=== PATIENT | female | born 2000 | race Caucasian/White ===

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

== ENCOUNTER 2022-01-12 16:19 | Emergency (ER) | payer MEDICAID, SELFPAY ==
[2022-01-12 16:29] VITALS: BP 128/84; PULSE 121; RESP 15; TEMP 37; O2SAT 100
--- NOTE | 2022-01-12 16:35 | XRR_ITS ---
PROCEDURE INFORMATION: Exam: XR Chest Exam date and time: 01/12/2022 4:58 PM Age: 21 years old Clinical indication: Pain; Chest pressure; Additional info: Palpitations TECHNIQUE: Imaging protocol: Radiologic exam of the chest. Views: 1 view. COMPARISON: CR (CHEST, ) 11/28/2021 9:50 PM FINDINGS: Lungs: Unremarkable. No consolidation. Pleural spaces: Unremarkable. No pleural effusion. No pneumothorax. Heart/Mediastinum: Right ventricular peritoneal shunt seen extending over the thorax. Bones/joints: Unremarkable. XR/XR chest 1V portable [id number] IMPRESSION: Lungs are clear.
--- NOTE | 2022-01-12 16:37 | W.ED.ARRPALP ---
HPI - Arrhythmia/Palpitations General: Chief Complaint: Arrhythmia/Palpitations Stated Complaint: PALPITATIONS Time Seen by Provider: 01/12/22 16:27 History of Present Illness: Patient is a 21-year-old female comes to the ED with palpitations. Past medical history of spina bifida and seizures. Patient says she was sitting around in the office and started feeling like her heart was racing. She endorses having some shortness of breath with symptoms as well. She has never had palpitations like this before. She does have a history of anxiety but says this does not feel like any of her past anxiety episodes. Denies any chest pain. Associated symptoms: Deny nausea or vomiting Review of Systems Const: Denies: fever(s), chills or fatigue Eyes: Denies: change in vision or eye discomfort ENMT: Denies: throat pain, odynophagia, nasal discharge or nasal congestion Card: Reports: palpitations; Denies: chest pain, edema, swelling of feet/ankles, dyspnea on exertion or orthopnea Resp: Reports: dyspnea; Denies: productive cough or non-productive cough GI: Denies: abdominal pain, nausea, vomiting, diarrhea, constipation or hematochezia : Denies: flank pain, dysuria or hematuria Musc: Denies: neck pain, back pain or extremity swelling Skin/Breast: Denies: rash or new lesions Neuro: Denies: headache(s), numbness in extremities or weakness in extremities PFS ED PFSH: Medical History Common migraine with intractable migraine Intellectual disability Psychiatric care 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 Social History Smoking and tobacco status: current every day smoker Quit status (tobacco): has quit using tobacco Year quit tobacco: 2020 Second hand smoke exposure: Yes Alcohol intake: never Female Reproductive History: Date of last menstrual period: 10/29/21 Physical Exam Const: COMMON NORMALS: no acute distress, patient oriented x3, healthy appearing and alert GENERAL APPEARANCE: cooperative and comfortable HENMT: COMMON NORMALS: normocephalic HEAD & SCALP: normocephalic MOUTH: Normal oral and palatal mucosa present THROAT: posterior oropharynx normal and uvula midline Neck/C-Spine: COMMON NORMALS: supple GENERAL: Yes normal visual inspection Resp: COMMON NORMALS: normal respiratory effort, No retractions, No use of accessory muscles and clear to auscultation bilaterally AUSCULTATION: clear to auscultation bilaterally Cardio: COMMON NORMALS: regular rhythm, S1 normal heart sound present, S2 normal heart sound present, No gallops present (Cardio), No clicks present (Cardio), No murmurs present (Cardio) and Peripheral pulses 2+ throughout RATE: tachycardic RHYTHM: regular rhythm HEART SOUNDS: S1 normal heart sound present and S2 normal heart sound present PERIPHERAL PULSES: Peripheral pulses 2+ throughout OTHER: Patient is tachycardic with a rate of around 125bpm GI: COMMON NORMALS: Normal to inspection, nondistended, normoactive bowel sounds present, Soft to palpation, non-tender and no masses PALPATION: Yes Soft to palpation : COMMON NORMALS: Yes no CVA tenderness BLADDER/KIDNEY EXAM: Yes no CVA tenderness Back/Pelvis: COMMON NORMALS: no CVA tenderness Extremity: COMMON NORMALS: no pedal edema Neuro: COMMON NORMALS: patient oriented x3 SENSORIUM/ORIENTATION: Yes alert GAIT: Yes Normal gait present Skin: GENERAL SKIN EXAM: dry skin Course ED course: Her symptoms improved after getting some IV fluids and Ativan. Vital Signs: Vital signs: Vital Signs Temperature 98.6 F 01/12/22 16:29 Pulse Rate 109 H 01/12/22 17:46 Respiratory Rate 27 H 01/12/22 17:46 Blood Pressure 128/84 01/12/22 16:29 Pulse Oximetry 100 01/12/22 17:46 Oxygen Delivery Me thod 01/12/22 17:46 MDM - Arrhythmia/Palpitations Medical Decision Making Patient is a 21-year-old female comes to the ED with palpitations. Past medical history of spina bifida and seizures. Patient says she was sitting around in the office and started feeling like her heart was racing. Denies any chest pain. Patient's pulse is around 115-120. Rest of her vitals are stable. Upon exam patient does have a tachycardic heart rate but rest of exam is benign. CBC and CMP were unremarkable. Troponin negative barium EKG showed sinus tachycardia with no ST segment elevation depression seen. Chest x-ray showed no acute findings. Patient was given dose of Ativan and half a liter of IV fluids and her heart rate went down to 100 bpm. She stated that she was feeling better as well. She needed a refill on her Topamax prescription, so I discharged her home with a refill prescription. I also placed an order with case management for patient to be set up with an appointment with Dr. Sánchez because she has been trying to call and set up an appointment has not been able to get through. Return ED precautions given. Patient understood and agreed with plan Lab Data I reviewed the patient's lab results. : 01/12/22 16:54 01/12/22 16:54 Radiology Impressions Chest X-Ray 01/12/22 16:35 IMPRESSION: Lungs are clear. Laboratory Results WBC 6.4 10^3/uL (4.5-13.0) 01/12/22 16:54 RBC 4.46 10^6/uL (4.1-5.3) 01/12/22 16:54 Hgb 12.9 g/dL (11.5-15.3) 01/12/22 16:54 Hct 39.1 % (37.0-47.0) 01/12/22 16:54 MCV 87.7 fl (81-99) 01/12/22 16:54 MCH 28.9 pg (28.0-34.0) 01/12/22 16:54 MCHC 33.0 g/dL (30.0-36.0) 01/12/22 16:54 RDW 11.9 % (12.1-15.1) L 01/12/22 16:54 Plt Count 213 10^3/cmm (130-400) 01/12/22 16:54 MPV 11.4 fL (7.4-10.4) H 01/12/22 16:54 Neut % (Auto) 61.7 % 01/12/22 16:54 Lymph % (Auto) 32.5 % 01/12/22 16:54 Nicholas % (Auto) 4.2 % 01/12/22 16:54 Eos % (Auto) 0.8 % 01/12/22 16:54 Baso % (Auto) 0.5 % 01/12/22 16:54 Neut # (Auto) 3.97 10^3/uL (1.8-8.0) 01/12/22 16:54 Lymph # (Auto) 2.1 10^3/uL (1.5-6.5) 01/12/22 16:54 Nicholas # (Auto) 0.3 10^3/uL (0.2-0.9) 01/12/22 16:54 Eos # (Auto) 0.1 10^3/uL (0.0-0.8) 01/12/22 16:54 Baso # (Auto) 0.0 10^3/uL (0.0-0.1) 01/12/22 16:54 Nucleated RBC % (auto) 0 % 01/12/22 16:54 Nucleated RBCs # 0.0 /100WBC 01/12/22 16:54 Sodium 139 mmol/L (136-145) 01/12/22 16:54 Potassium 4.0 mmol/L (3.5-5.1) 01/12/22 16:54 Chloride 107 mmol/L (98-107) 01/12/22 16:54 Carbon Dioxide 15 mmol/L (22-29) L 01/12/22 16:54 Anion Gap 21.0 (5-19) H 01/12/22 16:54 BUN 10 mg/dL (6-20) 01/12/22 16:54 Creatinine 0.9 mg/dL (0.5-0.9) 01/12/22 16:54 GFR Calculation 80.7 mL/min (90-130) L 01/12/22 16:54 Glucose 111 mg/dL (65-115) 01/12/22 16:54 Calculated Osmolality 288 mOsm/kg (285-295) 01/12/22 16:54 Calcium 9.1 mg/dL (8.5-10.5) 01/12/22 16:54 Total Bilirubin 0.3 mg/dL (0.15-1.2) 01/12/22 16:54 AST 16 U/L (0-32) 01/12/22 16:54 ALT 15 U/L (0-33) 01/12/22 16:54 Alkaline Phosphatase 78 U/L (35-105) 01/12/22 16:54 Troponin T Baseline 8 ng/L (0-10) 01/12/22 16:54 Total Protein 6.8 g/dL (6.6-8.7) 01/12/22 16:54 Albumin 4.3 g/dL (3.5-5.2) 01/12/22 16:54 Globulin 2.5 g/dL (1.3-4.6) 01/12/22 16:54 EKG Data EKG 1: EKG interpretation date: 01/12/22 Interpretation: Sinus tachycardia, 102 bpm, no ST segment elevation or depression seen. Other EKG comments: Chest X-Ray 01/12/22 16:35 IMPRESSION: Lungs are clear. Discharge Plan Discharge Patient Disposition: Home Clinical Impression: Palpitations Condition: Stable Prescriptions: New Topamax 50 mg tablet 50 mg PO BID Qty: 60 0RF No Action medroxyprogesterone 150 mg/mL suspension 150 mg IM .Q 3 Months naproxen 500 mg tablet 500 mg PO BID PRN (Reason: pain) zonisamide 100 mg capsule See Rx Instructions .ROUTE .COMPLEX Qty: 120 0RF Dose Instruction: TAKE FOUR CAPSULES BY MOUTH EVERY DAY; take with LUNCH Rx Instructions: TAKE FOUR CAPSULES BY MOUTH EVERY DAY; take with LUNCH trazodone 100 mg tablet 100 mg PO BEDTIME Qty: 30 2RF duloxetine 60 mg capsule,delayed release(DR/EC) 120 mg PO DAILY Qty: 60 2RF topiramate [Topamax] 50 mg tablet 50 mg PO BID 90 Days Qty: 180 0RF cetirizine 10 mg tablet 10 mg PO DAILY@2100 diphenhydramine HCl [Benadryl Allergy] 25 mg tablet 25 mg PO Q8H PRN (Reason: headache) Qty: 10 0RF Rx Instructions: taken with reglan metoclopramide HCl [Reglan] 10 mg tablet 10 mg PO Q8H PRN (Reason: migraine headache) Qty: 10 0RF Rx Instructions: taken with benadryl meclizine 25 mg tablet 25 mg PO TID PRN (Reason: dizziness) Qty: 20 0RF hydroxyzine HCl 10 mg Tablet 10 mg PO QPM PRN (Reason: Itching) celecoxib 200 mg Capsule 200 mg PO BID PRN (Reason: Pain) sumatriptan succinate 100 mg Tablet See Rx Instructions .ROUTE .COMPLEX Rx Instructions: 100 mg orally ;take 1 tab at onset of headache; if no relief, may repeat 1 tab after at least 2 hrs; max = 2 tabs/24 hrs acetaminophen 500 mg Tablet 1,000 mg PO Q6H PRN (Reason: Pain) Banophen 25 mg Tablet 25 mg PO Q8H PRN (Reason: Headache) ibuprofen 600 mg Tablet 600 mg PO Q6H PRN (Reason: Pain) ondansetron 4 mg Tablet,Disintegrating 4 mg PO Q6H PRN (Reason: Nausea) cyclobenzaprine 5 mg Tablet See Rx Instructions .ROUTE .COMPLEX PRN (Reason: Muscle Spasm) Rx Instructions: 1 and a 1/2 tabs po bid prn Multivitamin Gummies 200 mcg Tablet,Chewable 1 tab PO DAILY Myrbetriq 50 mg Tablet Extended Release 24 Hr 50 mg PO DAILY Artificial Tears (cmc) 1 % Drops 1 drp OPHTHALMIC (EYE) BID Miralax 17 gram powder in packet 17 g PO BID Qty: 30 0RF Discharge Orders: Discharge ED (Routine); Ordered 01/12/22 Ordered By: Harpal Aden Referrals: Fransisca Flores FNP [Primary Care Provider] - Discharge Diet: Regular Discharge Activity: Increase activity as tolerated Patient Instructions: Heart Palpitations (ED) Activity Restrictions/Additional Instructions: Follow-up with medical provider as directed in the next 5 to 7 days for reevaluation. Take medications as prescribed. Return to the ER or your medical provider if condition worsens. Please read and understand discharge instructions. Thank you for choosing [facility] for your healthcare needs today. Please realize this is an emergency room and that we are providing you with a medical screening exam and this may not be complete and all inclusive of all the testing and or work up that you may need to determine your ailment or severity of your illness. It is very important that you follow up as instructed or that you return to the Emergency Department should you have concerns or if your condition changes or worsens in any way. Coding Level of Care Code ED Pulp Mill Supervisor for Jordana Chiu Exam Comprehensive
[2022-01-12] MEDS: LORazepam 0.5 mg Tablet PO (16:53)
[2022-01-12] MEDS: sodium chloride 0.9% 500 ML 999 ML IV (16:54)
[2022-01-12 17:04] LABS: Basophils % 0.5 %; Eosinophils # 0.1 10^3/uL (0.0-0.8); Eosinophils % 0.8 %; Hematocrit 39.1 % (37.0-47.0); Hemoglobin 12.9 g/dL (11.5-15.3); Lymphocytes # 2.1 10^3/uL (1.5-6.5); Lymphocytes % 32.5 %; Mean Corpuscular Hemoglobin 28.9 pg (28.0-34.0); Mean Corpuscular Volume 87.7 fl (81-99); Mean Platelet Volume 11.4 fL (7.4-10.4); Monocytes # 0.3 10^3/uL (0.2-0.9); Monocytes % 4.2 %; Neutrophils # 3.97 10^3/uL (1.8-8.0); Neutrophils % 61.7 %; Nucleated Red Blood Cells % 0 %; Platelet Count 213 10^3/cmm (130-400); Red Blood Count 4.46 10^6/uL (4.1-5.3); Red Cell Distribution Width 11.9 % (12.1-15.1); White Blood Count 6.4 10^3/uL (4.5-13.0)
--- NOTE | 2022-01-12 17:27 | ECG_ITS ---
[facility] Test Date: 2022-01-12 Pat Name: Nithya Vigil Department: Room: Gender: Female Fight Manager: : 2000 Requested By: Harpal Aden Order Number: [id number] Ca MD: Feliciano Pop M.D. Measurements Intervals [place] Rate: 102 P: 119 IA: 145 QRS: -18 QRSD: 102 T: 19 QT: 323 QTc: 422 Interpretive Statements SINUS TACHYCARDIA Right ventricular conduction delay ABNORMAL RHYTHM ECG Compared to ECG 11/29/2021 00:18:13 Sinus rhythm no longer present Myocardial infarct finding no longer present Electronically Signed On 01-13-2022 10:15:14 CDT by Feliciano Pop M.D. [id number]
[2022-01-12 17:32] LABS: Alanine Aminotransferase 15 U/L (0-33); Albumin Level 4.3 g/dL (3.5-5.2); Alkaline Phosphatase 78 U/L (35-105); Blood Urea Nitrogen 10 mg/dL (6-20); Calcium 9.1 mg/dL (8.5-10.5); Carbon Dioxide 15 mmol/L (22-29); Chloride 107 mmol/L (98-107); Globulin 2.5 g/dL (1.3-4.6); Glomerular Filtration Rate 80.7 mL/min (90-130); Glucose 111 mg/dL (65-115); Osmolality Calculated 288 mOsm/kg (285-295); Sodium 139 mmol/L (136-145); Total Bilirubin 0.3 mg/dL (0.15-1.2); Total Protein 6.8 g/dL (6.6-8.7)
[2022-01-12 17:33] LABS: Troponin(5th) Baseline 8 ng/L (0-10)
[2022-01-12 17:35] LABS: Aspartate Amino Transferase 16 U/L (0-32)
[2022-01-12 17:44] VITALS: PULSE 1
[2022-01-12 17:46] VITALS: PULSE 109; RESP 27; O2SAT 100
--- NOTE | 2022-01-15 14:34 | DCPLANNER ---
Addendum entered by Maliha Vargas 03/06/22 11:40: Patient had a follow up appointment scheduled with neurology - patient did attend appointment Addendum entered by Maliha Vargas 01/24/22 14:26: Patient has a follow up appointment scheduled for Friday, January 30, 2022 at 9:[address] Sánchez at neurology. Clinic will call patient with appointment information. Original Note: assistant general manager had message to schedule a follow up appointment for patient with neurology. assistant general manager sent patients information to the front office staff at neurology. Patients information will be printed and reviewed. Clinic will call patient with appointment information.
== END 2022-01-12 18:45 | disposition home or self-care (01) ==
PROVIDERS: Emergency Provider Physician Assistant; PCP Nurse Practitioner Family
DX: R00.2 Palpitations (principal); F17.210 Nicotine dependence, cigarettes, uncomplicated
CPT/HCPCS: 71045; 80053; 84484; 85025; 93005; 96360; 99285; J7040

== ENCOUNTER 2022-01-18 21:37 | Emergency (ER) | payer MEDICAID, SELFPAY ==
[2022-01-18 21:45] VITALS: BP 130/77; PULSE 101; RESP 18; TEMP 37.1; O2SAT 97; BMI 28.5
--- NOTE | 2022-01-18 22:33 | ED_ITS ---
HPI - Seizure General: Chief Complaint: Seizure Stated Complaint: WEAKNESS Time Seen by Provider: 01/18/22 22:30 History of Present Illness: HPI Narrative: 21-year-old female comes in today for complaints of not being able to get refills on her medication for seizures due to insurance noncoverage. Patient reports being without medication for 2 to 3 days. Patient is alert and oriented. Patient reports that she feels tired after her seizures. Patient den ies any fever or nausea or vomiting. Patient appears nontoxic. Patient appears in no pain. No witnesses to the seizure activity was reported by EMS. Patient just complaints of feeling tired which is usual for her after seizure. 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 Social History Smoking and tobacco status: current every day smoker Quit status (tobacco): has quit using tobacco Year quit tobacco: 2020 Second hand smoke exposure: Yes Alcohol intake: never Female Reproductive History: Date of last menstrual period: 10/29/21 Physical Exam Const: COMMON NORMALS: alert HENMT: COMMON NORMALS: atraumatic HEAD & SCALP: atraumatic MOUTH: Normal oral and palatal mucosa present and tongue normal Neck/C-Spine: COMMON NORMALS: full ROM Resp: COMMON NORMALS: normal respiratory effort Cardio: COMMON NORMALS: regular rate and regular rhythm RATE: regular rate RHYTHM: regular rhythm Back/Pelvis: COMMON NORMALS: thoracic and lumbar spine normal to inspection Extremity: COMMON NORMALS: normal to inspection Neuro: SENSORIUM/ORIENTATION: Yes alert Skin: COMMON NORMALS: turgor normal GENERAL SKIN EXAM: turgor normal Course Vital Signs: Vital signs: Vital Signs Temperature 98.7 F 01/18/22 21:45 Pulse Rate 110 H 01/18/22 23:07 Respiratory Rate 18 01/18/22 23:07 Blood Pressure 134/94 01/18/22 23:07 Pulse Oximetry 99 01/18/22 23:07 Oxygen Delivery Me thod 01/18/22 21:45 MDM - Seizure MDM Narrative Medical decision making narrative: Patient was brought in by EMS for concerns of fatigue. Patient believes that she has had 2 seizures which is caused her fatigue. Patient denies any nausea vomiting or fever. Patient has a history of seizures but is unable to get her medications due to noncoverage by insurance. On exam abdomen soft nontender. Skin is warm and dry. No signs of injury is noted. No abrasions or injuries are noted to the tongue or buccal area. Patient does have a history of spina bifida and limited mobility. Differential diagnosis includes but not limited to seizures, malingering, anxiety, out of medication. CBC was unremarkable. Urinalysis did have nitrates and a large amount of white blood cells. Patient be treated off her last culture done at 15 December which had bacteria that was susceptible to sulfa trimethoprim. Reviewed exam with patient with recommendations for follow-up with primary care regarding her inability to fill medications for her seizures. Recommend return to the ER as needed. Patient reported understanding. Lab Data Result diagrams: 01/18/22 23:00 01/18/22 23:00 Labs: Laboratory Results WBC 8.4 10^3/uL (4.5-13.0) 01/18/22 23:00 RBC 4.74 10^6/uL (4.1-5.3) 01/18/22 23:00 Hgb 13.5 g/dL (11.5-15.3) 01/18/22 23:00 Hct 41.9 % (37.0-47.0) 01/18/22 23:00 MCV 88.4 fl (81-99) 01/18/22 23:00 MCH 28.5 pg (28.0-34.0) 01/18/22 23:00 MCHC 32.2 g/dL (30.0-36.0) 01/18/22 23:00 RDW 12.1 % (12.1-15.1) 01/18/22 23:00 Plt Count 296 10^3/cmm (130-400) 01/18/22 23:00 MPV 9.9 fL (7.4-10.4) 01/18/22 23:00 Neut % (Auto) 58.5 % 01/18/22 23:00 Lymph % (Auto) 30.5 % 01/18/22 23:00 [place] % (Auto) 8.8 % 01/18/22 23:00 Eos % (Auto) 1.4 % 01/18/22 23:00 Baso % (Auto) 0.4 % 01/18/22 23:00 Neut # (Auto) 4.95 10^3/uL (1.8-8.0) 01/18/22 23:00 Lymph # (Auto) 2.6 10^3/uL (1.5-6.5) 01/18/22 23:00 [place] # (Auto) 0.7 10^3/uL (0.2-0.9) 01/18/22 23:00 Eos # (Auto) 0.1 10^3/uL (0.0-0.8) 01/18/22 23:00 Baso # (Auto) 0.0 10^3/uL (0.0-0.1) 01/18/22 23:00 Nucleated RBC % (auto) 0 % 01/18/22 23:00 Nucleated RBCs # 0.0 /100WBC 01/18/22 23:00 Urine Color Yellow (Yellow) 01/18/22 23:00 Urine Appearance Cloudy (CLEAR) A 01/18/22 23:00 Urine pH 8 (5-7) H 01/18/22 23:00 Ur Specific [place] 1.010 (1.005-1.030) 01/18/22 23:00 Urine Protein 1+ (Negative) H 01/18/22 23:00 Urine Glucose (UA) Norm (Normal) 01/18/22 23:00 Urine Ketones Negative (Negative) 01/18/22 23:00 Urine Blood 2+ (Negative) H 01/18/22 23:00 Urine Nitrate Positive (Negative) H 01/18/22 23:00 Urine Bilirubin Neg (Negative) 01/18/22 23:00 Prot Sulfosalicylic Acd Positive (Negative) 01/18/22 23:00 Urine Urobilinogen Norm mg/dL (Negative) 01/18/22 23:00 Ur Leukocyte Esterase 2+ (Negative) H 01/18/22 23:00 Urine RBC 10-15 /hpf (0-2) H 01/18/22 23:00 Urine WBC 80-100 /hpf (0-5) H 01/18/22 23:00 Ur Squamous Epith Cells 0-4 /hpf (0-5) H 01/18/22 23:00 Triple Phos Crystals 0-4 /hpf H 01/18/22 23:00 Amorphous Sediment Not Reportable 01/18/22 23:00 Urine Bacteria 3+ /hpf (NONE) H 01/18/22 23:00 Discharge Plan Discharge Patient Disposition: Home Clinical Impression: UTI (urinary tract infection) Qualifiers: Urinary tract infection type: site unspecified Hematuria presence: without hematuria Qualified Code(s): N39.0 - Urinary tract infection, site not specified Condition: Stable Prescriptions: New sulfamethoxazole-trimethoprim 800-160 mg tablet 1 tab PO DAILY 5 Days Qty: 10 0RF No Action medroxyprogesterone 150 mg/mL suspension 150 mg IM .Q 3 Months naproxen 500 mg tablet 500 mg PO BID PRN (Reason: pain) trazodone 100 mg tablet 100 mg PO BEDTIME Qty: 30 2RF duloxetine 60 mg capsule,delayed release(DR/EC) 120 mg PO DAILY Qty: 60 2RF zonisamide 100 mg capsule See Rx Instructions .ROUTE .COMPLEX Qty: 120 0RF Dose Instruction: TAKE FOUR CAPSULES BY MOUTH EVERY DAY; take with LUNCH Rx Instructions: TAKE FOUR CAPSULES BY MOUTH EVERY DAY; take with LUNCH topiramate [Topamax] 50 mg tablet 50 mg PO BID 90 Days Qty: 180 0RF cetirizine 10 mg tablet 10 mg PO DAILY@2100 diphenhydramine HCl [Benadryl Allergy] 25 mg tablet 25 mg PO Q8H PRN (Reason: headache) Qty: 10 0RF Rx Instructions: taken with reglan metoclopramide HCl [Reglan] 10 mg tablet 10 mg PO Q8H PRN (Reason: migraine headache) Qty: 10 0RF Rx Instructions: taken with benadryl meclizine 25 mg tablet 25 mg PO TID PRN (Reason: dizziness) Qty: 20 0RF hydroxyzine HCl 10 mg Tablet 10 mg PO QPM PRN (Reason: Itching) celecoxib 200 mg Capsule 200 mg PO BID PRN (Reason: Pain) sumatriptan succinate 100 mg Tablet See Rx Instructions .ROUTE .COMPLEX Rx Instructions: 100 mg orally ;take 1 tab at onset of headache; if no relief, may repeat 1 tab after at least 2 hrs; max = 2 tabs/24 hrs acetaminophen 500 mg Tablet 1,000 mg PO Q6H PRN (Reason: Pain) Banophen 25 mg Tablet 25 mg PO Q8H PRN (Reason: Headache) ibuprofen 600 mg Tablet 600 mg PO Q6H PRN (Reason: Pain) ondansetron 4 mg Tablet,Disintegrating 4 mg PO Q6H PRN (Reason: Nausea) cyclobenzaprine 5 mg Tablet See Rx Instructions .ROUTE .COMPLEX PRN (Reason: Muscle Spasm) Rx Instructions: 1 and a 1/2 tabs po bid prn Multivitamin Gummies 200 mcg Tablet,Chewable 1 tab PO DAILY Myrbetriq 50 mg Tablet Extended Release 24 Hr 50 mg PO DAILY Artificial Tears (cmc) 1 % Drops 1 drp OPHTHALMIC (EYE) BID Miralax 17 gram powder in packet 17 g PO BID Qty: 30 0RF Topamax 50 mg tablet 50 mg PO BID Qty: 60 0RF Discharge Orders: Discharge ED (Routine); Ordered 01/18/22 Ordered By: James Calix Referrals: Fransisca Flores FNP [Primary Care Provider] - Discharge Diet: Usual diet Discharge Activity: Increase activity as tolerated Patient Instructions: Urinary Tract Infection in Women (ED) Activity Restrictions/Additional Instructions: Follow-up with primary care office on Friday morning. Discussed with primary care provider medications and other options available that insurance will cover. Take antibiotic as directed for urinary tract infection. Return to ER for new concerns. Coding Level of Care Code ED Painting Machine Operator for Jordana Fwana paula Exam Comprehensive
[2022-01-18 23:07] VITALS: BP 134/94; PULSE 110; RESP 18; O2SAT 99
[2022-01-18 23:15] LABS: Basophils % 0.4 %; Eosinophils # 0.1 10^3/uL (0.0-0.8); Eosinophils % 1.4 %; Hematocrit 41.9 % (37.0-47.0); Hemoglobin 13.5 g/dL (11.5-15.3); Lymphocytes # 2.6 10^3/uL (1.5-6.5); Lymphocytes % 30.5 %; Mean Corpuscular HGB Conc 32.2 g/dL (30.0-36.0); Mean Corpuscular Hemoglobin 28.5 pg (28.0-34.0); Mean Corpuscular Volume 88.4 fl (81-99); Mean Platelet Volume 9.9 fL (7.4-10.4); Monocytes # 0.7 10^3/uL (0.2-0.9); Monocytes % 8.8 %; Neutrophils # 4.95 10^3/uL (1.8-8.0); Neutrophils % 58.5 %; Nucleated Red Blood Cells % 0 %; Platelet Count 296 10^3/cmm (130-400); Red Blood Count 4.74 10^6/uL (4.1-5.3); Red Cell Distribution Width 12.1 % (12.1-15.1); White Blood Count 8.4 10^3/uL (4.5-13.0)
[2022-01-18] MEDS: levETIRAcetam 500 mg Tablet PO (23:18)
[2022-01-18] MEDS: LORazepam 0.5 mg Tablet PO (23:18)
[2022-01-18 23:22] LABS: Leukocyte Esterase Urine 2+ (Negative); Nitrate Urine Positive (Negative); Urine Appearance Cloudy (CLEAR); Urine Color Yellow (Yellow); pH Urine 8 (5-7)
[2022-01-18 23:23] LABS: Add Urine Microscopic? YES; Bilirubin Urine Neg (Negative); Blood Urine 2+ (Negative); Glucose Urine UA Norm (Normal); Ketones Urine Negative (Negative); Protein Urine 1+ (Negative); Sulfosalicylic Acid Urine Positive (Negative); Urobilinogen Urine Norm (Negative)
[2022-01-18 23:25] LABS: Add Urine Culture? Yes; Bacteria Urine 3+ /hpf; Squamous Epithelial Cell Urine 0-4 /hpf (0-5); Triple Phosphate Crystal Urine 0-4 /hpf; WBC Urine 80-100 /hpf (0-5)
[2022-01-18 23:35] LABS: HCG, Serum Qual Negative (Negative)
[2022-01-18] MEDS: sulfamethoxazole-trimeth DS 160-800 mg Tablet 1 TAB PO (23:45)
[2022-01-18 23:54] VITALS: BP 120/95; PULSE 108; RESP 16; O2SAT 95
[2022-01-18 23:54] LABS: Procalcitonin 0.02 ng/mL (0-0.5)
[2022-01-19 00:05] LABS: Alanine Aminotransferase 13 U/L (0-33); Albumin Level 4.4 g/dL (3.5-5.2); Alkaline Phosphatase 82 U/L (35-105); Anion Gap 17.8 (5-19); Aspartate Amino Transferase 12 U/L (0-32); Blood Urea Nitrogen 15 mg/dL (6-20); Calcium 9.4 mg/dL (8.5-10.5); Carbon Dioxide 21 mmol/L (22-29); Chloride 106 mmol/L (98-107); Globulin 3.3 g/dL (1.3-4.6); Glomerular Filtration Rate 80.7 mL/min (90-130); Glucose 84 mg/dL (65-115); Osmolality Calculated 292 mOsm/kg (285-295); Potassium 3.8 mmol/L (3.5-5.1); Sodium 141 mmol/L (136-145); Total Bilirubin 0.5 mg/dL (0.15-1.2); Total Protein 7.7 g/dL (6.6-8.7)
== END 2022-01-18 23:50 | disposition home or self-care (01) ==
PROVIDERS: Emergency Provider Nurse Practitioner Family; PCP Nurse Practitioner Family
DX: N39.0 Urinary tract infection, site not specified (principal); F17.210 Nicotine dependence, cigarettes, uncomplicated
CPT/HCPCS: 80053; 81001; 84145; 84703; 85025; 87086; 99283

== ENCOUNTER 2022-01-20 13:15 | Emergency (ER) | payer MEDICAID, SELFPAY ==
[2022-01-20 13:16] VITALS: BP 145/86; PULSE 94; RESP 20; O2SAT 95
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
[2022-01-20 14:02] LABS: Basophils % 0.5 %; Eosinophils % 0.6 %; Hematocrit 40.1 % (37.0-47.0); Hemoglobin 13.2 g/dL (11.5-15.3); Lymphocytes # 1.8 10^3/uL (1.5-6.5); Lymphocytes % 28.3 %; Mean Corpuscular HGB Conc 32.9 g/dL (30.0-36.0); Mean Corpuscular Volume 88.1 fl (81-99); Mean Platelet Volume 9.6 fL (7.4-10.4); Monocytes # 0.5 10^3/uL (0.2-0.9); Monocytes % 7.1 %; Neutrophils # 4.08 10^3/uL (1.8-8.0); Neutrophils % 63.2 %; Nucleated Red Blood Cells % 0 %; Platelet Count 308 10^3/cmm (130-400); Red Blood Count 4.55 10^6/uL (4.1-5.3); Red Cell Distribution Width 12.2 % (12.1-15.1); White Blood Count 6.5 10^3/uL (4.5-13.0)
[2022-01-20 14:09] VITALS: BP 145/86; PULSE 94; RESP 20; O2SAT 95
[2022-01-20 14:17] LABS: HCG Qualitative Urine. Negative (Negative)
[2022-01-20 14:27] LABS: Urine Appearance Hazy (CLEAR); Urine Color Yellow (Yellow)
[2022-01-20 14:28] LABS: Add Urine Microscopic? YES; Bilirubin Urine Neg (Negative); Blood Urine Neg (Negative); Glucose Urine UA Norm (Normal); Ketones Urine Negative (Negative); Leukocyte Esterase Urine 1+ (Negative); Nitrate Urine Positive (Negative); Protein Urine Neg (Negative); Urobilinogen Urine Norm (Negative); pH Urine 7 (5-7)
[2022-01-20 14:29] LABS: Bacteria Urine 1+ /hpf; Squamous Epithelial Cell Urine 0-4 /hpf (0-5); WBC Urine 15-25 /hpf (0-5)
[2022-01-20 14:30] LABS: Add Urine Culture? Yes; Mucus Urine TRACE /hpf
[2022-01-20 14:36] LABS: Alanine Aminotransferase 13 U/L (0-33); Albumin Level 4.3 g/dL (3.5-5.2); Alkaline Phosphatase 82 U/L (35-105); Amphetamines Screen Urine Negative (Negative); Aspartate Amino Transferase 11 U/L (0-32); Barbiturates Screen Urine Negative (Negative); Benzodiazepines Screen Urine Positive (Negative); Blood Urea Nitrogen 11 mg/dL (6-20); Calcium 9.6 mg/dL (8.5-10.5); Carbon Dioxide 19 mmol/L (22-29); Chloride 107 mmol/L (98-107); Cocaine Screen Urine Negative (Negative); Globulin 3.1 g/dL (1.3-4.6); Glomerular Filtration Rate 80.7 mL/min (90-130); Glucose 88 mg/dL (65-115); Opiate Screen Urine Negative (Negative); Osmolality Calculated 287 mOsm/kg (285-295); PCP Screen Urine Negative (Negative); Sodium 139 mmol/L (136-145); THC Screen Urine Negative (Negative); Total Bilirubin 0.4 mg/dL (0.15-1.2); Total Protein 7.4 g/dL (6.6-8.7)
[2022-01-20 14:39] LABS: Acetaminophen < 5.0 ug/mL (10-30); Salicylate < 0.3 mg/dL (3-10)
[2022-01-20 16:28] VITALS: BP 145/86; PULSE 94; RESP 20; O2SAT 95
[2022-01-20] MEDS: acetaminophen 325 mg Tablet 650 MG PO (17:17)
[2022-01-20 18:02] VITALS: BP 145/86; PULSE 94; RESP 20; O2SAT 95
--- NOTE | 2022-01-20 18:04 | PC.NURSE ---
Pt told this RN that her mother was going to coming to get her. Patient was discharged by Vilma Sanchez RN and was taken to waiting room to wait for ride. Pt states she has been her own guardian and lives with her brother, and no longer lives in a prison. This RN called patient's mother to make sure she was on her way and her mother, Cathy, stated that pt did not ask her to come get her. The last she had heard from pt was pt calling her to tell her she was getting admitted. Reviewed discharge instructions with mother and she stated to this RN that she is on her way now to get patient.
== END 2022-01-20 18:04 | disposition home or self-care (01) ==
PROVIDERS: Emergency Provider Student in an Organized Health Care Education/Training Program; PCP Nurse Practitioner Family
DX: F43.23 Adjustment disorder with mixed anxiety and depressed mood (principal); F79 Unspecified intellectual disabilities; F17.200 Nicotine dependence, unspecified, uncomplicated
CPT/HCPCS: 80053; 80306; 80307; 81001; 81025; 85025; 87077; 87086; 87186; 99283

== ENCOUNTER 2022-02-02 17:58 | Emergency (ER) | payer MEDICAID, SELFPAY ==
[2022-02-02 18:47] VITALS: BP 120/82; PULSE 115; RESP 14; TEMP 36.9; O2SAT 98; BMI 38.0
--- NOTE | 2022-02-02 19:42 | XRR_ITS ---
PROCEDURE INFORMATION: Exam: XR Abdomen Exam date and time: 02/02/2022 9:26 PM Age: 21 years old Clinical indication: Constipation TECHNIQUE: Imaging protocol: Radiologic exam of the abdomen. Views: Frontal supine view of the abdomen. 1 View. COMPARISON: CR XR KUB [id number] 12/31/2021 2:50 PM FINDINGS: Tubes, catheters and devices: Stable right-sided percutaneous drainage catheter over the region of the right colon. Stable right-sided 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 shunt catheter. Gastrointestinal tract: Continued mild retained feces when compared with KUB dated 12/31/[address] abdomen pelvis dated 07/18/2021. Bones/joints: Dextroscoliosis. XR/XR KUB portable [id number] IMPRESSION: 1. Stable right-sided percutaneous drainage catheter over the region of the right colon. 2. Stable right-sided 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 shunt catheter. 3. Continued mild retained feces when compared with KUB dated 12/31/[address] abdomen pelvis dated 07/18/2021.
[2022-02-02 21:33] LABS: Rapid Strep A Test Negative (Negative)
--- NOTE | 2022-02-03 15:49 | ED_ITS ---
HPI - Nausea/Vomiting/Diarrhea General: Chief complaint: Nausea/Vomiting/Diarrhea Stated complaint: NAUSEA Time Seen by Provider: 02/02/22 19:30 Source: patient History of Present Illness: 21yo female with multiple medical problems. she has been nauseated and vomited a couple of times today at home. synptoms are resolved. she is concerned that one of her medications is making her this way. she also ednorses a sore throat. no fever. no abdominal pain. she also endorses constipation in that she had trouble trying to go number 2 . no other symptoms. MD elicited complaint: nausea and vomiting Pertinent past history: other Onset (ago): hour(s) Description of vomiting: food contents and watery Associated nausea: Yes Associated abdominal pain: No Relieving factors: vomiting Context: other Associated symtoms: Reports nausea; Denies altered mental status, chest pain, cough, decreased urine output, dysuria, fevers/chills, palpitations, short of breath or weakness Review of Systems Const: Denies: fever(s) ENMT: Reports: throat pain and odynophagia; Denies: uvular edema Card: Denies: chest pain or palpitations Resp: Denies: dyspnea, productive cough or non-productive cough GI: Reports: nausea and vomiting; Denies: abdominal pain : Denies: dysuria PFSH ED PFSH: Medical History Common migraine with intractable migraine Intellectual disability Psychiatric care Surgical History CLAIMS ASSOCIATE (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) shunt status Social History Smoking and tobacco status: current every day smoker Quit status (tobacco): has quit using tobacco Year quit tobacco: 2020 Second hand smoke exposure: Yes Alcohol intake: never Female Reproductive History: Date of last menstrual period: 10/29/21 Physical Exam Const: COMMON NORMALS: no acute distress EXAM LIMITATIONS: no altered mental status GENERAL APPEARANCE: cooperative; not ill appearing and not frail appearing HENMT: COMMON NORMALS: normocephalic, atraumatic and Normal external nose present HEAD & SCALP: normocephalic and atraumatic FACE & SINUS: normal facial exam and face symmetric NOSE: Normal external nose present THROAT: no uvular edema Eye: COMMON NORMALS: Equal, round and reactive pupils present and EOMs intact bilaterally PUPIL: Yes Equal, round and reactive pupils present Neck/C-Spine: GENERAL: Yes trachea midline Chest: CHEST: Yes Symmetrical chest wall rise Resp: COMMON NORMALS: normal respiratory effort, No retractions, No use of accessory muscles and clear to auscultation bilaterally AUSCULTATION: clear to auscultation bilaterally Cardio: COMMON NORMALS: regular rate and regular rhythm RATE: regular rate RHYTHM: regular rhythm GI: COMMON NORMALS: Normal to inspection, nondistended, normoactive bowel sounds present Extremity: COMMON NORMALS: no pedal edema Neuro: BEN COMA SCALE: document GCS findings Ben coma scale eye opening: Spontaneous Ben coma scale verbal response: Orientated Acworth coma scale motor response: Obey commands Acworth coma scale total score: 15 SENSORY EXAM: Yes extremities (intact) Psych: COMMON NORMALS: speech normal SPEECH: Yes normal speech Skin: COMMON NORMALS: no rashes or lesions noted GENERAL SKIN EXAM: no rashes or lesions noted Course Vital Signs: Vital signs: Vital Signs Temperature 98.4 F 02/02/22 18:47 Pulse Rate 115 H 02/02/22 18:47 Respiratory Rate 14 02/02/22 18:47 Blood Pressure 120/82 02/02/22 18:47 Pulse Oximetry 98 02/02/22 18:47 Oxygen Delivery Me thod 02/02/22 18:47 MDM - Nausea/Vomiting/Diarrhea Medical Decision Making KUB is not really remarkable. rapid strep is negative. she is encouraged to take her topiramate at a different time than her other medications if she believes that this is the culprit. to return for any new symptoms such as fever, abd pain, blood in stool, etc. Lab Data Radiology Impressions KUB X-Ray 02/02/22 19:42 IMPRESSION: 1. Stable right-sided percutaneous drainage catheter over the region of the right colon. 2. Stable right-sided 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 shunt catheter. 3. Continued mild retained feces when compared with KUB dated 12/31/[address] abdomen pelvis dated 07/18/2021. Laboratory Results Group A Strep Rapid Negative (Negative) 02/02/22 21:10 Discharge Plan Discharge Patient Disposition: Home Clinical Impression: Vomiting Condition: Stable Prescriptions: Continued ondansetron 4 mg Tablet,Disintegrating 4 mg PO Q6H PRN (Reason: Nausea) Qty: 10 0RF No Action medroxyprogesterone 150 mg/mL suspension 150 mg IM .Q 3 Months naproxen 500 mg tablet 500 mg PO BID PRN (Reason: pain) trazodone 100 mg tablet 100 mg PO BEDTIME Qty: 30 2RF duloxetine 60 mg capsule,delayed release(DR/EC) 120 mg PO DAILY Qty: 60 2RF zonisamide 100 mg capsule See Rx Instructions .ROUTE .COMPLEX Qty: 120 0RF Dose Instruction: TAKE FOUR CAPSULES BY MOUTH EVERY DAY; take with LUNCH Rx Instructions: TAKE FOUR CAPSULES BY MOUTH EVERY DAY; take with LUNCH topiramate [Topamax] 50 mg tablet 50 mg PO BID 90 Days Qty: 180 0RF cetirizine 10 mg tablet 10 mg PO DAILY@2100 diphenhydramine HCl [Benadryl Allergy] 25 mg tablet 25 mg PO Q8H PRN (Reason: headache) Qty: 10 0RF Rx Instructions: taken with reglan metoclopramide HCl [Reglan] 10 mg tablet 10 mg PO Q8H PRN (Reason: migraine headache) Qty: 10 0RF Rx Instructions: taken with benadryl meclizine 25 mg tablet 25 mg PO TID PRN (Reason: dizziness) Qty: 20 0RF hydroxyzine HCl 10 mg Tablet 10 mg PO QPM PRN (Reason: Itching) celecoxib 200 mg Capsule 200 mg PO BID PRN (Reason: Pain) sumatriptan succinate 100 mg Tablet See Rx Instructions .ROUTE .COMPLEX Rx Instructions: 100 mg orally ;take 1 tab at onset of headache; if no relief, may repeat 1 tab after at least 2 hrs; max = 2 tabs/24 hrs acetaminophen 500 mg Tablet 1,000 mg PO Q6H PRN (Reason: Pain) ibuprofen 600 mg Tablet 600 mg PO Q6H PRN (Reason: Pain) cyclobenzaprine 5 mg Tablet See Rx Instructions .ROUTE .COMPLEX PRN (Reason: Muscle Spasm) Rx Instructions: 1 and a 1/2 tabs po bid prn Multivitamin Gummies 200 mcg Tablet,Chewable 1 tab PO DAILY Myrbetriq 50 mg Tablet Extended Release 24 Hr 50 mg PO DAILY Artificial Tears (cmc) 1 % Drops 1 drp OPHTHALMIC (EYE) BID polyethylene glycol 3350 [Miralax] 17 gram powder in packet 17 g PO BID Qty: 30 0RF diclofenac sodium 1 % gel 2 g TOPICAL . DIRECTED PRN (Reason: Pain) Discharge Orders: Discharge ED (Routine); Ordered 02/02/22 Ordered By: Marciano Ramirez Referrals: Fransisca Flores, DEBONE SUPERVISOR [Primary Care Provider] - Patient Instructions: Vomiting - Adult Activity Restrictions/Additional Instructions: Take nausea medication scheduled for the next 24 hours every 6 hours while awake. Follow a liquid diet for 12 hours, then increase the diet as tolerated. You can try taking your topiramate an hour before or after your other medications, if you believe this medication is making you nauseated. Return for any problems. Coding Level of Care Code ED Header Setup Operator for Jordana Chiu
== END 2022-02-02 21:58 | disposition home or self-care (01) ==
PROVIDERS: Emergency Provider Emergency Medicine; PCP Nurse Practitioner Family
DX: R11.11 Vomiting without nausea (principal); F17.210 Nicotine dependence, cigarettes, uncomplicated
CPT/HCPCS: 74018; 87081; 87880; 99284

== ENCOUNTER → 2022-02-05 09:58 | Outpatient (BNVA) | payer MEDICAID, SELFPAY | PROVIDERS: PCP Nurse Practitioner Family; Referring Provider Emergency Medicine; Visit Provider Specialist | DX: F44.5 Conversion disorder with seizures or convulsions (principal); Z98.2 Presence of cerebrospinal fluid drainage device; F79 Unspecified intellectual disabilities; G43.711 Chronic migraine without aura, intractable, with status migrainosus; Z79.1 Long term (current) use of non-steroidal anti-inflammatories (NSAID) | CPT/HCPCS: 99215 ==

== ENCOUNTER 2022-02-12 06:45 | Outpatient (CLI) | payer MEDICAID, SELFPAY ==
--- NOTE | 2022-02-12 06:58 | US_ITS ---
WS: [id number] ULTRASOUND RENAL TECHNIQUE: Ultrasound examination of both kidneys. CLINICAL INFORMATION: RECURENT UTI COMPARISON: Ultrasound renal July 12, 2021 FINDINGS: RIGHT: Right kidney is normal in size and appearance. Echogenicity: Normal. Cortical thickness: 1.2 cm; Normal. Hydronephrosis: None. Perinephric fluid: None. Right kidney measures: 9.4 cm x 4.4 cm x 3.9 cm. LEFT: Left kidney is normal in size and appearance. Echogenicity: Normal. Cortical thickness: 1.3 cm; Normal. Hydronephrosis: None. Perinephric fluid: None. Left kidney measures: 10.1 cm x 4.6 cm x 5.1 cm. Normal visualized aorta. Bladder decompressed. Mild diffuse bladder wall thickening. US/US renal BI* [id number] IMPRESSION: 1. No hydronephrosis in either kidney. 2. Mild diffuse bladder wall thickening. Bladder is decompressed. 3. No other remarkable findings.
== END 2022-02-12 06:46 | disposition home or self-care (01) ==
LOC: RAD 06:45
PROVIDERS: PCP Nurse Practitioner Family; Visit Provider Urology
DX: N39.0 Urinary tract infection, site not specified (principal)
CPT/HCPCS: 76770

== ENCOUNTER 2022-02-27 16:38 | Emergency (ER) | payer MEDICARE, MEDICAID, SELFPAY ==
[2022-02-27 16:39] VITALS: BP 124/84; PULSE 112; RESP 18; TEMP 36.8; O2SAT 97; BMI 24.0
--- NOTE | 2022-02-27 17:10 | ED_ITS ---
HPI - Headache General: Chief Complaint: Headache Stated Complaint: HEADACHE Time Seen by Provider: 02/27/22 16:45 Source: patient Mode of arrival: EMS History of Present Illness: 22-year-old female with a history of a IMPORTER OR EXPORTER shunt that was placed when she was a child. She has a spina bifida comes in today complaining of a headache she had taken some Tylenol with no relief. Patient is generally well by her wheelchair-bound because of her spina bifida. She has frequent headaches. She is concerned her's shunt is not working. MD elicited complaint: headache Onset (ago): hour(s) Onset description: suddenly Location: right and frontal Quality & Timing: throbbing Exacerbating factors: none Relieving factors: nothing Associated symptoms: Deny chest pain, confusion, cough, diaphoresis, eye pain, eye redness, fever(s), lightheadedness, loss of vision, malaise, nausea, neck stiffness, numbness, paresthesias, photophobia, pre-syncope, rash, seizures, short of breath, sound sensitivity, syncope, vomiting or weakness Treatments prior to arrival: none Review of Systems Const: Denies: fever(s), chills, fatigue, malaise or diaphoresis ENMT: Denies: throat pain, ear or mastoid pain, nasal discharge or nasal congestion Card: Denies: chest pain, palpitations, irregular heart rhythm, edema, lightheadedness, syncope or pre-syncope Resp: Denies: dyspnea, productive cough or non-productive cough GI: Denies: nausea or vomiting : Denies: flank pain, difficulty voiding, dysuria, urinary frequency or urinary urgency Skin/Breast: Denies: rash Neuro: Reports: headache(s); Denies: confusion PFSH ED PFSH: Medical History Common migraine with intractable migraine Intellectual disability Psychiatric care Surgical History IMPORTER OR EXPORTER (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) shunt status Social History Smoking and tobacco status: current every day smoker Quit status (tobacco): has quit using tobacco Year quit tobacco: 2020 Second hand smoke exposure: Yes Alcohol intake: never Female Reproductive History: Date of last menstrual period: 10/29/21 Physical Exam Const: GENERAL APPEARANCE: cooperative and comfortable ORIENTATION/CONSCIOUSNESS: Yes awake, Yes oriented to person, Yes oriented to place and Yes oriented to time HENMT: COMMON NORMALS: normocephalic, atraumatic, hearing grossly normal bilaterally, external ears normal, EAC's normal, TM's normal bilaterally, Normal nasal mucous membranes and turbinates present, moist oral mucous membranes and oropharynx normal HEAD & SCALP: normocephalic and atraumatic NOSE: Normal nasal mucous membranes and turbinates present EXTERNAL EAR: Yes external ears normal EXTERNAL AUDITORY CANAL: EAC's normal TYMPANIC MEMBRANE: TM's normal bilaterally Eye: COMMON NORMALS: Equal, round and reactive pupils present, EOMs intact bilaterally, conjunctivae normal and no scleral icterus CONJUNCTIVA: Yes conjunctivae normal PUPIL: Yes Equal, round and reactive pupils present DIRECT OPHTHALMOSCOPY: No photophobia Resp: COMMON NORMALS: normal respiratory effort, No retractions, No use of accessory muscles and clear to auscultation bilaterally AUSCULTATION: clear to auscultation bilaterally Cardio: COMMON NORMALS: regular rate, regular rhythm and No murmurs present (Cardio) RATE: regular rate RHYTHM: regular rhythm GI: COMMON NORMALS: Soft to palpation and No hepatosplenomegaly present AUSCULTATION: Yes normoactive bowel sounds PALPATION: Yes Soft to palpation, No Tenderness to palpation present (GI), No Guarding due to palpation present (GI) and Yes No hepatosplenomegaly present Extremity: COMMON NORMALS: normal to inspection, capillary refill normal, no clubbing, cyanosis or edema, no calf tenderness and no pedal edema Neuro: SENSORIUM/ORIENTATION: Yes oriented to person, Yes oriented to place and Yes oriented to time Skin: COMMON NORMALS: no rashes or lesions noted GENERAL SKIN EXAM: no rashes or lesions noted Course Vital Signs: Vital signs: Vital Signs Temperature 98.3 F 02/27/22 16:39 Pulse Rate 112 H 02/27/22 16:39 Respiratory Rate 18 02/27/22 16:39 Blood Pressure 124/84 02/27/22 16:39 Pulse Oximetry 97 02/27/22 16:39 Oxygen Delivery Me thod 02/27/22 16:39 MDM - Headache Medical Decision Making Shunt series normal. Phenergan and ketorolac for headache. Discharge patient home follow-up with primary care. Medical Records I reviewed the patient's medical records. Lab Data I reviewed the patient's lab results. Radiology Impressions Imaging Shunt Series 02/27/22 17:10 IMPRESSION: IMPORTER OR EXPORTER shunt catheter as described. No acute findings otherwise. Discharge Plan Discharge Patient Disposition: Home Clinical Impression: Headache, IMPORTER OR EXPORTER (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) shunt status, Spina bifida Condition: Stable Prescriptions: No Action medroxyprogesterone 150 mg/mL suspension 150 mg IM .Q 3 Months sumatriptan succinate 100 mg tablet 100 mg PO ONCE Qty: 10 3RF trazodone 100 mg tablet 100 mg PO BEDTIME Qty: 30 2RF duloxetine 60 mg capsule,delayed release(DR/EC) 120 mg PO DAILY Qty: 60 2RF cetirizine 10 mg tablet 10 mg PO DAILY@2100 diphenhydramine HCl [Benadryl Allergy] 25 mg tablet 25 mg PO Q8H PRN (Reason: headache) Qty: 10 0RF Rx Instructions: taken with reglan metoclopramide HCl [Reglan] 10 mg tablet 10 mg PO Q8H PRN (Reason: migraine headache) Qty: 10 0RF Rx Instructions: taken with benadryl ondansetron 4 mg Tablet,Disintegrating 4 mg PO Q6H PRN (Reason: Nausea) Qty: 10 0RF acetaminophen 500 mg Tablet 1,000 mg PO Q6H PRN (Reason: Pain) Multivitamin Gummies 200 mcg Tablet,Chewable 1 tab PO DAILY Myrbetriq 50 mg Tablet Extended Release 24 Hr 50 mg PO DAILY polyethylene glycol 3350 [Miralax] 17 gram powder in packet 17 g PO BID Qty: 30 0RF Discharge Orders: Discharge ED (Routine); Ordered 02/27/22 Ordered By: Antelmo Meredith Referrals: Fransisca Flores, RESEARCH HOME ECONOMIST [Primary Care Provider] - Discharge Diet: Usual diet Discharge Activity: Resume usual activity Patient Instructions: Opioid Safety, Pain Management Activity Restrictions/Additional Instructions: You were seen for headache in the emergency room. Your shunt series was normal. Follow-up with your primary care doctor or your neurologist as needed continue take previously prescribed medications for your headaches. Coding Level of Care Code ED Paratransit Driver for Jordana Fwd Exam Comprehensive
--- NOTE | 2022-02-27 17:10 | XRR_ITS ---
PROCEDURE INFORMATION: Exam: XR Shunt Series With 4 XR Procedures Exam date and time: 02/27/2022 5:22 PM Age: 22 years old Clinical indication: Device placement; Non-vascular device; Cerebral fluid drainiage device or shunt; Prior surgery; Surgery date: 6+ months; Surgery type: Headaches check shunt placement; Additional info: Headache TECHNIQUE: Imaging protocol: XR Shunt Series was performed with skull less than 4 views, neck 1 view, chest 1 view, and abdomen 1 view. COMPARISON: CR (PELVIS, ) 08/20/2021 11:04 PM FINDINGS: Tubes, catheters and devices: Five views submitted. There is a right-sided CONSTRUCTION MANAGER shunt catheter. No obvious kinking or tube disruption along the radiopaque portion. The distal tip projects in the left upper quadrant region. It was seen in the right mid abdomen on the prior exam. Partially visualized lateral percutaneous drainage catheter is also noted in the right mid abdomen. Sinuses: Visualized paranasal sinuses are well aerated. Airway: Upper airway and trachea are unremarkable in the neck and chest. Lungs: No obvious lung consolidation. However lung bases are suboptimally assessed. Gastrointestinal tract: Low-moderate stool burden with no obvious bowel obstruction. Bones/joints: Rotatory rightward thoracolumbar spine scoliosis is noted. Soft tissues: Unremarkable. XR/XR shunt series IMPRESSION: CONSTRUCTION MANAGER shunt catheter as described. No acute findings otherwise.
[2022-02-27] MEDS: promethazine 25 mg/mL SDV 1 mL IM (18:03)
[2022-02-27] MEDS: ketorolac 30 mg/mL INJ IVP (18:03)
== END 2022-02-27 19:17 | disposition home or self-care (01) ==
PROVIDERS: Emergency Provider Family Medicine; PCP Nurse Practitioner Family
DX: R51.9 Headache, unspecified (principal); Z98.2 Presence of cerebrospinal fluid drainage device; Q05.9 Spina bifida, unspecified; F17.210 Nicotine dependence, cigarettes, uncomplicated
CPT/HCPCS: 70250; 71046; 72040; 74019; 96372; 96374; 99284; J1885; J2550

== ENCOUNTER 2022-03-14 10:20 | Emergency (ER) | payer MEDICARE, MEDICAID, SELFPAY ==
[2022-03-14 10:23] VITALS: BP 155/104; PULSE 129; RESP 20; TEMP 36.9; O2SAT 96
--- NOTE | 2022-03-14 10:37 | XR_ITS ---
WS: [id number] Shunt series, 03/14/2022 Clinical Data: headache, vomiting, and high blood pressure Comparison: Shunt series, 02/27/2022 Findings: The shunt tube is properly placed through a yani hole into the skull and appears to be in t he region of the ventricles. The tube then descends through the right side of the neck, right side of the chest and into the peritoneum. There is no change compared to the prior shunt series at 02/28/20 22 XR/XR shunt series Impression: Satisfactory placement of 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 shunt tube.
--- NOTE | 2022-03-14 10:47 | W.ED.GENADLT ---
Documented by User: [email or web address] Olivera 03/14/22 15:52 HPI - General Adult General: Chief complaint: General Medical Stated complaint: n/v/ high BP Time Seen by Provider: 03/14/22 10:38 History of Present Illness: Patient is in by EMS for complaints of vomiting, headache, constipation. She reports that starting last night she developed vomiting and headache. She reports that she has been struggling with constipation has not had a bowel movement in over a month. She does offer that she has a PERSONAL PROTECTION SPECIALIST shunt and she has concerns about that with her vomiting and headache. She denies any fever, chills. She reports that she vomited 4 times last night and twice this morning on the way to the ER Associated symptoms: Reports headache(s), nausea and vomiting; Deny chest pain, dyspnea or palpitations Review of Systems Const: Denies: fever(s), chills or body aches ENMT: Reports: throat pain Card: Denies: chest pain, palpitations or irregular heart rhythm Resp: Denies: dyspnea, productive cough or non-productive cough GI: Reports: nausea, vomiting and constipation : Denies: flank pain, difficulty voiding, dysuria, urinary frequency or urinary urgency Neuro: Reports: headache(s); Denies: numbness in extremities or sensory changes PFSH ED PFSH: Medical History Common migraine with intractable migraine Intellectual disability Psychiatric care Surgical History 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 Initially she is complaining of headache, vomiting, high blood pressure and concern for her shunt. As I start doing the work-up to evaluate her shunt the patient starts telling me that she has not had a bowel movement in over a month. Initially she told me that was normal for her but then later she told me she has bowel movements every day if she flushes her tube. She states she has been flushing her tube she has been taking laxative she is still not having a bowel movement. I went in to obtain a urine sample from the patient and she advised that she caths through her bellybutton with a nonlatex cath. Patient does have yellow, foul-smelling liquid pooling in her bellybutton Const: COMMON NORMALS: no acute distress, patient oriented x3, alert and well nourished HENMT: COMMON NORMALS: EAC's normal, TM's normal bilaterally, Normal nasal mucous membranes and turbinates present, moist oral mucous membranes and oropharynx normal NOSE: Normal nasal mucous membranes and turbinates present EXTERNAL AUDITORY CANAL: EAC's normal TYMPANIC MEMBRANE: TM's normal bilaterally THROAT: posterior oropharynx normal and uvula midline Neck/C-Spine: COMMON NORMALS: no JVD Resp: COMMON NORMALS: normal respiratory effort, No use of accessory muscles and clear to auscultation bilaterally AUSCULTATION: clear to auscultation bilaterally Cardio: COMMON NORMALS: no JVD, regular rate, regular rhythm, S1 normal heart sound present and S2 normal heart sound present RATE: regular rate RHYTHM: regular rhythm HEART SOUNDS: S1 normal heart sound present and S2 normal heart sound present GI: COMMON NORMALS: Soft to palpation AUSCULTATION: Yes Hypoactive bowel sounds present PALPATION: Yes Soft to palpation OTHER: There is a right-sided percutaneous drainage catheter noted which patient states she uses to flush her colon daily. Neuro: COMMON NORMALS: patient oriented x3 SENSORIUM/ORIENTATION: Yes alert Course Vital Signs: Vital signs: Vital Signs Temperature 98.5 F 03/14/22 16:18 Pulse Rate 98 03/14/22 16:18 Respiratory Rate 20 H 03/14/22 16:18 Blood Pressure 140/83 03/14/22 16:18 Pulse Oximetry 96 03/14/22 16:18 [facility] - General Adult Medical Decision Making Consider complication AV shunt, bowel obstruction, UTI, viral illness, influenza Work-up for AV shunt is negative Work-up abdomen?physical exam findings do not indicate an acute abdomen. Abdomen is soft. There is mild tenderness to palpation left lower quadrant abdomen. White blood cell count is elevated to 13.6. CT abdomen and pelvis-rectosigmoid constipation no other acute findings. UA dip shows nitrites and leukoesterase. We will treat patient to cover urinary tract infection complicated. Patient has responded well to Bactrim in the past however her last culture grew out Proteus I suspect that that is a colonized bacteria. Given that she responded to Bactrim at the beginning of January I will go ahead and treat again with Bactrim at this time until results of culture are obtained. Advised her to follow-up with her primary care provider at the beginning of next week. Return to the ER as needed for new or worsening symptoms including, but not limited to inability to keep oral fluids or medications down, worsening pain, fever, chills, vomiting. Lab Data 03/14/22 11:00 03/14/22 11:00 Radiology Impressions Imaging Shunt Series 03/14/22 10:37 Impression: Satisfactory placement of 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 shunt tube. Head CT 03/14/22 12:05 IMPRESSION: 1. No evidence of intracranial hemorrhage or mass effect. 2. RIGHT frontal shunt catheter with tip near the foramen of Horn unchanged. No hydrocephalus. Ventricular system is decompressed. 3. 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 Chiari malformation with crowding at foramen magnum unchanged. 5. No other interval changes. 6. No acute intracranial findings. Abdomen/Pelvis CT 03/14/22 13:15 IMPRESSION: 1. Stable percutaneous drainage catheter within the cecum. This is unchanged in appearance since prior examination. 2. PERSONAL PROTECTION SPECIALIST shunt catheter with tip in the midabdomen. No evidence of fluid collection or obstructing cyst at the catheter tip. 3. Diffuse fatty infiltration liver. 4. Diffuse bladder wall thickening compatible with chronic cystitis unchanged. 5. Rectosigmoid constipation. 6. No other acute findings. Laboratory Results WBC 13.6 10^3/uL (4.5-13.0) H 03/14/22 11:00 RBC 5.06 10^6/uL (4.1-5.3) 03/14/22 11:00 Hgb 14.5 g/dL (11.5-15.3) 03/14/22 11:00 Hct 44.8 % (37.0-47.0) 03/14/22 11:00 MCV 88.5 fl (81-99) 03/14/22 11:00 MCH 28.7 pg (28.0-34.0) 03/14/22 11:00 MCHC 32.4 g/dL (30.0-36.0) 03/14/22 11:00 RDW 11.9 % (12.1-15.1) L 03/14/22 11:00 Plt Count 306 10^3/cmm (130-400) 03/14/22 11:00 MPV 9.7 fL (7.4-10.4) 03/14/22 11:00 Neut % (Auto) 87.0 % 03/14/22 11:00 Lymph % (Auto) 7.1 % 03/14/22 11:00 Josephine % (Auto) 5.3 % 03/14/22 11:00 Eos % (Auto) 0.0 % 03/14/22 11:00 Baso % (Auto) 0.2 % 03/14/22 11:00 Neut # (Auto) 11.84 10^3/uL (1.8-8.0) H 03/14/22 11:00 Lymph # (Auto) 1.0 10^3/uL (1.5-6.5) L 03/14/22 11:00 Josephine # (Auto) 0.7 10^3/uL (0.2-0.9) 03/14/22 11:00 Eos # (Auto) 0.0 10^3/uL (0.0-0.8) 03/14/22 11:00 Baso # (Auto) 0.0 10^3/uL (0.0-0.1) 03/14/22 11:00 Nucleated RBC % (auto) 0 % 03/14/22 11:00 Nucleated RBCs # 0.0 /100WBC 03/14/22 11:00 Sodium 142 mmol/L (136-145) 03/14/22 11:00 Potassium 3.8 mmol/L (3.5-5.1) 03/14/22 11:00 Chloride 105 mmol/L (98-107) 03/14/22 11:00 Carbon Dioxide 24 mmol/L (22-29) 03/14/22 11:00 Anion Gap 16.8 (5-19) 03/14/22 11:00 BUN 19 mg/dL (6-20) 03/14/22 11:00 Creatinine 0.8 mg/dL (0.5-0.9) 03/14/22 11:00 GFR Calculation 91.4 mL/min (90-130) 03/14/22 11:00 Glucose 129 mg/dL (65-115) H 03/14/22 11:00 Calculated Osmolality 298 mOsm/kg (285-295) H 03/14/22 11:00 Lactate 1.5 mmol/L (0.5-2.2) 03/14/22 14:48 Calcium 9.7 mg/dL (8.5-10.5) 03/14/22 11:00 Total Bilirubin 0.5 mg/dL (0.15-1.2) 03/14/22 11:00 AST 18 U/L (0-32) 03/14/22 11:00 ALT 25 U/L (0-33) 03/14/22 11:00 Alkaline Phosphatase 77 U/L (35-105) 03/14/22 11:00 Total Protein 7.7 g/dL (6.6-8.7) 03/14/22 11:00 Albumin 4.7 g/dL (3.5-5.2) 03/14/22 11:00 Globulin 3.0 g/dL (1.3-4.6) 03/14/22 11:00 Urine Color Yellow (Yellow) 03/14/22 14:20 Urine Appearance Hazy (CLEAR) A 03/14/22 14:20 Urine pH 8 (5-7) H 03/14/22 14:20 Ur Specific [place] 1.015 (1.005-1.030) 03/14/22 14:20 Urine Protein 1+ (Negative) H 03/14/22 14:20 Urine Glucose (UA) Norm (Normal) 03/14/22 14:20 Urine Ketones Negative (Negative) 03/14/22 14:20 Urine Blood Neg (Negative) 03/14/22 14:20 Urine Nitrate Positive (Negative) H 03/14/22 14:20 Urine Bilirubin Neg (Negative) 03/14/22 14:20 Urine Urobilinogen Neg mg/dL (Negative) 03/14/22 14:20 Ur Leukocyte Esterase 1+ (Negative) H 03/14/22 14:20 Urine RBC 0-4 /hpf (0-2) H 03/14/22 14:20 Urine WBC 10-15 /hpf (0-5) H 03/14/22 14:20 Ur Squamous Epith Cells 0-4 /hpf (0-5) H 03/14/22 14:20 Triple Phos Crystals 15-25 /hpf H 03/14/22 14:20 Amorphous Sediment 1+ /hpf 03/14/22 14:20 Urine Bacteria 1+ /hpf (NONE) H 03/14/22 14:20 Influenza Type A Ag negative (Negative) 03/14/22 12:10 Influenza Type B Ag negative (Negative) 03/14/22 12:10 SARS-CoV-2 Ag (Rapid) negative (Negative) 03/14/22 15:30 Discharge Plan Discharge Patient Disposition: Home Clinical Impression: Urinary tract infection Condition: Stable Prescriptions: New Bactrim DS 800-160 mg tablet 1 tab PO BID 7 Days Qty: 14 0RF No Action medroxyprogesterone 150 mg/mL suspension 150 mg IM .Q 3 Months duloxetine 60 mg capsule,delayed release(DR/EC) 120 mg PO DAILY Qty: 60 0RF trazodone 100 mg tablet 100 mg PO BEDTIME Qty: 30 0RF diphenhydramine HCl [Benadryl Allergy] 25 mg tablet 25 mg PO Q8H PRN (Reason: headache) Qty: 10 0RF Rx Instructions: taken with reglan metoclopramide HCl [Reglan] 10 mg tablet 10 mg PO Q8H PRN (Reason: migraine headache) Qty: 10 0RF Rx Instructions: taken with benadryl ondansetron 4 mg Tablet,Disintegrating 4 mg PO Q6H PRN (Reason: Nausea) Qty: 10 0RF oxybutynin chloride 5 mg tablet 5 mg PO TID hydroxyzine HCl 10 mg tablet 5 mg PO BEDTIME topiramate 50 mg tablet 50 mg PO BID nitrofurantoin monohyd/m-cryst 100 mg capsule 1 cap PO BEDTIME chlorhexidine gluconate 0.12 % mouthwash See Rx Instructions .ROUTE .COMPLEX Rx Instructions: DIRECTED FOR 14 DAYS sumatriptan succinate 100 mg tablet 100 mg PO DAILY acetaminophen 500 mg Tablet 1,000 mg PO Q6H PRN (Reason: Pain) Multivitamin Gummies 200 mcg Tablet,Chewable 1 tab PO DAILY polyethylene glycol 3350 [Miralax] 17 gram powder in packet 17 g PO BID Qty: 30 0RF Discharge Orders: Discharge ED (Routine); Ordered 03/14/22 Ordered By: Kalie Lovell Referrals: Fransisca Flores FNP [Primary Care Provider] - Discharge Diet: Usual diet Discharge Activity: Resume usual activity Patient Instructions: Urinary Tract Infection - Women Activity Restrictions/Additional Instructions: Take antibiotics as directed. Follow-up with primary care provider the beginning of next week for reevaluation and further determination of plan of care. Return to the ER as needed for new or worsening symptoms including, but not limited to, worsening abdominal pain, fever, chills, inability to keep your oral liquids or medications down. 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 PROTECTION SPECIALIST (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) shunt status Social History Smoking and tobacco status: current every day smoker Quit status (tobacco): has quit using tobacco Year quit tobacco: 2020 Second hand smoke exposure: Yes Alcohol intake: never Course Vital Signs: Vital signs: Vital Signs Temperature 98.5 F 03/14/22 16:18 Pulse Rate 98 03/14/22 16:18 Respiratory Rate 20 H 03/14/22 16:18 Blood Pressure 140/83 03/14/22 16:18 Pulse Oximetry 96 03/14/22 16:18 MDM - General Adult Medical Decision Making Consider complication AV shunt, bowel obstruction, UTI, viral illness, influenza Work-up for AV shunt is negative Work-up abdomen?physical exam findings do not indicate an acute abdomen. Abdomen is soft. There is mild tenderness to palpation left lower quadrant abdomen. White blood cell count is elevated to 13.6. CT abdomen and pelvis-rectosigmoid constipation no other acute findings. UA dip shows nitrites and leukoesterase. We will treat patient to cover urinary tract infection complicated. Patient has responded well to Bactrim in the past however her last culture grew out Proteus I suspect that that is a colonized bacteria. Given that she responded to Bactrim at the beginning of January I will go ahead and treat again with Bactrim at this time until results of culture are obtained. Advised her to follow-up with her primary care provider at the beginning of next week. Return to the ER as needed for new or worsening symptoms including, but not limited to inability to keep oral fluids or medications down, worsening pain, fever, chills, vomiting. Chart reviewed and patient discussed with midlevel. Agree with assessment and plan. Lab Data 03/14/22 11:00 03/14/22 11:00 Radiology Impressions Imaging Shunt Series 03/14/22 10:37 Impression: Satisfactory placement of 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 shunt tube. Head CT 03/14/22 12:05 IMPRESSION: 1. No evidence of intracranial hemorrhage or mass effect. 2. RIGHT frontal shunt catheter with tip near the foramen of Horn unchanged. No hydrocephalus. Ventricular system is decompressed. 3. 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 Chiari malformation with crowding at foramen magnum unchanged. 5. No other interval changes. 6. No acute intracranial findings. Abdomen/Pelvis CT 03/14/22 13:15 IMPRESSION: 1. Stable percutaneous drainage catheter within the cecum. This is unchanged in appearance since prior examination. 2. PERSONAL PROTECTION SPECIALIST shunt catheter with tip in the midabdomen. No evidence of fluid collection or obstructing cyst at the catheter tip. 3. Diffuse fatty infiltration liver. 4. Diffuse bladder wall thickening compatible with chronic cystitis unchanged. 5. Rectosigmoid constipation. 6. No other acute findings. Laboratory Results WBC 13.6 10^3/uL (4.5-13.0) H 03/14/22 11:00 RBC 5.06 10^6/uL (4.1-5.3) 03/14/22 11:00 Hgb 14.5 g/dL (11.5-15.3) 03/14/22 11:00 Hct 44.8 % (37.0-47.0) 03/14/22 11:00 MCV 88.5 fl (81-99) 03/14/22 11:00 MCH 28.7 pg (28.0-34.0) 03/14/22 11:00 MCHC 32.4 g/dL (30.0-36.0) 03/14/22 11:00 RDW 11.9 % (12.1-15.1) L 03/14/22 11:00 Plt Count 306 10^3/cmm (130-400) 03/14/22 11:00 MPV 9.7 fL (7.4-10.4) 03/14/22 11:00 Neut % (Auto) 87.0 % 03/14/22 11:00 Lymph % (Auto) 7.1 % 03/14/22 11:00 Josephine % (Auto) 5.3 % 03/14/22 11:00 Eos % (Auto) 0.0 % 03/14/22 11:00 Baso % (Auto) 0.2 % 03/14/22 11:00 Neut # (Auto) 11.84 10^3/uL (1.8-8.0) H 03/14/22 11:00 Lymph # (Auto) 1.0 10^3/uL (1.5-6.5) L 03/14/22 11:00 Josephine # (Auto) 0.7 10^3/uL (0.2-0.9) 03/14/22 11:00 Eos # (Auto) 0.0 10^3/uL (0.0-0.8) 03/14/22 11:00 Baso # (Auto) 0.0 10^3/uL (0.0-0.1) 03/14/22 11:00 Nucleated RBC % (auto) 0 % 03/14/22 11:00 Nucleated RBCs # 0.0 /100WBC 03/14/22 11:00 Sodium 142 mmol/L (136-145) 03/14/22 11:00 Potassium 3.8 mmol/L (3.5-5.1) 03/14/22 11:00 Chloride 105 mmol/L (98-107) 03/14/22 11:00 Carbon Dioxide 24 mmol/L (22-29) 03/14/22 11:00 Anion Gap 16.8 (5-19) 03/14/22 11:00 BUN 19 mg/dL (6-20) 03/14/22 11:00 Creatinine 0.8 mg/dL (0.5-0.9) 03/14/22 11:00 GFR Calculation 91.4 mL/min (90-130) 03/14/22 11:00 Glucose 129 mg/dL (65-115) H 03/14/22 11:00 Calculated Osmolality 298 mOsm/kg (285-295) H 03/14/22 11:00 Lactate 1.5 mmol/L (0.5-2.2) 03/14/22 14:48 Calcium 9.7 mg/dL (8.5-10.5) 03/14/22 11:00 Total Bilirubin 0.5 mg/dL (0.15-1.2) 03/14/22 11:00 AST 18 U/L (0-32) 03/14/22 11:00 ALT 25 U/L (0-33) 03/14/22 11:00 Alkaline Phosphatase 77 U/L (35-105) 03/14/22 11:00 Total Protein 7.7 g/dL (6.6-8.7) 03/14/22 11:00 Albumin 4.7 g/dL (3.5-5.2) 03/14/22 11:00 Globulin 3.0 g/dL (1.3-4.6) 03/14/22 11:00 Urine Color Yellow (Yellow) 03/14/22 14:20 Urine Appearance Hazy (CLEAR) A 03/14/22 14:20 Urine pH 8 (5-7) H 03/14/22 14:20 Ur Specific [place] 1.015 (1.005-1.030) 03/14/22 14:20 Urine Protein 1+ (Negative) H 03/14/22 14:20 Urine Glucose (UA) Norm (Normal) 03/14/22 14:20 Urine Ketones Negative (Negative) 03/14/22 14:20 Urine Blood Neg (Negative) 03/14/22 14:20 Urine Nitrate Positive (Negative) H 03/14/22 14:20 Urine Bilirubin Neg (Negative) 03/14/22 14:20 Urine Urobilinogen Neg mg/dL (Negative) 03/14/22 14:20 Ur Leukocyte Esterase 1+ (Negative) H 03/14/22 14:20 Urine RBC 0-4 /hpf (0-2) H 03/14/22 14:20 Urine WBC 10-15 /hpf (0-5) H 03/14/22 14:20 Ur Squamous Epith Cells 0-4 /hpf (0-5) H 03/14/22 14:20 Triple Phos Crystals 15-25 /hpf H 03/14/22 14:20 Amorphous Sediment 1+ /hpf 03/14/22 14:20 Urine Bacteria 1+ /hpf (NONE) H 03/14/22 14:20 Influenza Type A Ag negative (Negative) 03/14/22 12:10 Influenza Type B Ag negative (Negative) 03/14/22 12:10 SARS-CoV-2 Ag (Rapid) negative (Negative) 03/14/22 15:30 Discharge Plan Discharge Patient Disposition: Home Clinical Impression: Urinary tract infection Condition: Stable Prescriptions: New Bactrim DS 800-160 mg tablet 1 tab PO BID 7 Days Qty: 14 0RF No Action medroxyprogesterone 150 mg/mL suspension 150 mg IM .Q 3 Months duloxetine 60 mg capsule,delayed release(DR/EC) 120 mg PO DAILY Qty: 60 0RF trazodone 100 mg tablet 100 mg PO BEDTIME Qty: 30 0RF diphenhydramine HCl [Benadryl Allergy] 25 mg tablet 25 mg PO Q8H PRN (Reason: headache) Qty: 10 0RF Rx Instructions: taken with reglan metoclopramide HCl [Reglan] 10 mg tablet 10 mg PO Q8H PRN (Reason: migraine headache) Qty: 10 0RF Rx Instructions: taken with benadryl ondansetron 4 mg Tablet,Disintegrating 4 mg PO Q6H PRN (Reason: Nausea) Qty: 10 0RF oxybutynin chloride 5 mg tablet 5 mg PO TID hydroxyzine HCl 10 mg tablet 5 mg PO BEDTIME topiramate 50 mg tablet 50 mg PO BID nitrofurantoin monohyd/m-cryst 100 mg capsule 1 cap PO BEDTIME chlorhexidine gluconate 0.12 % mouthwash See Rx Instructions .ROUTE .COMPLEX Rx Instructions: DIRECTED FOR 14 DAYS sumatriptan succinate 100 mg tablet 100 mg PO DAILY acetaminophen 500 mg Tablet 1,000 mg PO Q6H PRN (Reason: Pain) Multivitamin Gummies 200 mcg Tablet,Chewable 1 tab PO DAILY polyethylene glycol 3350 [Miralax] 17 gram powder in packet 17 g PO BID Qty: 30 0RF Discharge Orders: Discharge ED (Routine); Ordered 03/14/22 Ordered By: Kalie Lovell Referrals: Fransisca Flores FNP [Primary Care Provider] - Discharge Diet: Usual diet Discharge Activity: Resume usual activity Patient Instructions: Urinary Tract Infection - Women Activity Restrictions/Additional Instructions: Take antibiotics as directed. Follow-up with primary care provider the beginning of next week for reevaluation and further determination of plan of care. Return to the ER as needed for new or worsening symptoms including, but not limited to, worsening abdominal pain, fever, chills, inability to keep your oral liquids or medications down. Coding Level of Care Code ED Contact Center Director for Jordana Fwd Exam Detailed
[2022-03-14] MEDS: ondansetron 2 mg/ML SDV 2 mL 4 MG IVP (10:59)
[2022-03-14 11:06] LABS: Basophils % 0.2 %; Hematocrit 44.8 % (37.0-47.0); Hemoglobin 14.5 g/dL (11.5-15.3); Lymphocytes % 7.1 %; Mean Corpuscular HGB Conc 32.4 g/dL (30.0-36.0); Mean Corpuscular Hemoglobin 28.7 pg (28.0-34.0); Mean Corpuscular Volume 88.5 fl (81-99); Mean Platelet Volume 9.7 fL (7.4-10.4); Monocytes # 0.7 10^3/uL (0.2-0.9); Monocytes % 5.3 %; Neutrophils # 11.84 10^3/uL (1.8-8.0); Nucleated Red Blood Cells % 0 %; Platelet Count 306 10^3/cmm (130-400); Red Blood Count 5.06 10^6/uL (4.1-5.3); Red Cell Distribution Width 11.9 % (12.1-15.1); White Blood Count 13.6 10^3/uL (4.5-13.0)
[2022-03-14 11:24] LABS: Alanine Aminotransferase 25 U/L (0-33); Albumin Level 4.7 g/dL (3.5-5.2); Alkaline Phosphatase 77 U/L (35-105); Anion Gap 16.8 (5-19); Aspartate Amino Transferase 18 U/L (0-32); Blood Urea Nitrogen 19 mg/dL (6-20); Calcium 9.7 mg/dL (8.5-10.5); Carbon Dioxide 24 mmol/L (22-29); Chloride 105 mmol/L (98-107); Glomerular Filtration Rate 91.4 mL/min (90-130); Glucose 129 mg/dL (65-115); Osmolality Calculated 298 mOsm/kg (285-295); Potassium 3.8 mmol/L (3.5-5.1); Sodium 142 mmol/L (136-145); Total Bilirubin 0.5 mg/dL (0.15-1.2); Total Protein 7.7 g/dL (6.6-8.7)
[2022-03-14 11:53] VITALS: BP 145/99; PULSE 105; RESP 20; TEMP 36.9; O2SAT 96
--- NOTE | 2022-03-14 12:05 | CT_ITS ---
WS: [id number] CT HEAD TECHNIQUE: Noncontrast CT of the head obtained from the skullbase to the vertex. CLINICAL INFORMATION: headache, vomiting, FINANCIAL AID ADMINISTRATOR shunt COMPARISON: CT August 20, 2021 DLP: 892.[address] scans at [facility] use at least one of these dose optimization techniques: automated e xposure control; mA and/or kV adjustment per patient size (includes targeted exams where dose is matc hed to clinical indication); or iterative reconstruction. FINDINGS: No evidence of intracranial hemorrhage or mass effect. RIGHT frontal shunt catheter with tip in the f oramen of Horn. Slit-like ventricles are decompressed. No hydrocephalus. This is unchanged from Aug. Dysgenesis of the corpus callosum. Chiari malformation with crowding at the foramen magnum is unchang ed. No hydrocephalus. Colpocephaly Basilar cisterns are patent. Paranasal sinuses and mastoid air cells are well aerated. Normal posteri or nasopharynx. CT/CT head wo con* [id number] IMPRESSION: 1. No evidence of intracranial hemorrhage or mass effect. 2. RIGHT frontal shunt catheter with tip near the foramen of Horn unchanged. No hydrocephalus. Ventricular system is decompressed. 3. 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 Chiari malformation with crowding at foramen magnum unchanged. 5. No other interval changes. 6. No acute intracranial findings.
[2022-03-14 12:30] LABS: Influenza A by IFA negative (Negative); Influenza B by IFA negative (Negative)
--- NOTE | 2022-03-14 13:15 | CT_ITS ---
WS: [id number] CT ABDOMEN PELVIS TECHNIQUE: Contrast-enhanced CT of the abdomen and pelvis with coronal and sagittal reformatted image s. CLINICAL INFORMATION: constipation, vomiting COMPARISON: CT July 18, 2021 DLP: 963.[address] scans at [facility] use at least one of these dose optimization techniques: automated e xposure control; mA and/or kV adjustment per patient size (includes targeted exams where dose is matc hed to clinical indication); or iterative reconstruction. FINDINGS: Again seen is the RIGHT lower quadrant percutaneous drainage catheter with tip in the cecum. This is similar in appearance to the prior examination. This is unchanged in position since July 18, 2021. IN SCHOOL SUSPENSION AIDE shunt catheter with tip in the midabdomen. No evidence of obstructing cyst or fluid collection at the catheter tip. Lumbar scoliosis. Scoliosis convex RIGHT. Congenital spina bifida defects with fluid collection or se ivory unchanged since July 18, 2021 Diffuse fatty infiltration liver. Fluid distended gallbladder. Normal spleen. Normal GE junction. Dorothea g bases are well aerated. Normal pancreatic parenchymal enhancement. Normal portal vein and splenic v ein. Adrenal glands are normal. No hydronephrosis in either kidney. RIGHT upper pole renal cyst measu ring 17 mm. Diffuse bladder wall thickening compatible with chronic cystitis. This is similar to previous. Normal caliber abdominal aorta.Moderate rectosigmoid constipation. CT/CT abdomen pelvis w con* [id number] IMPRESSION: 1. Stable percutaneous drainage catheter within the cecum. This is unchanged i n appearance since prior examination. 2. IN SCHOOL SUSPENSION AIDE shunt catheter with tip in the midabdomen. No evidence of fluid collecti on or obstructing cyst at the catheter tip. 3. Diffuse fatty infiltration liver. 4. Diffuse bladder wall thickening compatible with chronic cystitis unchanged. 5. Rectosigmoid constipation. 6. No other acute findings.
[2022-03-14] MEDS: iohexol 350 mg/mL 500 mL Btl (per mL) IV (14:07)
[2022-03-14] MEDS: sodium chloride 0.9% 1,000 ML 999 ML IV (14:26)
[2022-03-14 14:52] LABS: Protein Urine 1+ (Negative); Specific Gravity, Urine 1.015 (1.005-1.030); Urine Appearance Hazy (CLEAR); Urine Color Yellow (Yellow); pH Urine 8 (5-7)
[2022-03-14 14:53] LABS: Add Urine Microscopic? YES; Bilirubin Urine Neg (Negative); Blood Urine Neg (Negative); Glucose Urine UA Norm (Normal); Ketones Urine Negative (Negative); Leukocyte Esterase Urine 1+ (Negative); Nitrate Urine Positive (Negative); Urobilinogen Urine Neg (Negative)
[2022-03-14 14:55] LABS: Add Urine Culture? Yes; Amorphous Sediment Urine 1+ /hpf; Bacteria Urine 1+ /hpf; RBC Urine 0-4 /hpf (0-2); Squamous Epithelial Cell Urine 0-4 /hpf (0-5); Triple Phosphate Crystal Urine 15-25 /hpf
[2022-03-14 15:09] LABS: Lactate (Lactic Acid level) 1.5 mmol/L (0.5-2.2)
[2022-03-14] MEDS: sulfamethoxazole-trimeth DS 160-800 mg Tablet 1 TAB PO (16:10)
[2022-03-14 16:18] VITALS: BP 140/83; PULSE 98; RESP 20; TEMP 36.9; O2SAT 96
[2022-03-14 16:21] LABS: SARS Covid-2 Antigen negative (Negative)
== END 2022-03-14 16:19 | disposition home or self-care (01) ==
PROVIDERS: Emergency Provider Nurse Practitioner Family; PCP Nurse Practitioner Family
DX: N39.0 Urinary tract infection, site not specified (principal); Z20.822 Contact with and (suspected) exposure to COVID-19; F17.210 Nicotine dependence, cigarettes, uncomplicated
CPT/HCPCS: 70250; 70450; 71046; 72040; 74019; 74177; 80053; 81001; 83605; 85025; 87077; 87086; 87186; 87426; 87804; 96361; 96374; 99285; J2405; J7030; Q9967

== ENCOUNTER 2022-03-16 04:15 | Emergency (ER) | payer MEDICARE, MEDICAID, SELFPAY ==
[2022-03-16 04:17] VITALS: BP 142/116; PULSE 100; RESP 17; TEMP 36.6; O2SAT 100; BMI 34.3
--- NOTE | 2022-03-16 04:19 | ED_ITS ---
HPI - Nausea/Vomiting/Diarrhea General: Chief complaint: Nausea/Vomiting/Diarrhea Stated complaint: flu like symptoms Time Seen by Provider: 03/16/22 04:16 Source: patient and EMS Mode of arrival: EMS Limitations: no limitations History of Present Illness: 22-year-old female who is well-known to the ER seen here 2 days ago was benign with UTI she has been taking antibiotics states she is now having some nausea and vomiting along with flulike symptoms states had body aches as well. Patient is afebrile she denies any abdominal pain denies any worsening proving factors she is in no distress here. Associated nausea: Yes Associated symtoms: Reports nausea; Denies chest pain, dysuria or headache(s) Review of Systems Const: Reports: chills and body aches Eyes: Denies: blurry vision or eye discomfort ENMT: Denies: throat pain or dental pain Card: Denies: chest pain Resp: Denies: dyspnea GI: Reports: nausea and vomiting : Denies: dysuria Musc: Denies: neck pain or back pain Skin/Breast: Denies: rash Neuro: Denies: headache(s) Psych: Denies: depression Michael/Lymph: Denies: easy bruising All/Imm: Denies: urticaria PFSH ED PFSH: Medical History Common migraine with intractable migraine Intellectual disability Psychiatric care Surgical History 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 status Social History Smoking and tobacco status: current every day smoker Quit status (tobacco): has quit using tobacco Year quit tobacco: 2020 Second hand smoke exposure: Yes Alcohol intake: never Female Reproductive History: Date of last menstrual period: 10/29/21 Physical Exam Const: COMMON NORMALS: no acute distress, patient oriented x3 and healthy appearing HENMT: COMMON NORMALS: normocephalic and atraumatic HEAD & SCALP: normocephalic and atraumatic Eye: COMMON NORMALS: Equal, round and reactive pupils present and EOMs intact bilaterally PUPIL: Yes Equal, round and reactive pupils present Neck/C-Spine: COMMON NORMALS: full ROM and supple Chest: COMMONS NORMALS: normal inspection of the chest and normal palpation of entire chest wall Resp: COMMON NORMALS: normal respiratory effort, No retractions, No use of accessory muscles and clear to auscultation bilaterally AUSCULTATION: clear to auscultation bilaterally Cardio: COMMON NORMALS: regular rate, regular rhythm and No murmurs present (Cardio) RATE: regular rate RHYTHM: regular rhythm GI: COMMON NORMALS: Normal to inspection, nondistended, normoactive bowel sounds present, Soft to palpation, non-tender and no masses PALPATION: Yes Soft to palpation Extremity: COMMON NORMALS: normal to inspection and full ROM Neuro: COMMON NORMALS: patient oriented x3, moves all extremities and no focal motor deficits Psych: COMMON NORMALS: mental status grossly normal, Normal thought process present and cooperative THOUGHT PROCESS: Normal thought process present Skin: COMMON NORMALS: no rashes or lesions noted and no wounds GENERAL SKIN EXAM: no rashes or lesions noted Course Vital Signs: Vital signs: Vital Signs Temperature 97.8 F 03/16/22 04:17 Pulse Rate 100 03/16/22 04:17 Respiratory Rate 17 03/16/22 04:17 Blood Pressure 142/116 03/16/22 04:17 Pulse Oximetry 100 03/16/22 04:17 Oxygen Delivery Me thod 03/16/22 04:17 MDM - Nausea/Vomiting/Diarrhea Medical Decision Making Patient presents here with vomiting she is well-appearing here her vital signs here are normal her blood work is normal she is stable for discharge we will prescribe her Zofran for home. Lab Data 03/16/22 05:18 03/16/22 05:18 Laboratory Results WBC 10.6 10^3/uL (4.5-13.0) 03/16/22 05:18 RBC 4.58 10^6/uL (4.1-5.3) 03/16/22 05:18 Hgb 13.2 g/dL (11.5-15.3) 03/16/22 05:18 Hct 41.5 % (37.0-47.0) 03/16/22 05:18 MCV 90.6 fl (81-99) 03/16/22 05:18 MCH 28.8 pg (28.0-34.0) 03/16/22 05:18 MCHC 31.8 g/dL (30.0-36.0) 03/16/22 05:18 RDW 11.8 % (12.1-15.1) L 03/16/22 05:18 Plt Count 278 10^3/cmm (130-400) 03/16/22 05:18 MPV 9.9 fL (7.4-10.4) 03/16/22 05:18 Neut % (Auto) 68.6 % 03/16/22 05:18 Lymph % (Auto) 21.7 % 03/16/22 05:18 [place] % (Auto) 7.4 % 03/16/22 05:18 Eos % (Auto) 1.7 % 03/16/22 05:18 Baso % (Auto) 0.3 % 03/16/22 05:18 Neut # (Auto) 7.26 10^3/uL (1.8-8.0) 03/16/22 05:18 Lymph # (Auto) 2.3 10^3/uL (1.5-6.5) 03/16/22 05:18 [place] # (Auto) 0.8 10^3/uL (0.2-0.9) 03/16/22 05:18 Eos # (Auto) 0.2 10^3/uL (0.0-0.8) 03/16/22 05:18 Baso # (Auto) 0.0 10^3/uL (0.0-0.1) 03/16/22 05:18 Nucleated RBC % (auto) 0 % 03/16/22 05:18 Nucleated RBCs # 0.0 /100WBC 03/16/22 05:18 Sodium 139 mmol/L (136-145) 03/16/22 05:18 Potassium 3.9 mmol/L (3.5-5.1) 03/16/22 05:18 Chloride 106 mmol/L (98-107) 03/16/22 05:18 Carbon Dioxide 22 mmol/L (22-29) 03/16/22 05:18 Anion Gap 14.9 (5-19) 03/16/22 05:18 Glucose 102 mg/dL (65-115) 03/16/22 05:18 Total Bilirubin 0.2 mg/dL (0.15-1.2) 03/16/22 05:18 AST 13 U/L (0-32) 03/16/22 05:18 ALT 16 U/L (0-33) 03/16/22 05:18 Alkaline Phosphatase 65 U/L (35-105) 03/16/22 05:18 Total Protein 7.0 g/dL (6.6-8.7) 03/16/22 05:18 Albumin 4.1 g/dL (3.5-5.2) 03/16/22 05:18 Globulin 2.9 g/dL (1.3-4.6) 03/16/22 05:18 Lipase 24 U/L (13-60) 03/16/22 05:18 Influenza Type A Ag negative (Negative) 03/16/22 04:48 Influenza Type B Ag negative (Negative) 03/16/22 04:48 Discharge Plan Discharge Patient Disposition: Home Clinical Impression: Vomiting Condition: Stable Prescriptions: New ondansetron 4 mg tablet,disintegrating 4 mg PO Q6H PRN (Reason: nausea and vomiting) Qty: 14 0RF No Action medroxyprogesterone 150 mg/mL suspension 150 mg IM .Q 3 Months duloxetine 60 mg capsule,delayed release(DR/EC) 120 mg PO DAILY Qty: 60 0RF trazodone 100 mg tablet 100 mg PO BEDTIME Qty: 30 0RF diphenhydramine HCl [Benadryl Allergy] 25 mg tablet 25 mg PO Q8H PRN (Reason: headache) Qty: 10 0RF Rx Instructions: taken with reglan metoclopramide HCl [Reglan] 10 mg tablet 10 mg PO Q8H PRN (Reason: migraine headache) Qty: 10 0RF Rx Instructions: taken with benadryl ondansetron 4 mg Tablet,Disintegrating 4 mg PO Q6H PRN (Reason: Nausea) Qty: 10 0RF oxybutynin chloride 5 mg tablet 5 mg PO TID hydroxyzine HCl 10 mg tablet 5 mg PO BEDTIME topiramate 50 mg tablet 50 mg PO BID nitrofurantoin monohyd/m-cryst 100 mg capsule 1 cap PO BEDTIME chlorhexidine gluconate 0.12 % mouthwash See Rx Instructions .ROUTE .COMPLEX Rx Instructions: DIRECTED FOR 14 DAYS sumatriptan succinate 100 mg tablet 100 mg PO DAILY Bactrim DS 800-160 mg tablet 1 tab PO BID 7 Days Qty: 14 0RF acetaminophen 500 mg Tablet 1,000 mg PO Q6H PRN (Reason: Pain) Multivitamin Gummies 200 mcg Tablet,Chewable 1 tab PO DAILY polyethylene glycol 3350 [Miralax] 17 gram powder in packet 17 g PO BID Qty: 30 0RF Discharge Orders: Discharge ED (Routine); Ordered 03/16/22 Ordered By: David Figueroa Referrals: Fransisca Flores SUPERVISOR TREATING [employer] PUMPING [Primary Care Provider] - 1-3 days Discharge Diet: Advance as tolerated Discharge Activity: Resume usual activity Patient Instructions: Acute Nausea and Vomiting (ED) Coding Level of Care Code ED Potato Chip Maker for Mikeg Fwd Exam Comprehensive
[2022-03-16] MEDS: ondansetron 2 mg/ML SDV 2 mL 4 MG IVP (04:56)
[2022-03-16] MEDS: cefTRIAXone 1,000 MG in sodium chloride 0.9% (plus) 50 ML 100 MG IV (04:56)
[2022-03-16] MEDS: sodium chloride 0.9% 1,000 ML 999 ML IV (04:56)
[2022-03-16 05:15] LABS: Influenza A by IFA negative (Negative); Influenza B by IFA negative (Negative)
[2022-03-16 05:25] LABS: Basophils % 0.3 %; Eosinophils # 0.2 10^3/uL (0.0-0.8); Eosinophils % 1.7 %; Hematocrit 41.5 % (37.0-47.0); Hemoglobin 13.2 g/dL (11.5-15.3); Lymphocytes # 2.3 10^3/uL (1.5-6.5); Lymphocytes % 21.7 %; Mean Corpuscular HGB Conc 31.8 g/dL (30.0-36.0); Mean Corpuscular Hemoglobin 28.8 pg (28.0-34.0); Mean Corpuscular Volume 90.6 fl (81-99); Mean Platelet Volume 9.9 fL (7.4-10.4); Monocytes # 0.8 10^3/uL (0.2-0.9); Monocytes % 7.4 %; Neutrophils # 7.26 10^3/uL (1.8-8.0); Neutrophils % 68.6 %; Nucleated Red Blood Cells % 0 %; Platelet Count 278 10^3/cmm (130-400); Red Blood Count 4.58 10^6/uL (4.1-5.3); Red Cell Distribution Width 11.8 % (12.1-15.1); White Blood Count 10.6 10^3/uL (4.5-13.0)
[2022-03-16 05:46] LABS: Alanine Aminotransferase 16 U/L (0-33); Aspartate Amino Transferase 13 U/L (0-32); Glucose 102 mg/dL (65-115); Lipase 24 U/L (13-60)
[2022-03-16 05:53] LABS: Blood Urea Nitrogen 16 mg/dL (6-20); Calcium 8.7 mg/dL (8.5-10.5); Glomerular Filtration Rate 127.5 mL/min (90-130); Osmolality Calculated 291 mOsm/kg (285-295)
[2022-03-16 05:54] LABS: Alkaline Phosphatase 64 U/L (35-105); Carbon Dioxide 21 mmol/L (22-29); Chloride 107 mmol/L (98-107); Sodium 140 mmol/L (136-145); Total Bilirubin 0.3 mg/dL (0.15-1.2)
[2022-03-16 06:01] VITALS: BP 139/70; PULSE 90; RESP 16; O2SAT 100
== END 2022-03-16 06:02 | disposition home or self-care (01) ==
PROVIDERS: Emergency Provider Emergency Medicine; PCP Nurse Practitioner Family
DX: R11.11 Vomiting without nausea (principal); F17.210 Nicotine dependence, cigarettes, uncomplicated
CPT/HCPCS: 80053; 83690; 85025; 87804; 96365; 96375; 99284; J0696; J2405; J7030

== ENCOUNTER 2022-04-02 12:52 | Outpatient (CLI) | payer MEDICARE, MEDICAID, SELFPAY ==
--- NOTE | 2022-04-02 13:09 | XR_ITS ---
WS: [id number] Thoracic spine, 3 views, 04/02/2022 Clinical Data: UPPER BACK PAIN Comparison: None. Findings: No compression fractures are seen. The disc heights are normal. There is a levoscoliosis of the midthoracic spine. The paravertebral regions are normal. There is a V -P shunt tube overlying the right neck, chest and abdomen. XR/XR thoracic spine 3V* [id number] Impression: Levoscoliosis of the midthoracic spine.
== END 2022-04-02 12:53 | disposition home or self-care (01) ==
LOC: RAD 12:54
PROVIDERS: PCP Nurse Practitioner Family; Visit Provider Family Medicine
DX: M41.84 Other forms of scoliosis, thoracic region (principal)
CPT/HCPCS: 72072

== ENCOUNTER 2022-04-06 01:21 | Emergency (ER) | payer MEDICARE, MEDICAID, SELFPAY ==
[2022-04-06 01:34] VITALS: BP 140/109; PULSE 129; RESP 20; TEMP 37.1; O2SAT 99; BMI 40.4
--- NOTE | 2022-04-06 01:41 | ED_ITS ---
HPI - General Adult General: Chief complaint: General Medical Stated complaint: SHAKING Time Seen by Provider: 04/06/22 01:36 History of Present Illness: 22-year-old female comes in today with complaints of leg pain and shaking due to pain. Patient reports she was diagnosed with a urinary tract last week and was told that her shaking was secondary to her infection. Patient reports she is at increased shaking in her legs since last month but now it is painful. Patient appears nontoxic. 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 Social History Smoking and tobacco status: current every day smoker Quit status (tobacco): has quit using tobacco Year quit tobacco: 2020 Second hand smoke exposure: Yes Alcohol intake: never Female Reproductive History: Date of last menstrual period: 10/29/21 Physical Exam Const: COMMON NORMALS: alert HENMT: COMMON NORMALS: normocephalic HEAD & SCALP: normocephalic Resp: COMMON NORMALS: normal respiratory effort and clear to auscultation monica aterally AUSCULTATION: clear to auscultation bilaterally Cardio: COMMON NORMALS: regular rate and regular rhythm RATE: regular rate RHYTHM: regular rhythm GI: COMMON NORMALS: non-tender Extremity: COMMON NORMALS: normal to inspection NARRATIVE EXTREMITY EXAM: Mild bilateral pedal edema, no redness Neuro: SENSORIUM/ORIENTATION: Yes alert Course Vital Signs: Vital signs: Vital Signs Temperature 98.7 F 04/06/22 01:34 Pulse Rate 129 H 04/06/22 01:34 Respiratory Rate 20 H 04/06/22 01:34 Blood Pressure 140/109 04/06/22 01:34 Pulse Oximetry 99 04/06/22 01:34 Oxygen Delivery Me thod 04/06/22 01:34 MDM - General Adult Medical Decision Making Patient comes in tonight for complaints of bilateral leg pain and shaking. Patient also reports a history of a urinary tract infection. Patient appears nontoxic. Patient does appear in mild to moderate pain. Vital signs note a mild blood pressure elevation at 140, pulse 129, but otherwise unremarkable. Differential diagnosis includes neuralgia, anxiety, urinary tract infection, sepsis. Patient continues to have a large amount of white blood cells in her urine. Patient was given 1 g Rocephin as based on her last urine culture. We will await new urine culture for further antibiotics. Patient will continue her cefdinir as directed. Courage patient to drink plenty of water and fluids follow-up with primary care in 3 to 5 days for recheck. Lab Data 04/06/22 01:55 04/06/22 01:55 Laboratory Results WBC 7.5 10^3/uL (4.5-13.0) 04/06/22 01:55 RBC 4.34 10^6/uL (4.1-5.3) 04/06/22 01:55 Hgb 12.4 g/dL (11.5-15.3) 04/06/22 01:55 Hct 37.9 % (37.0-47.0) 04/06/22 01:55 MCV 87.3 fl (81-99) 04/06/22 01:55 MCH 28.6 pg (28.0-34.0) 04/06/22 01:55 MCHC 32.7 g/dL (30.0-36.0) 04/06/22 01:55 RDW 11.8 % (12.1-15.1) L 04/06/22 01:55 Plt Count 297 10^3/cmm (130-400) 04/06/22 01:55 MPV 9.7 fL (7.4-10.4) 04/06/22 01:55 Neut % (Auto) 51.2 % 04/06/22 01:55 Lymph % (Auto) 40.9 % 04/06/22 01:55 [place] % (Auto) 6.2 % 04/06/22 01:55 Eos % (Auto) 1.1 % 04/06/22 01:55 Baso % (Auto) 0.3 % 04/06/22 01:55 Neut # (Auto) 3.86 10^3/uL (1.8-8.0) 04/06/22 01:55 Lymph # (Auto) 3.1 10^3/uL (1.5-6.5) 04/06/22 01:55 [place] # (Auto) 0.5 10^3/uL (0.2-0.9) 04/06/22 01:55 Eos # (Auto) 0.1 10^3/uL (0.0-0.8) 04/06/22 01:55 Baso # (Auto) 0.0 10^3/uL (0.0-0.1) 04/06/22 01:55 Nucleated RBC % (auto) 0 % 04/06/22 01:55 Nucleated RBCs # 0.0 /100WBC 04/06/22 01:55 Sodium 138 mmol/L (136-145) 04/06/22 01:55 Potassium 4.0 mmol/L (3.5-5.1) 04/06/22 01:55 Chloride 106 mmol/L (98-107) 04/06/22 01:55 Carbon Dioxide 21 mmol/L (22-29) L 04/06/22 01:55 Anion Gap 15.0 (5-19) 04/06/22 01:55 BUN 13 mg/dL (6-20) 04/06/22 01:55 Creatinine 1.0 mg/dL (0.5-0.9) H 04/06/22 01:55 GFR Calculation 70.7 mL/min (90-130) L 04/06/22 01:55 Glucose 91 mg/dL (65-115) 04/06/22 01:55 Calculated Osmolality 286 mOsm/kg (285-295) 04/06/22 01:55 Lactic Acid 0.7 mmol/L (0.5-2.2) 04/06/22 01:55 Calcium 9.1 mg/dL (8.5-10.5) 04/06/22 01:55 Total Bilirubin 0.3 mg/dL (0.15-1.2) 04/06/22 01:55 AST 13 U/L (0-32) 04/06/22 01:55 ALT 11 U/L (0-33) 04/06/22 01:55 Alkaline Phosphatase 73 U/L (35-105) 04/06/22 01:55 C-Reactive Protein 5.9 mg/L (0.0-4.9) H 04/06/22 01:55 Total Protein 7.0 g/dL (6.6-8.7) 04/06/22 01:55 Albumin 4.3 g/dL (3.5-5.2) 04/06/22 01:55 Globulin 2.7 g/dL (1.3-4.6) 04/06/22 01:55 Urine Color Yellow (Yellow) 04/06/22 02:00 Urine Appearance Turbid (CLEAR) A 04/06/22 02:00 Urine pH 6 (5-7) 04/06/22 02:00 Ur Specific [place] 1.015 (1.005-1.030) 04/06/22 02:00 Urine Protein Neg (Negative) 04/06/22 02:00 Urine Glucose (UA) Norm (Normal) 04/06/22 02:00 Urine Ketones 1+ (Negative) H 04/06/22 02:00 Urine Blood 2+ (Negative) H 04/06/22 02:00 Urine Nitrate Negative (Negative) 04/06/22 02:00 Urine Bilirubin Neg (Negative) 04/06/22 02:00 Urine Urobilinogen Norm mg/dL (Negative) 04/06/22 02:00 Ur Leukocyte Esterase Trace (Negative) H 04/06/22 02:00 Urine RBC 0-4 /hpf (0-2) H 04/06/22 02:00 Urine WBC >100 /hpf (0-5) H 04/06/22 02:00 Ur Squamous Epith Cells 5-10 /hpf (0-5) H 04/06/22 02:00 Amorphous Sediment Not Reportable 04/06/22 02:00 Urine Bacteria 1+ /hpf (NONE) H 04/06/22 02:00 Urine Mucus 2+ /hpf 04/06/22 02:00 Discharge Plan Discharge Patient Disposition: Home Clinical Impression: Intellectual disability Leg pain Qualifiers: Laterality: bilateral Qualified Code(s): M79.604 - Pain in right leg UTI (urinary tract infection) Qualifiers: Urinary tract infection type: site unspecified Hematuria presence: without hematuria Qualified Code(s): N39.0 - Urinary tract infection, site not specified Condition: Stable Prescriptions: No Action medroxyprogesterone 150 mg/mL suspension 150 mg IM .Q 3 Months duloxetine 60 mg capsule,delayed release(DR/EC) 120 mg PO DAILY Qty: 60 0RF trazodone 100 mg tablet 100 mg PO BEDTIME Qty: 30 0RF diphenhydramine HCl [Benadryl Allergy] 25 mg tablet 25 mg PO Q8H PRN (Reason: headache) Qty: 10 0RF Rx Instructions: taken with reglan metoclopramide HCl [Reglan] 10 mg tablet 10 mg PO Q8H PRN (Reason: migraine headache) Qty: 10 0RF Rx Instructions: taken with benadryl ondansetron 4 mg Tablet,Disintegrating 4 mg PO Q6H PRN (Reason: Nausea) Qty: 10 0RF oxybutynin chloride 5 mg tablet 5 mg PO TID hydroxyzine HCl 10 mg tablet 5 mg PO BEDTIME topiramate 50 mg tablet 50 mg PO BID nitrofurantoin monohyd/m-cryst 100 mg capsule 1 cap PO BEDTIME chlorhexidine gluconate 0.12 % mouthwash See Rx Instructions .ROUTE .COMPLEX Rx Instructions: DIRECTED FOR 14 DAYS sumatriptan succinate 100 mg tablet 100 mg PO DAILY acetaminophen 500 mg Tablet 1,000 mg PO Q6H PRN (Reason: Pain) Multivitamin Gummies 200 mcg Tablet,Chewable 1 tab PO DAILY polyethylene glycol 3350 [Miralax] 17 gram powder in packet 17 g PO BID Qty: 30 0RF ondansetron 4 mg tablet,disintegrating 4 mg PO Q6H PRN (Reason: nausea and vomiting) Qty: 14 0RF Discharge Orders: Discharge ED (Routine); Ordered 04/06/22 Ordered By: James Calix Referrals: Fransisca Flores, CHARGE COORDINATOR [Primary Care Provider] - Discharge Diet: Usual diet Discharge Activity: Increase activity as tolerated Patient Instructions: Urinary Tract Infection in Women (ED) Activity Restrictions/Additional Instructions: Drink plenty of water. Continue antibiotics as directed. Follow-up with primary care in 3 to 5 days for recheck. Return to ER for new concerns such as high fever, or inability to hold fluids down. Coding Level of Care Code ED General Teller for Jordana Fwana paula Exam Detailed
[2022-04-06] MEDS: HYDROcodone-acetaminophen 5-325 mg Tablet 1 TAB PO (01:48)
[2022-04-06 02:06] LABS: Basophils % 0.3 %; Eosinophils # 0.1 10^3/uL (0.0-0.8); Eosinophils % 1.1 %; Hematocrit 37.9 % (37.0-47.0); Hemoglobin 12.4 g/dL (11.5-15.3); Lymphocytes # 3.1 10^3/uL (1.5-6.5); Lymphocytes % 40.9 %; Mean Corpuscular HGB Conc 32.7 g/dL (30.0-36.0); Mean Corpuscular Hemoglobin 28.6 pg (28.0-34.0); Mean Corpuscular Volume 87.3 fl (81-99); Mean Platelet Volume 9.7 fL (7.4-10.4); Monocytes # 0.5 10^3/uL (0.2-0.9); Monocytes % 6.2 %; Neutrophils # 3.86 10^3/uL (1.8-8.0); Neutrophils % 51.2 %; Nucleated Red Blood Cells % 0 %; Platelet Count 297 10^3/cmm (130-400); Red Blood Count 4.34 10^6/uL (4.1-5.3); Red Cell Distribution Width 11.8 % (12.1-15.1); White Blood Count 7.5 10^3/uL (4.5-13.0)
[2022-04-06 02:13] LABS: Add Urine Microscopic? YES; Bilirubin Urine Neg (Negative); Blood Urine 2+ (Negative); Glucose Urine UA Norm (Normal); Ketones Urine 1+ (Negative); Leukocyte Esterase Urine Trace (Negative); Nitrate Urine Negative (Negative); Protein Urine Neg (Negative); RBC Urine 0-4 /hpf (0-2); Specific Gravity, Urine 1.015 (1.005-1.030); Urine Appearance Turbid (CLEAR); Urine Color Yellow (Yellow); Urobilinogen Urine Norm (Negative); WBC Urine >100 /hpf (0-5); pH Urine 6 (5-7)
[2022-04-06 02:14] LABS: Add Urine Culture? Yes; Bacteria Urine 1+ /hpf; Mucus Urine 2+ /hpf
[2022-04-06 02:27] LABS: Lactic Sepsis W/Reflex 0.7 mmol/L (0.5-2.2)
[2022-04-06 02:28] LABS: Alanine Aminotransferase 11 U/L (0-33); Albumin Level 4.3 g/dL (3.5-5.2); Alkaline Phosphatase 73 U/L (35-105); Aspartate Amino Transferase 13 U/L (0-32); Blood Urea Nitrogen 13 mg/dL (6-20); C Reactive Protein 5.9 mg/L (0.0-4.9); Calcium 9.1 mg/dL (8.5-10.5); Carbon Dioxide 21 mmol/L (22-29); Chloride 106 mmol/L (98-107); Globulin 2.7 g/dL (1.3-4.6); Glomerular Filtration Rate 70.7 mL/min (90-130); Glucose 91 mg/dL (65-115); Osmolality Calculated 286 mOsm/kg (285-295); Sodium 138 mmol/L (136-145); Total Bilirubin 0.3 mg/dL (0.15-1.2)
[2022-04-06] MEDS: cefTRIAXone 1,000 MG in water for injection-sterile 2.1 ML 999 MG IM (02:43)
[2022-04-06 03:14] VITALS: PULSE 105; RESP 16; O2SAT 96
== END 2022-04-06 03:14 | disposition home or self-care (01) ==
PROVIDERS: Emergency Provider Nurse Practitioner Family; PCP Nurse Practitioner Family
DX: M79.604 Pain in right leg (principal); N39.0 Urinary tract infection, site not specified; F79 Unspecified intellectual disabilities; F17.210 Nicotine dependence, cigarettes, uncomplicated
CPT/HCPCS: 80053; 81001; 83605; 85025; 86140; 87086; 96365; 96372; 99284; J0696

== ENCOUNTER → 2022-05-08 13:33 | Outpatient (BNVA) | payer MEDICARE, MEDICAID, SELFPAY | PROVIDERS: PCP Nurse Practitioner Family; Visit Provider Specialist | DX: F44.5 Conversion disorder with seizures or convulsions (principal); G43.711 Chronic migraine without aura, intractable, with status migrainosus; M54.50 Low back pain, unspecified; Q05.9 Spina bifida, unspecified; F79 Unspecified intellectual disabilities | CPT/HCPCS: 99214 ==

== ENCOUNTER 2022-05-16 12:20 | Emergency (ER) | payer MEDICARE, MEDICAID, SELFPAY ==
[2022-05-16 12:26] VITALS: BP 133/84; PULSE 101; RESP 14; TEMP 36.7; O2SAT 97
--- NOTE | 2022-05-16 14:12 | W.ED.GENADLT ---
HPI - General Adult General: Chief complaint: General Medical Stated complaint: ABDOMINAL PAIN Time Seen by Provider: 05/16/22 14:08 History of Present Illness: Patient is in today for concerns about her tube on her abdomen that she uses to flush her stools. She reports that approximately a week ago she had gastroenteritis and was vomiting and having diarrhea. She reports that yesterday she developed pain on the right side of her abdomen around that tube she states that the tube feels like something is wrong with it. She denies any fever, chills. She denies any further nausea or vomiting. She states no bowel movement since Friday Associated symptoms: Deny chest pain, dyspnea, nausea, palpitations or vomiting Review of Systems Const: Denies: fever(s), chills or body aches Card: Denies: chest pain, palpitations or irregular heart rhythm Resp: Denies: dyspnea, productive cough or non-productive cough GI: Reports: abdominal pain and constipation; Denies: nausea or vomiting : Reports: other (She self caths through her umbilicus) Musc: Reports: other (Spina bifida chronic) Neuro: Reports: other (Intellectual disability chronic) [facility] ED PFSH: Medical History Common migraine with intractable migraine Intellectual disability Psychiatric care Surgical History 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 (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) shunt status Social History Smoking and tobacco status: current every day smoker Quit status (tobacco): has quit using tobacco Year quit tobacco: 2020 Second hand smoke exposure: Yes Alcohol intake: never Physical Exam Const: COMMON NORMALS: no acute distress, patient oriented x3 and alert Neck/C-Spine: COMMON NORMALS: no JVD Resp: COMMON NORMALS: normal respiratory effort, No use of accessory muscles and clear to auscultation bilaterally AUSCULTATION: clear to auscultation bilaterally Cardio: COMMON NORMALS: no JVD, regular rate, regular rhythm, S1 normal heart sound present and S2 normal heart sound present RATE: regular rate RHYTHM: regular rhythm HEART SOUNDS: S1 normal heart sound present and S2 normal heart sound present GI: COMMON NORMALS: Normal to inspection, nondistended, normoactive bowel sounds present, Soft to palpation and non-tender (Reports tenderness on the right side abdomen around her tube) PALPATION: Yes Soft to palpation OTHER: Patient has percutaneous tube on the right side abdomen that she uses to flush her bowels. There is no redness or discharge surrounding the tube. The tube appears intact. Patient self caths through her umbilicus Neuro: COMMON NORMALS: patient oriented x3 SENSORIUM/ORIENTATION: Yes alert OTHER: Intellectual disability Course Vital Signs: Vital signs: Vital Signs Temperature 98.2 F 05/16/22 20:40 Pulse Rate 89 05/16/22 20:40 Respiratory Rate 15 05/16/22 20:40 Blood Pressure 125/81 05/16/22 20:40 Pulse Oximetry 99 05/16/22 20:40 Oxygen Delivery Me thod 05/16/22 20:40 MDM - General Adult Medical Decision Making This is a 22-year-old female that has been to ER numerous times for abdominal pain surrounding the tube that she uses to flush her bowels. She reports that she has recently been to [place] to her doctor there and they told her the tube was fine. Today, her vital signs are stable, she is in no apparent distress, her physical exam is unremarkable with the exception that she does complain of pain with palpation around her percutaneous tube on the right lower abdomen. White blood cell count is within normal limits. Labs are unremarkable. Cath UA- Discussed results of all testing with the patient. Advised her that there is no indication of major intra-abdominal infection or abnormality with her percutaneous tube. Patient request to be transported by ambulance to [place] to see her specialist. Patient started requesting food to eat while waiting for her urine sample. As the nurse was bringing the patient in food the patient then said her uber was here. The patient said she was ready to leave. She did not want to wait on her urine testing. She said that she would follow-up with her primary care provider tomorrow to determine if she needed treated for a UTI. She stated that her primary care provider knew what antibiotics to put her on better than the ER anyway. Patient signed out AMA UA does show positive nitrates and bacteria. Last culture had no growth culture before that have Proteus. Order for Augmentin twice a day x7 days is placed in the discharge. Referral to case management is done so that they can notify patient of urinary tract infection and prescription for Augmentin. Lab Data 05/16/22 18:00 05/16/22 18:00 Radiology Impressions KUB X-Ray 05/16/22 18:38 IMPRESSION: 1. Ventricular peritoneal shunt seen over the abdomen. 2. Right abdominal pigtail catheter. Laboratory Results WBC 6.8 10^3/uL (4.5-13.0) 05/16/22 18:00 RBC 4.60 10^6/uL (4.1-5.3) 05/16/22 18:00 Hgb 13.0 g/dL (11.5-15.3) 05/16/22 18:00 Hct 40.1 % (37.0-47.0) 05/16/22 18:00 MCV 87.2 fl (81-99) 05/16/22 18:00 MCH 28.3 pg (28.0-34.0) 05/16/22 18:00 MCHC 32.4 g/dL (30.0-36.0) 05/16/22 18:00 RDW 12.1 % (12.1-15.1) 05/16/22 18:00 Plt Count 288 10^3/cmm (130-400) 05/16/22 18:00 MPV 9.4 fL (7.4-10.4) 05/16/22 18:00 Neut % (Auto) 47.2 % 05/16/22 18:00 Lymph % (Auto) 44.5 % 05/16/22 18:00 Coffee % (Auto) 6.5 % 05/16/22 18:00 Eos % (Auto) 1.2 % 05/16/22 18:00 Baso % (Auto) 0.3 % 05/16/22 18:00 Neut # (Auto) 3.19 10^3/uL (1.8-8.0) 05/16/22 18:00 Lymph # (Auto) 3.0 10^3/uL (1.5-6.5) 05/16/22 18:00 Coffee # (Auto) 0.4 10^3/uL (0.2-0.9) 05/16/22 18:00 Eos # (Auto) 0.1 10^3/uL (0.0-0.8) 05/16/22 18:00 Baso # (Auto) 0.0 10^3/uL (0.0-0.1) 05/16/22 18:00 Nucleated RBC % (auto) 0 % 05/16/22 18:00 Nucleated RBCs # 0.0 /100WBC 05/16/22 18:00 Sodium 142 mmol/L (136-145) 05/16/22 18:00 Potassium 3.6 mmol/L (3.5-5.1) 05/16/22 18:00 Chloride 105 mmol/L (98-107) 05/16/22 18:00 Carbon Dioxide 24 mmol/L (22-29) 05/16/22 18:00 Anion Gap 16.6 (5-19) 05/16/22 18:00 BUN 11 mg/dL (6-20) 05/16/22 18:00 Creatinine 0.7 mg/dL (0.5-0.9) 05/16/22 18:00 GFR Calculation 106.7 mL/min (90-130) 05/16/22 18:00 Glucose 82 mg/dL (65-115) 05/16/22 18:00 Calculated Osmolality 292 mOsm/kg (285-295) 05/16/22 18:00 Lactic Acid 0.4 mmol/L (0.5-2.2) L 05/16/22 18:00 Calcium 9.5 mg/dL (8.5-10.5) 05/16/22 18:00 Total Bilirubin 0.5 mg/dL (0.15-1.2) 05/16/22 18:00 AST 21 U/L (0-32) 05/16/22 18:00 ALT 21 U/L (0-33) 05/16/22 18:00 Alkaline Phosphatase 71 U/L (35-105) 05/16/22 18:00 Total Protein 7.4 g/dL (6.6-8.7) 05/16/22 18:00 Albumin 4.4 g/dL (3.5-5.2) 05/16/22 18:00 Globulin 3.0 g/dL (1.3-4.6) 05/16/22 18:00 Urine Color Yellow (Yellow) 05/16/22 20:08 Urine Appearance Sl hazy (CLEAR) A 05/16/22 20:08 Urine pH 6 (5-7) 05/16/22 20:08 Ur Specific [place] 1.015 (1.005-1.030) 05/16/22 20:08 Urine Protein Trace (Negative) 05/16/22 20:08 Urine Glucose (UA) Norm (Normal) 05/16/22 20:08 Urine Ketones Negative (Negative) 05/16/22 20:08 Urine Blood 2+ (Negative) H 05/16/22 20:08 Urine Nitrate Positive (Negative) H 05/16/22 20:08 Urine Bilirubin Neg (Negative) 05/16/22 20:08 Urine Urobilinogen Norm mg/dL (Negative) 05/16/22 20:08 Ur Leukocyte Esterase Negative (Negative) 05/16/22 20:08 Urine RBC 40-50 /hpf (0-2) H 05/16/22 20:08 Urine WBC 55-80 /hpf (0-5) H 05/16/22 20:08 Ur Squamous Epith Cells 0-4 /hpf (0-5) H 05/16/22 20:08 Amorphous Sediment Not Reportable 05/16/22 20:08 Urine Bacteria 3+ /hpf (NONE) H 05/16/22 20:08 Urine HCG, Qual Negative (Negative) 05/16/22 20:08 Discharge Plan Discharge Patient Disposition: Left Against Medical Advice Clinical Impression: UTI (urinary tract infection), Intellectual disability Condition: Stable Prescriptions: New amoxicillin-pot clavulanate 875-125 mg tablet 1 tab PO BID Qty: 14 0RF No Action medroxyprogesterone 150 mg/mL suspension 150 mg IM .Q 3 Months ondansetron 8 mg tablet,disintegrating 8 mg PO Q8H PRN (Reason: nausea and vomiting) 5 Days Qty: 15 0RF dicyclomine 20 mg tablet 20 mg PO TID Qty: 20 0RF duloxetine 60 mg capsule,delayed release(DR/EC) 120 mg PO DAILY Qty: 60 1RF trazodone 100 mg tablet 100 mg PO BEDTIME Qty: 30 1RF diphenhydramine HCl [Benadryl Allergy] 25 mg tablet 25 mg PO Q8H PRN (Reason: headache) Qty: 10 0RF Rx Instructions: taken with reglan metoclopramide HCl [Reglan] 10 mg tablet 10 mg PO Q8H PRN (Reason: migraine headache) Qty: 10 0RF Rx Instructions: taken with benadryl ondansetron 4 mg Tablet,Disintegrating 4 mg PO Q6H PRN (Reason: Nausea) Qty: 10 0RF oxybutynin chloride 5 mg tablet 5 mg PO TID hydroxyzine HCl 10 mg tablet 5 mg PO BEDTIME topiramate 50 mg tablet 50 mg PO BID nitrofurantoin monohyd/m-cryst 100 mg capsule 1 cap PO BEDTIME chlorhexidine gluconate 0.12 % mouthwash See Rx Instructions .ROUTE .COMPLEX Rx Instructions: DIRECTED FOR 14 DAYS sumatriptan succinate 100 mg tablet 100 mg PO DAILY acetaminophen 500 mg Tablet 1,000 mg PO Q6H PRN (Reason: Pain) polyethylene glycol 3350 [Miralax] 17 gram powder in packet 17 g PO BID Qty: 30 0RF ondansetron 4 mg tablet,disintegrating 4 mg PO Q6H PRN (Reason: nausea and vomiting) Qty: 14 0RF Referrals: Fransisca Flores DIGITAL RETOUCHER [Primary Care Provider] - Coding Level of Care Code ED Toggle Press Folder And Feeder for g Aram
[2022-05-16 14:39] VITALS: BP 116/80; PULSE 93; RESP 16; O2SAT 99
[2022-05-16 18:12] LABS: Basophils % 0.3 %; Eosinophils # 0.1 10^3/uL (0.0-0.8); Eosinophils % 1.2 %; Hematocrit 40.1 % (37.0-47.0); Lymphocytes % 44.5 %; Mean Corpuscular HGB Conc 32.4 g/dL (30.0-36.0); Mean Corpuscular Hemoglobin 28.3 pg (28.0-34.0); Mean Corpuscular Volume 87.2 fl (81-99); Mean Platelet Volume 9.4 fL (7.4-10.4); Monocytes # 0.4 10^3/uL (0.2-0.9); Monocytes % 6.5 %; Neutrophils # 3.19 10^3/uL (1.8-8.0); Neutrophils % 47.2 %; Nucleated Red Blood Cells % 0 %; Platelet Count 288 10^3/cmm (130-400); Red Cell Distribution Width 12.1 % (12.1-15.1); White Blood Count 6.8 10^3/uL (4.5-13.0)
[2022-05-16 18:30] LABS: Alanine Aminotransferase 21 U/L (0-33); Albumin Level 4.4 g/dL (3.5-5.2); Alkaline Phosphatase 71 U/L (35-105); Anion Gap 16.6 (5-19); Aspartate Amino Transferase 21 U/L (0-32); Blood Urea Nitrogen 11 mg/dL (6-20); Calcium 9.5 mg/dL (8.5-10.5); Carbon Dioxide 24 mmol/L (22-29); Chloride 105 mmol/L (98-107); Glomerular Filtration Rate 106.7 mL/min (90-130); Glucose 82 mg/dL (65-115); Lactic Sepsis W/Reflex 0.4 mmol/L (0.5-2.2); Osmolality Calculated 292 mOsm/kg (285-295); Potassium 3.6 mmol/L (3.5-5.1); Sodium 142 mmol/L (136-145); Total Bilirubin 0.5 mg/dL (0.15-1.2); Total Protein 7.4 g/dL (6.6-8.7)
--- NOTE | 2022-05-16 18:38 | XRR_ITS ---
PROCEDURE INFORMATION: Exam: XR Abdomen Exam date and time: 05/16/2022 6:59 PM Age: 22 years old Clinical indication: Abdominal pain; Localized; Right lower quadrant (rlq); Prior surgery TECHNIQUE: Imaging protocol: Radiologic exam of the abdomen. Views: Frontal supine view of the abdomen. 1 View. COMPARISON: CR (ABDOMEN, ) 02/02/2022 9:26 PM FINDINGS: Tubes, catheters and devices: Right abdominal pigtail catheter. Heart/Mediastinum: Ventricular peritoneal shunt seen over the abdomen. Gastrointestinal tract: Normal. No bowel dilation. Bones/joints: Unremarkable. XR/XR KUB [id number] IMPRESSION: 1. Ventricular peritoneal shunt seen over the abdomen. 2. Right abdominal pigtail catheter.
[2022-05-16] MEDS: HYDROcodone-acetaminophen 5-325 mg Tablet 1 TAB PO (19:42)
[2022-05-16 20:21] LABS: Urine Color Yellow (Yellow)
[2022-05-16 20:22] LABS: Add Urine Microscopic? YES; Bilirubin Urine Neg (Negative); Blood Urine 2+ (Negative); Glucose Urine UA Norm (Normal); Ketones Urine Negative (Negative); Leukocyte Esterase Urine Negative (Negative); Nitrate Urine Positive (Negative); Protein Urine Trace (Negative); Specific Gravity, Urine 1.015 (1.005-1.030); Urine Appearance SL Hazy (CLEAR); Urobilinogen Urine Norm (Negative); pH Urine 6 (5-7)
[2022-05-16 20:25] LABS: RBC Urine 40-50 /hpf (0-2); WBC Urine 55-80 /hpf (0-5)
[2022-05-16 20:26] LABS: Squamous Epithelial Cell Urine 0-4 /hpf (0-5)
[2022-05-16 20:27] LABS: Bacteria Urine 3+ /hpf
[2022-05-16 20:40] VITALS: BP 125/81; PULSE 89; RESP 15; TEMP 36.8; O2SAT 99
--- NOTE | 2022-05-17 09:24 | DCPLANNER ---
mailroom manager had message to call patients primary care physician to inform the physician that patient left AMA and that her UA showed infection. mailroom manager called [facility], spoke with Martine and informed her that patient was seen in the ER and left AMA and that patients UA showed infection.
== END 2022-05-16 20:42 | disposition left against medical advice (07) ==
PROVIDERS: Emergency Provider Nurse Practitioner Family; PCP Nurse Practitioner Family
DX: N39.0 Urinary tract infection, site not specified (principal); F79 Unspecified intellectual disabilities; F17.210 Nicotine dependence, cigarettes, uncomplicated
CPT/HCPCS: 36415; 74018; 80053; 81001; 81025; 83605; 85025; 99284

== ENCOUNTER 2022-05-18 19:31 | Emergency (ER) | payer MEDICARE, MEDICAID, SELFPAY ==
[2022-05-18 19:39] VITALS: BP 130/73; PULSE 110; RESP 18; TEMP 36.4; O2SAT 100
--- NOTE | 2022-05-18 19:47 | CTR_ITS ---
PROCEDURE INFORMATION: Exam: CT Abdomen And Pelvis Without Contrast Exam date and time: 05/18/2022 8:54 PM Age: 22 years old Clinical indication: Other: PT. Brought in er for complaint of colostomy tube blockage; Prior surgery; Surgery date: 6+ months; Surgery type: Colostomy tube, bladder surgery, vp transportation shunt; Additional info: Constipation TECHNIQUE: Imaging protocol: Computed tomography of the abdomen and pelvis without contrast. Axial, coronal and sagittal reformatted images were created and reviewed. Radiation optimization: All CT scans at this facility use at least one of these dose optimization techniques: automated exposure control; mA and/or kV adjustment per patient size (includes targeted exams where dose is matched to clinical indication); or iterative reconstruction. REPORTING DATA: Count of CT and Cardiac NM exams in prior 12 months: This patient has received 6 known CTs and 0 known cardiac nuclear medicine studies in the 12 months prior to the current study. COMPARISON: CT abdomen pelvis w con* [id number] 03/14/2022 1:38 PM RADIATION DOSE METRICS: Total DLP (mGy-cm): 984.71 FINDINGS: Tubes, catheters and devices: LEARNING SPECIALIST shunt catheter partially visualized. Right lower quadrant colostomy tube in place. Liver: Unremarkable. Gallbladder and bile ducts: Cholelithiasis. Pancreas: Unremarkable. Spleen: Unremarkable. Adrenal glands: Normal. No mass. Kidneys and ureters: Right renal cortical scarring. 1.9 cm right renal cyst (no follow-up is indicated based on the imaging appearance) no radiodense calculi. No hydronephrosis. Stomach and bowel: Moderate amount of retained stool in the colon. No obstruction. No bowel wall thickening. No pneumatosis. Appendix: Appendix not identified with certainty. Intraperitoneal space: No free fluid. No organized fluid collection. No free air. Vasculature: Unremarkable. No aneurysm. Lymph nodes: Small mesenteric lymph nodes, nonspecific in appearance. No pathologically enlarged lymph nodes. Urinary bladder: Mild circumferential urinary bladder wall thickening, likely secondary to underdistention. Reproductive: Unremarkable. Bones/joints: No acute osseous abnormality. S shaped scoliosis. Soft tissues: Unremarkable. CT/CT abdomen pelvis wo con [id number] IMPRESSION: 1. Limited noncontrast examination without CT evidence of acute intra-abdominal or pelvic pathology. 2. Additional findings, as above. COMMENTS: Consistent with the [employer] [employer]'s Incidental Findings Committee white paper (J Am Harrison Radiol 2018): Any incidental renal lesion less than 1 cm or classified as too small to characterize, or any incidental cystic renal lesion characterized as simple-appearing, is likely benign. No follow-up imaging is recommended for these lesions per consensus recommendations based on imaging criteria.
--- NOTE | 2022-05-18 19:49 | ED_ITS ---
HPI - General Adult General: Chief complaint: General Medical Stated complaint: colostomy blockage Time Seen by Provider: 05/18/22 19:32 Source: patient and EMS Mode of arrival: EMS History of Present Illness: 22-year-old female with a history of spina bifida and chronic constipation who presents because her colon flush tube is not functioning right. She states she is unable to flush it because she does not have a syringe. She says she typically flushes that with 300 cc of water daily. She has not had a bowel movement since this past Friday. She states prior to that she had nausea, vomiting and diarrhea. She takes MiraLAX daily by mouth to help keep her bowels moving. She has not had an enema. She states she is hav ing increased abdominal pain and distention and pain around the colon flush tube. She was seen here yesterday for the same. She was diagnosed with a urinary tract infection. 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 There is a small pigtail tube in the right lower quadrant which is easily flushable with a 50 cc large tip catheter. Neuro: COMMON NORMALS: patient oriented x3 Course Vital Signs: Vital signs: Vital Signs Temperature 97.6 F 05/18/22 19:39 Pulse Rate 90 03/04/23 20:39 Respiratory Rate 18 05/18/22 20:41 Blood Pressure 130/73 05/18/22 19:39 Pulse Oximetry 95 05/18/22 20:41 Oxygen Delivery Me thod 05/18/22 20:39 [facility] - General Adult Medical Decision Making 22-year-old female with spina bifida who has chronic constipation and has a pigtail catheter: To be used to flush her colon for constipation. She presents today concerning the tube stating that it will not flush. I was easily able to flush the normal 300 cc that she flushes the tube with. She was seen yesterday and left AMA. She does have a urinary tract infection that will need treated. Will obtain labs and a CT today to make sure that the tube appears to be in correct position. Patient's been given Rocephin IV for her UTI. Cultures pending from yesterday. We will discharge her with cefdinir 300 mg twice daily x10 days. I have instructed her to continue her normal colon flushing per her previous instructions. She needs to take MiraLAX twice daily and Colace twice daily. Return if she has further problems. Follow-up this week with her primary care doctor Medical Records I reviewed the patient's medical records. Lab Data I reviewed the patient's lab results. Patient's white blood cell count is normal. Renal function is normal. Review of labs from yesterday do show urinary tract infection. CT of the abdomen and pelvis shows constipation, appropriate positioning of her colostomy flushing tube. 05/18/22 20:20 05/18/22 20:20 Radiology Impressions Abdomen/Pelvis CT 05/18/22 19:47 IMPRESSION: 1. Limited noncontrast examination without CT evidence of acute intra-abdominal or pelvic pathology. 2. Additional findings, as above. COMMENTS: Consistent with the [place] [employer]'s Incidental Findings Committee white paper (J Am Harrison Radiol 2018): Any incidental renal lesion less than 1 cm or classified as too small to characterize, or any incidental cystic renal lesion characterized as simple-appearing, is likely benign. No follow-up imaging is recommended for these lesions per consensus recommendations based on imaging criteria. Laboratory Results WBC 7.6 10^3/uL (4.5-13.0) 05/18/22 20:20 RBC 4.42 10^6/uL (4.1-5.3) 05/18/22 20:20 Hgb 12.4 g/dL (11.5-15.3) 05/18/22 20:20 Hct 38.9 % (37.0-47.0) 05/18/22 20:20 MCV 88.0 fl (81-99) 05/18/22 20:20 MCH 28.1 pg (28.0-34.0) 05/18/22 20: MCHC 31.9 g/dL (30.0-36.0) 05/18/22 20:20 RDW 12.2 % (12.1-15.1) 05/18/22 20:20 Plt Count 355 10^3/cmm (130-400) 05/18/22 20:20 MPV 9.5 fL (7.4-10.4) 05/18/22 20:20 Neut % (Auto) 45.1 % 05/18/22 20:20 Lymph % (Auto) 46.2 % 05/18/22 20:20 [place] % (Auto) 6.5 % 05/18/22 20:20 Eos % (Auto) 1.3 % 05/18/22 20:20 Baso % (Auto) 0.4 % 05/18/22 20:20 Neut # (Auto) 3.42 10^3/uL (1.8-8.0) 05/18/22 20:20 Lymph # (Auto) 3.5 10^3/uL (1.5-6.5) 05/18/22 20:20 [place] # (Auto) 0.5 10^3/uL (0.2-0.9) 05/18/22 20:20 Eos # (Auto) 0.1 10^3/uL (0.0-0.8) 05/18/22 20:20 Baso # (Auto) 0.0 10^3/uL (0.0-0.1) 05/18/22 20:20 Nucleated RBC % (auto) 0 % 05/18/22 20:20 Nucleated RBCs # 0.0 /100WBC 05/18/22 20:20 Sodium 144 mmol/L (136-145) 05/18/22 20:20 Potassium 4.0 mmol/L (3.5-5.1) 05/18/22 20:20 Chloride 107 mmol/L (98-107) 05/18/22 20:20 Carbon Dioxide 24 mmol/L (22-29) 05/18/22 20:20 Anion Gap 17.0 (5-19) 05/18/22 20:20 BUN 7 mg/dL (6-20) 05/18/22 20:20 Creatinine 0.7 mg/dL (0.5-0.9) 05/18/22 20:20 GFR Calculation 106.7 mL/min (90-130) 05/18/22 20:20 Glucose 95 mg/dL (65-115) 05/18/22 20:20 Calculated Osmolality 296 mOsm/kg (285-295) H 05/18/22 20:20 Calcium 9.2 mg/dL (8.5-10.5) 05/18/22 20:20 Total Bilirubin 0.2 mg/dL (0.15-1.2) 05/18/22 20:20 AST 18 U/L (0-32) 05/18/22 20:20 ALT 21 U/L (0-33) 05/18/22 20:20 Alkaline Phosphatase 68 U/L (35-105) 05/18/22 20:20 Total Protein 7.0 g/dL (6.6-8.7) 05/18/22 20:20 Albumin 4.2 g/dL (3.5-5.2) 05/18/22 20:20 Globulin 2.8 g/dL (1.3-4.6) 05/18/22 20:20 Discharge Plan Discharge Patient Disposition: Home Clinical Impression: UTI (urinary tract infection), Constipation Condition: Stable Prescriptions: New cefdinir 300 mg capsule 300 mg PO BID 10 Days Qty: 20 0RF No Action medroxyprogesterone 150 mg/mL suspension 150 mg IM .Q 3 Months ondansetron 8 mg tablet,disintegrating 8 mg PO Q8H PRN (Reason: nausea and vomiting) 5 Days Qty: 15 0RF dicyclomine 20 mg tablet 20 mg PO TID Qty: 20 0RF duloxetine 60 mg capsule,delayed release(DR/EC) 120 mg PO DAILY Qty: 60 1RF trazodone 100 mg tablet 100 mg PO BEDTIME Qty: 30 1RF diphenhydramine HCl [Benadryl Allergy] 25 mg tablet 25 mg PO Q8H PRN (Reason: headache) Qty: 10 0RF Rx Instructions: taken with reglan metoclopramide HCl [Reglan] 10 mg tablet 10 mg PO Q8H PRN (Reason: migraine headache) Qty: 10 0RF Rx Instructions: taken with benadryl ondansetron 4 mg Tablet,Disintegrating 4 mg PO Q6H PRN (Reason: Nausea) Qty: 10 0RF oxybutynin chloride 5 mg tablet 5 mg PO TID hydroxyzine HCl 10 mg tablet 5 mg PO BEDTIME topiramate 50 mg tablet 50 mg PO BID nitrofurantoin monohyd/m-cryst 100 mg capsule 1 cap PO BEDTIME chlorhexidine gluconate 0.12 % mouthwash See Rx Instructions .ROUTE .COMPLEX Rx Instructions: DIRECTED FOR 14 DAYS sumatriptan succinate 100 mg tablet 100 mg PO DAILY amoxicillin-pot clavulanate 875-125 mg tablet 1 tab PO BID Qty: 14 0RF acetaminophen 500 mg Tablet 1,000 mg PO Q6H PRN (Reason: Pain) polyethylene glycol 3350 [Miralax] 17 gram powder in packet 17 g PO BID Qty: 30 0RF ondansetron 4 mg tablet,disintegrating 4 mg PO Q6H PRN (Reason: nausea and vomiting) Qty: 14 0RF Discharge Orders: Discharge ED (Routine); Ordered 05/18/22 Ordered By: Renae Jain Referrals: Fransisca Flores FNP [Primary Care Provider] - Discharge Diet: Advance as tolerated Discharge Activity: Resume usual activity Patient Instructions: Constipation (DC), Opioid Safety, Pain Management, Urinary Tract Infection - Women Activity Restrictions/Additional Instructions: Flush your colon per previous instructions. Continue MiraLAX twice daily. Take Colace twice daily. Take the antibiotics twice daily until gone. Follow-up next week with your primary care doctor Coding Level of Care Code ED Em Physician for Jordana Chiu
[2022-05-18 20:39] VITALS: PULSE 90; RESP 16; O2SAT 99
[2022-05-18 20:41] VITALS: RESP 18; O2SAT 95
[2022-05-18] MEDS: morphine 4 mg/mL SDV 1 mL IVP (20:41)
[2022-05-18] MEDS: ondansetron 2 mg/ML SDV 2 mL 4 MG IVP (20:42)
[2022-05-18 20:53] LABS: Basophils % 0.4 %; Eosinophils # 0.1 10^3/uL (0.0-0.8); Eosinophils % 1.3 %; Hematocrit 38.9 % (37.0-47.0); Hemoglobin 12.4 g/dL (11.5-15.3); Lymphocytes # 3.5 10^3/uL (1.5-6.5); Lymphocytes % 46.2 %; Mean Corpuscular HGB Conc 31.9 g/dL (30.0-36.0); Mean Corpuscular Hemoglobin 28.1 pg (28.0-34.0); Mean Platelet Volume 9.5 fL (7.4-10.4); Monocytes # 0.5 10^3/uL (0.2-0.9); Monocytes % 6.5 %; Neutrophils # 3.42 10^3/uL (1.8-8.0); Neutrophils % 45.1 %; Nucleated Red Blood Cells % 0 %; Platelet Count 355 10^3/cmm (130-400); Red Blood Count 4.42 10^6/uL (4.1-5.3); Red Cell Distribution Width 12.2 % (12.1-15.1); White Blood Count 7.6 10^3/uL (4.5-13.0)
[2022-05-18 21:01] LABS: Alanine Aminotransferase 21 U/L (0-33); Albumin Level 4.2 g/dL (3.5-5.2); Alkaline Phosphatase 68 U/L (35-105); Aspartate Amino Transferase 18 U/L (0-32); Blood Urea Nitrogen 7 mg/dL (6-20); Calcium 9.2 mg/dL (8.5-10.5); Carbon Dioxide 24 mmol/L (22-29); Chloride 107 mmol/L (98-107); Globulin 2.8 g/dL (1.3-4.6); Glomerular Filtration Rate 106.7 mL/min (90-130); Glucose 95 mg/dL (65-115); Osmolality Calculated 296 mOsm/kg (285-295); Sodium 144 mmol/L (136-145); Total Bilirubin 0.2 mg/dL (0.15-1.2)
[2022-05-18] MEDS: cefTRIAXone 2,000 MG in sodium chloride 0.9% (plus) 50 ML 100 MG IV (21:56)
[2022-05-18 22:22] VITALS: BP 98/67; PULSE 112; RESP 16; O2SAT 98
== END 2022-05-18 22:23 | disposition home or self-care (01) ==
PROVIDERS: Emergency Provider Emergency Medicine; PCP Nurse Practitioner Family
DX: K59.00 Constipation, unspecified (principal); N39.0 Urinary tract infection, site not specified; Q05.9 Spina bifida, unspecified
CPT/HCPCS: 74176; 80053; 85025; 96365; 96375; 99285; J0696; J2270; J2405

== ENCOUNTER 2022-06-14 20:06 | Emergency (ER) | payer MEDICARE, MEDICAID, SELFPAY ==
[2022-06-14 20:10] VITALS: BP 117/75; PULSE 111; RESP 20; TEMP 36.9; O2SAT 98; BMI 41.5
--- NOTE | 2022-06-14 20:47 | XRR_ITS ---
PROCEDURE INFORMATION: Exam: XR Abdomen Exam date and time: 06/14/2022 8:58 PM Age: 22 years old Clinical indication: Abdominal pain; Additional info: Abdominal pain, left upper pain TECHNIQUE: Imaging protocol: Radiologic exam of the abdomen. Views: Frontal supine view of the abdomen. 1 View. COMPARISON: CT abdomen pelvis [facility] [id number] 05/18/2022 8:54 PM FINDINGS: Tubes, catheters and devices: Percutaneous pigtail drainage catheter over the right abdomen which on comparison CT scan appears to be within the cecum. Stable right-sided 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 shunt catheter. Gastrointestinal tract: Normal. No bowel dilation. Bones/joints: Unremarkable. XR/XR KUB portable [id number] IMPRESSION: 1. Percutaneous pigtail drainage catheter over the right abdomen which on comparison CT scan appears to be within the cecum. 2. Stable right-sided 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 shunt catheter.
--- NOTE | 2022-06-14 20:58 | W.ED.ABDPA2 ---
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 And problems with chronic constipation. She presents with left upper quadrant pain. She states that she had a bowel movement earlier in the day that was normal for her. She says that the pain has been there for 2 weeks or so. She vomited once today. She says she is nauseated despite nausea medication, and is not holding much food down. No fever. No diarrhea. No blood in the stool. MD elicited complaint: abdominal pain Pertinent past history: constipation and other Onset (ago): week(s) Pain Consistency: intermittent Location: LUQ Quality: aching Radiation: none Migration to: no migration Exacerbating factors: nothing Associated Symptoms: Reports change in stool character, constipation, nausea and vomiting; Denies diarrhea, dysuria, fever(s), hematochezia and loose stools Review of Systems Const: Denies: fever(s) ENMT: Denies: throat pain Card: Denies: chest pain Resp: Denies: dyspnea GI: Reports: abdominal pain, nausea, vomiting, constipation and change in stool character; Denies: diarrhea or hematochezia : Denies: flank pain or dysuria PFSH ED PFSH: Medical History Common migraine with intractable migraine Intellectual disability Psychiatric care Surgical History 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 REPAIRER (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) shunt status Social History Smoking and tobacco status: current every day smoker Quit status (tobacco): has quit using tobacco Year quit tobacco: 2020 Second hand smoke exposure: Yes Alcohol intake: never Physical Exam Const: COMMON NORMALS: no acute distress GENERAL APPEARANCE: cooperative; not ill appearing and not frail appearing HENMT: COMMON NORMALS: normocephalic, atraumatic and Normal external nose present HEAD & SCALP: normocephalic and atraumatic FACE & SINUS: normal facial exam and face symmetric NOSE: Normal external nose present Eye: COMMON NORMALS: Equal, round and reactive pupils present and EOMs intact bilaterally PUPIL: Yes Equal, round and reactive pupils present Neck/C-Spine: GENERAL: Yes trachea midline Chest: CHEST: Yes Symmetrical chest wall rise Resp: COMMON NORMALS: normal respiratory effort, No retractions, No use of accessory muscles and clear to auscultation bilaterally AUSCULTATION: clear to auscultation bilaterally Cardio: COMMON NORMALS: regular rate and regular rhythm RATE: regular rate RHYTHM: regular rhythm GI: COMMON NORMALS: Normal to inspection, nondistended, normoactive bowel sounds present PALPATION: Yes Tenderness to palpation present (GI) (mild diffuse) Extremity: COMMON NORMALS: no pedal edema Neuro: BEN COMA SCALE: document GCS findings Fenton coma scale eye opening: Spontaneous Fenton coma scale verbal response: Orientated Ben coma scale motor response: Obey commands Fenton coma scale total score: 15 SENSORY EXAM: Yes extremities (intact) Psych: COMMON NORMALS: speech normal SPEECH: Yes normal speech Skin: COMMON NORMALS: no rashes or lesions noted GENERAL SKIN EXAM: no rashes or lesions noted Course Vital Signs: Vital signs: Vital Signs Temperature 98.4 F 06/15/22 00:23 Pulse Rate 110 H 06/15/22 00:23 Respiratory Rate 20 H 06/15/22 00:23 Blood Pressure 118/80 06/15/22 00:23 Pulse Oximetry 98 06/15/22 00:23 Oxygen Delivery Me thod 06/14/22 20:10 MDM - Abdominal Pain Medical Decision Making 22-year-old female with abdominal pain. No fever. No leukocytosis. CRP is normal at 4.5. She has a urinary tract infection with greater than 100 whites and trace leukocyte Estrace. She has 4+ bacteria. KUB reveals no acute problems. She will be allowed discharge. Lab Data 06/14/22 21:05 06/14/22 21:05 Labs/Radiology: Radiology Impressions KUB X-Ray 06/14/22 20:47 IMPRESSION: 1. Percutaneous pigtail drainage catheter over the right abdomen which on comparison CT scan appears to be within the cecum. 2. Stable right-sided 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 shunt catheter. Laboratory Results WBC 6.8 10^3/uL (4.5-13.0) 06/14/22 21:05 RBC 4.72 10^6/uL (4.1-5.3) 06/14/22 21:05 Hgb 13.4 g/dL (11.5-15.3) 06/14/22 21:05 Hct 41.9 % (37.0-47.0) 06/14/22 21:05 MCV 88.8 fl (81-99) 06/14/22 21:05 MCH 28.4 pg (28.0-34.0) 06/14/22 21:05 MCHC 32.0 g/dL (30.0-36.0) 06/14/22 21:05 RDW 12.3 % (12.1-15.1) 06/14/22 21:05 Plt Count 288 10^3/cmm (130-400) 06/14/22 21:05 MPV 9.5 fL (7.4-10.4) 06/14/22 21:05 Neut % (Auto) 49.7 % 06/14/22 21:05 Lymph % (Auto) 41.7 % 06/14/22 21:05 [place] % (Auto) 6.3 % 06/14/22:05 Eos % (Auto) 1.9 % 06/14/22 21:05 Baso % (Auto) 0.3 % 06/14/22 21:05 Neut # (Auto) 3.40 10^3/uL (1.8-8.0) 06/14/22 21:05 Lymph # (Auto) 2.9 10^3/uL (1.5-6.5) 06/14/22 21:05 [place] # (Auto) 0.4 10^3/uL (0.2-0.9) 06/14/22:05 Eos # (Auto) 0.1 10^3/uL (0.0-0.8) 06/14/22 21:05 Baso # (Auto) 0.0 10^3/uL (0.0-0.1) 06/14/22: Nucleated RBC % (auto) 0 % 06/14/22: Nucleated RBCs # 0.0 /100WBC 06/14/22 21:05 Sodium 142 mmol/L (136-145) 06/14/22 21:05 Potassium 3.7 mmol/L (3.5-5.1) 06/14/22 21:05 Chloride 106 mmol/L (98-107) 06/14/22 21:05 Carbon Dioxide 25 mmol/L (22-29) 06/14/22 21:05 Anion Gap 14.7 (5-19) 06/14/22 21:05 BUN 15 mg/dL (6-20) 06/14/22 21:05 Creatinine 0.8 mg/dL (0.5-0.9) 06/14/22 21:05 GFR Calculation 91.4 mL/min (90-130) 06/14/22 21:05 Glucose 94 mg/dL (65-115) 06/14/22 21:05 Calculated Osmolality 295 mOsm/kg (285-295) 06/14/22 21:05 Calcium 9.4 mg/dL (8.5-10.5) 06/14/22 21:05 Total Bilirubin 0.3 mg/dL (0.15-1.2) 06/14/22 21:05 AST 13 U/L (0-32) 06/14/22 21:05 ALT 12 U/L (0-33) 06/14/22 21:05 Alkaline Phosphatase 76 U/L (35-105) 06/14/22 21:05 C-Reactive Protein 4.5 mg/L (0.0-4.9) 06/14/22 21:05 Total Protein 7.3 g/dL (6.6-8.7) 06/14/22 21:05 Albumin 4.2 g/dL (3.5-5.2) 06/14/22 21:05 Globulin 3.1 g/dL (1.3-4.6) 06/14/22 21:05 Lipase 35 U/L (13-60) 06/14/22 21:05 HCG, Qual Negative (Negative) 06/14/22 21:05 Urine Color Yellow (Yellow) 06/14/22 22:35 Urine Appearance Cloudy (CLEAR) A 06/14/22 22:35 Urine pH 6 (5-7) 06/14/22 22:35 Ur Specific Amo 1.015 (1.005-1.030) 06/14/22 22:35 Urine Protein Trace (Negative) 06/14/22 22:35 Urine Glucose (UA) Norm (Normal) 06/14/22 22:35 Urine Ketones Negative (Negative) 06/14/22 22:35 Urine Blood 2+ (Negative) H 03/31/23 22:35 Urine Nitrate Negative (Negative) 06/14/22 22:35 Urine Bilirubin Neg (Negative) 06/14/22 22:35 Urine Urobilinogen Norm mg/dL (Negative) 06/14/22 22:35 Ur Leukocyte Esterase Trace (Negative) H 06/14/22 22:35 Urine RBC 0-4 /hpf (0-2) H 06/14/22 22:35 Urine WBC >100 /hpf (0-5) H 06/14/22 22:35 Ur Squamous Epith Cells 0-4 /hpf (0-5) H 06/14/22 22:35 Amorphous Sediment Not Reportable 06/14/22 22:35 Urine Bacteria 4+ /hpf (NONE) H 06/14/22 22:35 Urine Mucus Trace /hpf 06/14/22 22:35 Discharge Plan Discharge Patient Disposition: Home Clinical Impression: Urinary tract infection Condition: Stable Prescriptions: New cefdinir 300 mg capsule 300 mg PO BID Qty: 14 0RF Continued ondansetron 4 mg tablet,disintegrating 4 mg PO Q6H PRN (Reason: nausea and vomiting) Qty: 14 0RF Reglan 10 mg tablet 10 mg PO Q8H PRN (Reason: migraine headache) Qty: 10 0RF Rx Instructions: taken with benadryl Discontinued nitrofurantoin monohyd/m-cryst 100 mg capsule 1 cap PO BEDTIME amoxicillin-pot clavulanate 875-125 mg tablet 1 tab PO BID Qty: 14 0RF No Action medroxyprogesterone 150 mg/mL suspension 150 mg IM .Q 3 Months ondansetron 8 mg tablet,disintegrating 8 mg PO Q8H PRN (Reason: nausea and vomiting) 5 Days Qty: 15 0RF dicyclomine 20 mg tablet 20 mg PO TID Qty: 20 0RF duloxetine 60 mg capsule,delayed release(DR/EC) 120 mg PO DAILY Qty: 60 1RF trazodone 100 mg tablet 100 mg PO BEDTIME Qty: 30 1RF diphenhydramine HCl [Benadryl Allergy] 25 mg tablet 25 mg PO Q8H PRN (Reason: headache) Qty: 10 0RF Rx Instructions: taken with reglan ondansetron 4 mg Tablet,Disintegrating 4 mg PO Q6H PRN (Reason: Nausea) Qty: 10 0RF oxybutynin chloride 5 mg tablet 5 mg PO TID hydroxyzine HCl 10 mg tablet 5 mg PO BEDTIME topiramate 50 mg tablet 50 mg PO BID chlorhexidine gluconate 0.12 % mouthwash See Rx Instructions .ROUTE .COMPLEX Rx Instructions: DIRECTED FOR 14 DAYS sumatriptan succinate 100 mg tablet 100 mg PO DAILY acetaminophen 500 mg Tablet 1,000 mg PO Q6H PRN (Reason: Pain) polyethylene glycol 3350 [Miralax] 17 gram powder in packet 17 g PO BID Qty: 30 0RF Discharge Orders: Discharge ED (Routine); Ordered 06/14/22 Ordered By: Marciano Ramirez Referrals: Fransisca Flores, SUPPLY ROOM CLERK [Primary Care Provider] - Patient Instructions: Urinary Tract Infection in Women (ED) Activity Restrictions/Additional Instructions: Return for fever greater than 100 despite 2-3 doses of antibiotics, worsening pain despite treatment, vomiting liquids or medications, other concerning symptoms. Take the nausea medicine as scheduled for the next 24 hours, then as needed following. Antibiotics as directed. Coding Level of Care Code ED Layboy Tender for Jordana Chiu
--- NOTE | 2022-06-14 21:10 | PC.NURSE ---
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 Pt also self-caths through her umbilicus.
[2022-06-14 21:11] LABS: Basophils % 0.3 %; Eosinophils # 0.1 10^3/uL (0.0-0.8); Eosinophils % 1.9 %; Hematocrit 41.9 % (37.0-47.0); Hemoglobin 13.4 g/dL (11.5-15.3); Lymphocytes # 2.9 10^3/uL (1.5-6.5); Lymphocytes % 41.7 %; Mean Corpuscular Hemoglobin 28.4 pg (28.0-34.0); Mean Corpuscular Volume 88.8 fl (81-99); Mean Platelet Volume 9.5 fL (7.4-10.4); Monocytes # 0.4 10^3/uL (0.2-0.9); Monocytes % 6.3 %; Neutrophils % 49.7 %; Nucleated Red Blood Cells % 0 %; Platelet Count 288 10^3/cmm (130-400); Red Blood Count 4.72 10^6/uL (4.1-5.3); Red Cell Distribution Width 12.3 % (12.1-15.1); White Blood Count 6.8 10^3/uL (4.5-13.0)
[2022-06-14 21:28] LABS: HCG, Serum Qual Negative (Negative)
[2022-06-14 21:29] LABS: Alanine Aminotransferase 12 U/L (0-33); Albumin Level 4.2 g/dL (3.5-5.2); Alkaline Phosphatase 76 U/L (35-105); Anion Gap 14.7 (5-19); Aspartate Amino Transferase 13 U/L (0-32); Blood Urea Nitrogen 15 mg/dL (6-20); C Reactive Protein 4.5 mg/L (0.0-4.9); Calcium 9.4 mg/dL (8.5-10.5); Carbon Dioxide 25 mmol/L (22-29); Chloride 106 mmol/L (98-107); Globulin 3.1 g/dL (1.3-4.6); Glomerular Filtration Rate 91.4 mL/min (90-130); Glucose 94 mg/dL (65-115); Lipase 35 U/L (13-60); Osmolality Calculated 295 mOsm/kg (285-295); Potassium 3.7 mmol/L (3.5-5.1); Sodium 142 mmol/L (136-145); Total Bilirubin 0.3 mg/dL (0.15-1.2); Total Protein 7.3 g/dL (6.6-8.7)
[2022-06-14] MEDS: ondansetron 4 MG Tablet PO (22:37)
[2022-06-14] MEDS: promethazine 25 mg/mL SDV 1 mL IM (22:37)
[2022-06-14 23:11] LABS: Add Urine Culture? Yes; Add Urine Microscopic? YES; Bacteria Urine 4+ /hpf; Bilirubin Urine Neg (Negative); Blood Urine 2+ (Negative); Glucose Urine UA Norm (Normal); Ketones Urine Negative (Negative); Leukocyte Esterase Urine Trace (Negative); Mucus Urine TRACE /hpf; Nitrate Urine Negative (Negative); Protein Urine Trace (Negative); RBC Urine 0-4 /hpf (0-2); Specific Gravity, Urine 1.015 (1.005-1.030); Squamous Epithelial Cell Urine 0-4 /hpf (0-5); Urine Appearance Cloudy (CLEAR); Urine Color Yellow (Yellow); Urobilinogen Urine Norm (Negative); WBC Urine >100 /hpf (0-5); pH Urine 6 (5-7)
[2022-06-15] MEDS: cefdinir 300 MG CAPSULE PO (00:09)
[2022-06-15 00:23] VITALS: BP 118/80; PULSE 110; RESP 20; TEMP 36.9; O2SAT 98
== END 2022-06-15 00:26 | disposition home or self-care (01) ==
PROVIDERS: Emergency Provider Emergency Medicine; PCP Nurse Practitioner Family
DX: N39.0 Urinary tract infection, site not specified (principal); F17.210 Nicotine dependence, cigarettes, uncomplicated
CPT/HCPCS: 36415; 74018; 80053; 81001; 83690; 84703; 85025; 86140; 87077; 87086; 87186; 96372; 99284; J2550; Q0162

== ENCOUNTER 2022-06-20 19:00 | Emergency (ER) | payer MEDICARE, MEDICAID, SELFPAY ==
[2022-06-20 19:06] VITALS: BP 139/81; PULSE 111; RESP 18; TEMP 36.9; O2SAT 99; BMI 41.5
--- NOTE | 2022-06-20 19:09 | W.ED.NAVMDI ---
HPI - Nausea/Vomiting/Diarrhea General: Chief complaint: Nausea/Vomiting/Diarrhea Stated complaint: N/V Time Seen by Provider: 06/20/22 19:04 History of Present Illness: Ms. Vigil is a 22-year-old lady with complex past medical history presenting to the emergency department for nausea and vomiting. She reports worse symptoms for the past 3 days, she was previously seen in the emergency department and diagnosed with UTI however reports difficulty with her prescribed medications. Density symptoms is moderate. Not significant abdominal discomfort. She has been having bowel movements. She reports feeling generally unwell. No other specific changes in health, exacerbating, or alleviating factors identified. 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 Social History Smoking and tobacco status: current every day smoker Quit status (tobacco): has quit using tobacco Year quit tobacco: 2020 Second hand smoke exposure: Yes Alcohol intake: never Physical Exam Const: COMMON NORMALS: alert GENERAL APPEARANCE: cooperative and well developed HENMT: COMMON NORMALS: normocephalic and atraumatic HEAD & SCALP: normocephalic and atraumatic Eye: COMMON NORMALS: conjunctivae normal CONJUNCTIVA: Yes conjunctivae normal SCLERA: sclerae normal Neck/C-Spine: COMMON NORMALS: supple GENERAL: Yes trachea midline Resp: COMMON NORMALS: normal respiratory effort EFFORT & INSPECTION: Yes able to speak in complete sentences Cardio: COMMON NORMALS: regular rate and regular rhythm RATE: regular rate RHYTHM: regular rhythm GI: COMMON NORMALS: Soft to palpation PALPATION: Yes Soft to palpation and No Tenderness to palpation present (GI) Extremity: GENERAL: Yes normal exam except as noted and No edema Neuro: COMMON NORMALS: moves all extremities SENSORIUM/ORIENTATION: Yes alert and No Orientation impaired Psych: COMMON NORMALS: mental status grossly normal and Normal thought process present THOUGHT PROCESS: Normal thought process present Course Vital Signs: Vital signs: Vital Signs Temperature 98.5 F 06/20/22 21:43 Pulse Rate 102 H 06/20/22 21:43 Respiratory Rate 16 06/20/22 21:43 Blood Pressure 139/81 06/20/22 21:43 Pulse Oximetry 98 06/20/22 21:43 Oxygen Delivery Me thod Room Air 06/20/22 20:13 MDM - Nausea/Vomiting/Diarrhea Medical Decision Making 22-year-old female with complex history presenting due to continued symptoms in the context of recently diagnosed UTI. Exam as above. Labs with no significant hematologic or metabolic abnormalities. Prior urinalysis reviewed. Recent imaging reviewed, I do not feel that repeat is required based on physical exam and clinical history. Patient proved with IV fluids and antiemetic. She is able to tolerate p.o. intake. The results of ED evaluation were discussed with the patient including prescriptions and/or symptomatic cares (if applicable) including appropriate and responsible use, followup plan, and return precautions. The patient verbalized understanding and felt safe for discharge. Medical Records I reviewed the patient's medical records. Lab Data I reviewed the patient's lab results. 06/20/22 19:39 06/20/22 19:39 Laboratory Results WBC 9.4 10^3/uL (4.5-13.0) 06/20/22 19:39 RBC 4.62 10^6/uL (4.1-5.3) 06/20/22 19:39 Hgb 13.4 g/dL (11.5-15.3) 06/20/22 19:39 Hct 41.0 % (37.0-47.0) 06/20/22 19:39 MCV 88.7 fl (81-99) 06/20/22 19:39 MCH 29.0 pg (28.0-34.0) 06/20/22 19:39 MCHC 32.7 g/dL (30.0-36.0) 06/20/22 19:39 RDW 12.3 % (12.1-15.1) 06/20/22 19:39 Plt Count 316 10^3/cmm (130-400) 06/20/22 19:39 MPV 9.6 fL (7.4-10.4) 06/20/22 19:39 Neut % (Auto) 66.7 % 06/20/22 19:39 Lymph % (Auto) 27.0 % 06/20/22 19:39 [place] % (Auto) 5.0 % 06/20/22 19:39 Eos % (Auto) 0.7 % 06/20/22 19:39 Baso % (Auto) 0.3 % 06/20/22 19:39 Neut # (Auto) 6.27 10^3/uL (1.8-8.0) 06/20/22 19:39 Lymph # (Auto) 2.5 10^3/uL (1.5-6.5) 06/20/22 19:39 [place] # (Auto) 0.5 10^3/uL (0.2-0.9) 06/20/22 19:39 Eos # (Auto) 0.1 10^3/uL (0.0-0.8) 06/20/22 19:39 Baso # (Auto) 0.0 10^3/uL (0.0-0.1) 06/20/22 19:39 Nucleated RBC % (auto) 0 % 06/20/22 19:39 Nucleated RBCs # 0.0 /100WBC 06/20/22 19:39 Sodium 142 mmol/L (136-145) 06/20/22 19:39 Potassium 3.9 mmol/L (3.5-5.1) 06/20/22 19:39 Chloride 109 mmol/L (98-107) H 06/20/22 19:39 Carbon Dioxide 22 mmol/L (22-29) 06/20/22 19:39 Anion Gap 14.9 (5-19) 06/20/22 19:39 BUN 9 mg/dL (6-20) 06/20/22 19:39 Creatinine 0.6 mg/dL (0.5-0.9) 06/20/22 19:39 GFR Calculation 127.5 mL/min (90-130) 06/20/22 19:39 Glucose 109 mg/dL (65-115) 06/20/22 19:39 Calculated Osmolality 293 mOsm/kg (285-295) 06/20/22 19:39 Calcium 8.8 mg/dL (8.5-10.5) 06/20/22 19:39 Total Bilirubin 0.3 mg/dL (0.15-1.2) 06/20/22 19:39 AST 13 U/L (0-32) 06/20/22 19:39 ALT 15 U/L (0-33) 06/20/22 19:39 Alkaline Phosphatase 74 U/L (35-105) 06/20/22 19:39 Total Protein 7.1 g/dL (6.6-8.7) 06/20/22 19:39 Albumin 4.2 g/dL (3.5-5.2) 06/20/22 19:39 Globulin 2.9 g/dL (1.3-4.6) 06/20/22 19:39 Discharge Plan Discharge Patient Disposition: Home Clinical Impression: Nausea & vomiting Condition: Stable Prescriptions: New Reglan 10 mg tablet 10 mg PO Q6H PRN (Reason: nausea and vomiting) Qty: 10 0RF No Action medroxyprogesterone 150 mg/mL suspension 150 mg IM .Q 3 Months ondansetron 8 mg tablet,disintegrating 8 mg PO Q8H PRN (Reason: nausea and vomiting) 5 Days Qty: 15 0RF dicyclomine 20 mg tablet 20 mg PO TID Qty: 20 0RF duloxetine 60 mg capsule,delayed release(DR/EC) 120 mg PO DAILY Qty: 60 1RF trazodone 100 mg tablet 100 mg PO BEDTIME Qty: 30 1RF diphenhydramine HCl [Benadryl Allergy] 25 mg tablet 25 mg PO Q8H PRN (Reason: headache) Qty: 10 0RF Rx Instructions: taken with reglan ondansetron 4 mg Tablet,Disintegrating 4 mg PO Q6H PRN (Reason: Nausea) Qty: 10 0RF oxybutynin chloride 5 mg tablet 5 mg PO TID hydroxyzine HCl 10 mg tablet 5 mg PO BEDTIME topiramate 50 mg tablet 50 mg PO BID chlorhexidine gluconate 0.12 % mouthwash See Rx Instructions .ROUTE .COMPLEX Rx Instructions: DIRECTED FOR 14 DAYS sumatriptan succinate 100 mg tablet 100 mg PO DAILY cefdinir 300 mg capsule 300 mg PO BID Qty: 14 0RF ondansetron 4 mg tablet,disintegrating 4 mg PO Q6H PRN (Reason: nausea and vomiting) Qty: 14 0RF Reglan 10 mg tablet 10 mg PO Q8H PRN (Reason: migraine headache) Qty: 10 0RF Rx Instructions: taken with benadryl acetaminophen 500 mg Tablet 1,000 mg PO Q6H PRN (Reason: Pain) polyethylene glycol 3350 [Miralax] 17 gram powder in packet 17 g PO BID Qty: 30 0RF promethazine 25 mg suppository 25 mg MA Q6H PRN (Reason: nausea and vomiting) Qty: 12 0RF ciprofloxacin HCl 500 mg tablet 500 mg PO BID Qty: 20 0RF Discharge Orders: Discharge ED (Routine); Ordered 06/20/22 Ordered By: Chase Locke Referrals: Fransisca Flores FNP [Primary Care Provider] - Discharge Diet: Advance as tolerated and Clear Liquid Discharge Activity: Increase activity as tolerated Patient Instructions: Acute Nausea and Vomiting (ED) Activity Restrictions/Additional Instructions: Thank you for visiting the emergency department. You were seen and evaluated for nausea and vomiting. The exact cause your symptoms is unclear though does not appear to need hospitalization at this time. We are pleased that you improve with treatment. Please continue your medication regimen. Please follow-up with a primary care provider. Return to the emergency department for anything that you are concerned about and feel needs emergency department evaluation. Coding Level of Care Code ED Lathe Puller for Jordana Chiu
[2022-06-20] MEDS: metoclopramide 5 mg/mL SDV 2 mL 10 MG IVP (19:39)
[2022-06-20] MEDS: sodium chloride 0.9% 1,000 ML 999 ML IV (19:43)
[2022-06-20 19:47] LABS: Basophils % 0.3 %; Eosinophils # 0.1 10^3/uL (0.0-0.8); Eosinophils % 0.7 %; Hemoglobin 13.4 g/dL (11.5-15.3); Lymphocytes # 2.5 10^3/uL (1.5-6.5); Mean Corpuscular HGB Conc 32.7 g/dL (30.0-36.0); Mean Corpuscular Volume 88.7 fl (81-99); Mean Platelet Volume 9.6 fL (7.4-10.4); Monocytes # 0.5 10^3/uL (0.2-0.9); Neutrophils # 6.27 10^3/uL (1.8-8.0); Neutrophils % 66.7 %; Nucleated Red Blood Cells % 0 %; Platelet Count 316 10^3/cmm (130-400); Red Blood Count 4.62 10^6/uL (4.1-5.3); Red Cell Distribution Width 12.3 % (12.1-15.1); White Blood Count 9.4 10^3/uL (4.5-13.0)
[2022-06-20 20:06] LABS: Alanine Aminotransferase 15 U/L (0-33); Albumin Level 4.2 g/dL (3.5-5.2); Alkaline Phosphatase 74 U/L (35-105); Anion Gap 14.9 (5-19); Aspartate Amino Transferase 13 U/L (0-32); Blood Urea Nitrogen 9 mg/dL (6-20); Calcium 8.8 mg/dL (8.5-10.5); Carbon Dioxide 22 mmol/L (22-29); Chloride 109 mmol/L (98-107); Globulin 2.9 g/dL (1.3-4.6); Glomerular Filtration Rate 127.5 mL/min (90-130); Glucose 109 mg/dL (65-115); Osmolality Calculated 293 mOsm/kg (285-295); Potassium 3.9 mmol/L (3.5-5.1); Sodium 142 mmol/L (136-145); Total Bilirubin 0.3 mg/dL (0.15-1.2); Total Protein 7.1 g/dL (6.6-8.7)
[2022-06-20 20:13] VITALS: PULSE 102; RESP 16; O2SAT 98
[2022-06-20 21:43] VITALS: BP 139/81; PULSE 102; RESP 16; TEMP 36.9; O2SAT 98
== END 2022-06-20 21:44 | disposition home or self-care (01) ==
PROVIDERS: Emergency Provider Emergency Medicine; PCP Nurse Practitioner Family
DX: R11.2 Nausea with vomiting, unspecified (principal); F17.210 Nicotine dependence, cigarettes, uncomplicated
CPT/HCPCS: 36415; 80053; 85025; 96374; 99284; J2765; J7030

== ENCOUNTER 2022-06-25 15:45 | Emergency (ER) | payer MEDICARE, MEDICAID, SELFPAY ==
[2022-06-25 15:47] VITALS: BP 138/88; PULSE 110; RESP 18; TEMP 36.9; O2SAT 95
[2022-06-25 17:45] VITALS: BP 120/69; PULSE 97; O2SAT 97
--- NOTE | 2022-06-25 17:55 | CTR_ITS ---
PROCEDURE INFORMATION: Exam: CT Abdomen And Pelvis Without Contrast Exam date and time: 06/25/2022 6:39 PM Age: 22 years old Clinical indication: Abdominal pain; Acute; Prior surgery; Surgery date: 6+ months; Surgery type: Colon resection bladder shunt TECHNIQUE: Imaging protocol: Computed tomography of the abdomen and pelvis without contrast. Radiation optimization: All CT scans at this facility use at least one of these dose optimization techniques: automated exposure control; mA and/or kV adjustment per patient size (includes targeted exams where dose is matched to clinical indication); or iterative reconstruction. REPORTING DATA: Count of CT and Cardiac NM exams in prior 12 months: This patient has received 6 known CTs and 0 known cardiac nuclear medicine studies in the 12 months prior to the current study. COMPARISON: CT abdomen pelvis wo con [id number] 05/18/2022 8:54 PM RADIATION DOSE METRICS: Total DLP (mGy-cm): 957.05 FINDINGS: Tubes, catheters and devices: Ventriculoperitoneal shunt tubing is suggested with tip in left anterior abdomen . Pigtail catheter is again noted within the colon adjacent to the ileocecal valve. Diaphragm: [id number] elevation of right hemidiaphragm. Liver: Hepatic steatosis. Gallbladder and bile ducts: 1.4 cm calcified gallstone within gallbladder. Gallbladder otherwise unremarkable. Pancreas: Normal. No ductal dilation. Spleen: Normal. No splenomegaly. Adrenal glands: Normal. No mass. Kidneys and ureters: Some scarring is suggested at right kidney. No hydronephrosis. Stomach and bowel: Small bowel staple line seen at the anterior midline of mid pelvis. No abnormal bowel distention to suggest obstruction. Appendix: No evidence of appendicitis. Intraperitoneal space: Unremarkable. No free air. No significant fluid collection. Vasculature: Unremarkable. No abdominal aortic aneurysm. Lymph nodes: Unremarkable. No enlarged lymph nodes. Urinary bladder: Irregular bladder shape again noted suggestive of neurogenic bladder. There is thickening focally at the right anterior urinary bladder that is unchanged when correlated to additional studies dating back to November of 2020. Reproductive: Unremarkable as visualized. Bones/joints: Spina bifida changes are noted. 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 Calcification and dimpling of the subcutaneous fat over lower lumbar spine unchanged. CT/CT abdomen pelvis wo con [id number] IMPRESSION: No acute intra-abdominal findings. Fatty liver. Gallstone in gallbladder. Additional details as above.
--- NOTE | 2022-06-25 18:00 | W.ED.NAVMDI ---
Documented by User: Antelmo Meredith DO 07/01/22 05:50 HPI - Nausea/Vomiting/Diarrhea General: Chief complaint: Nausea/Vomiting/Diarrhea Stated complaint: colostomy issue Time Seen by Provider: 06/25/22 17:50 Source: patient Mode of arrival: ambulatory History of Present Illness: 32-year-old female presents emergency room she has a history of spina bifida she is mobile with the assistance of crutches. She has a cecostomy tube she has been continue to use it however she has over the last 4 to 5 days she has not had any normal bowel movements now has been nauseous vomiting and vomiting fecal like material at times. She also was recently seen and diagnosed with a UTI. She denies fever denies any hematemesis coffee-ground emesis. MD elicited complaint: nausea and vomiting Onset (ago): day(s) (4-5) Description of vomiting: feculent Associated nausea: Yes Associated abdominal pain: Yes Quality: cramping Exacerbating factors: none Relieving factors: none Associated symtoms: Reports anorexia and nausea; Denies anxiety, bloating, change in vision, chest pain, cough, diaphoresis, decreased urine output, dizziness, dysuria, epistaxis, fatigue, fecal incontinence, fevers/chills, headache(s), malaise, myalgias, numbness, palpitations, rash, short of breath, syncope, tenesmus, tinnitus or weakness Review of Systems Const: Denies: fever(s), chills, fatigue, malaise or diaphoresis Eyes: Denies: change in vision ENMT: Denies: tinnitus or epistaxis Card: Denies: chest pain, palpitations or syncope Resp: Denies: dyspnea, productive cough or non-productive cough GI: Reports: abdominal pain, nausea, vomiting and diarrhea; Denies: bloating or fecal incontinence : Denies: flank pain, dysuria, urinary frequency or urinary urgency Skin/Breast: Denies: rash or pruritus Neuro: Denies: headache(s) or dizziness Psych: Denies: anxiety PFSH ED PFSH: Medical History Common migraine with intractable migraine Intellectual disability Psychiatric care Surgical History PLY SPLICER (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) shunt status Social History Smoking and tobacco status: current every day smoker Quit status (tobacco): has quit using tobacco Year quit tobacco: 2020 Second hand smoke exposure: Yes Alcohol intake: never Physical Exam Const: GENERAL APPEARANCE: cooperative and comfortable ORIENTATION/CONSCIOUSNESS: Yes awake, Yes oriented to person, Yes oriented to place and Yes oriented to time HENMT: COMMON NORMALS: normocephalic, atraumatic and hearing grossly normal bilaterally HEAD & SCALP: normocephalic and atraumatic Resp: COMMON NORMALS: normal respiratory effort, No retractions, No use of accessory muscles and clear to auscultation bilaterally AUSCULTATION: clear to auscultation bilaterally Cardio: COMMON NORMALS: regular rate, regular rhythm and No murmurs present (Cardio) RATE: regular rate RHYTHM: regular rhythm GI: COMMON NORMALS: No hepatosplenomegaly present AUSCULTATION: Yes Hypoactive bowel sounds present PALPATION: Yes Tenderness to palpation present (GI) (diffuse), No Guarding due to palpation present (GI) and Yes No hepatosplenomegaly present : COMMON NORMALS: Yes no CVA tenderness BLADDER/KIDNEY EXAM: Yes no CVA tenderness Back/Pelvis: COMMON NORMALS: no CVA tenderness Extremity: COMMON NORMALS: normal to inspection, capillary refill normal, no clubbing, cyanosis or edema, no calf tenderness and no pedal edema Neuro: SENSORIUM/ORIENTATION: Yes oriented to person, Yes oriented to place and Yes oriented to time Skin: COMMON NORMALS: no rashes or lesions noted GENERAL SKIN EXAM: no rashes or lesions noted Course Vital Signs: Vital signs: Vital Signs Temperature 98.4 F 06/25/22 15:47 Pulse Rate 90 06/25/22 23:05 Respiratory Rate 16 06/25/22 23:05 Blood Pressure 148/102 06/25/22 19:38 Pulse Oximetry 94 06/25/22 23:05 Oxygen Delivery Me thod Room Air 06/25/22 23:05 MDM - Nausea/Vomiting/Diarrhea Medical Decision Making Care signed out to Dr. Locke at change of shift. See final notes for diagnosis and disposition. Lab Data 06/25/22 18:05 06/25/22 18:05 Radiology Impressions Abdomen/Pelvis CT 06/25/22 17:55 IMPRESSION: No acute intra-abdominal findings. Fatty liver. Gallstone in gallbladder. Additional details as above. Head CT 06/25/22 21:22 IMPRESSION: No acute intracranial abnormality or change from prior study. Imaging Shunt Series 06/25/22 21:22 IMPRESSION: PLY SPLICER shunt in satisfactory position as described. Laboratory Results WBC 9.0 10^3/uL (4.5-13.0) 06/25/22 18:05 RBC 4.72 10^6/uL (4.1-5.3) 06/25/22 18:05 Hgb 13.4 g/dL (11.5-15.3) 06/25/22 18:05 Hct 41.2 % (37.0-47.0) 06/25/22 18:05 MCV 87.3 fl (81-99) 06/25/22 18:05 MCH 28.4 pg (28.0-34.0) 06/25/22 18:05 MCHC 32.5 g/dL (30.0-36.0) 06/25/22 18:05 RDW 12.2 % (12.1-15.1) 06/25/22 18:05 Plt Count 332 10^3/cmm (130-400) 06/25/22 18:05 MPV 9.2 fL (7.4-10.4) 06/25/22 18:05 Neut % (Auto) 64.5 % 06/25/22 18:05 Lymph % (Auto) 29.0 % 06/25/22 18:05 Collin % (Auto) 5.7 % 06/25/22 18:05 Eos % (Auto) 0.4 % 06/25/22 18:05 Baso % (Auto) 0.2 % 06/25/22 18:05 Neut # (Auto) 5.79 10^3/uL (1.8-8.0) 06/25/22 18:05 Lymph # (Auto) 2.6 10^3/uL (1.5-6.5) 06/25/22 18:05 [place]lin # (Auto) 0.5 10^3/uL (0.2-0.9) 06/25/22 18:05 Eos # (Auto) 0.0 10^3/uL (0.0-0.8) 06/25/22 18:05 Baso # (Auto) 0.0 10^3/uL (0.0-0.1) 06/25/22 18:05 Nucleated RBC % (auto) 0 % 06/25/22 18:05 Nucleated RBCs # 0.0 /100WBC 06/25/22 18:05 ESR 9 mm/hr (0-15) 06/25/22 18:05 Sodium 144 mmol/L (136-145) 06/25/22 18:05 Potassium 4.4 mmol/L (3.5-5.1) 06/25/22 18:05 Chloride 105 mmol/L (98-107) 06/25/22 18:05 Carbon Dioxide 26 mmol/L (22-29) 06/25/22 18:05 Anion Gap 17.4 (5-19) 06/25/22 18:05 BUN 11 mg/dL (6-20) 06/25/22 18:05 Creatinine 0.7 mg/dL (0.5-0.9) 06/25/22 18:05 GFR Calculation 106.7 mL/min (90-130) 06/25/22 18:05 Glucose 78 mg/dL (65-115) 06/25/22 18:05 Calculated Osmolality 296 mOsm/kg (285-295) H 06/25/22 18:05 Lactic Acid 0.6 mmol/L (0.5-2.2) 06/25/22 18:05 Calcium 9.5 mg/dL (8.5-10.5) 06/25/22 18:05 Total Bilirubin 0.6 mg/dL (0.15-1.2) 06/25/22 18:05 AST 23 U/L (0-32) 06/25/22 18:05 ALT 17 U/L (0-33) 06/25/22 18:05 Alkaline Phosphatase 77 U/L (35-105) 06/25/22 18:05 C-Reactive Protein 7.7 mg/L (0.0-4.9) H 06/25/22 18:05 Total Protein 8.0 g/dL (6.6-8.7) 06/25/22 18:05 Albumin 4.7 g/dL (3.5-5.2) 06/25/22 18:05 Globulin 3.3 g/dL (1.3-4.6) 06/25/22 18:05 Urine Color Yellow (Yellow) 06/25/22 18:05 Urine Appearance Cloudy (CLEAR) A 06/25/22 18:05 Urine pH 7 (5-7) 06/25/22 18:05 Ur Specific [place] 1.030 (1.005-1.030) 06/25/22 18:05 Urine Protein 3+ (Negative) H 06/25/22 18:05 Urine Glucose (UA) Norm (Normal) 06/25/22 18:05 Urine Ketones Negative (Negative) 06/25/22 18:05 Urine Blood 2+ (Negative) H 06/25/22 18:05 Urine Nitrate Positive (Negative) H 06/25/22 18:05 Urine Bilirubin Neg (Negative) 06/25/22 18:05 Urine Urobilinogen Norm mg/dL (Negative) 06/25/22 18:05 Ur Leukocyte Esterase 2+ (Negative) H 06/25/22 18:05 Urine RBC 0-4 /hpf (0-2) H 06/25/22 18:05 Urine WBC 10-15 /hpf (0-5) H 06/25/22 18:05 Ur Squamous Epith Cells 0-4 /hpf (0-5) H 06/25/22 18:05 Amorphous Sediment Not Reportable 06/25/22 18:05 Urine Bacteria 1+ /hpf (NONE) H 06/25/22 18:05 Urine Mucus 3+ /hpf 06/25/22 18:05 Discharge Plan Discharge Patient Disposition: Home Clinical Impression: Nausea & vomiting, UTI (urinary tract infection) Condition: Stable Prescriptions: New promethazine 25 mg suppository 25 mg AL Q6H PRN (Reason: nausea and vomiting) Qty: 12 0RF ciprofloxacin HCl 500 mg tablet 500 mg PO BID Qty: 20 0RF No Action medroxyprogesterone 150 mg/mL suspension 150 mg IM .Q 3 Months ondansetron 8 mg tablet,disintegrating 8 mg PO Q8H PRN (Reason: nausea and vomiting) 5 Days Qty: 15 0RF dicyclomine 20 mg tablet 20 mg PO TID Qty: 20 0RF duloxetine 60 mg capsule,delayed release(DR/EC) 120 mg PO DAILY Qty: 60 1RF trazodone 100 mg tablet 100 mg PO BEDTIME Qty: 30 1RF diphenhydramine HCl [Benadryl Allergy] 25 mg tablet 25 mg PO Q8H PRN (Reason: headache) Qty: 10 0RF Rx Instructions: taken with reglan ondansetron 4 mg Tablet,Disintegrating 4 mg PO Q6H PRN (Reason: Nausea) Qty: 10 0RF oxybutynin chloride 5 mg tablet 5 mg PO TID hydroxyzine HCl 10 mg tablet 5 mg PO BEDTIME topiramate 50 mg tablet 50 mg PO BID chlorhexidine gluconate 0.12 % mouthwash See Rx Instructions .ROUTE .COMPLEX Rx Instructions: DIRECTED FOR 14 DAYS sumatriptan succinate 100 mg tablet 100 mg PO DAILY cefdinir 300 mg capsule 300 mg PO BID Qty: 14 0RF ondansetron 4 mg tablet,disintegrating 4 mg PO Q6H PRN (Reason: nausea and vomiting) Qty: 14 0RF Reglan 10 mg tablet 10 mg PO Q8H PRN (Reason: migraine headache) Qty: 10 0RF Rx Instructions: taken with benadryl acetaminophen 500 mg Tablet 1,000 mg PO Q6H PRN (Reason: Pain) polyethylene glycol 3350 [Miralax] 17 gram powder in packet 17 g PO BID Qty: 30 0RF Reglan 10 mg tablet 10 mg PO Q6H PRN (Reason: nausea and vomiting) Qty: 10 0RF Discharge Orders: Discharge ED (Routine); Ordered 06/25/22 Ordered By: Chase Locke Referrals: Fransisca Flores, [facility] [Primary Care Provider] - Discharge Diet: Advance as tolerated and Clear Liquid Discharge Activity: Increase activity as tolerated Patient Instructions: Prochlorperazine (Into the rectum) (Compazine, Compro), Urinary Tract Infection in Women (ED), Acute Nausea and Vomiting (ED) Activity Restrictions/Additional Instructions: Thank you for visiting the emergency department. You were seen and evaluated for continued nausea and vomiting. The exact cause of your symptoms is unclear however does not need hospitalization at this time. Given persistence of evidence of urinary tract infection I will treat you with a different antibiotic. I will also prescribe rectal suppository antinausea medication. Please call your specialty care team in the morning. Return to the emergency department for anything that you are concerned about and feel needs emergency department evaluation. Sign Out Sign Out Data: Patient Sign Out occurred on 06/25/22 at 18:43. Patient's care was discussed, and care was transferred from to Chase Locke MD. Coding Level of Care Code ED Supervisor Winter for Chg Fwd Documented by User: Chase Locke MD 07/04/22 03:36 HPI - Nausea/Vomiting/Diarrhea General: Chief complaint: Nausea/Vomiting/Diarrhea Stated complaint: colostomy issue Time Seen by Provider: 06/25/22 17:50 PFSH ED PFSH: Medical History Common migraine with intractable migraine Intellectual disability Psychiatric care Surgical History PLY SPLICER (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) shunt status Social History Smoking and tobacco status: current every day smoker Quit status (tobacco): has quit using tobacco Year quit tobacco: 2020 Second hand smoke exposure: Yes Alcohol intake: never Course Vital Signs: Vital signs: Vital Signs Temperature 98.4 F 06/25/22 15:47 Pulse Rate 90 06/25/22 23:05 Respiratory Rate 16 06/25/22 23:05 Blood Pressure 148/102 06/25/22 19:38 Pulse Oximetry 94 06/25/22 23:05 Oxygen Delivery Me thod Room Air 06/25/22 23:05 MDM - Nausea/Vomiting/Diarrhea Medical Decision Making Care signed out to Dr. Locke at change of shift. See final notes for diagnosis and disposition. Patient care handoff received from Dr. Meredith pending completion of ED evaluation. Laboratory studies reviewed with no hematologic or significant metabolic abnormality to explain symptoms. Urine still does have some evidence of urinary tract infection though overall improved. Prior culture results reviewed, sensitivity appropriate for prescribed medication however given persistent symptoms dose of Rocephin ordered and additional antibiotics will be planned in the outpatient setting. CT abdomen and pelvis without acute abnormality to explain patient's symptoms. On reassessment with patient she reports feeling roughly the same when she tries p.o. intake that she has been able to drink water without recurrent vomiting. She reports talking to a physician at [facility] spina bifida clinic earlier who possibly wanted her transferred due to recurrent symptoms. I discussed the case with the transfer center and on clarification of note it sounds like the concern was for possible PLY SPLICER shunt malfunction. Given this I added additional imaging as well as CRP and ESR. CT head appears similar to prior without evidence of acute PLY SPLICER shunt malfunction. X-rays with no acute evidence of PLY SPLICER shunt's function or discontinuity. CRP only very minimally elevated and ESR is negative, I do not believe that PLY SPLICER shunt issue is likely cause of patient's symptoms. Given ED evaluation at this point patient can safely be discharged with additional course of antibiotics and plan for close follow-up with specialist services. The results of ED evaluation were discussed with the patient including prescriptions and/or symptomatic cares (if applicable) including appropriate and responsible use, followup plan, and return precautions. Chase Locke MD Emergency Medicine Lab Data 06/25/22 18:05 06/25/22 18:05 Radiology Impressions Abdomen/Pelvis CT 06/25/22 17:55 IMPRESSION: No acute intra-abdominal findings. Fatty liver. Gallstone in gallbladder. Additional details as above. Head CT 06/25/22 21:22 IMPRESSION: No acute intracranial abnormality or change from prior study. Imaging Shunt Series 06/25/22 21:22 IMPRESSION: PLY SPLICER shunt in satisfactory position as described. Laboratory Results WBC 9.0 10^3/uL (4.5-13.0) 06/25/22 18:05 RBC 4.72 10^6/uL (4.1-5.3) 06/25/22 18:05 Hgb 13.4 g/dL (11.5-15.3) 06/25/22 18:05 Hct 41.2 % (37.0-47.0) 06/25/22 18:05 MCV 87.3 fl (81-99) 06/25/22 18:05 MCH 28.4 pg (28.0-34.0) 06/25/22 18:05 MCHC 32.5 g/dL (30.0-36.0) 06/25/22 18:05 RDW 12.2 % (12.1-15.1) 06/25/22 18:05 Plt Count 332 10^3/cmm (130-400) 06/25/22 18:05 MPV 9.2 fL (7.4-10.4) 06/25/22 18:05 Neut % (Auto) 64.5 % 06/25/22 18:05 Lymph % (Auto) 29.0 % 06/25/22 18:05 [place]lin % (Auto) 5.7 % 06/25/22 18:05 Eos % (Auto) 0.4 % 06/25/22 18:05 Baso % (Auto) 0.2 % 06/25/22 18:05 Neut # (Auto) 5.79 10^3/uL (1.8-8.0) 06/25/22 18:05 Lymph # (Auto) 2.6 10^3/uL (1.5-6.5) 06/25/22 18:05 [place] # (Auto) 0.5 10^3/uL (0.2-0.9) 06/25/22 18:05 Eos # (Auto) 0.0 10^3/uL (0.0-0.8) 06/25/22 18:05 Baso # (Auto) 0.0 10^3/uL (0.0-0.1) 06/25/22 18:05 Nucleated RBC % (auto) 0 % 06/25/22 18:05 Nucleated RBCs # 0.0 /100WBC 06/25/22 18:05 ESR 9 mm/hr (0-15) 06/25/22 18:05 Sodium 144 mmol/L (136-145) 06/25/22 18:05 Potassium 4.4 mmol/L (3.5-5.1) 06/25/22 18:05 Chloride 105 mmol/L (98-107) 06/25/22 18:05 Carbon Dioxide 26 mmol/L (22-29) 06/25/22 18:05 Anion Gap 17.4 (5-19) 06/25/22 18:05 BUN 11 mg/dL (6-20) 06/25/22 18:05 Creatinine 0.7 mg/dL (0.5-0.9) 06/25/22 18:05 GFR Calculation 106.7 mL/min (90-130) 06/25/22 18:05 Glucose 78 mg/dL (65-115) 06/25/22 18:05 Calculated Osmolality 296 mOsm/kg (285-295) H 06/25/22 18:05 Lactic Acid 0.6 mmol/L (0.5-2.2) 06/25/22 18:05 Calcium 9.5 mg/dL (8.5-10.5) 06/25/22 18:05 Total Bilirubin 0.6 mg/dL (0.15-1.2) 06/25/22 18:05 AST 23 U/L (0-32) 06/25/22 18:05 ALT 17 U/L (0-33) 06/25/22 18:05 Alkaline Phosphatase 77 U/L (35-105) 06/25/22 18:05 C-Reactive Protein 7.7 mg/L (0.0-4.9) H 06/25/22 18:05 Total Protein 8.0 g/dL (6.6-8.7) 06/25/22 18:05 Albumin 4.7 g/dL (3.5-5.2) 06/25/22 18:05 Globulin 3.3 g/dL (1.3-4.6) 06/25/22 18:05 Urine Color Yellow (Yellow) 06/25/22 18:05 Urine Appearance Cloudy (CLEAR) A 06/25/22 18:05 Urine pH 7 (5-7) 06/25/22 18:05 Ur Specific [place] 1.030 (1.005-1.030) 06/25/22 18:05 Urine Protein 3+ (Negative) H 06/25/22 18:05 Urine Glucose (UA) Norm (Normal) 06/25/22 18:05 Urine Ketones Negative (Negative) 06/25/22 18:05 Urine Blood 2+ (Negative) H 06/25/22 18:05 Urine Nitrate Positive (Negative) H 06/25/22 18:05 Urine Bilirubin Neg (Negative) 06/25/22 18:05 Urine Urobilinogen Norm mg/dL (Negative) 06/25/22 18:05 Ur Leukocyte Esterase 2+ (Negative) H 06/25/22 18:05 Urine RBC 0-4 /hpf (0-2) H 06/25/22 18:05 Urine WBC 10-15 /hpf (0-5) H 06/25/22 18:05 Ur Squamous Epith Cells 0-4 /hpf (0-5) H 06/25/22 18:05 Amorphous Sediment Not Reportable 06/25/22 18:05 Urine Bacteria 1+ /hpf (NONE) H 06/25/22 18:05 Urine Mucus 3+ /hpf 06/25/22 18:05 Discharge Plan Discharge Patient Disposition: Home Clinical Impression: Nausea & vomiting, UTI (urinary tract infection) Condition: Stable Prescriptions: New promethazine 25 mg suppository 25 mg AL Q6H PRN (Reason: nausea and vomiting) Qty: 12 0RF ciprofloxacin HCl 500 mg tablet 500 mg PO BID Qty: 20 0RF No Action medroxyprogesterone 150 mg/mL suspension 150 mg IM .Q 3 Months ondansetron 8 mg tablet,disintegrating 8 mg PO Q8H PRN (Reason: nausea and vomiting) 5 Days Qty: 15 0RF dicyclomine 20 mg tablet 20 mg PO TID Qty: 20 0RF duloxetine 60 mg capsule,delayed release(DR/EC) 120 mg PO DAILY Qty: 60 1RF trazodone 100 mg tablet 100 mg PO BEDTIME Qty: 30 1RF diphenhydramine HCl [Benadryl Allergy] 25 mg tablet 25 mg PO Q8H PRN (Reason: headache) Qty: 10 0RF Rx Instructions: taken with reglan ondansetron 4 mg Tablet,Disintegrating 4 mg PO Q6H PRN (Reason: Nausea) Qty: 10 0RF oxybutynin chloride 5 mg tablet 5 mg PO TID hydroxyzine HCl 10 mg tablet 5 mg PO BEDTIME topiramate 50 mg tablet 50 mg PO BID chlorhexidine gluconate 0.12 % mouthwash See Rx Instructions .ROUTE .COMPLEX Rx Instructions: DIRECTED FOR 14 DAYS sumatriptan succinate 100 mg tablet 100 mg PO DAILY cefdinir 300 mg capsule 300 mg PO BID Qty: 14 0RF ondansetron 4 mg tablet,disintegrating 4 mg PO Q6H PRN (Reason: nausea and vomiting) Qty: 14 0RF Reglan 10 mg tablet 10 mg PO Q8H PRN (Reason: migraine headache) Qty: 10 0RF Rx Instructions: taken with benadryl acetaminophen 500 mg Tablet 1,000 mg PO Q6H PRN (Reason: Pain) polyethylene glycol 3350 [Miralax] 17 gram powder in packet 17 g PO BID Qty: 30 0RF Reglan 10 mg tablet 10 mg PO Q6H PRN (Reason: nausea and vomiting) Qty: 10 0RF Discharge Orders: Discharge ED (Routine); Ordered 06/25/22 Ordered By: Chase Locke Referrals: Fransisca Flores, [facility] [Primary Care Provider] - Discharge Diet: Advance as tolerated and Clear Liquid Discharge Activity: Increase activity as tolerated Patient Instructions: Prochlorperazine (Into the rectum) (Compazine, Compro), Urinary Tract Infection in Women (ED), Acute Nausea and Vomiting (ED) Activity Restrictions/Additional Instructions: Thank you for visiting the emergency department. You were seen and evaluated for continued nausea and vomiting. The exact cause of your symptoms is unclear however does not need hospitalization at this time. Given persistence of evidence of urinary tract infection I will treat you with a different antibiotic. I will also prescribe rectal suppository antinausea medication. Please call your specialty care team in the morning. Return to the emergency department for anything that you are concerned about and feel needs emergency department evaluation. Sign Out Sign Out Data: Patient Sign Out occurred on 06/25/22 at 18:43. Patient's care was discussed, and care was transferred from to Chase Locke MD. Coding Level of Care Code ED Supervisor Winter for Jordana Chiu
[2022-06-25 18:14] VITALS: BP 121/89; PULSE 104; O2SAT 96
[2022-06-25 18:21] LABS: Basophils % 0.2 %; Eosinophils % 0.4 %; Hematocrit 41.2 % (37.0-47.0); Hemoglobin 13.4 g/dL (11.5-15.3); Lymphocytes # 2.6 10^3/uL (1.5-6.5); Mean Corpuscular HGB Conc 32.5 g/dL (30.0-36.0); Mean Corpuscular Hemoglobin 28.4 pg (28.0-34.0); Mean Corpuscular Volume 87.3 fl (81-99); Mean Platelet Volume 9.2 fL (7.4-10.4); Monocytes # 0.5 10^3/uL (0.2-0.9); Monocytes % 5.7 %; Neutrophils # 5.79 10^3/uL (1.8-8.0); Neutrophils % 64.5 %; Nucleated Red Blood Cells % 0 %; Platelet Count 332 10^3/cmm (130-400); Red Blood Count 4.72 10^6/uL (4.1-5.3); Red Cell Distribution Width 12.2 % (12.1-15.1)
[2022-06-25 18:30] VITALS: BP 150/98; PULSE 100; O2SAT 95
[2022-06-25 18:37] LABS: Add Urine Microscopic? YES; Bilirubin Urine Neg (Negative); Blood Urine 2+ (Negative); Glucose Urine UA Norm (Normal); Ketones Urine Negative (Negative); Leukocyte Esterase Urine 2+ (Negative); Nitrate Urine Positive (Negative); Protein Urine 3+ (Negative); Urine Appearance Cloudy (CLEAR); Urine Color Yellow (Yellow); Urobilinogen Urine Norm (Negative); pH Urine 7 (5-7)
[2022-06-25 18:44] LABS: Alanine Aminotransferase 17 U/L (0-33); Albumin Level 4.7 g/dL (3.5-5.2); Alkaline Phosphatase 77 U/L (35-105); Anion Gap 17.4 (5-19); Aspartate Amino Transferase 23 U/L (0-32); Blood Urea Nitrogen 11 mg/dL (6-20); Calcium 9.5 mg/dL (8.5-10.5); Carbon Dioxide 26 mmol/L (22-29); Chloride 105 mmol/L (98-107); Globulin 3.3 g/dL (1.3-4.6); Glomerular Filtration Rate 106.7 mL/min (90-130); Glucose 78 mg/dL (65-115); Osmolality Calculated 296 mOsm/kg (285-295); Potassium 4.4 mmol/L (3.5-5.1); Sodium 144 mmol/L (136-145); Total Bilirubin 0.6 mg/dL (0.15-1.2)
[2022-06-25 18:45] LABS: Lactic Sepsis W/Reflex 0.6 mmol/L (0.5-2.2)
[2022-06-25 18:49] LABS: Bacteria Urine 1+ /hpf; Mucus Urine 3+ /hpf; RBC Urine 0-4 /hpf (0-2); Squamous Epithelial Cell Urine 0-4 /hpf (0-5)
[2022-06-25] MEDS: ketorolac 30 mg/mL INJ 15 MG IVP (18:57)
[2022-06-25 19:38] VITALS: BP 148/102; PULSE 99; O2SAT 97
[2022-06-25] MEDS: metoclopramide 5 mg/mL SDV 2 mL 10 MG IVP (19:54)
[2022-06-25] MEDS: cefTRIAXone 1,000 MG in sodium chloride 0.9% (plus) 50 ML 100 MG IV (20:08)
--- NOTE | 2022-06-25 21:22 | CTR_ITS ---
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 ; Additional info: Recurrent n/v, HX vp product management shunt TECHNIQUE: Imaging protocol: Computed tomography of the head without contrast. Radiation optimization: All CT scans at this facility use at least one of these dose optimization techniques: automated exposure control; mA and/or kV adjustment per patient size (includes targeted exams where dose is matched to clinical indication); or iterative reconstruction. REPORTING DATA: Count of CT and Cardiac NM exams in prior 12 months: This patient has received 7 known CTs and 0 known cardiac nuclear medicine studies in the 12 months prior to the current study. COMPARISON: CT head wo con* [id number] 03/14/2022 12:19 PM RADIATION DOSE METRICS: Total DLP (mGy-cm): 1083.78 FINDINGS: Tubes, catheters and devices: Ventriculoperitoneal shunt components are unchanged. Brain: Anomalous developmental findings as noted previously. No findings of intracranial hemorrhage. No evident focal mass effect. Basal cisterns and sulci unchanged. Cerebral ventricles: Ventricles are unchanged with no evidence for hydrocephalus. Paranasal sinuses: Visualized sinuses are unremarkable. No fluid levels. Mastoid air cells: Visualized mastoid air cells are well aerated. Bones/joints: No acute findings. Soft tissues: Unremarkable. CT/CT head wo con* [id number] IMPRESSION: No acute intracranial abnormality or change from prior study.
--- NOTE | 2022-06-25 21:22 | XRR_ITS ---
PROCEDURE INFORMATION: Exam: XR Shunt Series With 4 XR Procedures Exam date and time: 06/25/2022 10:21 PM Age: 22 years old Clinical indication: Device placement; Non-vascular device; Other: Revenue Director shunt; Cerebral fluid drainiage device or shunt; Shunt placement; Additional info: Recurrent n/v TECHNIQUE: Imaging protocol: XR Shunt Series was performed with skull less than 4 views, neck 1 view, chest 1 view, and abdomen 1 view. COMPARISON: CR XR shunt series 02/27/2022 5:22 PM FINDINGS: Tubes, catheters and devices: Ventriculoperitoneal catheter is present. Ventricular catheter is seen on the right. The catheter is seen coursing through the neck and chest. The distal catheter tip in the abdomen. No kinking. No breakage. Sinuses: Visualized paranasal sinuses are well aerated. Airway: Upper airway and trachea are unremarkable in the neck and chest. Lungs: No consolidations. Gastrointestinal tract: Bowel is unremarkable. Bones/joints: Scoliosis and spina bifida. No fracture. No dislocation. Soft tissues: Unremarkable. 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
[2022-06-25 22:08] LABS: Erythrocyte Sedimentation Rate 9 mm/hr (0-15)
[2022-06-25 22:20] LABS: C Reactive Protein 7.7 mg/L (0.0-4.9)
[2022-06-25 23:05] VITALS: PULSE 90; RESP 16; O2SAT 94
== END 2022-06-25 23:29 | disposition home or self-care (01) ==
PROVIDERS: Family Medicine; Emergency Provider Emergency Medicine; PCP Nurse Practitioner Family
DX: R11.2 Nausea with vomiting, unspecified (principal); N39.0 Urinary tract infection, site not specified; Q05.9 Spina bifida, unspecified; Z93.3 Colostomy status
CPT/HCPCS: 70250; 70450; 71046; 72040; 74019; 74176; 80053; 81001; 83605; 85025; 85651; 86140; 96365; 96375; 99285; J0696; J1885; J2765

== ENCOUNTER 2022-08-13 00:18 | Emergency (ER) | payer MEDICARE, MEDICAID, SELFPAY ==
[2022-08-13 00:19] VITALS: BMI 38.2
--- NOTE | 2022-08-13 00:21 | W.ED.SEIZURE ---
HPI - Seizure General: Chief Complaint: Seizure Stated Complaint: focal seizure Time Seen by Provider: 08/13/22 00:21 History of Present Illness: HPI Narrative: 22-year-old female comes in today for complaints of seizure activity. Patient reports that she has had 2 focal seizures this evening and does not feel her topiramate is working to control them. Patient appears nontoxic. Patient appears no acute distress. Patient does have a history of spina bifida, migraine headaches, bladder dysfunction, depression with anxiety. 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) shunt status Social History Smoking and tobacco status: current every day smoker Quit status (tobacco): has quit using tobacco Year quit tobacco: 2020 Second hand smoke exposure: Yes Alcohol intake: never Substance/Drug Use: never Physical Exam Const: COMMON NORMALS: alert HENMT: COMMON NORMALS: normocephalic HEAD & SCALP: normocephalic Neck/C-Spine: COMMON NORMALS: full ROM Resp: COMMON NORMALS: normal respiratory effort and clear to auscultation bilaterally AUSCULTATION: clear to auscultation bilaterally Cardio: COMMON NORMALS: regular rate and regular rhythm RATE: regular rate RHYTHM: regular rhythm Back/Pelvis: COMMON NORMALS: thoracic and lumbar spine normal to inspection Extremity: OTHER: Paralysis lower legs Neuro: SENSORIUM/ORIENTATION: Yes alert Skin: COMMON NORMALS: no rashes or lesions noted GENERAL SKIN EXAM: no rashes or lesions noted Course Vital Signs: Vital signs: Vital Signs Temperature 97.9 F 08/13/22 00:22 Pulse Rate 115 H 08/13/22 00:22 Respiratory Rate 16 08/13/22 00:22 Blood Pressure 137/82 08/13/22 00:22 Pulse Oximetry 99 08/13/22 00:22 Oxygen Delivery Me thod Room Air 08/13/22 00:22 MDM - Seizure MDM Narrative Medical decision making narrative: 22-year-old female comes in today with increase in focal seizures. On exam patient appears well. No signs of distress is noted. Patient reports that she anxious and has had increased number of focal seizures. Patient does not feel her topiramate is working. On exam patient has partial paralysis in the lower extremities due to spina bifida. No other abnormalities noted on the exam. Patient does have, flat affect most likely due to her mental health issues and possible intellectual disability. Differential diagnosis includes but not limited to malingering, seizure disorder, pseudoseizures, anxiety. Patient was given half milligram of lorazepam due to breakthrough seizures. I recommended patient take continue with her topiramate and follow-up with Dr. Sánchez for further recommendations and change in medications. Patient reported understanding and agreed to plan. Patient was written a short course of 10 tablets of lorazepam half a milligram to cover for any breakthrough seizures until follow-up appointment with Dr. Sánchez. Lab Data 08/13/22 01:12 08/13/22 01:12 Labs: Laboratory Results WBC 8.7 10^3/uL (4.5-13.0) 08/13/22 01:12 RBC 4.27 10^6/uL (4.1-5.3) 08/13/22 01:12 Hgb 12.0 g/dL (11.5-15.3) 08/13/22 01:12 Hct 37.8 % (37.0-47.0) 08/13/22 01:12 MCV 88.5 fl (81-99) 08/13/22 01:12 MCH 28.1 pg (28.0-34.0) 08/13/22 01:12 MCHC 31.7 g/dL (30.0-36.0) 08/13/22 01:12 RDW 12.1 % (12.1-15.1) 08/13/22 01:12 Plt Count 283 10^3/cmm (130-400) 08/13/22 01:12 MPV 9.4 fL (7.4-10.4) 08/13/22 01:12 Neut % (Auto) 55.5 % 08/13/22 01:12 Lymph % (Auto) 34.1 % 08/13/22 01:12 [place] % (Auto) 7.3 % 08/13/22 01:12 Eos % (Auto) 2.4 % 08/13/22 01:12 Baso % (Auto) 0.5 % 08/13/22 01:12 Neut # (Auto) 4.84 10^3/uL (1.8-8.0) 08/13/22 01:12 Lymph # (Auto) 3.0 10^3/uL (1.5-6.5) 08/13/22 01:12 [place] # (Auto) 0.6 10^3/uL (0.2-0.9) 08/13/22 01:12 Eos # (Auto) 0.2 10^3/uL (0.0-0.8) 08/13/22 01:12 Baso # (Auto) 0.0 10^3/uL (0.0-0.1) 08/13/22 01:12 Nucleated RBC % (auto) 0 % 08/13/22 01:12 Nucleated RBCs # 0.0 /100WBC 08/13/22 01:12 Sodium 143 mmol/L (136-145) 08/13/22 01:12 Potassium 5.0 mmol/L (3.5-5.1) 08/13/22 01:12 Chloride 110 mmol/L (98-107) H 08/13/22 01:12 Carbon Dioxide 22 mmol/L (22-29) 08/13/22 01:12 Anion Gap 16.0 (5-19) 08/13/22 01:12 BUN 13 mg/dL (6-20) 08/13/22 01:12 Creatinine 0.7 mg/dL (0.5-0.9) 08/13/22 01:12 GFR Calculation 106.7 mL/min (90-130) 08/13/22 01:12 Glucose 89 mg/dL (65-115) 08/13/22 01:12 Calculated Osmolality 296 mOsm/kg (285-295) H 08/13/22 01:12 Calcium 9.0 mg/dL (8.5-10.5) 08/13/22 01:12 Total Bilirubin 0.3 mg/dL (0.15-1.2) 08/13/22 01:12 AST 11 U/L (0-32) 08/13/22 01:12 ALT 11 U/L (0-33) 08/13/22 01:12 Alkaline Phosphatase 66 U/L (35-105) 08/13/22 01:12 Total Protein 6.6 g/dL (6.6-8.7) 08/13/22 01:12 Albumin 3.7 g/dL (3.5-5.2) 08/13/22 01:12 Globulin 2.9 g/dL (1.3-4.6) 08/13/22 01:12 HCG, Qual Negative (Negative) 08/13/22 01:12 Discharge Plan Discharge Patient Disposition: Home Clinical Impression: Seizure, Adjustment disorder with mixed anxiety and depressed mood Condition: Stable Prescriptions: New lorazepam 0.5 mg tablet 0.5 mg PO DAILY PRN (Reason: seizure activity) Qty: 10 0RF hydrocortisone 1 % cream 1 applic topical BID PRN (Reason: itching) Qty: 28.4 0RF No Action medroxyprogesterone 150 mg/mL suspension 150 mg IM .Q 3 Months ondansetron 8 mg tablet,disintegrating 8 mg PO Q8H PRN (Reason: nausea and vomiting) 5 Days Qty: 15 0RF dicyclomine 20 mg tablet 20 mg PO TID Qty: 20 0RF duloxetine 60 mg capsule,delayed release(DR/EC) 120 mg PO DAILY Qty: 60 1RF trazodone 100 mg tablet 100 mg PO BEDTIME Qty: 30 1RF diphenhydramine HCl [Benadryl Allergy] 25 mg tablet 25 mg PO Q8H PRN (Reason: headache) Qty: 10 0RF Rx Instructions: taken with reglan ondansetron 4 mg Tablet,Disintegrating 4 mg PO Q6H PRN (Reason: Nausea) Qty: 10 0RF oxybutynin chloride 5 mg tablet 5 mg PO TID hydroxyzine HCl 10 mg tablet 5 mg PO BEDTIME topiramate 50 mg tablet 50 mg PO BID chlorhexidine gluconate 0.12 % mouthwash See Rx Instructions .ROUTE .COMPLEX Rx Instructions: DIRECTED FOR 14 DAYS sumatriptan succinate 100 mg tablet 100 mg PO DAILY cefdinir 300 mg capsule 300 mg PO BID Qty: 14 0RF ondansetron 4 mg tablet,disintegrating 4 mg PO Q6H PRN (Reason: nausea and vomiting) Qty: 14 0RF Reglan 10 mg tablet 10 mg PO Q8H PRN (Reason: migraine headache) Qty: 10 0RF Rx Instructions: taken with benadryl acetaminophen 500 mg Tablet 1,000 mg PO Q6H PRN (Reason: Pain) polyethylene glycol 3350 [Miralax] 17 gram powder in packet 17 g PO BID Qty: 30 0RF Reglan 10 mg tablet 10 mg PO Q6H PRN (Reason: nausea and vomiting) Qty: 10 0RF promethazine 25 mg suppository 25 mg [place] Q6H PRN (Reason: nausea and vomiting) Qty: 12 0RF ciprofloxacin HCl 500 mg tablet 500 mg PO BID Qty: 20 0RF Discharge Orders: Discharge ED (Routine); Ordered 08/13/22 Ordered By: James Calix Referrals: Fransisca Flores, SPEECH THERAPY ASSISTANT [Primary Care Provider] - Discharge Diet: Usual diet Discharge Activity: Increase activity as tolerated Patient Instructions: Absence Seizure Activity Restrictions/Additional Instructions: Home and rest. Follow-up with neurologist. Case management will contact you with assistance to follow-up with neurology. Use of lorazepam 0.5 mg daily as needed for seizure activity. Continue with topiramate as directed. Return to ER for new concerns. Coding Level of Care Code ED Band Edger for Jordana Chiu
[2022-08-13 00:22] VITALS: BP 137/82; PULSE 115; RESP 16; TEMP 36.6; O2SAT 99
[2022-08-13] MEDS: LORazepam 0.5 mg Tablet PO (00:43)
[2022-08-13 01:16] LABS: Basophils % 0.5 %; Eosinophils # 0.2 10^3/uL (0.0-0.8); Eosinophils % 2.4 %; Hematocrit 37.8 % (37.0-47.0); Lymphocytes % 34.1 %; Mean Corpuscular HGB Conc 31.7 g/dL (30.0-36.0); Mean Corpuscular Hemoglobin 28.1 pg (28.0-34.0); Mean Corpuscular Volume 88.5 fl (81-99); Mean Platelet Volume 9.4 fL (7.4-10.4); Monocytes # 0.6 10^3/uL (0.2-0.9); Monocytes % 7.3 %; Neutrophils # 4.84 10^3/uL (1.8-8.0); Neutrophils % 55.5 %; Nucleated Red Blood Cells % 0 %; Platelet Count 283 10^3/cmm (130-400); Red Blood Count 4.27 10^6/uL (4.1-5.3); Red Cell Distribution Width 12.1 % (12.1-15.1); White Blood Count 8.7 10^3/uL (4.5-13.0)
[2022-08-13 01:36] LABS: HCG, Serum Qual Negative (Negative)
[2022-08-13 01:40] LABS: Alanine Aminotransferase 11 U/L (0-33); Albumin Level 3.7 g/dL (3.5-5.2); Alkaline Phosphatase 66 U/L (35-105); Aspartate Amino Transferase 11 U/L (0-32); Blood Urea Nitrogen 13 mg/dL (6-20); Carbon Dioxide 22 mmol/L (22-29); Chloride 110 mmol/L (98-107); Creatinine Clr Calc Pharmacy 137.5794; Globulin 2.9 g/dL (1.3-4.6); Glomerular Filtration Rate 106.7 mL/min (90-130); Glucose 89 mg/dL (65-115); Osmolality Calculated 296 mOsm/kg (285-295); Sodium 143 mmol/L (136-145); Total Bilirubin 0.3 mg/dL (0.15-1.2); Total Protein 6.6 g/dL (6.6-8.7)
[2022-08-13 02:05] VITALS: PULSE 100; O2SAT 95
--- NOTE | 2022-08-13 08:18 | DCPLANNER ---
Addendum entered by Maliha Vargas 10/10/22 07:21: Patient had a follow up appointment scheduled with neurology - patient did not attend appointment Addendum entered by Maliha Vargas 08/27/22 10:57: Patient has a follow up appointment scheduled for Saturday, October 01, 2022 at 3;[address] Verdugo at neurology. Original Note: refrigeration manager had message to schedule a follow up appointment for patient with neurology. refrigeration manager sent patients information to the front office staff at neurology. Patients information will be printed and reviewed. Clinic will call patient with appointment information.
== END 2022-08-13 02:05 | disposition home or self-care (01) ==
PROVIDERS: Emergency Provider Nurse Practitioner Family; PCP Nurse Practitioner Family
DX: R56.9 Unspecified convulsions (principal); F43.23 Adjustment disorder with mixed anxiety and depressed mood; F17.210 Nicotine dependence, cigarettes, uncomplicated
CPT/HCPCS: 80053; 84703; 85025; 99283

== ENCOUNTER 2022-09-12 17:10 | Emergency (ER) | payer MEDICAID, SELFPAY ==
[2022-09-12 17:11] VITALS: BP 124/70; PULSE 112; RESP 16; TEMP 37.4; O2SAT 95; BMI 42.2
--- NOTE | 2022-09-12 17:40 | ED_ITS ---
Documented by User: Antelmo Meredith DO 09/13/22 06:02 HPI - Abdominal Pain General: Chief Complaint: Abdominal Pain Stated Complaint: abd pain Time Seen by Provider: 09/12/22 17:21 Source: patient Mode of arrival: ambulatory History of Present Illness: 22-year-old presents emergency room complaining of poor urinary output. She is self catheter and umbilical diversion urostomy. No fever sweats chills she was seen yesterday for UTI and started on antibiotics at her primary care doctor's clinic. MD elicited complaint: abdominal pain Pertinent past history: none Associated Symptoms: Denies bloating, chills, coffee ground emesis, constipation, diarrhea, dysuria, fever(s), hematochezia, hematemesis, melena, nausea and vomiting Review of Systems Const: Denies: fever(s), chills, body aches, change in appetite, fatigue or malaise ENMT: Denies: throat pain, ear or mastoid pain, nasal discharge or nasal congestion Card: Denies: chest pain, edema, dyspnea on exertion or orthopnea Resp: Denies: dyspnea, productive cough or non-productive cough GI: Denies: abdominal pain, nausea, vomiting, hematemesis, coffee ground emesis, diarrhea, constipation, bloating, hematochezia or melena : Denies: flank pain, difficulty voiding, dysuria, urinary frequency or urinary urgency Skin/Breast: Denies: rash or pruritus PFS ED PFSH: Medical History Common migraine with intractable migraine Intellectual disability Psychiatric care Surgical History 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) shunt status Social History Smoking and tobacco status: current every day smoker Quit status (tobacco): has quit using tobacco Year quit tobacco: 2020 Second hand smoke exposure: Yes Alcohol intake: never Substance/Drug Use: never Physical Exam Const: COMMON NORMALS: no acute distress GENERAL APPEARANCE: cooperative and comfortable ORIENTATION/CONSCIOUSNESS: Yes awake, Yes oriented to person, Yes oriented to place and Yes oriented to time HENMT: COMMON NORMALS: normocephalic, atraumatic and hearing grossly normal bilaterally HEAD & SCALP: normocephalic and atraumatic Resp: COMMON NORMALS: normal respiratory effort, No retractions, No use of accessory muscles and clear to auscultation bilaterally AUSCULTATION: clear to auscultation bilaterally Cardio: COMMON NORMALS: regular rate, regular rhythm and No murmurs present (Cardio) RATE: regular rate RHYTHM: regular rhythm GI: COMMON NORMALS: Soft to palpation and No hepatosplenomegaly present AUSCULTATION: Yes normoactive bowel sounds PALPATION: Yes Soft to palpation, No Tenderness to palpation present (GI), No Guarding due to palpation present (GI) and Yes No hepatosplenomegaly present Extremity: COMMON NORMALS: normal to inspection, capillary refill normal, no clubbing, cyanosis or edema, no calf tenderness and no pedal edema Neuro: SENSORIUM/ORIENTATION: Yes oriented to person, Yes oriented to place and Yes oriented to time Skin: COMMON NORMALS: no rashes or lesions noted GENERAL SKIN EXAM: no rashes or lesions noted Course Vital Signs: Vital signs: Vital Signs Temperature 99.4 F 09/12/22 17:11 Pulse Rate 112 H 09/12/22 17:11 Respiratory Rate 18 09/12/22 18:36 Blood Pressure 108/79 09/12/22 18:36 Pulse Oximetry 95 09/12/22 18:36 Oxygen Delivery Me thod Room Air 09/12/22 18:36 MDM - Abdominal Pain Medical Decision Making Care signed out to Dr. Figueroa at change of shift. See final notes for diagnosis and disposition. Patient presents with abdominal pain she has chronic abdominal pain her blood work here is normal she is stable for discharge she is to follow-up with PCP and return if worsening. Lab Data 09/12/22 17:45 09/12/22 17:45 Labs/Radiology: Laboratory Results WBC 6.3 10^3/uL (4.5-13.0) 09/12/22 17:45 RBC 4.55 10^6/uL (4.1-5.3) 09/12/22 17:45 Hgb 12.5 g/dL (11.5-15.3) 09/12/22 17:45 Hct 39.5 % (37.0-47.0) 09/12/22 17:45 MCV 86.8 fl (81-99) 09/12/22 17:45 MCH 27.5 pg (28.0-34.0) L 09/12/22 17:45 MCHC 31.6 g/dL (30.0-36.0) 09/12/22 17:45 RDW 12.6 % (12.1-15.1) 09/12/22 17:45 Plt Count 313 10^3/cmm (130-400) 09/12/22 17:45 MPV 9.2 fL (7.4-10.4) 09/12/22 17:45 Neut % (Auto) 64.4 % 09/12/22 17:45 Lymph % (Auto) 29.0 % 09/12/22 17:45 [place] % (Auto) 4.5 % 09/12/22 17:45 Eos % (Auto) 1.6 % 09/12/22 17:45 Baso % (Auto) 0.3 % 09/12/22 17:45 Neut # (Auto) 4.03 10^3/uL (1.8-8.0) 09/12/22 17:45 Lymph # (Auto) 1.8 10^3/uL (1.5-6.5) 09/12/22 17:45 [place] # (Auto) 0.3 10^3/uL (0.2-0.9) 09/12/22 17:45 Eos # (Auto) 0.1 10^3/uL (0.0-0.8) 09/12/22 17:45 Baso # (Auto) 0.0 10^3/uL (0.0-0.1) 09/12/22 17:45 Nucleated RBC % (auto) 0 % 09/12/22 17:45 Nucleated RBCs # 0.0 /100WBC 09/12/22 17:45 Sodium 140 mmol/L (136-145) 09/12/22 17:45 Potassium 4.3 mmol/L (3.5-5.1) 09/12/22 17:45 Chloride 109 mmol/L (98-107) H 09/12/22 17:45 Carbon Dioxide 22 mmol/L (22-29) 09/12/22 17:45 Anion Gap 13.3 (5-19) 09/12/22 17:45 BUN 8 mg/dL (6-20) 09/12/22 17:45 Creatinine 0.6 mg/dL (0.5-0.9) 09/12/22 17:45 GFR Calculation 127.5 mL/min (90-130) 09/12/22 17:45 Glucose 94 mg/dL (65-115) 09/12/22 17:45 Calculated Osmolality 288 mOsm/kg (285-295) 09/12/22 17:45 Calcium 9.0 mg/dL (8.5-10.5) 09/12/22 17:45 Urine Color Yellow (Yellow) 09/12/22 17:33 Urine Appearance Sl cloudy (CLEAR) A 09/12/22 17:33 Urine pH 7 (5-7) 09/12/22 17:33 Ur Specific [place] 1.005 (1.005-1.030) 09/12/22 17:33 Urine Protein Neg (Negative) 09/12/22 17:33 Urine Glucose (UA) Norm (Normal) 09/12/22 17:33 Urine Ketones Negative (Negative) 09/12/22 17:33 Urine Blood 3+ (Negative) H 09/12/22 17:33 Urine Nitrate Negative (Negative) 09/12/22 17:33 Urine Bilirubin Neg (Negative) 09/12/22 17:33 Urine Urobilinogen Norm mg/dL (Negative) 09/12/22 17:33 Ur Leukocyte Esterase Negative (Negative) 09/12/22 17:33 Urine RBC 5-10 /hpf (0-2) H 09/12/22 17:33 Urine WBC 5-10 /hpf (0-5) H 09/12/22 17:33 Ur Squamous Epith Cells 0-4 /hpf (0-5) H 09/12/22 17:33 Amorphous Sediment Not Reportable 09/12/22 17:33 Urine Bacteria Trace /hpf (NONE) 09/12/22 17:33 Urine Mucus 2+ /hpf 09/12/22 17:33 Discharge Plan Discharge Patient Disposition: Home Clinical Impression: Abdominal pain Condition: Stable Prescriptions: No Action medroxyprogesterone 150 mg/mL suspension 150 mg IM .Q 3 Months ondansetron 8 mg tablet,disintegrating 8 mg PO Q8H PRN (Reason: nausea and vomiting) 5 Days Qty: 15 0RF dicyclomine 20 mg tablet 20 mg PO TID Qty: 20 0RF duloxetine 60 mg capsule,delayed release(DR/EC) 120 mg PO DAILY Qty: 60 1RF trazodone 100 mg tablet 100 mg PO BEDTIME Qty: 30 1RF diphenhydramine HCl [Benadryl Allergy] 25 mg tablet 25 mg PO Q8H PRN (Reason: headache) Qty: 10 0RF Rx Instructions: taken with reglan ondansetron 4 mg Tablet,Disintegrating 4 mg PO Q6H PRN (Reason: Nausea) Qty: 10 0RF oxybutynin chloride 5 mg tablet 5 mg PO TID hydroxyzine HCl 10 mg tablet 5 mg PO BEDTIME topiramate 50 mg tablet 50 mg PO BID chlorhexidine gluconate 0.12 % mouthwash See Rx Instructions .ROUTE .COMPLEX Rx Instructions: DIRECTED FOR 14 DAYS sumatriptan succinate 100 mg tablet 100 mg PO DAILY cefdinir 300 mg capsule 300 mg PO BID Qty: 14 0RF ondansetron 4 mg tablet,disintegrating 4 mg PO Q6H PRN (Reason: nausea and vomiting) Qty: 14 0RF Reglan 10 mg tablet 10 mg PO Q8H PRN (Reason: migraine headache) Qty: 10 0RF Rx Instructions: taken with benadryl lorazepam 0.5 mg tablet 0.5 mg PO DAILY PRN (Reason: seizure activity) Qty: 10 0RF hydrocortisone 1 % cream 1 applic topical BID PRN (Reason: itching) Qty: 28.4 0RF acetaminophen 500 mg Tablet 1,000 mg PO Q6H PRN (Reason: Pain) polyethylene glycol 3350 [Miralax] 17 gram powder in packet 17 g PO BID Qty: 30 0RF Reglan 10 mg tablet 10 mg PO Q6H PRN (Reason: nausea and vomiting) Qty: 10 0RF promethazine 25 mg suppository 25 mg ID Q6H PRN (Reason: nausea and vomiting) Qty: 12 0RF ciprofloxacin HCl 500 mg tablet 500 mg PO BID Qty: 20 0RF Discharge Orders: Discharge ED (Routine); Ordered 09/12/22 Ordered By: David Figueroa Referrals: Fransisca Flores, NEW GRAD RN [Primary Care Provider] - 1-3 days Discharge Diet: Advance as tolerated Discharge Activity: Resume usual activity Patient Instructions: Abdominal Pain (ED) Coding Level of Care Code ED Senior Environmental Scientist for Chg Fwd Documented by User: David Figueroa MD 09/12/22 19:10 HPI - Abdominal Pain General: Chief Complaint: Abdominal Pain Stated Complaint: abd pain Time Seen by Provider: 09/12/22 17:21 PFSH ED PFSH: Medical History Common migraine with intractable migraine Intellectual disability Psychiatric care Surgical History 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) shunt status Social History Smoking and tobacco status: current every day smoker Quit status (tobacco): has quit using tobacco Year quit tobacco: 2020 Second hand smoke exposure: Yes Alcohol intake: never Substance/Drug Use: never Course Vital Signs: Vital signs: Vital Signs Temperature 99.4 F 09/12/22 17:11 Pulse Rate 112 H 09/12/22 17:11 Respiratory Rate 18 09/12/22 18:36 Blood Pressure 108/79 09/12/22 18:36 Pulse Oximetry 95 09/12/22 18:36 Oxygen Delivery Me thod Room Air 09/12/22 18:36 MDM - Abdominal Pain Medical Decision Making Patient presents with abdominal pain she has chronic abdominal pain her blood work here is normal she is stable for discharge she is to follow-up with PCP and return if worsening. Lab Data 09/12/22 17:45 09/12/22 17:45 Labs/Radiology: Laboratory Results WBC 6.3 10^3/uL (4.5-13.0) 09/12/22 17:45 RBC 4.55 10^6/uL (4.1-5.3) 09/12/22 17:45 Hgb 12.5 g/dL (11.5-15.3) 09/12/22 17:45 Hct 39.5 % (37.0-47.0) 09/12/22 17:45 MCV 86.8 fl (81-99) 09/12/22 17:45 MCH 27.5 pg (28.0-34.0) L 09/12/22 17:45 MCHC 31.6 g/dL (30.0-36.0) 09/12/22 17:45 RDW 12.6 % (12.1-15.1) 09/12/22 17:45 Plt Count 313 10^3/cmm (130-400) 09/12/22 17:45 MPV 9.2 fL (7.4-10.4) 09/12/22 17:45 Neut % (Auto) 64.4 % 09/12/22 17:45 Lymph % (Auto) 29.0 % 09/12/22 17:45 [place] % (Auto) 4.5 % 09/12/22 17:45 Eos % (Auto) 1.6 % 09/12/22 17:45 Baso % (Auto) 0.3 % 09/12/22 17:45 Neut # (Auto) 4.03 10^3/uL (1.8-8.0) 09/12/22 17:45 Lymph # (Auto) 1.8 10^3/uL (1.5-6.5) 09/12/22 17:45 [place] # (Auto) 0.3 10^3/uL (0.2-0.9) 09/12/22 17:45 Eos # (Auto) 0.1 10^3/uL (0.0-0.8) 09/12/22 17:45 Baso # (Auto) 0.0 10^3/uL (0.0-0.1) 09/12/22 17:45 Nucleated RBC % (auto) 0 % 09/12/22 17:45 Nucleated RBCs # 0.0 /100WBC 09/12/22 17:45 Sodium 140 mmol/L (136-145) 09/12/22 17:45 Potassium 4.3 mmol/L (3.5-5.1) 09/12/22 17:45 Chloride 109 mmol/L (98-107) H 09/12/22 17:45 Carbon Dioxide 22 mmol/L (22-29) 09/12/22 17:45 Anion Gap 13.3 (5-19) 09/12/22 17:45 BUN 8 mg/dL (6-20) 09/12/22 17:45 Creatinine 0.6 mg/dL (0.5-0.9) 09/12/22 17:45 GFR Calculation 127.5 mL/min (90-130) 09/12/22 17:45 Glucose 94 mg/dL (65-115) 09/12/22 17:45 Calculated Osmolality 288 mOsm/kg (285-295) 09/12/22 17:45 Calcium 9.0 mg/dL (8.5-10.5) 09/12/22 17:45 Urine Color Yellow (Yellow) 09/12/22 17:33 Urine Appearance Sl cloudy (CLEAR) A 09/12/22 17:33 Urine pH 7 (5-7) 09/12/22 17:33 Ur Specific [place] 1.005 (1.005-1.030) 09/12/22 17:33 Urine Protein Neg (Negative) 09/12/22 17:33 Urine Glucose (UA) Norm (Normal) 09/12/22 17:33 Urine Ketones Negative (Negative) 09/12/22 17:33 Urine Blood 3+ (Negative) H 09/12/22 17:33 Urine Nitrate Negative (Negative) 09/12/22 17:33 Urine Bilirubin Neg (Negative) 09/12/22 17:33 Urine Urobilinogen Norm mg/dL (Negative) 09/12/22 17:33 Ur Leukocyte Esterase Negative (Negative) 09/12/22 17:33 Urine RBC 5-10 /hpf (0-2) H 09/12/22 17:33 Urine WBC 5-10 /hpf (0-5) H 09/12/22 17:33 Ur Squamous Epith Cells 0-4 /hpf (0-5) H 09/12/22 17:33 Amorphous Sediment Not Reportable 09/12/22 17:33 Urine Bacteria Trace /hpf (NONE) 09/12/22 17:33 Urine Mucus 2+ /hpf 09/12/22 17:33 Discharge Plan Discharge Patient Disposition: Home Clinical Impression: Abdominal pain Condition: Stable Prescriptions: No Action medroxyprogesterone 150 mg/mL suspension 150 mg IM .Q 3 Months ondansetron 8 mg tablet,disintegrating 8 mg PO Q8H PRN (Reason: nausea and vomiting) 5 Days Qty: 15 0RF dicyclomine 20 mg tablet 20 mg PO TID Qty: 20 0RF duloxetine 60 mg capsule,delayed release(DR/EC) 120 mg PO DAILY Qty: 60 1RF trazodone 100 mg tablet 100 mg PO BEDTIME Qty: 30 1RF diphenhydramine HCl [Benadryl Allergy] 25 mg tablet 25 mg PO Q8H PRN (Reason: headache) Qty: 10 0RF Rx Instructions: taken with reglan ondansetron 4 mg Tablet,Disintegrating 4 mg PO Q6H PRN (Reason: Nausea) Qty: 10 0RF oxybutynin chloride 5 mg tablet 5 mg PO TID hydroxyzine HCl 10 mg tablet 5 mg PO BEDTIME topiramate 50 mg tablet 50 mg PO BID chlorhexidine gluconate 0.12 % mouthwash See Rx Instructions .ROUTE .COMPLEX Rx Instructions: DIRECTED FOR 14 DAYS sumatriptan succinate 100 mg tablet 100 mg PO DAILY cefdinir 300 mg capsule 300 mg PO BID Qty: 14 0RF ondansetron 4 mg tablet,disintegrating 4 mg PO Q6H PRN (Reason: nausea and vomiting) Qty: 14 0RF Reglan 10 mg tablet 10 mg PO Q8H PRN (Reason: migraine headache) Qty: 10 0RF Rx Instructions: taken with benadryl lorazepam 0.5 mg tablet 0.5 mg PO DAILY PRN (Reason: seizure activity) Qty: 10 0RF hydrocortisone 1 % cream 1 applic topical BID PRN (Reason: itching) Qty: 28.4 0RF acetaminophen 500 mg Tablet 1,000 mg PO Q6H PRN (Reason: Pain) polyethylene glycol 3350 [Miralax] 17 gram powder in packet 17 g PO BID Qty: 30 0RF Reglan 10 mg tablet 10 mg PO Q6H PRN (Reason: nausea and vomiting) Qty: 10 0RF promethazine 25 mg suppository 25 mg ID Q6H PRN (Reason: nausea and vomiting) Qty: 12 0RF ciprofloxacin HCl 500 mg tablet 500 mg PO BID Qty: 20 0RF Discharge Orders: Discharge ED (Routine); Ordered 09/12/22 Ordered By: Korby Henry Referrals: Fransisca Flores FNP [Primary Care Provider] - 1-3 days Discharge Diet: Advance as tolerated Discharge Activity: Resume usual activity Patient Instructions: Abdominal Pain (ED) Coding Level of Care Code ED Senior Environmental Scientist for Jordana Chiu
[2022-09-12 18:05] LABS: Basophils % 0.3 %; Eosinophils # 0.1 10^3/uL (0.0-0.8); Eosinophils % 1.6 %; Hematocrit 39.5 % (37.0-47.0); Hemoglobin 12.5 g/dL (11.5-15.3); Lymphocytes # 1.8 10^3/uL (1.5-6.5); Mean Corpuscular HGB Conc 31.6 g/dL (30.0-36.0); Mean Corpuscular Hemoglobin 27.5 pg (28.0-34.0); Mean Corpuscular Volume 86.8 fl (81-99); Mean Platelet Volume 9.2 fL (7.4-10.4); Monocytes # 0.3 10^3/uL (0.2-0.9); Monocytes % 4.5 %; Neutrophils # 4.03 10^3/uL (1.8-8.0); Neutrophils % 64.4 %; Nucleated Red Blood Cells % 0 %; Platelet Count 313 10^3/cmm (130-400); Red Blood Count 4.55 10^6/uL (4.1-5.3); Red Cell Distribution Width 12.6 % (12.1-15.1); White Blood Count 6.3 10^3/uL (4.5-13.0)
[2022-09-12 18:15] LABS: Anion Gap 13.3 (5-19); Blood Urea Nitrogen 8 mg/dL (6-20); Carbon Dioxide 22 mmol/L (22-29); Chloride 109 mmol/L (98-107); Glomerular Filtration Rate 127.5 mL/min (90-130); Glucose 94 mg/dL (65-115); Osmolality Calculated 288 mOsm/kg (285-295); Potassium 4.3 mmol/L (3.5-5.1); Sodium 140 mmol/L (136-145)
[2022-09-12 18:36] VITALS: BP 108/79; RESP 18; O2SAT 95
[2022-09-12 18:46] LABS: Add Urine Microscopic? YES; Bacteria Urine TRACE /hpf; Bilirubin Urine Neg (Negative); Blood Urine 3+ (Negative); Glucose Urine UA Norm (Normal); Ketones Urine Negative (Negative); Leukocyte Esterase Urine Negative (Negative); Mucus Urine 2+ /hpf; Nitrate Urine Negative (Negative); Protein Urine Neg (Negative); Specific Gravity, Urine 1.005 (1.005-1.030); Squamous Epithelial Cell Urine 0-4 /hpf (0-5); Urine Color Yellow (Yellow); Urobilinogen Urine Norm (Negative); pH Urine 7 (5-7)
[2022-09-12 18:47] LABS: Add Urine Culture? No
== END 2022-09-12 19:06 | disposition home or self-care (01) ==
PROVIDERS: Family Medicine; Emergency Provider Emergency Medicine; PCP Nurse Practitioner Family
DX: R10.9 Unspecified abdominal pain (principal); F17.210 Nicotine dependence, cigarettes, uncomplicated; Z79.899 Other long term (current) drug therapy
CPT/HCPCS: 36415; 80048; 81001; 85025; 87040; 99283

== ENCOUNTER 2022-12-02 12:06 | Emergency (ER) | payer MEDICAID, SELFPAY ==
[2022-12-02 12:08] VITALS: BP 112/67; PULSE 96; TEMP 36.8; O2SAT 96; BMI 42.2
[2022-12-02 12:56] VITALS: BP 122/84; PULSE 95; RESP 16; O2SAT 100
[2022-12-02 12:57] LABS: Basophils % 0.3 %; Eosinophils % 0.4 %; Hematocrit 41.9 % (36-47); Lymphocytes # 2.1 10^3/uL (1.5-6.5); Lymphocytes % 26.6 %; Mean Corpuscular HGB Conc 32.9 g/dL (30-55); Mean Corpuscular Volume 85.2 fl (85-98); Mean Platelet Volume 11.6 fL (7.4-10.4); Monocytes # 0.5 10^3/uL (0.2-0.9); Monocytes % 6.1 %; Neutrophils # 5.13 10^3/uL (1.8-8.0); Neutrophils % 66.3 %; Nucleated Red Blood Cells % 0 %; Platelet Count 283 10^3/cmm (157-399); Red Blood Count 4.92 10^6/uL (3.85-5.65); Red Cell Distribution Width 12.5 % (12.1-15.1); White Blood Count 7.72 10^3/uL (4.5-13.0)
--- NOTE | 2022-12-02 14:03 | W.ED.SEIZURE ---
HPI - Seizure General: Chief Complaint: Seizure Stated Complaint: seizures Time Seen by Provider: 12/02/22 12:08 History of Present Illness: HPI Narrative: 22-year-old female with complex medical history including migraine headache, seizure disorder and mood disorder. Presents emergency room with complaint of possible seizure-like activity in route to the emergency room. Patient initially called 911 because of generalized weakness and palpitation. Seizure History: Yes Place: Home Associated symptoms: Deny chest pain or syncope Review of Systems General: Reports: 10 or more systems reviewed and unremarkable except in HPI and below Card: Reports: palpitations; Denies: chest pain, irregular heart rhythm, edema, swelling of feet/ankles, lightheadedness, syncope or pre-syncope Resp: Denies: dyspnea, productive cough or non-productive cough GI: Denies: abdominal pain, nausea, vomiting, hematemesis, coffee ground emesis or dysphagia Neuro: Reports: seizure-like activity; Denies: headache(s), numbness in extremities, frequent falls, behavioral changes or difficulty communicating thoughts Psych: Reports: anxiety; Denies: depression, mood swings, sleeping less, sleeping more, hopelessness or memory loss PFS ED PFSH: Medical History Common migraine with intractable migraine Intellectual disability Psychiatric care Surgical History GOAL UMPIRE (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) shunt status Social History Smoking and tobacco status: current every day smoker Quit status (tobacco): has quit using tobacco Year quit tobacco: 2020 Second hand smoke exposure: Yes Alcohol intake: never Substance/Drug Use: never Physical Exam Const: COMMON NORMALS: no acute distress, average body habitus, patient oriented x3, no limitations, healthy appearing, alert and well nourished HENMT: COMMON NORMALS: normocephalic, atraumatic, hearing grossly normal bilaterally, external ears normal, EAC's normal, TM's normal bilaterally, Normal external nose present, Normal nasal mucous membranes and turbinates present, moist oral mucous membranes, oropharynx normal, dentition normal and gingiva normal HEAD & SCALP: normocephalic and atraumatic NOSE: Normal external nose present and Normal nasal mucous membranes and turbinates present EXTERNAL EAR: Yes external ears normal EXTERNAL AUDITORY CANAL: EAC's normal TYMPANIC MEMBRANE: TM's normal bilaterally Neck/C-Spine: COMMON NORMALS: full ROM, no lymphadenopathy, supple, no meningeal signs, no JVD, Thyroid normal and No carotid bruits THYROID: Thyroid normal Chest: COMMONS NORMALS: normal inspection of the chest, normal palpation of entire chest wall, normal inspection of the breasts and normal palpation of the breasts Breast/axilla inspection: Yes normal inspection of the breasts BREAST/AXILLA PALPATION: Yes normal palpation of the breasts Cardio: COMMON NORMALS: no JVD Neuro: KRIS COMA SCALE: document GCS findings COMMON NORMALS: patient oriented x3, CN's II-XII intact bilaterally, moves all extremities, no focal motor deficits, no sensory deficits noted, deep tendon reflexes 2+ bilaterally and gait normal SENSORIUM/ORIENTATION: Yes alert MENINGEAL SIGNS: Yes no meningeal signs Skin: COMMON NORMALS: no rashes or lesions noted, no wounds, turgor normal, no jaundice, no petechiae and no mottling GENERAL SKIN EXAM: no rashes or lesions noted and turgor normal Course Vital Signs: Vital signs: Vital Signs Temperature 98.2 F 12/02/22 12:08 Pulse Rate 95 12/02/22 15:10 Respiratory Rate 16 12/02/22 15:10 Blood Pressure 122/84 12/02/22 15:10 Pulse Oximetry 100 12/02/22 15:10 Oxygen Delivery Me thod Room Air 12/02/22 12:56 MDM - Seizure MDM Narrative Medical decision making narrative: Patient made comfortable emergency room and had extensive work-up done including CBC, CMP. Patient without any seizure Differential Diagnosis Seizure Differential Diagnosis: Likely intractable seizure disorder, febrile convulsion, focal seizure, generalized seizure, new onset seizure and epileptic seizure Lab Data 12/02/22 11:48 12/02/22 13:56 Labs: Laboratory Results WBC 7.72 10^3/uL (4.5-13.0) 12/02/22 11:48 RBC 4.92 10^6/uL (3.85-5.65) 12/02/22 11:48 Hgb 13.80 g/dL (12.4-14.8) 12/02/22 11:48 Hct 41.9 % (36-47) 12/02/22 11:48 MCV 85.2 fl (85-98) 12/02/22 11:48 MCH 28.0 pg (27-33) 12/02/22 11:48 MCHC 32.9 g/dL (30-55) 12/02/22 11:48 RDW 12.5 % (12.1-15.1) 12/02/22 11:48 Plt Count 283 10^3/cmm (157-399) 12/02/22 11:48 MPV 11.6 fL (7.4-10.4) H 12/02/22 11:48 Neut % (Auto) 66.3 % 12/02/22 11:48 Lymph % (Auto) 26.6 % 12/02/22 11:48 Crosby % (Auto) 6.1 % 12/02/22 11:48 Eos % (Auto) 0.4 % 12/02/22 11:48 Baso % (Auto) 0.3 % 12/02/22 11:48 Neut # (Auto) 5.13 10^3/uL (1.8-8.0) 12/02/22 11:48 Lymph # (Auto) 2.1 10^3/uL (1.5-6.5) 12/02/22 11:48 Crosby # (Auto) 0.5 10^3/uL (0.2-0.9) 12/02/22 11:48 Eos # (Auto) 0.0 10^3/uL (0.0-0.8) 12/02/22 11:48 Baso # (Auto) 0.0 10^3/uL (0.0-0.1) 12/02/22 11:48 Nucleated RBC % (auto) 0 % 12/02/22 11:48 Nucleated RBCs # 0.0 /100WBC 12/02/22 11:48 Sodium 141 mmol/L (136-145) 12/02/22 13:56 Potassium 4.2 mmol/L (3.5-5.1) 12/02/22 13:56 Chloride 108 mmol/L (98-107) H 12/02/22 13:56 Carbon Dioxide 25 mmol/L (22-29) 12/02/22 13:56 Anion Gap 12.2 (5-19) 12/02/22 13:56 BUN 9 mg/dL (6-20) 12/02/22 13:56 Creatinine 0.9 mg/dL (0.5-0.9) 12/02/22 13:56 GFR Calculation 79.8 mL/min (90-130) L 12/02/22 13:56 Glucose 82 mg/dL (65-115) 12/02/22 13:56 Calculated Osmolality 290 mOsm/kg (285-295) 12/02/22 13:56 Calcium 9.4 mg/dL (8.5-10.5) 12/02/22 13:56 Total Bilirubin 0.8 mg/dL (0.15-1.2) 12/02/22 13:56 AST 14 U/L (0-32) 12/02/22 13:56 ALT 12 U/L (0-33) 12/02/22 13:56 Alkaline Phosphatase 87 U/L (35-105) 12/02/22 13:56 Total Protein 6.6 g/dL (6.6-8.7) 12/02/22 13:56 Albumin 4.1 g/dL (3.5-5.2) 12/02/22 13:56 Globulin 2.5 g/dL (1.3-4.6) 12/02/22 13:56 No radiology studies performed this visit Discharge Plan Discharge Patient Disposition: Home Clinical Impression: Mood disorder, Seizure Condition: Stable Prescriptions: No Action medroxyprogesterone 150 mg/mL suspension 150 mg IM .Q 3 Months duloxetine 60 mg capsule,delayed release(DR/EC) 120 mg PO DAILY Qty: 60 1RF trazodone 100 mg tablet 100 mg PO BEDTIME Qty: 30 1RF oxybutynin chloride 5 mg tablet 5 mg PO TID hydroxyzine HCl 10 mg tablet 5 mg PO BEDTIME topiramate 50 mg tablet 50 mg PO BID sumatriptan succinate 100 mg tablet 100 mg PO DAILY PRN (Reason: Headache) metoclopramide HCl [Reglan] 10 mg tablet 10 mg PO Q8H PRN (Reason: migraine headache) Qty: 10 0RF Rx Instructions: taken with benadryl lorazepam 0.5 mg tablet 0.5 mg PO DAILY PRN (Reason: seizure activity) Qty: 10 0RF hydrocortisone 1 % cream 1 applic topical BID PRN (Reason: itching) Qty: 28.4 0RF acetaminophen 500 mg Tablet 1,000 mg PO Q6H PRN (Reason: Pain) polyethylene glycol 3350 [Miralax] 17 gram powder in packet 17 g PO BID Qty: 30 0RF metoclopramide HCl [Reglan] 10 mg tablet 10 mg PO Q6H PRN (Reason: nausea and vomiting) Qty: 10 0RF Multi-Vitamins Tablet 1 tab PO DAILY 1.5/30 (28) 1.5 mg-30 mcg (21)/75 mg (7) tablet 1 tab PO DAILY cetirizine 10 mg Tablet 10 mg PO DAILY PRN (Reason: Allergic Symptoms) levothyroxine 25 mcg tablet 25 mcg PO DAILY citalopram 20 mg tablet 20 mg PO DAILY triamcinolone acetonide 0.025 % cream 1 applic TOPICAL BID PRN (Reason: Rash) nystatin 100,000 unit/gram cream 1 applic TOPICAL BID PRN (Reason: Rash) ibuprofen 600 mg Tablet 600 mg PO Q6H PRN (Reason: Pain) cyclobenzaprine 5 mg tablet 5 mg PO TID PRN (Reason: Muscle Spasm) nitrofurantoin monohyd/m-cryst 100 mg capsule 100 mg PO BID Myrbetriq 25 mg tablet extended release 24 hr 25 mg PO DAILY Benadryl Allergy 25 mg tablet 25 mg PO Q8H PRN (Reason: Itching) Rx Instructions: taken with reglan Tears Naturale Drops 1 drp OPHTHALMIC (EYE) TID PRN (Reason: Dry Eye(S)) Discharge Orders: Discharge ED (Routine); Ordered 12/02/22 Ordered By: Cande Guzman Referrals: Fransisca Flores STATISTICAL DEVELOPER [Primary Care Provider] - Discharge Diet: Advance as tolerated Discharge Activity: Resume usual activity Patient Instructions: Opioid Safety, Pain Management Coding Level of Care Code ED Supervisor Cutting Department for Jordana Chiu
[2022-12-02 14:28] LABS: Alanine Aminotransferase 12 U/L (0-33); Albumin Level 4.1 g/dL (3.5-5.2); Alkaline Phosphatase 87 U/L (35-105); Aspartate Amino Transferase 14 U/L (0-32); Blood Urea Nitrogen 9 mg/dL (6-20); Calcium 9.4 mg/dL (8.5-10.5); Carbon Dioxide 25 mmol/L (22-29); Chloride 108 mmol/L (98-107); Creatinine Clr Calc Pharmacy 149.2238; Globulin 2.5 g/dL (1.3-4.6); Glomerular Filtration Rate 79.8 mL/min (90-130); Glucose 82 mg/dL (65-115); Osmolality Calculated 290 mOsm/kg (285-295); Sodium 141 mmol/L (136-145); Total Bilirubin 0.8 mg/dL (0.15-1.2); Total Protein 6.6 g/dL (6.6-8.7)
[2022-12-02 14:31] LABS: Anion Gap 12.2 (5-19); Potassium 4.2 mmol/L (3.5-5.1)
[2022-12-02 15:10] VITALS: BP 122/84; PULSE 95; RESP 16; O2SAT 100
== END 2022-12-02 15:12 | disposition home or self-care (01) ==
PROVIDERS: Emergency Provider Family Medicine; PCP Nurse Practitioner Family
DX: R56.9 Unspecified convulsions (principal); F39 Unspecified mood [affective] disorder; F17.210 Nicotine dependence, cigarettes, uncomplicated
CPT/HCPCS: 36415; 80053; 85025; 99283

== ENCOUNTER 2022-12-11 21:04 | Emergency (ER) | payer MEDICAID, SELFPAY ==
[2022-12-11 21:05] VITALS: BP 153/95; PULSE 100; RESP 16; TEMP 36.9; O2SAT 99; BMI 42.2
--- NOTE | 2022-12-11 21:16 | XRR_ITS ---
PROCEDURE INFORMATION: Exam: XR Shunt Series With 4 XR Procedures Exam date and time: 12/11/2022 10:13 PM Age: 22 years old Clinical indication: Other: Sweeling; Other: Swelling TECHNIQUE: Imaging protocol: XR Shunt Series was performed with skull less than 4 views, neck 1 view, chest 1 view, and abdomen 1 view. COMPARISON: CR XR shunt series 06/25/2022 10:21 PM FINDINGS: Tubes, catheters and devices: Right ASSEMBLER TRUCK TRAILER shunt catheter with tip over the left lower quadrant abdomen. Right-sided pigtail catheter which could represent nephrostomy tube versus drainage tube. Sinuses: Visualized paranasal sinuses are well aerated. Airway: Upper airway and trachea are unremarkable in the neck and chest. Lungs: No consolidations. Heart/Mediastinum: Poor inspiratory effort with some crowding of pulmonary markings and possible accentuation of the apparent heart size. Gastrointestinal tract: Bowel is unremarkable. Bones/joints: Idiopathic S-shaped scoliosis. L4-L5 laminectomies versus spina bifida. Soft tissues: Unremarkable. XR/XR shunt series IMPRESSION: 1. Poor inspiratory effort with some crowding of pulmonary markings and possible accentuation of the apparent heart size. 2. Right ASSEMBLER TRUCK TRAILER shunt catheter with tip over the left lower quadrant abdomen. 3. Right-sided pigtail catheter which could represent nephrostomy tube versus drainage tube.
[2022-12-11 21:19] VITALS: PULSE 105; RESP 18; O2SAT 96
--- NOTE | 2022-12-11 21:19 | ED_ITS ---
HPI - General Adult General: Chief complaint: General Medical Stated complaint: SHUNT SWELLING Time Seen by Provider: 12/11/22 21:09 Source: patient Mode of arrival: ambulatory Limitations: no limitations History of Present Illness: 22-year-old female who is has a shunt she feels like her shunt has been swelling in her neck she denies any headache. States she does have some slight neck pain she rates 3 out of 10 denies any fevers denies any worsening proving factors. No vomiting. 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 PRODUCER (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) shunt status Social History Smoking and tobacco status: current every day smoker Quit status (tobacco): has quit using tobacco Year quit tobacco: 2020 Second hand smoke exposure: Yes Alcohol intake: never Substance/Drug Use: never Physical Exam Const: COMMON NORMALS: no acute distress, patient oriented x3 and healthy appearing HENMT: COMMON NORMALS: normocephalic and atraumatic HEAD & SCALP: normocephalic and atraumatic Eye: COMMON NORMALS: Equal, round and reactive pupils present and EOMs intact bilaterally PUPIL: Yes Equal, round and reactive pupils present Neck/C-Spine: COMMON NORMALS: full ROM and supple OTHER: No swelling or tenderness to the right side of her neck Chest: COMMONS NORMALS: normal inspection of the chest and normal palpation of entire chest wall Resp: COMMON NORMALS: normal respiratory effort, No retractions, No use of accessory muscles and clear to auscultation bilaterally AUSCULTATION: clear to auscultation bilaterally Cardio: COMMON NORMALS: regular rate, regular rhythm and No murmurs present (Cardio) RATE: regular rate RHYTHM: regular rhythm GI: COMMON NORMALS: Normal to inspection, nondistended, normoactive bowel sounds present, Soft to palpation, non-tender and no masses PALPATION: Yes Soft to palpation Extremity: COMMON NORMALS: normal to inspection and full ROM Neuro: COMMON NORMALS: patient oriented x3, moves all extremities and no focal motor deficits Psych: COMMON NORMALS: mental status grossly normal, Normal thought process present and cooperative THOUGHT PROCESS: Normal thought process present Skin: COMMON NORMALS: no rashes or lesions noted and no wounds GENERAL SKIN EXAM: no rashes or lesions noted Course Vital Signs: Vital signs: Vital Signs Temperature 98.4 F 12/11/22 21:05 Pulse Rate 88 12/11/22 22:48 Respiratory Rate 18 12/11/22 22:48 Blood Pressure 120/88 12/11/22 22:48 Pulse Oximetry 100 12/11/22 22:48 Oxygen Delivery Me thod Room Air 12/11/22 21:19 MDM - General Adult Medical Decision Making Patient presents here with concern of her shunt x-ray here shows no signs of any kinks or breaks her exam is benign she has no headache she is stable for discharge Medical Records I reviewed the patient's medical records. XR interpretation done by ED provider, pending radiology final review ED provider radiology interpretation(s): xr shunt: no acute abnormalities Discharge Plan Discharge Patient Disposition: Home Clinical Impression: AGENT PRODUCER (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) shunt status Condition: Stable Prescriptions: No Action medroxyprogesterone 150 mg/mL suspension 150 mg IM .Q 3 Months duloxetine 60 mg capsule,delayed release(DR/EC) 120 mg PO DAILY Qty: 60 1RF trazodone 100 mg tablet 100 mg PO BEDTIME Qty: 30 1RF oxybutynin chloride 5 mg tablet 5 mg PO TID hydroxyzine HCl 10 mg tablet 5 mg PO BEDTIME topiramate 50 mg tablet 50 mg PO BID sumatriptan succinate 100 mg tablet 100 mg PO DAILY PRN (Reason: Headache) metoclopramide HCl [Reglan] 10 mg tablet 10 mg PO Q8H PRN (Reason: migraine headache) Qty: 10 0RF Rx Instructions: taken with benadryl lorazepam 0.5 mg tablet 0.5 mg PO DAILY PRN (Reason: seizure activity) Qty: 10 0RF hydrocortisone 1 % cream 1 applic topical BID PRN (Reason: itching) Qty: 28.4 0RF acetaminophen 500 mg Tablet 1,000 mg PO Q6H PRN (Reason: Pain) polyethylene glycol 3350 [Miralax] 17 gram powder in packet 17 g PO BID Qty: 30 0RF metoclopramide HCl [Reglan] 10 mg tablet 10 mg PO Q6H PRN (Reason: nausea and vomiting) Qty: 10 0RF Multi-Vitamins Tablet 1 tab PO DAILY 1.5/ (28) 1.5 mg-30 mcg (21)/75 mg (7) tablet 1 tab PO DAILY cetirizine 10 mg Tablet 10 mg PO DAILY PRN (Reason: Allergic Symptoms) levothyroxine 25 mcg tablet 25 mcg PO DAILY citalopram 20 mg tablet 20 mg PO DAILY triamcinolone acetonide 0.025 % cream 1 applic TOPICAL BID PRN (Reason: Rash) nystatin 100,000 unit/gram cream 1 applic TOPICAL BID PRN (Reason: Rash) ibuprofen 600 mg Tablet 600 mg PO Q6H PRN (Reason: Pain) cyclobenzaprine 5 mg tablet 5 mg PO TID PRN (Reason: Muscle Spasm) nitrofurantoin monohyd/m-cryst 100 mg capsule 100 mg PO BID Myrbetriq 25 mg tablet extended release 24 hr 25 mg PO DAILY Benadryl Allergy 25 mg tablet 25 mg PO Q8H PRN (Reason: Itching) Rx Instructions: taken with reglan Tears Naturale Drops 1 drp OPHTHALMIC (EYE) TID PRN (Reason: Dry Eye(S)) Discharge Orders: Discharge ED (Routine); Ordered 12/11/22 Ordered By: David Figueroa Referrals: Fransisca Flores CONTACT AND SERVICE CLERKS SUPERVISOR [Primary Care Provider] - 1-3 days Discharge Diet: Advance as tolerated Discharge Activity: Resume usual activity Patient Instructions: Ventriculoperitoneal Shunt Placement for Hydrocephalus in Adults (DC) Coding Level of Care Code ED Chief Of Pediatric Urology for Chg Aram
[2022-12-11 22:48] VITALS: BP 120/88; PULSE 88; RESP 18; O2SAT 100
== END 2022-12-11 22:48 | disposition home or self-care (01) ==
PROVIDERS: Emergency Provider Emergency Medicine; PCP Nurse Practitioner Family
DX: Z98.2 Presence of cerebrospinal fluid drainage device (principal); F17.210 Nicotine dependence, cigarettes, uncomplicated
CPT/HCPCS: 70250; 71046; 72040; 74019; 99284

== ENCOUNTER 2022-12-12 22:13 | Emergency (ER) | payer MEDICAID, SELFPAY ==
[2022-12-12 22:24] VITALS: BP 143/79; PULSE 97; RESP 16; TEMP 36.9; O2SAT 93; BMI 42.2
--- NOTE | 2022-12-12 22:52 | CTR_ITS ---
PROCEDURE INFORMATION: Exam: CT Head Without Contrast Exam date and time: 12/13/2022 12:09 AM Age: 22 years old Clinical indication: Pain; Headache; Prior surgery; Surgery date: 6+ months; Surgery type: Shunt; Additional info: GERONIMO TECHNIQUE: Imaging protocol: Computed tomography of the head without contrast. Radiation optimization: All CT scans at this facility use at least one of these dose optimization techniques: automated exposure control; mA and/or kV adjustment per patient size (includes targeted exams where dose is matched to clinical indication); or iterative reconstruction. REPORTING DATA: Count of CT and Cardiac NM exams in prior 12 months: This patient has received 5 known CTs and 0 known cardiac nuclear medicine studies in the 12 months prior to the current study. COMPARISON: CT head wo con* [id number] 06/25/2022 9:30 PM RADIATION DOSE METRICS: Total DLP (mGy-cm): 1131.78 FINDINGS: Tubes, catheters and devices: Right frontal approach MI[employer]OW[employer]OTE [employer]ENSING SCIENTIST shunt catheter redemonstrated and similar in position. Brain: Dysgenesis of the corpus callosum redemonstrated. No acute intracranial abnormality. Cerebral ventricles: No ventriculomegaly. Paranasal sinuses: Visualized sinuses are unremarkable. No fluid levels. Mastoid air cells: Visualized mastoid air cells are well aerated. Bones/joints: Unremarkable. No acute fracture. Soft tissues: Unremarkable. CT/CT head wo con* [id number] IMPRESSION: No acute intracranial abnormality.
[2022-12-12 23:10] LABS: Basophils % 0.3 %; Eosinophils % 0.3 %; Hematocrit 40.3 % (36-47); Lymphocytes # 2.1 10^3/uL (1.5-6.5); Lymphocytes % 34.2 %; Mean Corpuscular HGB Conc 31.8 g/dL (30-55); Mean Corpuscular Volume 88.2 fl (85-98); Mean Platelet Volume 9.9 fL (7.4-10.4); Monocytes # 0.5 10^3/uL (0.2-0.9); Monocytes % 7.5 %; Neutrophils # 3.54 10^3/uL (1.8-8.0); Neutrophils % 57.4 %; Nucleated Red Blood Cells % 0 %; Platelet Count 286 10^3/cmm (157-399); Red Blood Count 4.57 10^6/uL (3.85-5.65); Red Cell Distribution Width 12.2 % (12.1-15.1); White Blood Count 6.17 10^3/uL (4.5-13.0)
[2022-12-12 23:22] LABS: Alanine Aminotransferase 13 U/L (0-33); Albumin Level 4.2 g/dL (3.5-5.2); Alkaline Phosphatase 88 U/L (35-105); Aspartate Amino Transferase 13 U/L (0-32); Blood Urea Nitrogen 12 mg/dL (6-20); Calcium 9.2 mg/dL (8.5-10.5); Carbon Dioxide 20 mmol/L (22-29); Chloride 109 mmol/L (98-107); Globulin 2.8 g/dL (1.3-4.6); Glomerular Filtration Rate 91.4 mL/min (90-130); Glucose 97 mg/dL (65-115); Osmolality Calculated 292 mOsm/kg (285-295); Sodium 141 mmol/L (136-145); Total Bilirubin 0.4 mg/dL (0.15-1.2)
[2022-12-12 23:26] LABS: Anion Gap 16.2 (5-19); Potassium 4.2 mmol/L (3.5-5.1)
--- NOTE | 2022-12-12 23:59 | CTR_ITS ---
PROCEDURE INFORMATION: Exam: CT Chest Without Contrast; Diagnostic Exam date and time: 12/13/2022 12:17 AM Age: 22 years old Clinical indication: Pain; Other: GERONIMO; Other: Headache; Prior surgery; Surgery date: 6+ months; Surgery type: Shunt TECHNIQUE: Imaging protocol: Diagnostic computed tomography of the chest without contrast. Radiation optimization: All CT scans at this facility use at least one of these dose optimization techniques: automated exposure control; mA and/or kV adjustment per patient size (includes targeted exams where dose is matched to clinical indication); or iterative reconstruction. REPORTING DATA: Count of CT and Cardiac NM exams in prior 12 months: This patient has received 5 known CTs and 0 known cardiac nuclear medicine studies in the 12 months prior to the current study. COMPARISON: CR XR shunt series 12/11/2022 10:13 PM RADIATION DOSE METRICS: Total DLP (mGy-cm): 1141.1 FINDINGS: Lungs: No focal consolidation. Pleural spaces: Unremarkable. No pneumothorax. No pleural effusion. Heart: Unremarkable. No cardiomegaly. No pericardial effusion. No coronary artery calcifications. Lymph nodes: Unremarkable. No enlarged lymph nodes. Vasculature: Unremarkable. No aortic aneurysm. Bones/joints: Dextroscoliosis of the thoracolumbar spine. No acute fracture. Soft tissues: Unremarkable. PROCEDURE INFORMATION: Exam: CT Abdomen And Pelvis Without Contrast Exam date and time: 12/13/2022 12:17 AM Age: 22 years old Clinical indication: Pain; Other: GERONIMO; Other: Headache; Prior surgery; Surgery date: 6+ months; Surgery type: Shunt TECHNIQUE: Imaging protocol: Computed tomography of the abdomen and pelvis without contrast. Radiation optimization: All CT scans at this facility use at least one of these dose optimization techniques: automated exposure control; mA and/or kV adjustment per patient size (includes targeted exams where dose is matched to clinical indication); or iterative reconstruction. REPORTING DATA: Count of CT and Cardiac NM exams in prior 12 months: This patient has received 5 known CTs and 0 known cardiac nuclear medicine studies in the 12 months prior to the current study. COMPARISON: CT abdomen pelvis wo con [id number] 06/25/2022 6:39 PM RADIATION DOSE METRICS: Total DLP (mGy-cm): 1141.1 FINDINGS: Tubes, catheters and devices: Right lateral percutaneous catheter is again noted coiled in the cecum. Partially visualized PRESS FEEDER shunt catheter coiled in the left pelvis. Liver: Normal. No mass. Gallbladder and bile ducts: Normal. No calcified stones. No ductal dilation. Pancreas: Normal. No ductal dilation. Spleen: Normal. No splenomegaly. Adrenal glands: Normal. No mass. Kidneys and ureters: Normal. No hydronephrosis. Stomach and bowel: Unremarkable. No obstruction. No mucosal thickening. Appendix: The appendix is visualized. Intraperitoneal space: Unremarkable. No free air. No significant fluid collection. Vasculature: Unremarkable. No abdominal aortic aneurysm. Lymph nodes: Unremarkable. No enlarged lymph nodes. Urinary bladder: Large amount air within the bladder. Correlate with recent Stern catheter removal. This can also be seen in the setting of cystitis and enterovesical fistula. Reproductive: Unremarkable as visualized. Bones/joints: Dextroscoliosis of the thoracolumbar spine. No acute fracture. Soft tissues: Unremarkable. CT/[place] [id number] IMPRESSION: No focal consolidation. IMPRESSION: 1. Right lateral percutaneous catheter is again noted coiled in the cecum. 2. Large amount air within the bladder. Correlate with recent Stern catheter removal. This can also be seen in the setting of cystitis and enterovesical fistula. 3. Partially visualized right-sided PRESS FEEDER shunt catheter which terminates with its tip in the left pelvis. No loculated fluid collection at the tip.
--- NOTE | 2022-12-12 23:59 | CTR_ITS ---
PROCEDURE INFORMATION: Exam: CT Neck Without Contrast Exam date and time: 12/13/2022 12:12 AM Age: 22 years old Clinical indication: Other: Headache; Prior surgery; Surgery date: 6+ months; Surgery type: Shunt TECHNIQUE: Imaging protocol: Computed tomography of the neck without contrast. Radiation optimization: All CT scans at this facility use at least one of these dose optimization techniques: automated exposure control; mA and/or kV adjustment per patient size (includes targeted exams where dose is matched to clinical indication); or iterative reconstruction. REPORTING DATA: Count of CT and Cardiac NM exams in prior 12 months: This patient has received 5 known CTs and 0 known cardiac nuclear medicine studies in the 12 months prior to the current study. COMPARISON: CR XR shunt series 12/11/2022 10:13 PM RADIATION DOSE METRICS: Total DLP (mGy-cm): 316.16 FINDINGS: Pharynx: Unremarkable. No significant tonsillar enlargement. Larynx: Unremarkable. Epiglottis is normal. Prevertebral and retropharyngeal spaces: Unremarkable. Salivary glands: Normal. Glands are normal in size. Thyroid: Normal. No enlarged or calcified nodules. Lymph nodes: Unremarkable. No lymphadenopathy. Trachea: Visualized trachea is unremarkable. Lungs: Unremarkable as visualized. Bones/joints: Unremarkable. No acute fracture. Soft tissues: Unremarkable. No significant soft tissue swelling. CT/CT neck wo con [id number] IMPRESSION: No acute cervical spine fracture or listhesis.
--- NOTE | 2022-12-13 00:16 | W.ED.HA ---
HPI - Headache General: Chief Complaint: Headache Stated Complaint: HEADACHE Time Seen by Provider: 12/12/22 22:38 Source: patient Mode of arrival: ambulatory Limitations: no limitations History of Present Illness: 22-year-old female states that she believes that her LABOR[employer]FIN[employer] shunt is not working correctly. She states she had a headache over the last 2 to 3 days she been having some nausea and vomiting has not had any vomiting here. She is seen here yesterday had an x-ray shunt series showed no acute abnormalities. Associated symptoms: Reports vomiting; Deny chest pain, fever(s), nausea or rash Review of Systems Const: Denies: fever(s), chills, body aches or change in appetite Eyes: Denies: blurry vision or eye discomfort ENMT: Denies: throat pain or dental pain Card: Denies: chest pain Resp: Denies: dyspnea GI: Reports: vomiting; Denies: abdominal pain, nausea or diarrhea : Denies: dysuria Musc: Denies: neck pain or back pain Skin/Breast: Denies: rash Neuro: Reports: headache(s) PFS ED PFSH: Medical History Common migraine with intractable migraine Intellectual disability Psychiatric care Surgical History LABOR[employer]ROLE[employer] REFINERY (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) shunt status Social History Smoking and tobacco status: current every day smoker Quit status (tobacco): has quit using tobacco Year quit tobacco: 2020 Second hand smoke exposure: Yes Alcohol intake: never Substance/Drug Use: never Physical Exam Const: COMMON NORMALS: no acute distress, patient oriented x3 and healthy appearing HENMT: COMMON NORMALS: normocephalic and atraumatic HEAD & SCALP: normocephalic and atraumatic Eye: COMMON NORMALS: Equal, round and reactive pupils present and EOMs intact bilaterally PUPIL: Yes Equal, round and reactive pupils present Neck/C-Spine: COMMON NORMALS: full ROM and supple Chest: COMMONS NORMALS: normal inspection of the chest and normal palpation of entire chest wall Resp: COMMON NORMALS: normal respiratory effort, No retractions, No use of accessory muscles and clear to auscultation bilaterally AUSCULTATION: clear to auscultation bilaterally Cardio: COMMON NORMALS: regular rate, regular rhythm and No murmurs present (Cardio) RATE: regular rate RHYTHM: regular rhythm GI: COMMON NORMALS: Normal to inspection, nondistended, normoactive bowel sounds present, Soft to palpation, non-tender and no masses PALPATION: Yes Soft to palpation Extremity: COMMON NORMALS: normal to inspection and full ROM Neuro: COMMON NORMALS: patient oriented x3, moves all extremities and no focal motor deficits Psych: COMMON NORMALS: mental status grossly normal, Normal thought process present and cooperative THOUGHT PROCESS: Normal thought process present Skin: COMMON NORMALS: no rashes or lesions noted and no wounds GENERAL SKIN EXAM: no rashes or lesions noted Course Vital Signs: Vital signs: Vital Signs Temperature 98.4 F 12/12/22 22:24 Pulse Rate 97 12/12/22 22:24 Respiratory Rate 16 12/12/22 22:24 Blood Pressure 143/79 12/12/22 22:24 Pulse Oximetry 93 12/12/22 22:24 Oxygen Delivery Me thod Room Air 12/12/22 22:24 MDM - Headache Medical Decision Making Patient presents with headache concern of shunt malfunction her imaging here is all normal no signs of shunt malfunction she is well-appearing here she is stable for discharge she follow-up with PCP and return if worsening Medical Records I reviewed the patient's medical records. Lab Data I reviewed the patient's lab results. 12/12/22 23:00 12/12/22 23:[address] 12/12/22 22:52 IMPRESSION: No acute intracranial abnormality. Chest/Abdomen/Pelvis CT 12/12/22 23:59 IMPRESSION: No focal consolidation. IMPRESSION: 1. Right lateral percutaneous catheter is again noted coiled in the cecum. 2. Large amount air within the bladder. Correlate with recent Stern catheter removal. This can also be seen in the setting of cystitis and enterovesical fistula. 3. Partially visualized right-sided [employer] shunt catheter which terminates with its tip in the left pelvis. No loculated fluid collection at the tip. Neck CT 12/12/22 23:59 IMPRESSION: No acute cervical spine fracture or listhesis. Laboratory Results WBC 6.17 10^3/uL (4.5-13.0) 12/12/22 23:00 RBC 4.57 10^6/uL (3.85-5.65) 12/12/22 23:00 Hgb 12.80 g/dL (12.4-14.8) 12/12/22 23:00 Hct 40.3 % (36-47) 12/12/22 23:00 MCV 88.2 fl (85-98) 12/12/22 23: MCH 28.0 pg (27-33) 12/12/22: MCHC 31.8 g/dL (30-55) 12/12/22 23:00 RDW 12.2 % (12.1-15.1) 12/12/22:00 Plt Count 286 10^3/cmm (157-399) 12/12/22 23: MPV 9.9 fL (7.4-10.4) 12/12/22 23:00 Neut % (Auto) 57.4 % 12/12/22 23:00 Lymph % (Auto) 34.2 % 12/12/22 23:00 Frontier % (Auto) 7.5 % 12/12/22 23:00 Eos % (Auto) 0.3 % 12/12/22 23:00 Baso % (Auto) 0.3 % 12/12/22 23:00 Neut # (Auto) 3.54 10^3/uL (1.8-8.0) 12/12/22 23:00 Lymph # (Auto) 2.1 10^3/uL (1.5-6.5) 12/12/22 23:00 Frontier # (Auto) 0.5 10^3/uL (0.2-0.9) 12/12/22 23:00 Eos # (Auto) 0.0 10^3/uL (0.0-0.8) 12/12/22 23:00 Baso # (Auto) 0.0 10^3/uL (0.0-0.1) 12/12/22 23:00 Nucleated RBC % (auto) 0 % 12/12/22 23:00 Nucleated RBCs # 0.0 /100WBC 12/12/22 23:00 Sodium 141 mmol/L (136-145) 12/12/22 23:00 Potassium 4.2 mmol/L (3.5-5.1) 12/12/22 23:00 Chloride 109 mmol/L (98-107) H 12/12/22 23:00 Carbon Dioxide 20 mmol/L (22-29) L 12/12/22 23:00 Anion Gap 16.2 (5-19) 12/12/22 23:00 BUN 12 mg/dL (6-20) 12/12/22 23:00 Creatinine 0.8 mg/dL (0.5-0.9) 12/12/22 23:00 GFR Calculation 91.4 mL/min (90-130) 12/12/22 23:00 Glucose 97 mg/dL (65-115) 12/12/22 23:00 Calculated Osmolality 292 mOsm/kg (285-295) 12/12/22 23:00 Calcium 9.2 mg/dL (8.5-10.5) 12/12/22 23:00 Total Bilirubin 0.4 mg/dL (0.15-1.2) 12/12/22 23:00 AST 13 U/L (0-32) 12/12/22 23:00 ALT 13 U/L (0-33) 12/12/22 23:00 Alkaline Phosphatase 88 U/L (35-105) 12/12/22 23:00 Total Protein 7.0 g/dL (6.6-8.7) 12/12/22 23:00 Albumin 4.2 g/dL (3.5-5.2) 12/12/22 23:00 Globulin 2.8 g/dL (1.3-4.6) 12/12/22 23:00 All radiology interpretation(s) finalized by discharge Discharge Plan Discharge Patient Disposition: Home Clinical Impression: Headache Condition: Stable Prescriptions: New ondansetron 4 mg tablet,disintegrating 4 mg PO Q6H PRN (Reason: nausea and vomiting) Qty: 14 0RF No Action medroxyprogesterone 150 mg/mL suspension 150 mg IM .Q 3 Months duloxetine 60 mg capsule,delayed release(DR/EC) 120 mg PO DAILY Qty: 60 1RF trazodone 100 mg tablet 100 mg PO BEDTIME Qty: 30 1RF oxybutynin chloride 5 mg tablet 5 mg PO TID hydroxyzine HCl 10 mg tablet 5 mg PO BEDTIME topiramate 50 mg tablet 50 mg PO BID sumatriptan succinate 100 mg tablet 100 mg PO DAILY PRN (Reason: Headache) metoclopramide HCl [Reglan] 10 mg tablet 10 mg PO Q8H PRN (Reason: migraine headache) Qty: 10 0RF Rx Instructions: taken with benadryl lorazepam 0.5 mg tablet 0.5 mg PO DAILY PRN (Reason: seizure activity) Qty: 10 0RF hydrocortisone 1 % cream 1 applic topical BID PRN (Reason: itching) Qty: 28.4 0RF acetaminophen 500 mg Tablet 1,000 mg PO Q6H PRN (Reason: Pain) polyethylene glycol 3350 [Miralax] 17 gram powder in packet 17 g PO BID Qty: 30 0RF metoclopramide HCl [Reglan] 10 mg tablet 10 mg PO Q6H PRN (Reason: nausea and vomiting) Qty: 10 0RF Multi-Vitamins Tablet 1 tab PO DAILY June FE 1.5/30 (28) 1.5 mg-30 mcg (21)/75 mg (7) tablet 1 tab PO DAILY cetirizine 10 mg Tablet 10 mg PO DAILY PRN (Reason: Allergic Symptoms) levothyroxine 25 mcg tablet 25 mcg PO DAILY citalopram 20 mg tablet 20 mg PO DAILY triamcinolone acetonide 0.025 % cream 1 applic TOPICAL BID PRN (Reason: Rash) nystatin 100,000 unit/gram cream 1 applic TOPICAL BID PRN (Reason: Rash) ibuprofen 600 mg Tablet 600 mg PO Q6H PRN (Reason: Pain) cyclobenzaprine 5 mg tablet 5 mg PO TID PRN (Reason: Muscle Spasm) nitrofurantoin monohyd/m-cryst 100 mg capsule 100 mg PO BID Myrbetriq 25 mg tablet extended release 24 hr 25 mg PO DAILY Benadryl Allergy 25 mg tablet 25 mg PO Q8H PRN (Reason: Itching) Rx Instructions: taken with reglan Tears Naturale Drops 1 drp OPHTHALMIC (EYE) TID PRN (Reason: Dry Eye(S)) Discharge Orders: Discharge ED (Routine); Ordered 12/13/22 Ordered By: David Figueroa Referrals: Fransisca Flores BUTCHER APPRENTICE [Primary Care Provider] - 1-3 days Discharge Diet: Advance as tolerated Discharge Activity: Resume usual activity Patient Instructions: General Headache (ED) Coding Level of Care Code ED Junior Marketing Associate for Jordana Chiu
[2022-12-13] MEDS: LORazepam 2 mg/mL INJ 1 mL 1 MG IM (00:39)
== END 2022-12-13 03:11 | disposition home or self-care (01) ==
PROVIDERS: Emergency Provider Emergency Medicine; PCP Nurse Practitioner Family
DX: R51.9 Headache, unspecified (principal); Z98.2 Presence of cerebrospinal fluid drainage device; F17.210 Nicotine dependence, cigarettes, uncomplicated
CPT/HCPCS: 36415; 70450; 70490; 71250; 74176; 80053; 85025; 96372; 99284; J2060

== ENCOUNTER → 2022-12-19 09:05 | Outpatient (BNVA) | payer MEDICAID, SELFPAY | PROVIDERS: PCP Nurse Practitioner Family; Referring Provider Nurse Practitioner Family; Visit Provider Psychiatry & Neurology Neurology | DX: G40.909 Epilepsy, unspecified, not intractable, without status epilepticus (principal) | CPT/HCPCS: 99203 ==

== ENCOUNTER 2022-12-23 13:50 | Emergency (ER) | payer MEDICAID, SELFPAY ==
[2022-12-23 13:52] VITALS: BP 139/91; PULSE 116; TEMP 37.1; O2SAT 95; BMI 42.2
--- NOTE | 2022-12-23 14:14 | XRR_ITS ---
PROCEDURE INFORMATION: Exam: XR Shunt Series With 4 XR Procedures Exam date and time: 12/23/2022 2:52 PM Age: 22 years old Clinical indication: Other: Weakness; Other: Shunt survey; Prior surgery; Surgery date: 6+ months; Surgery type: Blacktop Spreader shunt; Additional info: Reports malfunctioning TECHNIQUE: Imaging protocol: XR Shunt Series was performed with skull less than 4 views, neck 1 view, chest 1 view, and abdomen 1 view. COMPARISON: CR XR shunt series 12/11/2022 10:13 PM FINDINGS: Tubes, catheters and devices: Ventriculoperitoneal catheter is present. Ventricular catheter is seen on the right. The catheter is seen coursing through the neck and chest. The distal catheter tip in the pelvis. No kinking. No breakage. Sinuses: Visualized paranasal sinuses are well aerated. Airway: Upper airway and trachea are unremarkable in the neck and chest. Lungs: No consolidations. Gastrointestinal tract: Bowel is unremarkable. Bones/joints: Moderate dextroscoliosis of the thoracolumbar spine. No fracture. No dislocation. Soft tissues: Unremarkable. XR/XR shunt series IMPRESSION: CLINICAL APPLICATIONS SPECIALIST shunt in satisfactory position as described.
--- NOTE | 2022-12-23 14:18 | W.ED.GENADLT ---
Documented by User: ROSA Hernandez 12/23/22 16:50 HPI - General Adult General: Chief complaint: Weakness Stated complaint: weakness Time Seen by Provider: 12/23/22 13:56 Source: patient Mode of arrival: ambulatory Limitations: no limitations History of Present Illness: Patient is a 22-year-old female with a history of spinal bifida, congential hydrocephalus, intellectual disability, cecostomy tube, A AND P MECHANIC shunt here stating she was told by her skilled nursing case manager at [facility] (Elza Srinivasan) [facility] A AND P MECHANIC shunt. Patient states she has complaints of weakness, fatigue, dizziness, and vomiting that have been present over the past 1.5 months. She states she is actually only vomited twice during this time. She states these are all symptoms of a malfunctioning A AND P MECHANIC shunt. She has actually discussed these symptoms with her [facility] team. Patient has been seen in our emergency department multiple times for concerns of a malfunctioning shunt and has had multiple rounds of normal imaging. Onset (ago): month(s) Severity: moderate Pain Consistency: constant Relieving factors: none Exacerbating factors: none Associated symptoms: Reports nausea and vomiting (x2 over the past 1.5 months); Deny chest pain, dyspnea, headache(s), malaise, rash, palpitations or syncope Treatments prior to arrival: none Review of Systems Const: Reports: fatigue; Denies: fever(s), chills, body aches or malaise Eyes: Denies: change in vision, blurry vision, photophobia, floaters or seeing flashes Card: Denies: chest pain, palpitations, irregular heart rhythm, edema, syncope or pre-syncope Resp: Denies: dyspnea or chest congestion GI: Reports: nausea and vomiting (x2 over the past 1.5 months); Denies: abdominal pain, hematemesis, diarrhea, constipation, hematochezia or melena : Reports: other (reports normal umbilical stoma catheterizations); Denies: flank pain or pelvic pain Musc: Denies: neck pain, back pain, extremity pain or joint pain Skin/Breast: Denies: rash Neuro: Denies: headache(s), numbness in extremities, weakness in extremities, sensory changes, vertigo, behavioral changes, Slurred speech present or difficulty communicating thoughts PFSH ED PFSH: Medical History Common migraine with intractable migraine Intellectual disability Psychiatric care Surgical History A AND P MECHANIC (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) shunt status Social History Smoking and tobacco status: current every day smoker Quit status (tobacco): has quit using tobacco Year quit tobacco: 2020 Second hand smoke exposure: Yes Alcohol intake: never Substance/Drug Use: never Physical Exam Const: COMMON NORMALS: no acute distress, patient oriented x3 and alert EXAM LIMITATIONS: other limitations (intellectual disability ) GENERAL APPEARANCE: cooperative NUTRITIONAL APPEARANCE: obese ORIENTATION/CONSCIOUSNESS: Yes awake, Yes oriented to person, Yes oriented to place and Yes oriented to time Eye: COMMON NORMALS: no scleral icterus Neck/C-Spine: COMMON NORMALS: full ROM, no lymphadenopathy and no meningeal signs GENERAL: Yes normal visual inspection, No anterior neck swelling and No submandibular swelling Chest: COMMONS NORMALS: normal inspection of the chest Resp: COMMON NORMALS: normal respiratory effort and clear to auscultation bilaterally AUSCULTATION: clear to auscultation bilaterally Cardio: COMMON NORMALS: regular rate and regular rhythm RATE: regular rate RHYTHM: regular rhythm GI: COMMON NORMALS: Normal to inspection, nondistended, normoactive bowel sounds present, Soft to palpation, non-tender and no masses INSPECTION: Yes normal to inspection and Yes other (cecostomy tube; umbilical stoma) AUSCULTATION: Yes normoactive bowel sounds PALPATION: Yes Soft to palpation : COMMON NORMALS: Yes no CVA tenderness BLADDER/KIDNEY EXAM: Yes no CVA tenderness Back/Pelvis: COMMON NORMALS: no CVA tenderness Extremity: COMMON NORMALS: normal to inspection GENERAL: Yes normal exam except as noted Neuro: BEN COMA SCALE: document GCS findings Aguila coma scale eye opening: Spontaneous Aguila coma scale verbal response: Orientated Ben coma scale motor response: Obey commands Aguila coma scale total score: 15 COMMON NORMALS: patient oriented x3, CN's II-XII intact bilaterally, moves all extremities, no focal motor deficits and no sensory deficits noted SENSORIUM/ORIENTATION: Yes alert, Yes oriented to person, Yes oriented to place and Yes oriented to time MENINGEAL SIGNS: Yes no meningeal signs Course Vital Signs: Vital signs: Vital Signs Temperature 98.7 F 12/23/22 13:52 Pulse Rate 102 H 12/23/22 16:48 Blood Pressure 120/76 12/23/22 16:48 Pulse Oximetry 98 12/23/22 16:48 Oxygen Delivery Me thod Room Air 12/23/22 13:52 MDM - General Adult Medical Decision Making Patient here with complaints of fatigue, weakness and dizziness. She states these are all symptoms of a malfunctioning A AND P MECHANIC shunt and wants transferred to [facility]. Patient's symptoms have been present over the past 1.5 months. She tells me the symptoms have been addressed with her [facility] team. She recently saw our neurologist Dr. Verdugo approximately 4 to 5 days ago. Was able to contact patient's skilled nursing case manager Elza Srinivasan. Patient has been seen in our emergency department multiple multiple times for concerns of malfunctioning A AND P MECHANIC shunt's. She has had multiple rounds of normal imaging. A AND P MECHANIC shunt series today was normal. Her blood work is non-concerning. Patient normally self caths for urine from her umbilicus and refused urine sample here. Ultimately I do not have any reason to justify an emergent transfer to [facility] at this time. Patient seemingly very upset over this. I tried to explain several times that I have to have a medical indication to justify transfer and today her work up was benign. after school coordinator was able to look at her file and she followed up with her urologist, neurosurgeon, and general surgeon on November 11 all with recommendations for follow up appointments in one year. She just saw our neurologist Dr. Verdugo 4-5 days ago. She is stable for discharge. Lab Data 12/23/22 15:41 12/23/22 15:41 Radiology Impressions Imaging Shunt Series 12/23/22 14:14 IMPRESSION: A AND P MECHANIC shunt in satisfactory position as described. Laboratory Results WBC 4.89 10^3/uL (4.5-13.0) 12/23/22 15:41 RBC 4.90 10^6/uL (3.85-5.65) 12/23/22 15:41 Hgb 13.60 g/dL (12.4-14.8) 12/23/22 15:41 Hct 43.1 % (36-47) 12/23/22 15:41 MCV 88.0 fl (85-98) 12/23/22 15:41 MCH 27.8 pg (27-33) 12/23/22 15:41 MCHC 31.6 g/dL (30-55) 12/23/22 15:41 RDW 12.3 % (12.1-15.1) 12/23/22 15:41 Plt Count 304 10^3/cmm (157-399) 12/23/22 15:41 MPV 9.9 fL (7.4-10.4) 12/23/22 15:41 Neut % (Auto) 63.5 % 12/23/22 15:41 Lymph % (Auto) 29.0 % 12/23/22 15:41 [place] % (Auto) 5.9 % 12/23/22 15:41 Eos % (Auto) 1.0 % 12/23/22 15:41 Baso % (Auto) 0.4 % 12/23/22 15:41 Neut # (Auto) 3.10 10^3/uL (1.8-8.0) 12/23/22 15:41 Lymph # (Auto) 1.4 10^3/uL (1.5-6.5) L 12/23/22 15:41 [place] # (Auto) 0.3 10^3/uL (0.2-0.9) 12/23/22 15:41 Eos # (Auto) 0.1 10^3/uL (0.0-0.8) 12/23/22 15:41 Baso # (Auto) 0.0 10^3/uL (0.0-0.1) 12/23/22 15:41 Nucleated RBC % (auto) 0 % 12/23/22 15:41 Nucleated RBCs # 0.0 /100WBC 12/23/22 15:41 Sodium 142 mmol/L (136-145) 12/23/22 15:41 Potassium 4.3 mmol/L (3.5-5.1) 12/23/22 15:41 Chloride 105 mmol/L (98-107) 12/23/22 15:41 Carbon Dioxide 27 mmol/L (22-29) 12/23/22 15:41 Anion Gap 14.3 (5-19) 12/23/22 15:41 BUN 12 mg/dL (6-20) 12/23/22 15:41 Creatinine 0.9 mg/dL (0.5-0.9) 12/23/22 15:41 GFR Calculation 79.8 mL/min (90-130) L 12/23/22 15:41 Glucose 92 mg/dL (65-115) 12/23/22 15:41 Calculated Osmolality 293 mOsm/kg (285-295) 12/23/22 15:41 Calcium 9.8 mg/dL (8.5-10.5) 12/23/22 15:41 Total Bilirubin 0.7 mg/dL (0.15-1.2) 12/23/22 15:41 AST 18 U/L (0-32) 12/23/22 15:41 ALT 26 U/L (0-33) 12/23/22 15:41 Alkaline Phosphatase 86 U/L (35-105) 12/23/22 15:41 Total Protein 7.5 g/dL (6.6-8.7) 12/23/22 15:41 Albumin 4.6 g/dL (3.5-5.2) 12/23/22 15:41 Globulin 2.9 g/dL (1.3-4.6) 12/23/22 15:41 All radiology interpretation(s) finalized by discharge Discharge Plan Discharge Patient Disposition: Home Clinical Impression: Worried well Condition: Stable Prescriptions: No Action medroxyprogesterone 150 mg/mL suspension 150 mg IM .Q 3 Months trazodone 100 mg tablet 100 mg PO BEDTIME Qty: 30 1RF oxybutynin chloride 5 mg tablet 5 mg PO TID hydroxyzine HCl 10 mg tablet 5 mg PO BEDTIME topiramate 50 mg tablet 50 mg PO BID sumatriptan succinate 100 mg tablet 100 mg PO DAILY PRN (Reason: Headache) lorazepam 0.5 mg tablet 0.5 mg PO DAILY PRN (Reason: seizure activity) Qty: 10 0RF hydrocortisone 1 % cream 1 applic topical BID PRN (Reason: itching) Qty: 28.4 0RF ondansetron 4 mg tablet,disintegrating 4 mg PO Q6H PRN (Reason: nausea and vomiting) Qty: 14 0RF Miralax 17 gram powder in packet 17 g PO BID PRN (Reason: Constipation) duloxetine 60 mg capsule,delayed release(DR/EC) 120 mg PO QAM acetaminophen 500 mg Tablet 1,000 mg PO Q6H PRN (Reason: Pain) metoclopramide HCl [Reglan] 10 mg tablet 10 mg PO Q6H PRN (Reason: nausea and vomiting) Qty: 10 0RF cetirizine 10 mg Tablet 10 mg PO DAILY PRN (Reason: Allergic Symptoms) levothyroxine 25 mcg tablet 25 mcg PO QAM citalopram 20 mg tablet 20 mg PO QAM triamcinolone acetonide 0.025 % cream 1 applic TOPICAL BID PRN (Reason: Rash) nystatin 100,000 unit/gram cream 1 applic TOPICAL BID PRN (Reason: Rash) ibuprofen 600 mg Tablet 600 mg PO Q6H PRN (Reason: Pain) cyclobenzaprine 5 mg tablet 5 mg PO TID PRN (Reason: Muscle Spasm) Myrbetriq 25 mg tablet extended release 24 hr 25 mg PO QAM diphenhydramine HCl [Benadryl Allergy] 25 mg tablet 25 mg PO Q8H PRN (Reason: Itching) Rx Instructions: taken with reglan Tears Naturale Drops 1 drp OPHTHALMIC (EYE) TID PRN (Reason: Dry Eye(S)) Discharge Orders: Discharge ED (Routine); Ordered 12/23/22 Ordered By: Rema Fisher Referrals: Fransisca Flores, CONGRESSIONAL ASSISTANT [Primary Care Provider] - Activity Restrictions/Additional Instructions: As we discussed your A AND P MECHANIC shunt series today showed a normal functioning shunt. All of your previous imaging over the past 2 weeks has additionally been normal. As we discussed at this time I do not have any emergent reason to justify transfer to [facility] at this time. I understand your frustration. Please reach out to your specialists at [facility] if you would like to follow-up with them. You may continue to follow up with neurology (Dr. Sánchez or Dr. Verdugo here). Coding Level of Care Code ED Dog Or Animal Sitter for Chg Fwd Documented by User: Antelmo Meredith DO 12/23/22 17:43 HPI - General Adult General: Chief complaint: Weakness Stated complaint: weakness Time Seen by Provider: 12/23/22 13:56 PFSH ED PFSH: Medical History Common migraine with intractable migraine Intellectual disability Psychiatric care Surgical History A AND P MECHANIC (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) shunt status Social History Smoking and tobacco status: current every day smoker Quit status (tobacco): has quit using tobacco Year quit tobacco: 2020 Second hand smoke exposure: Yes Alcohol intake: never Substance/Drug Use: never Physical Exam Neuro: BEN COMA SCALE: document GCS findings Ben coma scale total score: 15 Course Vital Signs: Vital signs: Vital Signs Temperature 98.7 F 12/23/22 13:52 Pulse Rate 102 H 12/23/22 16:48 Blood Pressure 120/76 12/23/22 16:48 Pulse Oximetry 98 12/23/22 16:48 Oxygen Delivery Me thod Room Air 12/23/22 13:52 MDM - General Adult Medical Decision Making Patient here with complaints of fatigue, weakness and dizziness. She states these are all symptoms of a malfunctioning A AND P MECHANIC shunt and wants transferred to [facility]. Patient's symptoms have been present over the past 1.5 months. She tells me the symptoms have been addressed with her [facility] team. She recently saw our neurologist Dr. Verdugo approximately 4 to 5 days ago. Was able to contact patient's skilled nursing case manager Elza Srinivasan. Patient has been seen in our emergency department multiple multiple times for concerns of malfunctioning A AND P MECHANIC shunt's. She has had multiple rounds of normal imaging. A AND P MECHANIC shunt series today was normal. Her blood work is non-concerning. Patient normally self caths for urine from her umbilicus and refused urine sample here. Ultimately I do not have any reason to justify an emergent transfer to [facility] at this time. Patient seemingly very upset over this. I tried to explain several times that I have to have a medical indication to justify transfer and today her work up was benign. after school coordinator was able to look at her file and she followed up with her urologist, neurosurgeon, and general surgeon on November 11 all with recommendations for follow up appointments in one year. She just saw our neurologist Dr. Verdugo 4-5 days ago. She is stable for discharge. Chart reviewed and patient discussed with midlevel. Agree with assessment and plan. Lab Data 12/23/22 15:41 12/23/22 15:41 Radiology Impressions Imaging Shunt Series 12/23/22 14:14 IMPRESSION: A AND P MECHANIC shunt in satisfactory position as described. Laboratory Results WBC 4.89 10^3/uL (4.5-13.0) 12/23/22 15:41 RBC 4.90 10^6/uL (3.85-5.65) 12/23/22 15:41 Hgb 13.60 g/dL (12.4-14.8) 12/23/22 15:41 Hct 43.1 % (36-47) 12/23/22 15:41 MCV 88.0 fl (85-98) 12/23/22 15:41 MCH 27.8 pg (27-33) 12/23/22 15:41 MCHC 31.6 g/dL (30-55) 12/23/22 15:41 RDW 12.3 % (12.1-15.1) 12/23/22 15:41 Plt Count 304 10^3/cmm (157-399) 12/23/22 15:41 MPV 9.9 fL (7.4-10.4) 12/23/22 15:41 Neut % (Auto) 63.5 % 12/23/22 15:41 Lymph % (Auto) 29.0 % 12/23/22 15:41 [place] % (Auto) 5.9 % 12/23/22 15:41 Eos % (Auto) 1.0 % 12/23/22 15:41 Baso % (Auto) 0.4 % 12/23/22 15:41 Neut # (Auto) 3.10 10^3/uL (1.8-8.0) 12/23/22 15:41 Lymph # (Auto) 1.4 10^3/uL (1.5-6.5) L 12/23/22 15:41 [place] # (Auto) 0.3 10^3/uL (0.2-0.9) 12/23/22 15:41 Eos # (Auto) 0.1 10^3/uL (0.0-0.8) 12/23/22 15:41 Baso # (Auto) 0.0 10^3/uL (0.0-0.1) 12/23/22 15:41 Nucleated RBC % (auto) 0 % 12/23/22 15:41 Nucleated RBCs # 0.0 /100WBC 12/23/22 15:41 Sodium 142 mmol/L (136-145) 12/23/22 15:41 Potassium 4.3 mmol/L (3.5-5.1) 12/23/22 15:41 Chloride 105 mmol/L (98-107) 12/23/22 15:41 Carbon Dioxide 27 mmol/L (22-29) 12/23/22 15:41 Anion Gap 14.3 (5-19) 12/23/22 15:41 BUN 12 mg/dL (6-20) 12/23/22 15:41 Creatinine 0.9 mg/dL (0.5-0.9) 12/23/22 15:41 GFR Calculation 79.8 mL/min (90-130) L 12/23/22 15:41 Glucose 92 mg/dL (65-115) 12/23/22 15:41 Calculated Osmolality 293 mOsm/kg (285-295) 12/23/22 15:41 Calcium 9.8 mg/dL (8.5-10.5) 12/23/22 15:41 Total Bilirubin 0.7 mg/dL (0.15-1.2) 12/23/22 15:41 AST 18 U/L (0-32) 12/23/22 15:41 ALT 26 U/L (0-33) 12/23/22 15:41 Alkaline Phosphatase 86 U/L (35-105) 12/23/22 15:41 Total Protein 7.5 g/dL (6.6-8.7) 12/23/22 15:41 Albumin 4.6 g/dL (3.5-5.2) 12/23/22 15:41 Globulin 2.9 g/dL (1.3-4.6) 12/23/22 15:41 Discharge Plan Discharge Patient Disposition: Home Clinical Impression: Worried well Condition: Stable Prescriptions: No Action medroxyprogesterone 150 mg/mL suspension 150 mg IM .Q 3 Months trazodone 100 mg tablet 100 mg PO BEDTIME Qty: 30 1RF oxybutynin chloride 5 mg tablet 5 mg PO TID hydroxyzine HCl 10 mg tablet 5 mg PO BEDTIME topiramate 50 mg tablet 50 mg PO BID sumatriptan succinate 100 mg tablet 100 mg PO DAILY PRN (Reason: Headache) lorazepam 0.5 mg tablet 0.5 mg PO DAILY PRN (Reason: seizure activity) Qty: 10 0RF hydrocortisone 1 % cream 1 applic topical BID PRN (Reason: itching) Qty: 28.4 0RF ondansetron 4 mg tablet,disintegrating 4 mg PO Q6H PRN (Reason: nausea and vomiting) Qty: 14 0RF Miralax 17 gram powder in packet 17 g PO BID PRN (Reason: Constipation) duloxetine 60 mg capsule,delayed release(DR/EC) 120 mg PO QAM acetaminophen 500 mg Tablet 1,000 mg PO Q6H PRN (Reason: Pain) metoclopramide HCl [Reglan] 10 mg tablet 10 mg PO Q6H PRN (Reason: nausea and vomiting) Qty: 10 0RF cetirizine 10 mg Tablet 10 mg PO DAILY PRN (Reason: Allergic Symptoms) levothyroxine 25 mcg tablet 25 mcg PO QAM citalopram 20 mg tablet 20 mg PO QAM triamcinolone acetonide 0.025 % cream 1 applic TOPICAL BID PRN (Reason: Rash) nystatin 100,000 unit/gram cream 1 applic TOPICAL BID PRN (Reason: Rash) ibuprofen 600 mg Tablet 600 mg PO Q6H PRN (Reason: Pain) cyclobenzaprine 5 mg tablet 5 mg PO TID PRN (Reason: Muscle Spasm) Myrbetriq 25 mg tablet extended release 24 hr 25 mg PO QAM diphenhydramine HCl [Benadryl Allergy] 25 mg tablet 25 mg PO Q8H PRN (Reason: Itching) Rx Instructions: taken with reglan Tears Naturale Drops 1 drp OPHTHALMIC (EYE) TID PRN (Reason: Dry Eye(S)) Discharge Orders: Discharge ED (Routine); Ordered 12/23/22 Ordered By: Rema Fisher Referrals: Fransisca Flores CONGRESSIONAL ASSISTANT [Primary Care Provider] - Activity Restrictions/Additional Instructions: As we discussed your A AND P MECHANIC shunt series today showed a normal functioning shunt. All of your previous imaging over the past 2 weeks has additionally been normal. As we discussed at this time I do not have any emergent reason to justify transfer to [facility] at this time. I understand your frustration. Please reach out to your specialists at [facility] if you would like to follow-up with them. You may continue to follow up with neurology (Dr. Sánchez or Dr. Verdugo here). Coding Level of Care Code ED Dog Or Animal Sitter for Jordana Chiu
[2022-12-23 14:26] VITALS: BP 115/73; PULSE 110; O2SAT 96
[2022-12-23] MEDS: sodium chloride 0.9% 1,000 ML 999 ML IV (15:42)
[2022-12-23 15:57] LABS: Basophils % 0.4 %; Eosinophils # 0.1 10^3/uL (0.0-0.8); Hematocrit 43.1 % (36-47); Lymphocytes # 1.4 10^3/uL (1.5-6.5); Mean Corpuscular HGB Conc 31.6 g/dL (30-55); Mean Corpuscular Hemoglobin 27.8 pg (27-33); Mean Platelet Volume 9.9 fL (7.4-10.4); Monocytes # 0.3 10^3/uL (0.2-0.9); Monocytes % 5.9 %; Neutrophils % 63.5 %; Nucleated Red Blood Cells % 0 %; Platelet Count 304 10^3/cmm (157-399); Red Cell Distribution Width 12.3 % (12.1-15.1); White Blood Count 4.89 10^3/uL (4.5-13.0)
[2022-12-23 16:12] LABS: Alanine Aminotransferase 26 U/L (0-33); Albumin Level 4.6 g/dL (3.5-5.2); Alkaline Phosphatase 86 U/L (35-105); Anion Gap 14.3 (5-19); Aspartate Amino Transferase 18 U/L (0-32); Blood Urea Nitrogen 12 mg/dL (6-20); Calcium 9.8 mg/dL (8.5-10.5); Carbon Dioxide 27 mmol/L (22-29); Chloride 105 mmol/L (98-107); Creatinine Clr Calc Pharmacy 149.2238; Globulin 2.9 g/dL (1.3-4.6); Glomerular Filtration Rate 79.8 mL/min (90-130); Glucose 92 mg/dL (65-115); Osmolality Calculated 293 mOsm/kg (285-295); Potassium 4.3 mmol/L (3.5-5.1); Sodium 142 mmol/L (136-145); Total Bilirubin 0.7 mg/dL (0.15-1.2); Total Protein 7.5 g/dL (6.6-8.7)
[2022-12-23 16:48] VITALS: BP 120/76; PULSE 102; O2SAT 98
== END 2022-12-23 16:50 | disposition home or self-care (01) ==
PROVIDERS: Emergency Provider Physician Assistant; PCP Nurse Practitioner Family
DX: Z03.89 Encounter for observation for other suspected diseases and conditions ruled out (principal); F17.210 Nicotine dependence, cigarettes, uncomplicated
CPT/HCPCS: 70250; 71046; 72040; 74019; 80053; 85025; 99284; J7030

== ENCOUNTER 2023-01-27 12:55 | Inpatient (IN) | payer MEDICARE, MEDICAID, SELFPAY ==
[2023-01-27 12:57] VITALS: BP 144/104; PULSE 116; RESP 18; TEMP 37.2; O2SAT 98; BMI 42.8
--- NOTE | 2023-01-27 13:01 | ED.C_ITS ---
HPI - Psych General: Chief Complaint: Psychiatric Symptoms Stated Complaint: SI Time Seen by Provider: 01/27/23 12:56 Source: patient and EMS Mode of arrival: EMS Limitations: no limitations History of Present Illness: 22-year-old female here with EMS states that she does not feel like her psychiatric meds are working and she has been having increasing depression along with thoughts of harming others. She states she has had homicidal thoughts. She denies any worsening proving factors. She states she would like to be admitted to the psych [facility] for medication adjustment Associated symptoms: Reports depression and homicidal ideation Review of Systems Const: Denies: fever(s), chills, body aches or change in appetite Eyes: Denies: blurry vision ENMT: Denies: throat pain or dental pain Card: Denies: chest pain Resp: Denies: dyspnea GI: Denies: abdominal pain, nausea, vomiting or diarrhea : Denies: dysuria Musc: Denies: neck pain or back pain Skin/Breast: Denies: rash Neuro: Denies: headache(s) Psych: Reports: depression and homicidal ideation [facility] ED PFSH: Medical History Common migraine with intractable migraine Intellectual disability Psychiatric care Surgical History 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) shunt status Social History Smoking and tobacco/nicotine status: current every day tobacco/nicotine user Quit status (tobacco/nicotine): has quit using Year quit tobacco: 2020 Second hand smoke exposure: Yes Alcohol intake: never Substance/Drug Use: never Physical Exam Const: COMMON NORMALS: no acute distress, patient oriented x3 and healthy appearing HENMT: COMMON NORMALS: normocephalic and atraumatic HEAD & SCALP: normocephalic and atraumatic Neck/C-Spine: COMMON NORMALS: full ROM and supple Chest: COMMONS NORMALS: normal inspection of the chest Resp: COMMON NORMALS: normal respiratory effort Cardio: COMMON NORMALS: regular rate, regular rhythm and No murmurs present (Cardio) RATE: regular rate RHYTHM: regular rhythm Extremity: COMMON NORMALS: normal to inspection and full ROM Neuro: COMMON NORMALS: patient oriented x3, moves all extremities and no focal motor deficits Psych: COMMON NORMALS: mental status grossly normal, Normal thought process present and cooperative MOOD & AFFECT: Yes depressed mood THOUGHT PROCESS: Normal thought process present THOUGHT CONTENT: Yes Homicidality present Skin: COMMON NORMALS: no rashes or lesions noted and no wounds GENERAL SKIN EXAM: no rashes or lesions noted Course Vital Signs: Vital signs: Vital Signs Temperature 99.0 F 01/27/23 12:57 Pulse Rate 116 H 01/27/23 12:57 Respiratory Rate 18 01/27/23 12:57 Blood Pressure 144/104 01/27/23 12:57 Pulse Oximetry 98 01/27/23 12:57 Oxygen Delivery Me thod Room Air 01/27/23 12:[address] [facility] - Psych Medical Decision Making Patient presents here with increased depression along with homicidal thoughts she voluntarily wants to be admitted to the psych [facility] she is medically cleared I spoke to Dr. Corey and will admit to the psych unit. Medical Records I reviewed the patient's medical records. Lab Data I reviewed the patient's lab results. 01/27/23 13:15 01/27/23 13:15 Laboratory Results WBC 4.90 10^3/uL (4.5-13.0) 01/27/23 13:15 RBC 4.75 10^6/uL (3.85-5.65) 01/27/23 13:15 Hgb 13.50 g/dL (12.4-14.8) 01/27/23 13:15 Hct 41.9 % (36-47) 01/27/23 13:15 MCV 88.2 fl (85-98) 01/27/23 13:15 MCH 28.4 pg (27-33) 01/27/23 13:15 MCHC 32.2 g/dL (30-55) 01/27/23 13:15 RDW 12.7 % (12.1-15.1) 01/27/23 13:15 Plt Count 269 10^3/cmm (157-399) 01/27/23 13:15 MPV 9.6 fL (7.4-10.4) 01/27/23 13:15 Neut % (Auto) 61.5 % 01/27/23 13:15 Lymph % (Auto) 31.6 % 01/27/23 13:15 [place] % (Auto) 5.9 % 01/27/23 13:15 Eos % (Auto) 0.6 % 01/27/23 13:15 Baso % (Auto) 0.2 % 01/27/23 13:15 Neut # (Auto) 3.01 10^3/uL (1.8-8.0) 01/27/23 13:15 Lymph # (Auto) 1.6 10^3/uL (1.5-6.5) 01/27/23 13:15 [place] # (Auto) 0.3 10^3/uL (0.2-0.9) 01/27/23 13:15 Eos # (Auto) 0.0 10^3/uL (0.0-0.8) 01/27/23 13:15 Baso # (Auto) 0.0 10^3/uL (0.0-0.1) 01/27/23 13:15 Nucleated RBC % (auto) 0 % 01/27/23 13:15 Nucleated RBCs # 0.0 /100WBC 01/27/23 13:15 Sodium 142 mmol/L (136-145) 01/27/23 13:15 Potassium 4.0 mmol/L (3.5-5.1) 01/27/23 13:15 Chloride 113 mmol/L (98-107) H 01/27/23 13:15 Carbon Dioxide 17 mmol/L (22-29) L 01/27/23 13:15 Anion Gap 16.0 (5-19) 01/27/23 13:15 BUN 14 mg/dL (6-20) 01/27/23 13:15 Creatinine 1.1 mg/dL (0.5-0.9) H 01/27/23 13:15 GFR Calculation 63.3 mL/min (90-130) L 01/27/23 13:15 Glucose 86 mg/dL (65-115) 01/27/23 13:15 Calculated Osmolality 294 mOsm/kg (285-295) 01/27/23 13:15 Calcium 9.3 mg/dL (8.5-10.5) 01/27/23 13:15 Total Bilirubin 0.6 mg/dL (0.15-1.2) 01/27/23 13:15 AST 12 U/L (0-32) 01/27/23 13:15 ALT 11 U/L (0-33) 01/27/23 13:15 Alkaline Phosphatase 93 U/L (35-105) 01/27/23 13:15 Total Protein 6.6 g/dL (6.6-8.7) 01/27/23 13:15 Albumin 4.0 g/dL (3.5-5.2) 01/27/23 13:15 Globulin 2.6 g/dL (1.3-4.6) 01/27/23 13:15 Salicylates 0.6 mg/dL (3-10) L 01/27/23 13:15 Acetaminophen < 5.0 ug/mL (10-30) L 01/27/23 13:15 Ethyl Alcohol < 10 mg/dL (0-10) 01/27/23 13:15 No radiology studies performed this visit Discharge Plan Discharge Patient Disposition: Admitted As Inpatient Admit Provider: Randy Corey Clinical Impression: Adjustment disorder with mixed anxiety and depressed mood, Major depressive disorder, recurrent, moderate, Homicidal ideation Condition: Stable Coding Level of Care Code ED Granite Polisher for Jordana Chiu
[2023-01-27 13:30] LABS: Basophils % 0.2 %; Eosinophils % 0.6 %; Hematocrit 41.9 % (36-47); Lymphocytes # 1.6 10^3/uL (1.5-6.5); Lymphocytes % 31.6 %; Mean Corpuscular HGB Conc 32.2 g/dL (30-55); Mean Corpuscular Hemoglobin 28.4 pg (27-33); Mean Corpuscular Volume 88.2 fl (85-98); Mean Platelet Volume 9.6 fL (7.4-10.4); Monocytes # 0.3 10^3/uL (0.2-0.9); Monocytes % 5.9 %; Neutrophils # 3.01 10^3/uL (1.8-8.0); Neutrophils % 61.5 %; Nucleated Red Blood Cells % 0 %; Platelet Count 269 10^3/cmm (157-399); Red Blood Count 4.75 10^6/uL (3.85-5.65); Red Cell Distribution Width 12.7 % (12.1-15.1)
[2023-01-27 13:51] LABS: Alanine Aminotransferase 11 U/L (0-33); Alkaline Phosphatase 93 U/L (35-105); Aspartate Amino Transferase 12 U/L (0-32); Blood Urea Nitrogen 14 mg/dL (6-20); Calcium 9.3 mg/dL (8.5-10.5); Carbon Dioxide 17 mmol/L (22-29); Chloride 113 mmol/L (98-107); Globulin 2.6 g/dL (1.3-4.6); Glomerular Filtration Rate 63.3 mL/min (90-130); Glucose 86 mg/dL (65-115); Osmolality Calculated 294 mOsm/kg (285-295); Salicylate 0.6 mg/dL (3-10); Sodium 142 mmol/L (136-145); Total Bilirubin 0.6 mg/dL (0.15-1.2); Total Protein 6.6 g/dL (6.6-8.7)
[2023-01-27 13:55] LABS: Acetaminophen < 5.0 ug/mL (10-30); Alcohol Level < 10 mg/dL (0-10)
[2023-01-27 14:54] VITALS: BP 129/77; PULSE 98; RESP 16; O2SAT 98
[2023-01-27 15:26] VITALS: BP 118/78; PULSE 115; RESP 15; TEMP 36.6; O2SAT 99
[2023-01-27] MEDS: hyDROXYzine 25 mg Capsule 50 MG PO (16:23)
--- NOTE | 2023-01-27 16:24 | PC.NURSE ---
PRN VISTARIL 50 MG GIVEN PO PER PT C/O STATED ANXIETY
[2023-01-27 18:00] LABS: Amphetamines Screen Urine Negative (Negative); Barbiturates Screen Urine Negative (Negative); Benzodiazepines Screen Urine Negative (Negative); Cocaine Screen Urine Negative (Negative); Opiate Screen Urine Negative (Negative); PCP Screen Urine Negative (Negative); THC Screen Urine Negative (Negative)
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
--- NOTE | 2023-01-27 18:46 | PC.NURSE ---
SELF CATH DONE BY PATIENT INDEPENDENTLY, CONTENTS DRAINED INTO TOILET BY PATIENT, NOT MEASURED BY STAFF
[2023-01-27 20:09] VITALS: BP 137/82; PULSE 105; RESP 16; TEMP 36.7; O2SAT 97
[2023-01-27] MEDS: trazodone 100 mg Tablet PO (20:53)
[2023-01-27] MEDS: topiramate 25 mg Tablet 50 MG PO (20:53)
[2023-01-27 21:02] LABS: Procalcitonin 0.03 ng/mL (0-0.5)
--- NOTE | 2023-01-27 22:40 | PM.CONSULT ---
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 Internal medicine consulted for foot ulcers and skin findings around cecostomy. Upon evaluation, patient initially sleeping but awakens. She is evaluated with NPU staff. For her foot ulcers she has an ulcer on each foot. She reports she has had them for some time but is unsure how long they have been present. She reports the current level erythema is baseline. Denies any drainage. She has decreased sensation at baseline. Around her cecostomy tube, there is skin irritation. She seems to be unsure if this is new or not. Review of Systems Narrative: A complete review of systems was obtained and is negative except as stated in HPI. Medications/Allergies Home Medications Medication Instructions Recorded Confirmed Last Taken Type acetaminophen 500 mg tablet 1,000 mg PO Q6H PRN Pain 08/02/21 01/27/23 Unknown History hydroxyzine HCl 10 mg tablet 5 mg PO BEDTIME 03/14/22 01/27/23 01/26/23 History oxybutynin chloride 5 mg tablet 5 mg PO TID 03/14/22 01/27/23 01/27/23 History topiramate 50 mg tablet 50 mg PO BID 03/14/22 01/27/23 01/27/23 History trazodone 100 mg tablet 100 mg PO BEDTIME #30 tabs 05/09/22 01/27/23 01/26/23 Rx metoclopramide HCl 10 mg tablet 10 mg PO Q6H PRN nausea and 06/20/22 01/27/23 Unknown Rx (Reglan) vomiting #10 tabs cetirizine 10 mg tablet 10 mg PO DAILY PRN Allergic 12/02/22 01/27/23 Unknown History Symptoms citalopram 20 mg tablet 20 mg PO QAM 12/02/22 01/27/23 12/22/22 History cyclobenzaprine 5 mg tablet 5 mg PO TID PRN Muscle Spasm 12/02/22 01/27/23 Unknown History levothyroxine 25 mcg tablet 25 mcg PO QAM 12/02/22 01/27/23 12/22/22 History mirabegron 25 mg tablet,extended 25 mg PO QAM 12/02/22 01/27/23 01/27/23 History release 24 hr (Myrbetriq) duloxetine 60 mg capsule,delayed 120 mg PO QAM 12/23/22 01/27/23 01/27/23 History release polyethylene glycol 3350 17 gram 17 g PO BID PRN Constipation 12/23/22 01/27/23 Unknown History oral powder packet (Miralax) cephalexin 500 mg capsule 600 mg PO TID 01/27/23 01/27/23 Unknown History naproxen sodium 220 mg tablet 220 mg PO BID PRN Pain 01/27/23 01/27/23 Unknown History (Aleve) nitrofurantoin 100 mg PO BID 01/27/23 01/27/23 Unknown History monohydrate/macrocrystals 100 mg capsule norethindrone 1.5 mg-ethinyl 1 tab PO DAILY 01/27/23 01/27/23 Unknown History estradiol 30 mcg(21)/iron 75 mg(7) tablet (Junel FE 1.5/30 (28)) nystatin 100,000 unit/gram topical 1 applic topical BID PRN Rash 01/27/23 01/27/23 Unknown History powder ondansetron HCl 8 mg tablet 8 mg PO Q8H PRN Nausea 01/27/23 01/27/23 Unknown History Allergies Allergy/AdvReac Type Severity Reaction Status Date / Time adhesive Allergy ALGY-Rash Verified 01/27/23 12:56 cephalexin Allergy itch Verified 01/27/23 12:56 clindamycin Allergy Unknown Verified 01/27/23 12:56 latex Allergy Unknown Verified 01/27/23 12:56 Current Medications Generic Name Dose Route Start Last Admin Trade Name Freq PRN Reason Stop Dose Admin Hydroxyzine Pamoate 50 mg 01/27/23 15:26 01/27/23 16:23 Hydroxyzine 25 Mg Capsule PO 50 mg Q6H PRN Administration ANXIETY Nystatin 1 applic 01/27/23 21:00 01/27/23 20:53 Nystatin Powder 15 Gm Btl TOPICAL 01/30/23 20:59 Not Given 0900,2100 GINA Topiramate 50 mg 01/27/23 21:00 01/27/23 20:53 Topiramate 25 Mg Tablet PO 50 mg 0900,2100 GINA Administration Trazodone HCl 100 mg 01/27/23 21:00 01/27/23 20:53 Trazodone 100 Mg Tablet PO 100 mg BEDTIME GINA Administration PFSH Acute PFSH: Medical History Common migraine with intractable migraine Intellectual disability Psychiatric care Surgical History SQL PROGRAMMER (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) shunt status Social History Smoking and tobacco/nicotine status: current every day tobacco/nicotine user Quit status (tobacco/nicotine): has quit using Year quit tobacco: 2020 Second hand smoke exposure: Yes Alcohol intake: never Substance/Drug Use: never Vitals/I&O/Wt Last Vital Signs Temp 98.0 F 01/27/23 20:09 Pulse 105 H 01/27/23 20:09 Resp 16 01/27/23 20:09 BP 137/82 01/27/23 20:09 Pulse Ox 97 01/27/23 20:09 O2 Del Method Room Air 01/27/23 15:26 Weight last 48 hrs Weight 96.162 kg Physical Exam Narrative: General: Patient is awake. In bed. Neck: No JVD. Cardiovascular: Normal peripheral perfusion Lungs: Nonlabored. No accessory muscle use. Symmetric chest rise. Skin: No jaundice. Abdomen: There is erythema with skin irritation surrounding the cecostomy site. There is a type of drainage tube entering the cecostomy. Extremities: Ulcers present on bilateral feet Neurological: Verbal responses are somewhat slow. Data 01/27/23 13:15 01/27/23 13:15 A&P Assessment and plan (1) Foot ulcer: Some erythema noted on exam but not obvious infection Continue monitoring for development of infection Inflammatory markers ordered, may consider plain films if markedly elevated Recommend referral to wound care or podiatry, can be outpatient as appropriate (2) Cecostomy status: Unclear who manages her cecostomy with respect to outpatient providers Currently some irritation noted, again not obvious sign of bacterial infection Images requesting to tract progress Check inflammatory markers off prior blood work (3) Metabolic acidosis: Raises concern for infection, will backorder procalcitonin and CRP Continue monitoring above skin sites for further evidence to support infection (4) Homicidal ideation: Per primary Plan Per primary Consult Attestations Medical Necessity Statement: Thank you for this consultation. Coding Level of Care Code Acute Code for g Fwd Diagnoses Foot ulcer L97.509 Cecostomy status Z93.3 Metabolic acidosis E87.20 Homicidal ideation R45.850
[2023-01-28 06:00] VITALS: RESP 16
[2023-01-28] MEDS: duloxetine 60 mg Capsule 120 MG PO (08:36)
[2023-01-28] MEDS: topiramate 25 mg Tablet 50 MG PO ×2 (08:37→21:45)
--- NOTE | 2023-01-28 08:37 | PC.NURSE ---
shift assessment denies SI/HI, reports positive for both auditory & visual hallucinations after asking staff what a hallucination was, she then said she was having them. refused scheduled Nystatin powder this morning, oriented to self, time, place. c/o pain in lower back, offered prn Tylenol which patient is thinking about taking ... Scheduled Flu shot was offered and about to be administered & when staff was fixing to give injection, patient asked this nurse can you stay with me after to make sure I don't have a seizure? staff asked if patient had had flu shot before, patient stated yes staff asked if she's ever had an adverse reaction to flu shot patient stated yes so at this time flu shot not administered r/t previous adverse reaction
--- NOTE | 2023-01-28 09:00 | PC.NURSE ---
self cath done independently by patient, less than 25 ml drained into graduate cylinder, foul smelling and small amount of blood noted to come out of tube. patient asked about recent UTI, home med Keflex filled on 01/18/23 with qty #30, only one pill missing from bottle, Dr. Corey aware and did not restart med. patient stated to nurse my mom has her own pills at home that work really really well for my UTI's that why I didn't take the other medicine complete bed changed done by staff as sheets were covered in urine, clean scrubs & brief provided to patient. minimal amount of soft brown stool from rectum noted to be on patient buttocks, cleaned by staff.
[2023-01-28] MEDS: acetaminophen 325 mg Tablet 650 MG PO (09:06)
--- NOTE | 2023-01-28 09:38 | PHA.FALL ---
A Pharmacy Consult Was Conducted For Nithya Vigil Due To: Harley Fall Scale Risk Level: High Fall Risk On 01/28/23 07:23 And A Medication Fall Risk Score Greater Than 10. The Recommendations Are As Follows: The [place] [employer] has compiled a list of High-Risk Medications Attributed to Falls in Older Adults. This patient's age is less than studied, but still a good reference for risk. List available upon request or at [email or web address] These meds given alone show increased risk, in combination effects may be additive. Medications which cause/contribute to: 1 = sedation/fatigue/lethargy 2 = decreased alertness 3 = postural/orthostatic hypotension 4 = dizziness 5 = decreased neuromuscular function/ataxia 6 = decreased memory/cognitive impairment 7 = blurred vision 8 = confusion 9 = arrhythmias 10 = syncope 11 = anemia *=Potentially Inappropriate Medications Prescribed in Older Adults Beer?s Criteria Several high-risk fall medications also appear on a peer-reviewed list of medications which pose additional safety concerns in older adults called the Beer?s Criteria. These medications will be designated with an asterisk (*). This evidence may be important to cite to physicians to promote change in prescribing Diphenhydramine: Any medication with strong anticholinergic effects are associated with an increased risk of falls, or adverse drug effects that may contribute to falls. Duloxetine: KIMO 1,4,7 Haloperidol: KIMO 1,3,4,5,7,8,10 Hydroxyzine: Any medication with strong anticholinergic effects are associated with an increased risk of falls, or adverse drug effects that may contribute to falls. Lorazepam -KIMO: 1,3,4,5,6,8,10 Olanzipine: KIMO 2,3,4,5,6,8,10 Topriamate: KIMO 1,3,4,5,6,7,8,10 Trazodone: KIMO 1,2,3,4,7,8,10
--- NOTE | 2023-01-28 09:56 | PC.NURSE ---
self cath done independently by patient, 150 ml bessie, foul smelling urine collected. UA sent to lab
[2023-01-28] MEDS: hyDROXYzine 25 mg Capsule 50 MG PO (10:04)
--- NOTE | 2023-01-28 10:04 | PC.NURSE ---
PRN VISTARIL 50 MG GIVEN PO PER PT REQUEST OF AN ANXIETY PILL
[2023-01-28 10:11] LABS: Protein Urine 3+ (Negative); Specific Gravity, Urine 1.015 (1.005-1.030); Urine Appearance Cloudy (CLEAR); Urine Color Amber (Yellow); pH Urine 9 (5-7)
[2023-01-28 10:12] LABS: Add Urine Microscopic? YES; Bilirubin Urine Neg (Negative); Blood Urine 3+ (Negative); Glucose Urine UA Norm (Normal); Ketones Urine Negative (Negative); Leukocyte Esterase Urine 2+ (Negative); Nitrate Urine Negative (Negative); Sulfosalicylic Acid Urine Positive (Negative); Urobilinogen Urine Norm (Negative)
[2023-01-28 10:19] LABS: RBC Urine 50-80 /hpf (0-2)
[2023-01-28 10:21] LABS: Bacteria Urine 4+ /hpf; Squamous Epithelial Cell Urine RARE /hpf (0-5); WBC Urine 25-40 /hpf (0-5)
[2023-01-28 10:25] LABS: Amorphous Sediment Urine 1+ /hpf; Mucus Urine 4+ /hpf; Triple Phosphate Crystal Urine 0-4 /hpf
[2023-01-28 10:26] LABS: Add Urine Culture? Yes
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
[2023-01-28 14:00] VITALS: BP 119/80; PULSE 96; RESP 16; TEMP 36.7; O2SAT 99
--- NOTE | 2023-01-28 14:05 | PC.NURSE ---
self cath, 200 ml out, bessie colored urine, foul smelling. UA results shown to Dr. Corey. no new orders currently. incontinent of bowel/bladder. lined changed, clean scrubs and brief provided for patient. moderate amount of soft stool cleaned off patient buttocks.
--- NOTE | 2023-01-28 15:13 | PC.NURSE ---
self cath independently, 100 ml bessie colored foul smelling urine drained
[2023-01-28 20:49] VITALS: RESP 15
--- NOTE | 2023-01-28 20:49 | PC.NURSE ---
Asked pt multiple times to obtain vital signs. Pt resting with a respiration rate 15.
[2023-01-28] MEDS: trazodone 100 mg Tablet PO (21:45)
[2023-01-29 06:00] VITALS: BP 121/68; PULSE 98; RESP 16; O2SAT 98
[2023-01-29] MEDS: acetaminophen 325 mg Tablet 650 MG PO ×2 (06:23→11:18)
[2023-01-29] MEDS: topiramate 25 mg Tablet 50 MG PO (09:51)
[2023-01-29] MEDS: duloxetine 60 mg Capsule 120 MG PO (09:51)
[2023-01-29] MEDS: nystatin powder 15 gm Btl 1 APPLIC TOPICAL (09:51)
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
[2023-01-29 11:16] VITALS: BP 121/68; PULSE 98; RESP 16; O2SAT 98
[2023-01-29] MEDS: benztropine 1 mg Tablet PO (11:19)
--- NOTE | 2023-01-29 11:44 | DCPLANNER ---
IMM was printed and given to pt and copy placed in pts file.
[2023-01-29 14:00] VITALS: BP 110/77; PULSE 102; RESP 18; TEMP 36.4; O2SAT 99
--- NOTE | 2023-01-29 17:57 | PM.MISC ---
Miscellaneous Note Purpose of Documentation: Unfortunately patient was discharged before I could see her on 01/29/2023, ? Review of her culture shows gram-negative rods, she has a suprapubic catheter, she has had ESBL infections in the past,, reviewed her vitals no fevers, normotensive, creatinine was 1.1 but no significant leukocytosis, ? I spoke to Destiny, she is currently at home with her mom, denies any fevers, no chills, but has not been feeling well, denies any changes in her urinary suprapubic catheter, no lightheadedness, no dizziness, ? Her last urine culture did show E. coli, I will going to discharge her on ciprofloxacin 500 mg twice daily, she denies being , ? We will follow-up her urine cultures, if her urine cultures show ESBL species, we will consider telling her to go to the emergency room for further consideration of admission for IV antibiotics and further evaluation, ? Patient was advised that if she has any fevers, chills, nausea, vomiting, flank pain to go to the emergency room,
== END 2023-01-29 16:35 | disposition home or self-care (01) | DRG 881 ==
LOC: ER 13:51 → NP 13:55
PROVIDERS: Internal Medicine; Admitting Provider Psychiatry & Neurology Psychiatry; Emergency Provider Emergency Medicine; PCP Family Medicine; Visit Provider Psychiatry & Neurology Psychiatry
DX: F32.A Depression, unspecified (principal); E87.20 Acidosis, unspecified; Z59.00 Homelessness unspecified; Z68.41 Body mass index [BMI] 40.0-44.9, adult; R45.850 Homicidal ideations; L97.509 Non-pressure chronic ulcer of other part of unspecified foot with unspecified severity; Z93.3 Colostomy status; Q05.9 Spina bifida, unspecified; F79 Unspecified intellectual disabilities; F17.210 Nicotine dependence, cigarettes, uncomplicated; A49.8 Other bacterial infections of unspecified site; F43.12 Post-traumatic stress disorder, chronic; Z98.2 Presence of cerebrospinal fluid drainage device; G43.711 Chronic migraine without aura, intractable, with status migrainosus; E66.01 Morbid (severe) obesity due to excess calories; Z99.3 Dependence on wheelchair
CPT/HCPCS: 80053; 80306; 80307; 81001; 84145; 85025; 86140; 87077; 87086; 87186; 97165; 99285

== ENCOUNTER 2023-02-11 12:21 | Emergency (ER) | payer MEDICAID, SELFPAY ==
[2023-02-11 12:27] VITALS: BP 138/86; PULSE 69; RESP 18; TEMP 36.8; O2SAT 95; BMI 42.2
--- NOTE | 2023-02-11 13:07 | ED_ITS ---
HPI - Abdominal Pain General: Chief Complaint: Abdominal Pain Stated Complaint: Colostomy Torn by Dog Time Seen by Provider: 02/11/23 12:57 Source: patient Mode of arrival: ambulatory Limitations: no limitations History of Present Illness: Patient is a 22-year-old female presents to ED today worried that her cecostomy tube has dislodged. Patient states she was playing with her dog/puppy when he accidentally pulled on it. Patient states she has had cecostomy tube for several years. She has not tried to flush with anything following the incident. MD elicited complaint: abdominal pain and other (possibly dislodged c tube) Onset (ago): hour(s) Pain Consistency: constant Location: RLQ Severity: mild Radiation: none Migration to: no migration Exacerbating factors: nothing Relieving factors: nothing Associated Symptoms: Reports no associated symptoms; Denies change in bowel habits, nausea and vomiting Review of Systems GI: Reports: abdominal pain; Denies: nausea, vomiting or change in bowel habits [facility] ED PFSH: Medical History Psychiatric care Common migraine with intractable migraine Intellectual disability Surgical History 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 Social History Smoking and tobacco/nicotine status: current every day tobacco/nicotine user Quit status (tobacco/nicotine): has quit using Year quit tobacco: 2020 Second hand smoke exposure: Yes Alcohol intake: never Substance/Drug Use: never Physical Exam Const: COMMON NORMALS: no acute distress, patient oriented x3 and alert GI: OTHER: cecostomy tube to RLQ; no obvious dislodgment; pigtailing of catheter near skin- states she is not sure if it is normally like that or not Neuro: COMMON NORMALS: patient oriented x3 SENSORIUM/ORIENTATION: Yes alert Course Vital Signs: Vital signs: Vital Signs Temperature 98.3 F 02/11/23 12:27 Pulse Rate 69 02/11/23 12:27 Respiratory Rate 18 02/11/23 12:27 Blood Pressure 138/86 02/11/23 12:27 Pulse Oximetry 95 02/11/23 12:27 Oxygen Delivery Me thod Room Air 11/28/23 12:27 MDM - Abdominal Pain Medical Decision Making XR with contrast through catheter shows no extravasation. She will be allowed discharge. Lab Data Labs/Radiology: Radiology Impressions Abdomen X-Ray 02/11/23 13:24 IMPRESSION: Nonspecific. ADDENDUM: 02/11/23 1500 Addendum: Additional images were obtained following injection into this patient's cecostomy catheter. The small collection of contrast in the right lower quadrant is probably within the cecum. No extravasation occurs. All radiology interpretation(s) finalized by discharge Discharge Plan Discharge Patient Disposition: Home Clinical Impression: Cecostomy status Condition: Stable Prescriptions: No Action trazodone 100 mg tablet 100 mg PO BEDTIME Qty: 30 1RF oxybutynin chloride 5 mg tablet 5 mg PO TID hydroxyzine HCl 10 mg tablet 5 mg PO BEDTIME topiramate 50 mg tablet 50 mg PO BID polyethylene glycol 3350 [Miralax] 17 gram powder in packet 17 g PO BID PRN (Reason: Constipation) duloxetine 60 mg capsule,delayed release(DR/EC) 120 mg PO QAM acetaminophen 500 mg Tablet 1,000 mg PO Q6H PRN (Reason: Pain) metoclopramide HCl [Reglan] 10 mg tablet 10 mg PO Q6H PRN (Reason: nausea and vomiting) Qty: 10 0RF cetirizine 10 mg Tablet 10 mg PO DAILY PRN (Reason: Allergic Symptoms) levothyroxine 25 mcg tablet 25 mcg PO QAM citalopram 20 mg tablet 20 mg PO QAM cyclobenzaprine 5 mg tablet 5 mg PO TID PRN (Reason: Muscle Spasm) Myrbetriq 25 mg tablet extended release 24 hr 25 mg PO QA 1.5/30 (28) 1.5 mg-30 mcg (21)/75 mg (7) tablet 1 tab PO DAILY ondansetron HCl 8 mg tablet 8 mg PO Q8H PRN (Reason: Nausea) Aleve 220 mg Tablet 220 mg PO BID PRN (Reason: Pain) nystatin 100,000 unit/gram powder 1 applic TOPICAL BID PRN (Reason: Rash) Discharge Orders: Discharge ED (Routine); Ordered 02/11/23 Ordered By: Rema Fisher Coding Level of Care Code ED Meter And Regulator Shop Supervisor for Chg Aram
--- NOTE | 2023-02-11 13:24 | XRR_ITS ---
PROCEDURE INFORMATION: Exam: XR Abdomen Exam date and time: 02/11/2023 1:48 PM Age: 22 years old Clinical indication: Device placement; Gi device; Peg tube; Prior surgery; Surgery date: 6+ months; Additional info: With contrast; Poss cecostomy tube dislodged TECHNIQUE: Imaging protocol: Radiologic exam of the abdomen. Views: 2 Views. Upright and supine views. COMPARISON: CR XR shunt series 12/23/2022 2:52 PM FINDINGS: Tubes, catheters and devices: SENIOR STORAGE ADMINISTRATOR shunt descends on the right and terminates in the left mid abdomen. A pigtail drainage catheter projects over the lateral right abdominal wall. Gastrointestinal tract: Normal. No bowel dilation. Intraperitoneal space: Normal. No free air. Bones/joints: Mild right curvature of the lumbar spine. Spina bifida L2 through S1. XR/XR abdomen min 2V [id number] IMPRESSION: Nonspecific.
[2023-02-11] MEDS: diphenhydrAMINE 50 mg/mL SDV 1mL IM (14:44)
== END 2023-02-11 15:19 | disposition home or self-care (01) ==
PROVIDERS: Emergency Provider Physician Assistant
DX: Z43.3 Encounter for attention to colostomy (principal); Z72.0 Tobacco use
CPT/HCPCS: 74019; 96372; 99284; J1200

== ENCOUNTER 2023-02-12 17:05 | Emergency (ER) | payer MEDICAID, SELFPAY ==
[2023-02-12 17:32] VITALS: BP 132/86; PULSE 115; RESP 17; TEMP 37.1; O2SAT 99; BMI 42.2
[2023-02-12 18:46] LABS: Basophils % 0.5 %; Eosinophils % 0.4 %; Hematocrit 44.9 % (36-47); Lymphocytes % 23.9 %; Mean Corpuscular HGB Conc 31.8 g/dL (30-55); Mean Corpuscular Hemoglobin 28.7 pg (27-33); Mean Corpuscular Volume 90.2 fl (85-98); Mean Platelet Volume 9.6 fL (7.4-10.4); Monocytes # 0.5 10^3/uL (0.2-0.9); Monocytes % 6.1 %; Neutrophils # 5.66 10^3/uL (1.8-8.0); Neutrophils % 68.7 %; Nucleated Red Blood Cells % 0 %; Platelet Count 305 10^3/cmm (157-399); Red Blood Count 4.98 10^6/uL (3.85-5.65); Red Cell Distribution Width 12.9 % (12.1-15.1); White Blood Count 8.23 10^3/uL (4.5-13.0)
[2023-02-12 19:11] LABS: Alanine Aminotransferase 11 U/L (0-33); Albumin Level 4.2 g/dL (3.5-5.2); Alkaline Phosphatase 98 U/L (35-105); Aspartate Amino Transferase 15 U/L (0-32); Blood Urea Nitrogen 11 mg/dL (6-20); Calcium 9.5 mg/dL (8.5-10.5); Carbon Dioxide 19 mmol/L (22-29); Chloride 109 mmol/L (98-107); Creatinine Clr Calc Pharmacy 149.2238; Globulin 3.2 g/dL (1.3-4.6); Glomerular Filtration Rate 79.8 mL/min (90-130); Glucose 76 mg/dL (65-115); Lipase 18 U/L (13-60); Osmolality Calculated 294 mOsm/kg (285-295); Sodium 143 mmol/L (136-145); Total Bilirubin 0.6 mg/dL (0.15-1.2); Total Protein 7.4 g/dL (6.6-8.7)
[2023-02-12 19:24] LABS: HCG, Serum Qual Negative (Negative)
== END 2023-02-12 18:53 | disposition left against medical advice (07) ==
PROVIDERS: Nurse Practitioner Family; Emergency Provider Family Medicine
DX: Z53.21 Procedure and treatment not carried out due to patient leaving prior to being seen by health care provider (principal)
CPT/HCPCS: 36415; 80053; 83690; 84703; 85025; 99283

== ENCOUNTER 2023-03-19 05:38 | Emergency (ER) | payer MEDICAID, SELFPAY ==
[2023-03-19 05:39] VITALS: BP 124/66; PULSE 93; RESP 18; TEMP 36.6; O2SAT 92; BMI 42.2
--- NOTE | 2023-03-19 05:57 | XR_ITS ---
WS: [id number] Left foot, 3 views, 03/19/2023 Clinical Data: trauma Comparison: 3 views, 07/05/2020 Findings: There is an increased distance between the middle and distal phalanges of the left fourth toe. The le ft fourth toe is swollen. There is soft tissue swelling over the dorsum of the foot. The left fifth toe is absent. There is fusion of the IP joint of the left first toe. There are no fra ctures or dislocations. There is a bunion at the head of the left first metatarsal. Impression: 1. Soft tissue swelling of the left fourth toe with increased distance between the middle and distal phalanx of the left fourth toe. 2. Negative for osteomyelitis. 3. Absent left fifth toe. 4. Fusion of the left first toe IP joint. 5. Bunion at the head of the left first metatarsal
[2023-03-19 06:18] VITALS: PULSE 90; RESP 16; O2SAT 99
[2023-03-19 06:22] LABS: Erythrocyte Sedimentation Rate 14 mm/hr (0-15)
[2023-03-19 06:23] LABS: Basophils % 0.2 %; Eosinophils # 0.1 10^3/uL (0.0-0.8); Eosinophils % 0.7 %; Hematocrit 40.5 % (36-47); Lymphocytes # 1.8 10^3/uL (0.8-4.8); Lymphocytes % 18.7 %; Mean Corpuscular HGB Conc 31.9 g/dL (30-55); Mean Corpuscular Hemoglobin 29.1 pg (27-33); Mean Corpuscular Volume 91.2 fl (85-98); Mean Platelet Volume 9.9 fL (7.4-10.4); Monocytes # 0.5 10^3/uL (0.2-0.9); Monocytes % 5.8 %; Neutrophils # 6.97 10^3/uL (1.8-7.7); Neutrophils % 74.3 %; Nucleated Red Blood Cells % 0 %; Platelet Count 342 10^3/cmm (157-399); Red Blood Count 4.44 10^6/uL (3.85-5.65); Red Cell Distribution Width 13.8 % (12.1-15.1); White Blood Count 9.38 10^3/uL (3.29-11.43)
--- NOTE | 2023-03-19 06:24 | ED_ITS ---
HPI - Extremity Problem 2 General: Chief complaint: Extremity Injury, Lower Stated complaint: toe lac Time Seen by Provider: 03/19/23 05:53 Source: patient Mode of arrival: ambulatory History of Present Illness: 23-year-old female presents emergency ro om complaining of a laceration on her left fourth toe lateral aspect extending underneath the toe. There is some serosanguineous drainage from it. Patient reported earlier it was bleeding. She also has an ulcer on the medial aspect of the distal portion of the left fourth toe. Left fifth toe is surgically absent. She denies any fever sweats or chills patient is not diabetic. Original injury occurred a couple of weeks ago. She has a appointment with her primary care doctor to evaluate this later today. MD Complaint: extremity pain and extremity swelling Onset (ago): week(s) Relieving factors: nothing Exacerbating factors: nothing Associated symptoms: Deny arthralgias, chest pain, fever(s), myalgias, rash or short of breath Review of Systems 2 Const: Denies: fever(s) or chills Card: Denies: chest pain Resp: Denies: dyspnea GI: Denies: abdominal pain : Denies: dysuria, urinary frequency or urinary urgency Musc: Denies: neck pain or back pain Skin/Breast: Denies: rash PFSH ED 2 PFSH: Medical History Psychiatric care Common migraine with intractable migraine Intellectual disability Surgical History FIRMWARE DEVELOPER (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) shunt status Social History Smoking and tobacco/nicotine status: current every day tobacco/nicotine user Quit status (tobacco/nicotine): has quit using Year quit tobacco: 2020 Second hand smoke exposure: Yes Alcohol intake: never Substance/Drug Use: never Physical Exam 2 Const: COMMON NORMALS: no acute distress GENERAL APPEARANCE: cooperative and comfortable ORIENTATION/CONSCIOUSNESS: Yes awake, Yes oriented to person, Yes oriented to place and Yes oriented to time HENMT: COMMON NORMALS: normocephalic, atraumatic and hearing grossly normal bilaterally HEAD & SCALP: normocephalic and atraumatic Resp: COMMON NORMALS: normal respiratory effort, No retractions, No use of accessory muscles and clear to auscultation bilaterally AUSCULTATION: clear to auscultation bilaterally Cardio: COMMON NORMALS: regular rate, regular rhythm and No murmurs present (Cardio) RATE: regular rate RHYTHM: regular rhythm Extremity: OTHER: Chronic laceration with granulation at the edges of the left fourth toe extending to the inferior aspect of some serosanguineous drainage mild localized erythema no induration no subcutaneous gas. No fluid expressed with palpation. No palpable fluctuant areas. Neuro: SENSORIUM/ORIENTATION: Yes oriented to person, Yes oriented to place and Yes oriented to time Skin: COMMON NORMALS: no rashes or lesions noted GENERAL SKIN EXAM: no rashes or lesions noted Course 2 Vital Signs: Vital signs: Vital Signs Temperature 97.8 F 03/19/23 05:39 Pulse Rate 90 03/19/23 06:18 Respiratory Rate 16 03/19/23 06:18 Blood Pressure 124/66 03/19/23 05:39 Pulse Oximetry 99 03/19/23 06:18 Oxygen Delivery Me thod Room Air 03/19/23 05:39 MDM - Extremity (Nontraumatic) Medical Decision Making X-ray does not show fracture or subcutaneous gas. White count is normal with no significant differential. Discharge patient home on Bactrim and make referral to wound care. Medical Records I reviewed the patient's medical records. Lab Data I reviewed the patient's lab results. 03/19/23 06:19 03/19/23 06:19 Laboratory Results WBC 9.38 10^3/uL (3.29-11.43) 03/19/23 06:19 RBC 4.44 10^6/uL (3.85-5.65) 03/19/23 06:19 Hgb 12.90 g/dL (11.27-16.99) 03/19/23 06:19 Hct 40.5 % (36-47) 03/19/23 06:19 MCV 91.2 fl (85-98) 03/19/23 06:19 MCH 29.1 pg (27-33) 03/19/23 06:19 MCHC 31.9 g/dL (30-55) 03/19/23 06:19 RDW 13.8 % (12.1-15.1) 03/19/23 06:19 Plt Count 342 10^3/cmm (157-399) 03/19/23 06:19 MPV 9.9 fL (7.4-10.4) 03/19/23 06:19 Neut % (Auto) 74.3 % 03/19/23 06:19 Lymph % (Auto) 18.7 % 03/19/23 06:19 [place] % (Auto) 5.8 % 03/19/23 06:19 Eos % (Auto) 0.7 % 03/19/23 06:19 Baso % (Auto) 0.2 % 03/19/23 06:19 Neut # (Auto) 6.97 10^3/uL (1.8-7.7) 03/19/23 06:19 Lymph # (Auto) 1.8 10^3/uL (0.8-4.8) 03/19/23 06:19 [place] # (Auto) 0.5 10^3/uL (0.2-0.9) 03/19/23 06:19 Eos # (Auto) 0.1 10^3/uL (0.0-0.8) 03/19/23 06:19 Baso # (Auto) 0.0 10^3/uL (0.0-0.1) 03/19/23 06:19 Nucleated RBC % (auto) 0 % 03/19/23 06:19 Nucleated RBCs # 0.0 /100WBC 03/19/23 06:19 ESR 14 mm/hr (0-15) 03/19/23 06:19 Sodium Cancelled 03/19/23 06:19 Potassium Cancelled 03/19/23 06:19 Chloride Cancelled 03/19/23 06:19 Carbon Dioxide Cancelled 03/19/23 06:19 Anion Gap Cancelled 03/19/23 06:19 BUN Cancelled 03/19/23 06:19 Creatinine Cancelled 03/19/23 06:19 GFR Calculation Cancelled 03/19/23 06:19 Glucose Cancelled 03/19/23 06:19 Calculated Osmolality Cancelled 03/19/23 06:19 Calcium Cancelled 03/19/23 06:19 Total Bilirubin Cancelled 03/19/23 06:19 AST Cancelled 03/19/23 06:19 ALT Cancelled 03/19/23 06:19 Alkaline Phosphatase Cancelled 03/19/23 06:19 C-Reactive Protein Cancelled 03/19/23 06:19 Total Protein Cancelled 03/19/23 06:19 Albumin Cancelled 03/19/23 06:19 Globulin Cancelled 03/19/23 06:19 XR interpretation done by ED provider, pending radiology final review ED provider radiology interpretation(s): Left foot 3 views fifth toe is surgically absent no acute fractures. Hallux valgus deformity of the great toe. No soft tissue air noted no evidence of acute osteomyelitis Discharge Plan Discharge Patient Disposition: Home Clinical Impression: Wound of left foot Condition: Stable Prescriptions: New Bactrim DS 800-160 mg tablet 1 tab PO BID 14 Days Qty: 28 0RF mupirocin 2 % ointment 1 applic topical DAILY Qty: 22 0RF No Action trazodone 100 mg tablet 100 mg PO BEDTIME Qty: 30 1RF oxybutynin chloride 5 mg tablet 5 mg PO TID hydroxyzine HCl 10 mg tablet 5 mg PO BEDTIME topiramate 50 mg tablet 50 mg PO BID polyethylene glycol 3350 [Miralax] 17 gram powder in packet 17 g PO BID PRN (Reason: Constipation) duloxetine 60 mg capsule,delayed release(DR/EC) 120 mg PO QAM acetaminophen 500 mg Tablet 1,000 mg PO Q6H PRN (Reason: Pain) metoclopramide HCl [Reglan] 10 mg tablet 10 mg PO Q6H PRN (Reason: nausea and vomiting) Qty: 10 0RF cetirizine 10 mg Tablet 10 mg PO DAILY PRN (Reason: Allergic Symptoms) levothyroxine 25 mcg tablet 25 mcg PO QAM citalopram 20 mg tablet 20 mg PO QAM cyclobenzaprine 5 mg tablet 5 mg PO TID PRN (Reason: Muscle Spasm) Myrbetriq 25 mg tablet extended release 24 hr 25 mg PO QAM 1.5/30 (28) 1.5 mg-30 mcg (21)/75 mg (7) tablet 1 tab PO DAILY ondansetron HCl 8 mg tablet 8 mg PO Q8H PRN (Reason: Nausea) Aleve 220 mg Tablet 220 mg PO BID PRN (Reason: Pain) nystatin 100,000 unit/gram powder 1 applic TOPICAL BID PRN (Reason: Rash) Discharge Orders: Discharge ED (Routine); Ordered 01/03/24 Ordered By: Antelmo Meredith Discharge Diet: Usual diet Discharge Activity: Limit activity as instructed Patient Instructions: Opioid Safety, Pain Management Activity Restrictions/Additional Instructions: Thank you for choosing [facility] for your healthcare needs today. Please realize this is an emergency room and that we are providing you with a medical screening exam and this may not be complete and all inclusive of all the testing and or work up that you may need to determine your ailment or severity of your illness. It is very important that you follow up as instructed or that you return to the Emergency Department should you have concerns or if your condition changes or worsens in any way. You are seen today for chronic wound on your foot recommend you apply topical antibiotic once daily start oral antibiotic 1 pill twice a day for 14 days. manager loss prevention will make arrangements for you to have a follow-up appointment at the wound care clinic. Recommend you wear a stiff bottom shoe keep wound clean and dry wash and running water once daily and apply topical antibiotic ointment and dressed the wound. Coding Level of Care Code ED Decal Cutter for Jordana Chiu
[2023-03-19 06:52] VITALS: BP 124/66; PULSE 90; RESP 16; TEMP 36.6; O2SAT 99
--- NOTE | 2023-03-26 07:58 | DCPLANNER ---
Message sent to wound care for follow up appointment on a chronic wound on lt forth toe.
== END 2023-03-19 06:55 | disposition home or self-care (01) ==
PROVIDERS: Emergency Provider Family Medicine
DX: S91.115A Laceration without foreign body of left lesser toe(s) without damage to nail, initial encounter (principal); Z72.0 Tobacco use; X58.XXXA Exposure to other specified factors, initial encounter
CPT/HCPCS: 36415; 73630; 85025; 85651; 99284

== ENCOUNTER 2023-03-24 19:56 | Emergency (ER) | payer MEDICAID, SELFPAY ==
[2023-03-24 20:23] VITALS: BP 133/84; PULSE 92; RESP 15; TEMP 36.7; O2SAT 99
[2023-03-24 21:10] LABS: Basophils % 0.5 %; Eosinophils % 0.7 %; Lymphocytes # 2.2 10^3/uL (0.8-4.8); Lymphocytes % 35.3 %; Mean Corpuscular HGB Conc 32.1 g/dL (30-55); Mean Corpuscular Hemoglobin 28.6 pg (27-33); Mean Platelet Volume 9.4 fL (7.4-10.4); Monocytes # 0.5 10^3/uL (0.2-0.9); Monocytes % 7.6 %; Neutrophils # 3.39 10^3/uL (1.8-7.7); Neutrophils % 55.6 %; Nucleated Red Blood Cells % 0 %; Platelet Count 418 10^3/cmm (157-399); Red Blood Count 4.72 10^6/uL (3.85-5.65); Red Cell Distribution Width 13.6 % (12.1-15.1); White Blood Count 6.09 10^3/uL (3.29-11.43)
[2023-03-24 21:19] VITALS: BP 142/87; PULSE 90; RESP 18; O2SAT 98
--- NOTE | 2023-03-24 21:51 | W.ED.EXTPRO ---
HPI - Extremity Problem General: Chief complaint: Extremity Injury, Lower Stated complaint: TOE PAIN Time Seen by Provider: 03/24/23 20:49 Source: patient and EMS Mode of arrival: EMS Limitations: no limitations History of Present Illness: 23-year-old female has had a wound to her left fourth toe over the last week patient was seen here earlier this week supposed to follow-up wound care which she is not. She states she is continue have pain to that left toe with some slight erythema she is on antibiotics currently. She is not followed up with anyone states no one is called her. Associated symptoms: Deny chest pain, fever(s) or rash Review of Systems Const: Denies: fever(s), chills, body aches or change in appetite ENMT: Denies: throat pain or dental pain Card: Denies: chest pain Resp: Denies: dyspnea GI: Denies: abdominal pain, nausea, vomiting or diarrhea Musc: Reports: extremity pain; Denies: neck pain or back pain Skin/Breast: Denies: rash Neuro: Denies: headache(s) PFSH ED PFSH: Medical History Psychiatric care Common migraine with intractable migraine Intellectual disability Surgical History BARREL BANDER (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) shunt status Social History Smoking and tobacco/nicotine status: current every day tobacco/nicotine user Quit status (tobacco/nicotine): has quit using Year quit tobacco: 2020 Second hand smoke exposure: Yes Alcohol intake: never Substance/Drug Use: never Physical Exam Const: COMMON NORMALS: no acute distress, patient oriented x3 and healthy appearing HENMT: COMMON NORMALS: normocephalic HEAD & SCALP: normocephalic Eye: COMMON NORMALS: Equal, round and reactive pupils present and EOMs intact bilaterally PUPIL: Yes Equal, round and reactive pupils present Neck/C-Spine: COMMON NORMALS: full ROM and supple Chest: COMMONS NORMALS: normal inspection of the chest Resp: COMMON NORMALS: normal respiratory effort Cardio: COMMON NORMALS: regular rate, regular rhythm and No murmurs present (Cardio) RATE: regular rate RHYTHM: regular rhythm Extremity: COMMON NORMALS: full ROM NARRATIVE EXTREMITY EXAM: Chronic wound base of left fourth toe she has granulated tissue underneath no drainage at this time minimal erythema Neuro: COMMON NORMALS: patient oriented x3, moves all extremities and no focal motor deficits Psych: COMMON NORMALS: mental status grossly normal, Normal thought process present and cooperative THOUGHT PROCESS: Normal thought process present Skin: COMMON NORMALS: no rashes or lesions noted and no wounds GENERAL SKIN EXAM: no rashes or lesions noted Course Vital Signs: Vital signs: Vital Signs Temperature 98.1 F 03/24/23 20:23 Pulse Rate 90 03/24/23 21:19 Respiratory Rate 18 03/24/23 21:19 Blood Pressure 142/87 03/24/23 21:19 Pulse Oximetry 98 03/24/23 21:19 Oxygen Delivery Me thod Room Air 03/24/23 20:23 MDM - Extremity (Nontraumatic) Medical Decision Making Patient presents with chronic wound to base of left great toe she is no signs of worsening infection she is continue antibiotics we will start her on pain meds we will get her follow-up with podiatry as I believe she is likely get end up needing the toe to be amputated return if worsening. Medical Records I reviewed the patient's medical records. Lab Data 03/24/23 20:44 Laboratory Results WBC 6.09 10^3/uL (3.29-11.43) 03/24/23 20:44 RBC 4.72 10^6/uL (3.85-5.65) 03/24/23 20:44 Hgb 13.50 g/dL (11.27-16.99) 03/24/23 20:44 Hct 42.0 % (36-47) 03/24/23 20:44 MCV 89.0 fl (85-98) 03/24/23 20:44 MCH 28.6 pg (27-33) 03/24/23 20:44 MCHC 32.1 g/dL (30-55) 03/24/23 20:44 RDW 13.6 % (12.1-15.1) 03/24/23 20:44 Plt Count 418 10^3/cmm (157-399) H 03/24/23 20:44 MPV 9.4 fL (7.4-10.4) 03/24/23 20:44 Neut % (Auto) 55.6 % 03/24/23 20:44 Lymph % (Auto) 35.3 % 03/24/23 20:44 [place] % (Auto) 7.6 % 03/24/23 20:44 Eos % (Auto) 0.7 % 03/24/23 20:44 Baso % (Auto) 0.5 % 03/24/23 20:44 Neut # (Auto) 3.39 10^3/uL (1.8-7.7) 03/24/23 20:44 Lymph # (Auto) 2.2 10^3/uL (0.8-4.8) 03/24/23 20:44 [place] # (Auto) 0.5 10^3/uL (0.2-0.9) 03/24/23 20:44 Eos # (Auto) 0.0 10^3/uL (0.0-0.8) 03/24/23 20:44 Baso # (Auto) 0.0 10^3/uL (0.0-0.1) 03/24/23 20:44 Nucleated RBC % (auto) 0 % 03/24/23 20:44 Nucleated RBCs # 0.0 /100WBC 03/24/23 20:44 No radiology studies performed this visit Discharge Plan Discharge Patient Disposition: Home Clinical Impression: Wound of left foot Condition: Stable Prescriptions: New hydrocodone-acetaminophen 5-325 mg tablet 1 tab PO Q6H PRN (Reason: pain) Qty: 14 0RF No Action trazodone 100 mg tablet 100 mg PO BEDTIME Qty: 30 1RF oxybutynin chloride 5 mg tablet 5 mg PO TID hydroxyzine HCl 10 mg tablet 5 mg PO BEDTIME topiramate 50 mg tablet 50 mg PO BID polyethylene glycol 3350 [Miralax] 17 gram powder in packet 17 g PO BID PRN (Reason: Constipation) duloxetine 60 mg capsule,delayed release(DR/EC) 120 mg PO QAM Bactrim DS 800-160 mg tablet 1 tab PO BID 14 Days Qty: 28 0RF mupirocin 2 % ointment 1 applic topical DAILY Qty: 22 0RF acetaminophen 500 mg Tablet 1,000 mg PO Q6H PRN (Reason: Pain) metoclopramide HCl [Reglan] 10 mg tablet 10 mg PO Q6H PRN (Reason: nausea and vomiting) Qty: 10 0RF cetirizine 10 mg Tablet 10 mg PO DAILY PRN (Reason: Allergic Symptoms) levothyroxine 25 mcg tablet 25 mcg PO QAM citalopram 20 mg tablet 20 mg PO QAM cyclobenzaprine 5 mg tablet 5 mg PO TID PRN (Reason: Muscle Spasm) Myrbetriq 25 mg tablet extended release 24 hr 25 mg PO QAM 1.5/30 (28) 1.5 mg-30 mcg (21)/75 mg (7) tablet 1 tab PO DAILY ondansetron HCl 8 mg tablet 8 mg PO Q8H PRN (Reason: Nausea) Aleve 220 mg Tablet 220 mg PO BID PRN (Reason: Pain) nystatin 100,000 unit/gram powder 1 applic TOPICAL BID PRN (Reason: Rash) Discharge Orders: Discharge ED (Routine); Ordered 03/24/23 Ordered By: David Figueroa Referrals: Sonido Castellano DPM [Physician] - 1-3 days Discharge Diet: Advance as tolerated Discharge Activity: Resume usual activity Patient Instructions: Acute Wound Care (ED), Acute Wounds (ED) Coding Level of Care Code ED Professional Wrestler for Jordana Chiu
[2023-03-24] MEDS: HYDROcodone-acetaminophen 7.5-325 mg Tablet 1 TAB PO (21:52)
[2023-03-24 22:10] VITALS: BP 121/76; PULSE 108; RESP 18; O2SAT 96
--- NOTE | 2023-03-25 08:39 | DCPLANNER ---
Follow up with podiatry- message sent- laceration.
== END 2023-03-24 22:11 | disposition home or self-care (01) ==
PROVIDERS: Emergency Provider Emergency Medicine
DX: S91.105A Unspecified open wound of left lesser toe(s) without damage to nail, initial encounter (principal); Z72.0 Tobacco use; X58.XXXA Exposure to other specified factors, initial encounter
CPT/HCPCS: 85025; 99283

== ENCOUNTER → 2023-03-26 13:01 | Outpatient (BNVA) | payer MEDICAID, SELFPAY | PROVIDERS: Visit Provider Thoracic Surgery (Cardiothoracic Vascular Surgery) | DX: I96 Gangrene, not elsewhere classified (principal); L97.511 Non-pressure chronic ulcer of other part of right foot limited to breakdown of skin; L97.521 Non-pressure chronic ulcer of other part of left foot limited to breakdown of skin | CPT/HCPCS: 11042; 97597; 99213; A6446 ==

== ENCOUNTER → 2023-04-09 08:54 | Outpatient (BNVA) | payer MEDICAID, SELFPAY | PROVIDERS: PCP Nurse Practitioner Family; Visit Provider Thoracic Surgery (Cardiothoracic Vascular Surgery) | DX: I96 Gangrene, not elsewhere classified (principal); L97.522 Non-pressure chronic ulcer of other part of left foot with fat layer exposed; L97.524 Non-pressure chronic ulcer of other part of left foot with necrosis of bone | CPT/HCPCS: 11042; 87070; 87075; 87205; 97597; 99204 ==

== ENCOUNTER 2023-04-11 05:41 | Day surgery (SDC) | payer MEDICAID, SELFPAY ==
--- OUTSIDE RECORDS SUMMARY | 2023-04-10 08:20 | XMS_ITS | Patient Health Record ---
Author Name Unknown Organization [facility] Address [address] [place] [address] Care Team Providers Care Knot Borer Name Role Phone Fransisca Flores Primary Care Provider Jeison Crisostomo Unavailable [phone] ALLERGIES Allergen (clinical drug ingredient) Drug/Non Drug Allergy documented on EMR Reaction Allergy Type Onset Date Status Latex Latex allergy Allergy Active REASON FOR REFERRAL No Information MEDICATIONS Medication SIG (Take, Route, Frequency, Duration) Notes Start Date End Date Status Multivitamin - 1 tablet Orally Once a day Active DULoxetine HCl 60 MG 1 capsule Orally Once a day Active oxyBUTYnin Chloride 5 MG 1 tab Orally TID 15 mg total -- 7am, 11am, 7pm Active Cetirizine HCl 10 MG 1 tablet Orally Once a day Active Fluticasone Propionate 50 MCG/ACT 1 spray in each nostril Nasally Once a day Not-Taking traZODone HCl 100 MG 1 tablet at bedtime Orally Once a day Active hydrOXYzine HCl 10 MG as directed Orally every 8 hrs Active medroxyPROGESTERone Acetate 150 MG/ML 1 ml Intramuscular q 3months Not-Taking Topiramate 50 MG 1 tablet Orally Twice a day Active Sulfamethoxazole-Trimetho prim 800-160 MG 1 tablet Orally Once a day Active SUMAtriptan Succinate 100 MG 1 tablet at least 2 hours between doses as needed Orally PRN Not-Taking hydrOXYzine HCl 10 MG as directed Orally Active Acetaminophen 500 MG 1 capsule as needed Orally every 6 hrs PRN Not-Taking Ondansetron HCl 4 MG 1 tablet Orally PRN Active Celecoxib 200 MG 1 capsule with food Orally PRN Not-Taking SOCIAL HISTORY Tobacco Use: Social History Observation Description Date Details (start date - stop date) Never Smoker NA - NA Sex Assigned At : Social History Observation Description Sex Assigned At Unknown Tobacco Use/Smoking Question Answer Notes Are you a nonsmoker Alcohol Screen (Audit-C) Question Answer Notes Did you have a drink containing alcohol in the p ast year? No Points 0 Interpretation Negative PROBLEMS Problem Type ICD Code Onset Dates Problem Status W/U Status Risk SNOMED Code Notes Problem Spina bifida occulta (Q76.0) Active confirmed Spina bifida occulta (69132116) Problem Chronic cystitis (N30.20) Active confirmed Chronic cystiti s (24185408) Problem Constipation, unspecified constipation type (K59.00) Active confirmed 83573972 Problem Urinary incontinence, unspecified type (R32) Active confirmed 003552478 Problem UTI (urinary tract infection) (N39.0) Active confirmed Urinary tract infectious disease (96410221) Problem Hydrocephalus (G91.9) Active confirmed Hydrocephalus (066070644) Problem Recurrent UTI (N39.0) Active confirmed 820981814 Problem Neurogenic bladder (N31.9) Active confirmed 365068167 Problem Neurogenic bowel (K59.2) Active confirmed 260025320 Problem S/P TANK TRUCK MILK RECEIVER shunt (Z98.2) Active confirmed 678764384 Problem Spina bifida, unspecified hydrocephalus presence, unspecified spinal region (Q05.9) Active confirmed 29352153 Encounters Encounter Location Date Provider Diagnosis [facility] [address] [address] 05/21/2022 Jeison Martínez PLAN OF TREATMENT Pending Test Test Name Order Date UA Dip / Urinalysis, Routine 12/17/2021 Basic Metabolic Panel [id number] 06/18/2021 US Renal w/bladder-01703 06/18/2021 US Renal w/bladder-62800 12/17/2021 Abdomen [id number] 06/18/2021 Abdomen [id number] 12/17/2021 Insurance Providers Payer Name Payer Address Payer Phone Subscriber Number Group Number Insured Name Patient Relationship to Insured Coverage Start Date Coverage End Date CT Medicare [address] [place] [phone] [id number] Destiny Vigil Self - patient is the insured [place] Medicaid [address] [place] [address] [id number] Destiny Vigil Self - patient is the insured MEDICAL (GENERAL) HISTORY Medical History History ICD Code spinabifada anxiety adjustment disorder suicidal ideation Surgical History Surgery Date(Month/Year) shunt placement head back surgeries colon surgery bladder surgery toe amputated left foot little toe Hospitalization History Reason Date(Month/Year) surgeries
[2023-04-11] VITALS (7 sets, daily range): BP systolic 99–128; BP diastolic 61–87; PULSE 95–102; RESP 14–17; TEMP 37–37.4; O2SAT 98–100; BMI 42.2
--- OUTSIDE RECORDS SUMMARY | 2023-04-11 05:44 | XMS_ITS | Patient Health Record ---
Author Name Unknown Organization [facility] Address [address] [place] [address] Care Team Providers Care Paving Supervisor Name Role Phone Fransisca Flores Primary Care Provider Jeison Crisostomo Unavailable [phone] ALLERGIES Allergen (clinical drug ingredient) Drug/Non Drug [...] occulta (Q76.0) Active confirmed Spina bifida occulta (19633438) Problem Chronic cystitis (N30.20) Active confirmed Chronic cystiti s (34407219) Problem Constipation, unspecified constipation type (K59.00) Active confirmed 60303726 Problem Urinary incontinence, unspecified type (R32) Active confirmed 925413859 Problem UTI (urinary tract infection) (N39.0) Active confirmed Urinary tract infectious disease (63624560) Problem Hydrocephalus (G91.9) Active confirmed Hydrocephalus (361601107) Problem Recurrent UTI (N39.0) Active confirmed 848060249 Problem Neurogenic bladder (N31.9) Active confirmed 747210333 Problem Neurogenic bowel (K59.2) Active confirmed 092725376 Problem 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 DIRECTOR shunt (Z98.2) Active confirmed 439443953 Problem Spina bifida, unspecified hydrocephalus presence, unspecified spinal region (Q05.9) Active confirmed 34225318 Encounters Encounter Location Date Provider Diagnosis [facility] [address] [address] 05/21/2022 Jeison Martínez PLAN OF TREATMENT Pending Test Test Name Order Date UA Dip / Urinalysis, Routine 12/17/2021 Basic Metabolic Panel [id number] 06/18/2021 US Renal w/bladder-12588 06/18/2021 US Renal w/bladder-87528 12/17/2021 Abdomen [id number] 06/18/2021 Abdomen [id number] 12/17/2021 Insurance Providers Payer Name Payer Address Payer Phone Subscriber Number Group Number Insured Name Patient Relationship to Insured Coverage Start Date Coverage End Date [place] [address] [place] [phone] [id number] Destiny Vigil Self - patient is the insured [place] Medicaid [address] [place] [address] [id number] Destiny Vigil Self - patient is the insured MEDICAL (GENERAL) HISTORY Medical History History ICD Code spinabifada anxiety adjustment disorder suicidal ideation Surgical History Surgery Date(Month/Year) shunt placement head back surgeries colon surgery bladder surgery toe amputated left foot little toe Hospitalization History Reason Date(Month/Year) surgeries
--- NOTE | 2023-04-11 06:21 | P.HPUD_ITS ---
Surgery/Procedure H&P Update DATE OF PROCEDURE: April 11, 2023 DATE H&P PERFORMED: 04/09/23 H&P UPDATE INFORMATION: I have reviewed H&P completed within last 30 days, I have examined patient prior to procedure, No changes to prior documentation and H&P is in [facility] EMR on date indicated PREOP DIAGNOSIS: Osteomyelitis left fourth toe PLANNED PROCEDURE: Operation Date: 04/11/23 07:00 Proposed Procedures p Amputation Toe/s/Left fourth toe(Left) - Sonido Castellano DPM
--- NOTE | 2023-04-11 06:24 | PM.OP ---
Operative Report Date of procedure: April 11, 2023 Pre-op diagnosis: Osteomyelitis left fourth toe Post-op diagnosis: Osteomyelitis left fourth toe Post-op findings: Devitalized bone left fourth toe Procedure done: Left fourth toe amputation. CPT code 19626 Implants: 3-0 Vicryl, 4-0 nylon Specimens removed/disposition: Bone left fourth toe sent to microbiology for Gram stain, culture and sensitivity. Pathology: Left fourth toe sent to pathology for permanent Surgeon: Sonido Castellano DPM Service Sprinkler Helper: Marie Estimated blood loss: 5 7 min IV fluids: 0 Urine output: 0 Complications: None Brief History: 23-year-old female with osteomyelitis left fourth toe requesting amputation in efforts to control infection. I reviewed at length with the patient, the risks, potential complications, benefits, alternatives, expectations, and typical outcomes associated with the surgery. The risks and potential complications were explained in detail, including but not limited to infection, wound dehiscence or soft tissue complications, bleeding and hematoma, chronic edema, neuritis or nerve damage producing numbness or chronic pain, CRPS, failure to relieve pain or worsening pain, thick / painful / unsightly scar, limited motion / stiffness, malposition, delayed union, malunion, or nonunion, fracture, reaction to implants, anesthetic complications, venous thromboembolism, and deformity recurrence. I discussed the notion of no regrets with the patient as it pertains to complications and outcomes. The patient seemed to understand the nature of the proposed care and required convalescence. They asked appropriate questions, answered to their satisfaction. They are aware no guarantees can be made as to a satisfactory outcome and they understand there may be other possible unforeseen complications or outcomes not listed here that will be treated accordingly if they arise. There were no written or implied guarantees given to the patient. They gave informed consent to proceed. Procedure: Under mild sedation the patient was brought to the operating room and remained on the gurney in supine position. A timeout was performed. Anesthesia was then administered by the anesthesia service. Local anesthesia was injected by myself consisting of 20 cc of 1% lidocaine plain and a left fourth ray block fashion. A well-padded tourniquet was applied to the left high calf. The left lower extremity was scrubbed, prepped and draped utilizing normal aseptic technique. The left foot was then elevated and the tourniquet inflated to 250 mmHg. Attention was directed to the left fourth toe where a full-thickness wound from plantar to dorsal through bone was appreciated with devitalized tissue including soft tissue and bone with foul odor. A full-thickness semielliptical vertical incision was performed encompassing the left fourth metatarsal phalangeal joint and the left fourth toe was disarticulated sharply through the metatarsal phalangeal joint and passed from operative field. Bone was sent to microbiology for Gram stain, culture and sensitivity of the left fourth toe proximal phalanx and the remaining left fourth toe was sent to pathology for permanent. The incision was irrigated with copious amounts of sterile skin solution. The head of the fourth metatarsal was visualized and noted to be of appropriate color, density without signs of necrosis. The incision was further irrigated and closed in a layered fashion. Subcutaneous tissue closed with 3-0 Vicryl and skin with 4-0 nylon. The incision was then dressed with Adaptic, sterile 4 x 4's, Kerlix and Sagar wrap followed by application of a postop shoe to the left foot. The tourniquet was then deflated and a prompt hyperemic response was noted to the remaining digits of the left foot digits 1 through 3. Patient tolerated the procedure and anesthesia well and was transferred to the PACU with vital signs stable and vascular status intact. Following a period of postoperative monitoring she will be discharged home. Prescribed Levaquin 750 mg once daily for 10 days and may adjust once cultures yield further information. She was given at home care instructions and scheduled follow-up.
[2023-04-11] MEDS: sodium chloride 0.9% 1,000 ML 30 ML IV (06:32)
[2023-04-11] MEDS: vancomycin 1,500 MG/300 ML PIGGYBACK 200 MG IV (06:34)
[2023-04-11] MEDS: midazolam 1 mg/mL INJ 2 mL 2 MG IVP (06:47)
[2023-04-11 06:55] LABS: HCG, Serum Qual Negative (Negative)
--- NOTE | 2023-04-11 07:03 | P.ANESASSM_ITS ---
Pre-Anesthetic Assessment Height/Weight: Height 1.5 m Weight 94.801 kg Temp Pulse Resp BP Pulse Ox O2 Del Method 99.3 F 102 H 17 128/87 98 Room Air 04/11/23 06:17 04/11/23 06:17 04/11/23 06:17 04/11/23 06:17 04/11/23 06:17 04/11/23 06:37 Preop Diagnosis: Osteomyelitis left fourth toe Operation Date: 04/11/23 07:00 Proposed Procedures p Amputation Toe/s/Left fourth toe(Left) - Sonido Castellano DPM Familial anesthetic complications: none Was Beta Amy taken within 24 hours: N/A Was Clonidine taken within 24 hours: N/A Last intake: Intake Last Liquid Date 04/10/23 Last Liquid Time 19:00 Last Solid Date 04/10/23 Last Solid Time 19:00 Pulmonary Chronic Obstructive Pulmonary Disease Metabolic Morbid Obesity and Thyroid Disease Musc/skel Lower Back Pain Neuropsych Anxiety, Depression and Seizure Spina bifida Anesthetic Plan ASA status: 3 Anesthesia: Choice Medications/Allergies Home Medications Medication Instructions Recorded Confirmed Last Taken Type acetaminophen 500 mg tablet 1,000 mg PO Q6H PRN Pain 08/02/21 04/10/23 Unknown History hydroxyzine HCl 10 mg tablet 5 mg PO BEDTIME 03/14/22 04/10/23 04/10/23 History oxybutynin chloride 5 mg tablet 5 mg PO TID 03/14/22 04/11/23 04/11/23 History topiramate 50 mg tablet 50 mg PO BID 03/14/22 04/11/23 04/11/23 History trazodone 100 mg tablet 100 mg PO BEDTIME #30 tabs 05/09/22 04/10/23 04/10/23 Rx metoclopramide HCl 10 mg tablet 10 mg PO Q6H PRN nausea and 06/20/22 04/10/23 Unknown Rx (Reglan) vomiting #10 tabs cetirizine 10 mg tablet 10 mg PO DAILY PRN Allergic 12/02/22 04/11/23 04/11/23 History Symptoms citalopram 20 mg tablet 20 mg PO QAM 12/02/22 04/11/23 04/11/23 History cyclobenzaprine 5 mg tablet 5 mg PO TID PRN Muscle Spasm 12/02/22 04/11/2303/18 History levothyroxine 25 mcg tablet 25 mcg PO QAM 12/02/22 04/11/23 04/11/23 History mirabegron 25 mg tablet,extended 25 mg PO QAM 12/02/22 04/11/23 04/11/23 History release 24 hr (Myrbetriq) duloxetine 60 mg capsule,delayed 120 mg PO QAM 12/23/22 04/11/23 04/11/23 History release polyethylene glycol 3350 17 gram 17 g PO BID PRN Constipation 12/23/22 04/10/23 04/10/23 History oral powder packet (Miralax) naproxen sodium 220 mg tablet 220 mg PO BID PRN Pain 01/27/23 04/10/23 Unknown History (Aleve) nystatin 100,000 unit/gram topical 1 applic topical BID PRN Rash 01/27/23 04/11/23 Unknown History powder ondansetron HCl 8 mg tablet 8 mg PO Q8H PRN Nausea 01/27/23 04/10/23 Unknown History mupirocin 2 % topical ointment 1 applic topical DAILY #22 grams 03/19/23 04/11/23 04/11/23 Rx hydrocodone 5 mg-acetaminophen 325 1 tab PO Q6H PRN pain #14 tabs 03/24/23 04/11/23 04/11/23 Rx mg tablet CAM walker #1 ea 04/09/23 04/09/23 Unknown Rx Allergies Allergy/AdvReac Type Severity Reaction Status Date / Time adhesive Allergy ALGY-Rash Verified 04/11/23 06:18 cephalexin Allergy itch Verified 04/11/23 06:18 clindamycin Allergy Unknown Verified 04/11/23 06:18 latex Allergy Unknown Verified 04/11/23 06:18 Current Medications Generic Name Dose Route Start Last Admin Trade Name Freq PRN Reason Stop Dose Admin Vancomycin/PEG/NADA/Lysine/Water 1,500 mg in 300 mls @ 200 mls/hr 04/11/23 05:50 04/11/23 06:34 Vancocin IV 04/11/23 07:19 200 mls/hr DERRICK [employer] LEVER[employer] ONE Administration Protocol Sodium Chloride 1,000 mls @ 30 mls/hr 04/11/23 06:00 04/11/23 06:32 Sodium Chloride 0.9% IV 04/12/23 05:59 30 mls/hr .Q24H GINA Administration Midazolam HCl 2 mg 04/11/23 05:50 04/11/23 06:47 Midazolam 1 Mg/Ml Inj 2 Ml IVP 2 mg ONCE PRN Administration Preop Anxiety PFSH Anesthesia Medical History Psychiatric care Common migraine with intractable migraine Intellectual disability 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
[2023-04-11] MEDS: lidocaine 2% INJ 20 mL INJECTION (07:22)
--- NOTE | 2023-04-11 12:22 | ANE.PACU2 ---
Inpatient post-anesthesia follow up: Airway intact: Yes Vital signs: Temperature 99.0 F Pulse Rate 95 Respiratory Rate 17 Blood Pressure 111/78 Pulse Oximetry 100 Oxygen Delivery Me thod Room Air Oxygen Flow Rate 4 Fraction of Inspir ed Oxygen Hydration adequate: Yes Nausea and vomiting: No Pain level: 1 Mental status: Baseline
== END 2023-04-11 08:37 | disposition home or self-care (01) ==
PROVIDERS: PCP Nurse Practitioner Family; Visit Provider Podiatrist Foot & Ankle Surgery
PROC: (CPT 28825; principal; 2023-04-11 07:00)
DX: M86.8X7 Other osteomyelitis, ankle and foot (principal); J44.9 Chronic obstructive pulmonary disease, unspecified; E66.01 Morbid (severe) obesity due to excess calories; Z68.41 Body mass index [BMI] 40.0-44.9, adult; F17.200 Nicotine dependence, unspecified, uncomplicated
CPT/HCPCS: 28825; 36415; 84703; 87070; 87176; 87205; 88305; 88311; J1100; J2250; J2405; J2704; J3370; J7030

== ENCOUNTER → 2023-04-16 10:00 | Outpatient (BNVA) | payer MEDICAID, SELFPAY | PROVIDERS: PCP Nurse Practitioner Family; Visit Provider Thoracic Surgery (Cardiothoracic Vascular Surgery) | DX: I96 Gangrene, not elsewhere classified (principal); L97.511 Non-pressure chronic ulcer of other part of right foot limited to breakdown of skin | CPT/HCPCS: 97597 ==

== ENCOUNTER 2023-04-20 15:56 | Emergency (ER) | payer MEDICAID, SELFPAY ==
[2023-04-20 15:58] VITALS: BP 138/83; PULSE 94; RESP 16; TEMP 36.7; O2SAT 99; BMI 42.2
--- NOTE | 2023-04-20 16:42 | ED_ITS ---
HPI - Nausea/Vomiting/Diarrhea 2 General: Chief complaint: Nausea/Vomiting/Diarrhea Stated complaint: NAUSEA Time Seen by Provider: 04/20/23 16:41 History of Present Illness: 23-year-old female comes in today with n ausea and vomiting after surgery. Patient was concerned about the wound to her foot. On exam lungs are clear to auscultation. Abdomen soft nontender. Patient has a well-healing wound to the left foot from amputation of the fifth digit. 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 Social History Smoking and tobacco/nicotine status: current every day tobacco/nicotine user Quit status (tobacco/nicotine): has quit using Year quit tobacco: 2020 Second hand smoke exposure: Yes Alcohol intake: never Substance/Drug Use: never Physical Exam 2 Const: COMMON NORMALS: alert HENMT: COMMON NORMALS: normocephalic HEAD & SCALP: normocephalic Neck/C-Spine: COMMON NORMALS: full ROM Resp: COMMON NORMALS: normal respiratory effort Cardio: COMMON NORMALS: regular rate RATE: regular rate Extremity: COMMON NORMALS: normal to inspection NARRATIVE EXTREMITY EXAM: Well-healing wound to the left foot Neuro: SENSORIUM/ORIENTATION: Yes alert Course 2 Vital Signs: Vital signs: Vital Signs Temperature 98.1 F 04/20/23 15:58 Pulse Rate 94 04/20/23 15:58 Respiratory Rate 16 04/20/23 15:58 Blood Pressure 138/83 04/20/23 15:58 Pulse Oximetry 99 04/20/23 15:58 Oxygen Delivery Me thod Room Air 04/20/23 15:58 MDM - Nausea/Vomiting/Diarrhea Medical Decision Making 23-year-old female comes in today for concerns of persistent nausea and vomiting after surgery. Patient appears nontoxic. Lungs are clear to auscultation. Vital signs are normal. Differential diagnosis includes but not limited to wound infection, sepsis, dehydration. CBC and CMP was unremarkable. Evaluation of the wound noted a well-healing wound. Clean dressing was reapplied. Patient was recommended to continue appointment with Dr. Castellano tomorrow. Patient reported understanding and agreed to plan. Lab Data 04/20/23 17:20 04/20/23 17:20 Laboratory Results WBC 8.57 10^3/uL (3.29-11.43) 04/20/23 17:20 RBC 4.19 10^6/uL (3.85-5.65) 04/20/23 17:20 Hgb 12.30 g/dL (11.27-16.99) 04/20/23 17:20 Hct 38.2 % (36-47) 04/20/23 17:20 MCV 91.2 fl (85-98) 04/20/23 17:20 MCH 29.4 pg (27-33) 04/20/23 17:20 MCHC 32.2 g/dL (30-55) 04/20/23 17:20 RDW 14.3 % (12.1-15.1) 04/20/23 17:20 Plt Count 297 10^3/cmm (157-399) 04/20/23 17:20 MPV 9.6 fL (7.4-10.4) 04/20/23 17:20 Neut % (Auto) 74.4 % 04/20/23 17:20 Lymph % (Auto) 19.4 % 04/20/23 17:20 [place] % (Auto) 5.4 % 04/20/23 17:20 Eos % (Auto) 0.2 % 04/20/23 17:20 Baso % (Auto) 0.2 % 04/20/23 17:20 Neut # (Auto) 6.38 10^3/uL (1.8-7.7) 04/20/23 17:20 Lymph # (Auto) 1.7 10^3/uL (0.8-4.8) 04/20/23 17:20 [place] # (Auto) 0.5 10^3/uL (0.2-0.9) 04/20/23 17:20 Eos # (Auto) 0.0 10^3/uL (0.0-0.8) 04/20/23 17:20 Baso # (Auto) 0.0 10^3/uL (0.0-0.1) 04/20/23 17:20 Nucleated RBC % (auto) 0 % 04/20/23 17:20 Nucleated RBCs # 0.0 /100WBC 04/20/23 17:20 Sodium 144 mmol/L (136-145) 04/20/23 17:20 Potassium 3.5 mmol/L (3.5-5.1) 04/20/23 17:20 Chloride 111 mmol/L (98-107) H 04/20/23 17:20 Carbon Dioxide 21 mmol/L (22-29) L 04/20/23 17:20 Anion Gap 15.5 (5-19) 04/20/23 17:20 BUN 7 mg/dL (6-20) 04/20/23 17:20 Creatinine 0.7 mg/dL (0.5-0.9) 04/20/23 17:20 GFR Calculation 105.6 mL/min (90-130) 04/20/23 17:20 Glucose 91 mg/dL (65-115) 04/20/23 17:20 Calculated Osmolality 296 mOsm/kg (285-295) H 04/20/23 17:20 Calcium 9.4 mg/dL (8.5-10.5) 04/20/23 17:20 Total Bilirubin 0.3 mg/dL (0.15-1.2) 04/20/23 17:20 AST 9 U/L (0-32) 04/20/23 17:20 ALT 8 U/L (0-33) 04/20/23 17:20 Alkaline Phosphatase 81 U/L (35-105) 04/20/23 17:20 Total Protein 6.8 g/dL (6.6-8.7) 04/20/23 17:20 Albumin 4.0 g/dL (3.5-5.2) 04/20/23 17:20 Globulin 2.8 g/dL (1.3-4.6) 04/20/23 17:20 No radiology studies performed this visit Discharge Plan Discharge Patient Disposition: Home Clinical Impression: Nausea & vomiting, Post-operative state Condition: Stable Prescriptions: New promethazine 6.25 mg/5 mL syrup 6.25 mg PO Q6H PRN (Reason: nausea and vomiting) Qty: 120 0RF No Action (DME) CAM walker See Rx Instructions .Route .MEDSUPPLY Qty: 1 0RF Rx Instructions: As directed trazodone 100 mg tablet 100 mg PO BEDTIME Qty: 30 1RF doxycycline hyclate 100 mg capsule 100 mg PO BID 7 Days Qty: 14 0RF oxybutynin chloride 5 mg tablet 5 mg PO TID hydroxyzine HCl 10 mg tablet 5 mg PO BEDTIME topiramate 50 mg tablet 50 mg PO BID polyethylene glycol 3350 [Miralax] 17 gram powder in packet 17 g PO BID PRN (Reason: Constipation) duloxetine 60 mg capsule,delayed release(DR/EC) 120 mg PO QAM mupirocin 2 % ointment 1 applic topical DAILY Qty: 22 0RF acetaminophen 500 mg Tablet 1,000 mg PO Q6H PRN (Reason: Pain) metoclopramide HCl [Reglan] 10 mg tablet 10 mg PO Q6H PRN (Reason: nausea and vomiting) Qty: 10 0RF cetirizine 10 mg Tablet 10 mg PO DAILY PRN (Reason: Allergic Symptoms) levothyroxine 25 mcg tablet 25 mcg PO QAM citalopram 20 mg tablet 20 mg PO QAM cyclobenzaprine 5 mg tablet 5 mg PO TID PRN (Reason: Muscle Spasm) Myrbetriq 25 mg tablet extended release 24 hr 25 mg PO QAM ondansetron HCl 8 mg tablet 8 mg PO Q8H PRN (Reason: Nausea) naproxen sodium [Aleve] 220 mg Tablet 220 mg PO BID PRN (Reason: Pain) nystatin 100,000 unit/gram powder 1 applic TOPICAL BID PRN (Reason: Rash) hydrocodone-acetaminophen 5-325 mg tablet 1 tab PO Q6H PRN (Reason: pain) Qty: 14 0RF Discharge Orders: Discharge ED (Routine); Ordered 04/20/23 Ordered By: James Calix Referrals: Fransisca Flores, [employer] [Primary Care Provider] - Patient Instructions: Opioid Safety, Pain Management Coding Level of Care Code ED Physician Compensation Analyst for Jordana Chiu
[2023-04-20 17:30] LABS: Basophils % 0.2 %; Eosinophils % 0.2 %; Hematocrit 38.2 % (36-47); Lymphocytes # 1.7 10^3/uL (0.8-4.8); Lymphocytes % 19.4 %; Mean Corpuscular HGB Conc 32.2 g/dL (30-55); Mean Corpuscular Hemoglobin 29.4 pg (27-33); Mean Corpuscular Volume 91.2 fl (85-98); Mean Platelet Volume 9.6 fL (7.4-10.4); Monocytes # 0.5 10^3/uL (0.2-0.9); Monocytes % 5.4 %; Neutrophils # 6.38 10^3/uL (1.8-7.7); Neutrophils % 74.4 %; Nucleated Red Blood Cells % 0 %; Platelet Count 297 10^3/cmm (157-399); Red Blood Count 4.19 10^6/uL (3.85-5.65); Red Cell Distribution Width 14.3 % (12.1-15.1); White Blood Count 8.57 10^3/uL (3.29-11.43)
[2023-04-20] MEDS: ondansetron 2 mg/ML SDV 2 mL 4 MG IM (17:42)
[2023-04-20 17:47] LABS: Alanine Aminotransferase 8 U/L (0-33); Alkaline Phosphatase 81 U/L (35-105); Anion Gap 15.5 (5-19); Aspartate Amino Transferase 9 U/L (0-32); Blood Urea Nitrogen 7 mg/dL (6-20); Calcium 9.4 mg/dL (8.5-10.5); Carbon Dioxide 21 mmol/L (22-29); Chloride 111 mmol/L (98-107); Globulin 2.8 g/dL (1.3-4.6); Glomerular Filtration Rate 105.6 mL/min (90-130); Glucose 91 mg/dL (65-115); Osmolality Calculated 296 mOsm/kg (285-295); Potassium 3.5 mmol/L (3.5-5.1); Sodium 144 mmol/L (136-145); Total Bilirubin 0.3 mg/dL (0.15-1.2); Total Protein 6.8 g/dL (6.6-8.7)
[2023-04-20] MEDS: doxycycline 100 mg Tablet PO (18:12)
== END 2023-04-20 18:16 | disposition home or self-care (01) ==
PROVIDERS: Emergency Provider Nurse Practitioner Family; PCP Nurse Practitioner Family
DX: R11.2 Nausea with vomiting, unspecified (principal); Z98.890 Other specified postprocedural states; Z72.0 Tobacco use
CPT/HCPCS: 36415; 80053; 85025; 96372; 99284; J2405

== ENCOUNTER → 2023-04-21 10:59 | Outpatient (BNVA) | payer MEDICAID, SELFPAY | PROVIDERS: PCP Nurse Practitioner Family; Visit Provider Podiatrist Foot & Ankle Surgery | DX: Z89.422 Acquired absence of other left toe(s) (principal) | CPT/HCPCS: 99213 ==

== ENCOUNTER → 2023-08-07 08:04 | Outpatient (BNVA) | payer MEDICARE, MEDICAID, SELFPAY | PROVIDERS: PCP Nurse Practitioner Family; Visit Provider Nurse Practitioner Women's Health | DX: N92.6 Irregular menstruation, unspecified (principal) | CPT/HCPCS: 81025; 84702 ==

== ENCOUNTER 2023-10-18 01:32 | Emergency (ER) | payer MEDICARE, SELFPAY ==
[2023-10-18 01:33] VITALS: BP 141/92; PULSE 118; RESP 20; TEMP 36.6; O2SAT 96; BMI 42.2
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
[2023-10-18] MEDS: topiramate 25 mg Tablet 50 MG PO (02:20)
[2023-10-18 02:30] VITALS: BP 125/85; PULSE 111; O2SAT 97
--- NOTE | 2023-10-18 02:34 | ECG_ITS ---
[facility] Test Date: 2023-10-18 Pat Name: Nithya Vigil Department: Room: Gender: Female Recycler: : 2000 Requested By: Archie Evans Order Number: [id number] Penaloza MD: William Cervantes M.D. Measurements Intervals Reads Landing Rate: 102 P: 41 MA: 161 QRS: 14 QRSD: 105 T: 16 QT: 319 QTc: 417 Interpretive Statements SINUS TACHYCARDIA Compared to ECG 01/12/2022 17:27:04 No significant changes Electronically Signed On 10-18-2023 6:58:36 CDT by William Cervantes M.D. [id number]
== END 2023-10-18 03:00 | disposition home or self-care (01) ==
PROVIDERS: Emergency Provider Student in an Organized Health Care Education/Training Program; PCP Nurse Practitioner Family
DX: R56.9 Unspecified convulsions (principal); F79 Unspecified intellectual disabilities; R00.0 Tachycardia, unspecified
CPT/HCPCS: 93005; 99281

== ENCOUNTER 2024-01-28 02:15 | Emergency (ER) | payer MEDICARE, SELFPAY ==
[2024-01-28 02:18] VITALS: BP 153/96; PULSE 118; RESP 18; TEMP 36.7; O2SAT 95; BMI 42.2
[2024-01-28 02:31] LABS: Basophils % 0.2 %; Eosinophils % 0.4 %; Hematocrit 44.7 % (36-47); Lymphocytes # 2.5 10^3/uL (0.8-4.8); Lymphocytes % 23.1 %; Mean Corpuscular HGB Conc 32.9 g/dL (30-55); Mean Corpuscular Hemoglobin 29.6 pg (27-33); Mean Corpuscular Volume 89.9 fl (85-98); Mean Platelet Volume 9.7 fL (7.4-10.4); Monocytes # 0.6 10^3/uL (0.2-0.9); Monocytes % 5.3 %; Neutrophils # 7.74 10^3/uL (1.8-7.7); Neutrophils % 70.7 %; Nucleated Red Blood Cells % 0 %; Platelet Count 325 10^3/cmm (157-399); Red Blood Count 4.97 10^6/uL (3.85-5.65); Red Cell Distribution Width 12.8 % (12.1-15.1); White Blood Count 10.94 10^3/uL (3.29-11.43)
--- NOTE | 2024-01-28 02:37 | W.ED.NAVMDI ---
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 She says she has been out of her Topamax for some time and this is causing her to have her seizures again. No focal abdominal pain. No altered mental status. No focal motor deficits. No headache. Related Data Home Medications Medication Instructions Recorded Confirmed hydroxyzine HCl 10 mg tablet 5 mg PO BEDTIME 03/14/22 08/07/23 oxybutynin chloride 5 mg tablet 5 mg PO TID 03/14/22 08/07/23 topiramate 50 mg tablet 50 mg PO BID 03/14/22 08/07/23 cetirizine 10 mg tablet 10 mg PO DAILY PRN Allergic 12/02/22 08/07/23 Symptoms citalopram 20 mg tablet 20 mg PO QAM 12/02/22 08/07/23 cyclobenzaprine 5 mg tablet 5 mg PO TID PRN Muscle Spasm 12/02/22 08/07/23 levothyroxine 25 mcg tablet 25 mcg PO QAM 12/02/22 08/07/23 mirabegron 25 mg tablet,extended 25 mg PO QAM 12/02/22 08/07/23 release 24 hr (Myrbetriq) duloxetine 60 mg capsule,delayed 120 mg PO QAM 12/23/22 08/07/23 release polyethylene glycol 3350 17 gram 17 g PO BID PRN Constipation 12/23/22 08/07/23 oral powder packet (Miralax) naproxen sodium 220 mg tablet 220 mg PO BID PRN Pain 01/27/23 08/07/23 (Aleve) nystatin 100,000 unit/gram topical 1 applic topical BID PRN Rash 01/27/23 08/07/23 powder ondansetron HCl 8 mg tablet 8 mg PO Q8H PRN Nausea 01/27/23 08/07/23 Previous Rx's Medication Instructions Recorded mupirocin 2 % topical ointment 1 applic topical DAILY #22 grams 03/19/23 hydrocodone 5 mg-acetaminophen 325 1 tab PO Q6H PRN pain #14 tabs 03/24/23 mg tablet CAM walker #1 ea 04/09/23 doxycycline hyclate 100 mg capsule 100 mg PO BID 7 days #14 caps 04/14/23 metoclopramide HCl 10 mg tablet 10 mg PO Q6H PRN nausea and 08/07/23 (Reglan) vomiting #10 tabs promethazine 6.25 mg/5 mL oral 6.25 mg (5 mL) PO Q6H PRN nausea 08/07/23 syrup and vomiting #120 mL trazodone 100 mg tablet See Rx Instructions .Route 01/19/24 .COMPLEX #30 tabs ciprofloxacin HCl 500 mg tablet 500 mg PO BID 10 days #20 tabs 01/28/24 ondansetron 8 mg disintegrating 8 mg PO Q6H #14 tabs 01/28/24 tablet Allergies Allergy/AdvReac Type Severity Reaction Status Date / Time adhesive Allergy ALGY-Rash Verified 01/28/24 02:22 cephalexin Allergy itch Verified 01/28/24 02:22 clindamycin Allergy Unknown Verified 01/28/24 02:22 latex Allergy Unknown Verified 01/28/24 02:22 Review of Systems Narrative: Constitutional symptoms: Negative except as documented in HPI. Skin symptoms: Negative except as documented in HPI. Eye symptoms: Negative except as documented in HPI. ENMT symptoms: Negative except as documented in HPI. Respiratory symptoms: Negative except as documented in HPI. Cardiovascular symptoms: Negative except as documented in HPI. Gastrointestinal symptoms: Negative except as documented in HPI. Genitourinary symptoms: Negative except as documented in HPI. Musculoskeletal symptoms: Negative except as documented in HPI. Neurologic symptoms: Negative except as documented in HPI. Psychiatric symptoms: Negative except as documented in HPI. Endocrine symptoms: Negative except as documented in HPI. PFSH ED PFSH: Medical History Common migraine with intractable migraine Intellectual disability Surgical History VISITOR SERVICES ASSISTANT (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) shunt status Family History (Updated 08/07/23 @ 10:17 by Tiki Davis LPN) Grandmother Hypertension Hypercholesteremia Denies family history of Colon cancer Ovarian cancer Prostate cancer Diabetes Heart disease Breast cancer Uterine cancer Thyroid disease Stroke Physical Exam Narrative: EXAM NARRATIVE: General: Alert, no acute distress. Skin: Warm, dry. Head: Normocephalic, atraumatic. Neck: Supple, trachea midline. Eye: Extraocular movements are intact. Ears, nose, mouth and throat: mucosa moist. Cardiovascular: Regular, Normal peripheral perfusion. Respiratory: Lungs are clear to auscultation, respirations are non-labored, breath sounds are equal, Symmetrical chest wall expansion. Gastrointestinal: Soft, Nontender, Non distended Musculoskeletal: Normal ROM, no deformity. Neurological: Alert and oriented, No focal neurological deficit observed. Psychiatric: Cooperative, appropriate mood & affect. Course Vital Signs: Vital signs: Vital Signs Temperature 98.0 F 01/28/24 02:18 Pulse Rate 118 H 01/28/24 02:18 Respiratory Rate 18 01/28/24 02:18 Blood Pressure 153/96 01/28/24 02:18 Pulse Oximetry 95 01/28/24 02:18 Oxygen Delivery Me thod Room Air 01/28/24 02:18 MDM - Nausea/Vomiting/Diarrhea Medical Decision Making CT of the head: Stable exam. She has a shunt in place. No ventriculomegaly. This was reviewed and interpreted by myself the emergency room physician. I also reviewed the radiology report. Lab review: I reviewed and interpreted all lab work personally. No leukocytosis. No anemia. No renal failure. She does appear to have a urinary tract infection. Assessment and plan: Urinary tract infection Vomiting Seizures or seizure-like activity ?Fever single dose of Topamax here. She follows with Dr. Verdugo and he can decide if she needs to continue with this. Her symptoms today are likely secondary to urinary tract infection. She received Rocephin and Zofran here in the emergency room. - Discharged home - Discussed plan with patient. Answered any questions. - Evaluation and treatment of this problem were appropriate in the emergency setting. Lab Data 01/28/24 02:28 01/28/24 02:[address] 01/28/24 02:38 IMPRESSION: Stable exam. No acute intracranial findings. Laboratory Results WBC 10.94 10^3/uL (3.29-11.43) 01/28/24 02:28 RBC 4.97 10^6/uL (3.85-5.65) 01/28/24 02:28 Hgb 14.70 g/dL (11.27-16.99) 01/28/24 02:28 Hct 44.7 % (36-47) 01/28/24 02:28 MCV 89.9 fl (85-98) 01/28/24 02:28 MCH 29.6 pg (27-33) 01/28/24 02:28 MCHC 32.9 g/dL (30-55) 01/28/24 02:28 RDW 12.8 % (12.1-15.1) 01/28/24 02:28 Plt Count 325 10^3/cmm (157-399) 01/28/24 02:28 MPV 9.7 fL (7.4-10.4) 01/28/24 02:28 Neut % (Auto) 70.7 % 01/28/24 02:28 Lymph % (Auto) 23.1 % 01/28/24 02:28 Morrison % (Auto) 5.3 % 01/28/24 02:28 Eos % (Auto) 0.4 % 01/28/24 02:28 Baso % (Auto) 0.2 % 01/28/24 02:28 Neut # (Auto) 7.74 10^3/uL (1.8-7.7) H 01/28/24 02:28 Lymph # (Auto) 2.5 10^3/uL (0.8-4.8) 01/28/24 02:28 Morrison # (Auto) 0.6 10^3/uL (0.2-0.9) 01/28/24 02:28 Eos # (Auto) 0.0 10^3/uL (0.0-0.8) 01/28/24 02:28 Baso # (Auto) 0.0 10^3/uL (0.0-0.1) 01/28/24 02:28 Nucleated RBC % (auto) 0 % 01/28/24 02:28 Nucleated RBCs # 0.0 /100WBC 01/28/24 02:28 Sodium 138 mmol/L (136-145) 01/28/24 02:28 Potassium 3.4 mmol/L (3.5-5.1) L 01/28/24 02:28 Chloride 106 mmol/L (98-107) 01/28/24 02:28 Carbon Dioxide 17 mmol/L (22-29) L 01/28/24 02:28 Anion Gap 18.4 (5-19) 01/28/24 02:28 BUN 11 mg/dL (6-20) 01/28/24 02:28 Creatinine 0.8 mg/dL (0.5-0.9) 01/28/24 02:28 GFR Calculation 90.5 mL/min (90-130) 01/28/24 02:28 Glucose 109 mg/dL (65-115) 01/28/24 02:28 Calculated Osmolality 286 mOsm/kg (285-295) 01/28/24 02:28 Calcium 8.9 mg/dL (8.5-10.5) 01/28/24 02:28 Total Bilirubin 0.3 mg/dL (0.15-1.2) 01/28/24 02:28 AST 12 U/L (0-32) 01/28/24 02:28 ALT 12 U/L (0-33) 01/28/24 02:28 Alkaline Phosphatase 93 U/L (35-105) 01/28/24 02:28 Total Protein 7.5 g/dL (6.6-8.7) 01/28/24 02:28 Albumin 4.5 g/dL (3.5-5.2) 01/28/24 02:28 Globulin 3.0 g/dL (1.3-4.6) 01/28/24 02:28 Urine Color Yellow (Yellow) 01/28/24 02:48 Urine Appearance Turbid (CLEAR) A 01/28/24 02:48 Urine pH Not Reportable 01/28/24 02:48 Ur Specific [place] Not Reportable 01/28/24 02:48 Urine Protein Not Reportable 01/28/24 02:48 Urine Glucose (UA) Not Reportable 01/28/24 02:48 Urine Ketones Not Reportable 01/28/24 02:48 Urine Blood Not Reportable 01/28/24 02:48 Urine Nitrate Not Reportable 01/28/24 02:48 Urine Bilirubin Not Reportable 01/28/24 02:48 Urine Urobilinogen Not Reportable 01/28/24 02:48 Ur Leukocyte Esterase Not Reportable 01/28/24 02:48 Urine RBC None /hpf (0-2) 01/28/24 02:48 Urine WBC 15-25 /hpf (0-5) H 01/28/24 02:48 Ur Squamous Epith Cells None /hpf (0-5) 01/28/24 02:48 Amorphous Sediment Not Reportable 01/28/24 02:48 Urine Bacteria 4+ /hpf (NONE) H 01/28/24 02:48 Urine Mucus 2+ /hpf 01/28/24 02:48 All radiology interpretation(s) finalized by discharge Discharge Plan Discharge Patient Disposition: Home Clinical Impression: Urinary tract infection, VISITOR SERVICES ASSISTANT (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) shunt status, Functional neurological symptom disorder with attacks or seizures Condition: Stable Prescriptions: New ciprofloxacin HCl 500 mg tablet 500 mg PO BID 10 Days Qty: 20 0RF ondansetron 8 mg tablet,disintegrating 8 mg PO Q6H Qty: 14 0RF Rx Instructions: Take 1/2-1 tab every 6 hours as needed for nausea and vomiting No Action (DME) CLAY meade See Rx Instructions .Route .MEDSUPPLY Qty: 1 0RF Rx Instructions: As directed metoclopramide HCl [Reglan] 10 mg tablet 10 mg PO Q6H PRN (Reason: nausea and vomiting) Qty: 10 0RF promethazine 6.25 mg/5 mL syrup 6.25 mg PO Q6H PRN (Reason: nausea and vomiting) Qty: 120 0RF doxycycline hyclate 100 mg capsule 100 mg PO BID 7 Days Qty: 14 0RF trazodone 100 mg tablet See Rx Instructions .ROUTE .COMPLEX Qty: 30 0RF Dose Instruction: TAKE 1 TABLET BY MOUTH AT BEDTIME Rx Instructions: TAKE 1 TABLET BY MOUTH AT BEDTIME oxybutynin chloride 5 mg tablet 5 mg PO TID hydroxyzine HCl 10 mg tablet 5 mg PO BEDTIME topiramate 50 mg tablet 50 mg PO BID polyethylene glycol 3350 [Miralax] 17 gram powder in packet 17 g PO BID PRN (Reason: Constipation) duloxetine 60 mg capsule,delayed release(DR/EC) 120 mg PO QAM mupirocin 2 % ointment 1 applic topical DAILY Qty: 22 0RF cetirizine 10 mg Tablet 10 mg PO DAILY PRN (Reason: Allergic Symptoms) levothyroxine 25 mcg tablet 25 mcg PO QAM citalopram 20 mg tablet 20 mg PO QAM cyclobenzaprine 5 mg tablet 5 mg PO TID PRN (Reason: Muscle Spasm) Myrbetriq 25 mg tablet extended release 24 hr 25 mg PO QAM ondansetron HCl 8 mg tablet 8 mg PO Q8H PRN (Reason: Nausea) naproxen sodium [Aleve] 220 mg Tablet 220 mg PO BID PRN (Reason: Pain) nystatin 100,000 unit/gram powder 1 applic TOPICAL BID PRN (Reason: Rash) hydrocodone-acetaminophen 5-325 mg tablet 1 tab PO Q6H PRN (Reason: pain) Qty: 14 0RF Discharge Orders: Discharge ED (Routine); Ordered 01/28/24 Ordered By: Mariana Jaquez Discharge Diet: Usual diet Discharge Activity: Increase activity as tolerated Patient Instructions: Opioid Safety, Pain Management Activity Restrictions/Additional Instructions: Thank you for choosing [facility] for your healthcare needs today. Please realize this is an emergency room and that we are providing you with a medical screening exam and this may not be complete and all inclusive of all the testing and or work up that you may need to determine your ailment or severity of your illness. You have been screened and evaluated and felt safe for discharge. Health conditions do change or evolve sometimes and as such it is important that you follow up with your Primary Doctor to be re checked, 3-5 days is a general good time frame for follow up. You are always welcome to return to the ED for re assessment if your symptoms are worsening or you have new concerns Coding Level of Care Code ED Cloud Solutions Architect for Jordana Chiu
--- NOTE | 2024-01-28 02:38 | CTR_ITS ---
PROCEDURE INFORMATION: Exam: CT Head Without Contrast Exam date and time: 01/28/2024 2:50 AM Age: 23 years old Clinical indication: Visual disturbance; Prior surgery; Surgery date: 6+ months; Surgery type: Rn Progressive Care shunt; Additional info: Vomiting, vp compliance shunt TECHNIQUE: Imaging protocol: Computed tomography of the head without contrast. Radiation optimization: All CT scans at this facility use at least one of these dose optimization techniques: automated exposure control; mA and/or kV adjustment per patient size (includes targeted exams where dose is matched to clinical indication); or iterative reconstruction. COMPARISON: CT head wo con* [id number] 12/13/2022 12:09 AM RADIATION DOSE METRICS: Total DLP (mGy-cm): 1135.13 FINDINGS: Tubes, catheters and devices: Stable BAND EDGER shunt. Brain: No acute intracranial hemorrhage, mass effect or midline shift. 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 Cerebral ventricles: Stable size and configuration of the ventricles. Paranasal sinuses: Visualized sinuses are unremarkable. No fluid levels. Mastoid air cells: Visualized mastoid air cells are well aerated. Bones: Unremarkable. No acute fracture. Soft tissues: Unremarkable. CT/CT head wo con* [id number] IMPRESSION: Stable exam. No acute intracranial findings.
[2024-01-28 02:48] LABS: Alanine Aminotransferase 12 U/L (0-33); Albumin Level 4.5 g/dL (3.5-5.2); Alkaline Phosphatase 93 U/L (35-105); Anion Gap 18.4 (5-19); Aspartate Amino Transferase 12 U/L (0-32); Blood Urea Nitrogen 11 mg/dL (6-20); Calcium 8.9 mg/dL (8.5-10.5); Carbon Dioxide 17 mmol/L (22-29); Chloride 106 mmol/L (98-107); Creatinine Clr Calc Pharmacy 166.4778; Glomerular Filtration Rate 90.5 mL/min (90-130); Glucose 109 mg/dL (65-115); Osmolality Calculated 286 mOsm/kg (285-295); Potassium 3.4 mmol/L (3.5-5.1); Sodium 138 mmol/L (136-145); Total Bilirubin 0.3 mg/dL (0.15-1.2); Total Protein 7.5 g/dL (6.6-8.7)
[2024-01-28 03:00] VITALS: BP 141/103; PULSE 97; RESP 16; O2SAT 97
[2024-01-28] MEDS: topiramate 25 mg Tablet 50 MG PO (03:00)
[2024-01-28] MEDS: cefTRIAXone 1,000 mg SDV 1000 MG IVP (03:00)
[2024-01-28 03:02] LABS: Urine Appearance Turbid (CLEAR); Urine Color Yellow (Yellow); WBC Urine 15-25 /hpf (0-5)
[2024-01-28 03:03] LABS: Add Urine Culture? Yes; Bacteria Urine 4+ /hpf; Mucus Urine 2+ /hpf
[2024-01-28 04:00] LABS: Bilirubin Urine Negative (Negative); Blood Urine Non-haemolysed trace (Negative); Glucose Urine UA Negative (Normal); Ketones Urine Negative (Negative); Leukocyte Esterase Urine 3+ (Negative); Nitrate Urine Negative (Negative); Protein Urine 1+ (Negative); Specific Gravity, Urine 1.008 (1.005-1.030); Urine Appearance Cloudy (CLEAR); Urine Color Yellow (Yellow)
[2024-01-28] MEDS: ondansetron 2 mg/ML SDV 2 mL 8 MG IVP (04:02)
[2024-01-28 04:05] LABS: Bacteria Urine 4+ /hpf; Hyaline Casts Urine 21.92 /lpf; RBC Urine 0-2 /hpf (0-2); Squamous Epithelial Cell Urine 0-5 /hpf (0-5); WBC Urine 21-50 /hpf (0-5)
[2024-01-28 04:15] LABS: Add Urine Culture? No
[2024-01-28 04:19] VITALS: BP 147/99; PULSE 94; O2SAT 97
== END 2024-01-28 04:22 | disposition home or self-care (01) ==
PROVIDERS: Emergency Provider Emergency Medicine
DX: N39.0 Urinary tract infection, site not specified (principal); R29.90 Unspecified symptoms and signs involving the nervous system; F79 Unspecified intellectual disabilities; Z98.2 Presence of cerebrospinal fluid drainage device
CPT/HCPCS: 36415; 70450; 80053; 81001; 85025; 87077; 87086; 87186; 96374; 96375; 99285; J0696; J2405

== ENCOUNTER 2024-01-30 21:39 | Emergency (ER) | payer MEDICARE, SELFPAY ==
[2024-01-30 21:46] VITALS: BP 120/79; PULSE 111; RESP 16; TEMP 36.8; O2SAT 96
[2024-01-30 23:40] VITALS: BP 138/97; PULSE 88; RESP 16; O2SAT 88
--- NOTE | 2024-01-31 00:03 | ED_ITS ---
HPI - General Adult General: Chief complaint: General Medical Stated complaint: high bp, feels unwell Time Seen by Provider: 01/30/24 22:22 History of Present Illness: 23-year-old female presenting with nause a, high blood pressure at home. She notes that the bottom number was 100. She does not have a history of high blood pressure. She says she is currently taking antibiotics for urinary tract infection. She is not having any pain currently. She also complained of a racing heart rate in triage, but does not complain of that currently. Related Data Home Medications Medication Instructions Recorded Confirmed hydroxyzine HCl 10 mg tablet 5 mg PO BEDTIME 03/14/22 08/07/23 oxybutynin chloride 5 mg tablet 5 mg PO TID 03/14/22 08/07/23 topiramate 50 mg tablet 50 mg PO BID 03/14/22 08/07/23 cetirizine 10 mg tablet 10 mg PO DAILY PRN Allergic 12/02/22 08/07/23 Symptoms citalopram 20 mg tablet 20 mg PO QAM 12/02/22 08/07/23 cyclobenzaprine 5 mg tablet 5 mg PO TID PRN Muscle Spasm 12/02/22 08/07/23 levothyroxine 25 mcg tablet 25 mcg PO QAM 12/02/22 08/07/23 mirabegron 25 mg tablet,extended 25 mg PO QAM 12/02/22 08/07/23 release 24 hr (Myrbetriq) duloxetine 60 mg capsule,delayed 120 mg PO QAM 12/23/22 08/07/23 release polyethylene glycol 3350 17 gram 17 g PO BID PRN Constipation 12/23/22 08/07/23 oral powder packet (Miralax) naproxen sodium 220 mg tablet 220 mg PO BID PRN Pain 01/27/23 08/07/23 (Aleve) nystatin 100,000 unit/gram topical 1 applic topical BID PRN Rash 01/27/23 08/07/23 powder ondansetron HCl 8 mg tablet 8 mg PO Q8H PRN Nausea 01/27/23 08/07/23 Previous Rx's Medication Instructions Recorded mupirocin 2 % topical ointment 1 applic topical DAILY #22 grams 03/19/23 hydrocodone 5 mg-acetaminophen 325 1 tab PO Q6H PRN pain #14 tabs 03/24/23 mg tablet CAM walker #1 ea 04/09/23 doxycycline hyclate 100 mg capsule 100 mg PO BID 7 days #14 caps 04/14/23 metoclopramide HCl 10 mg tablet 10 mg PO Q6H PRN nausea and 08/07/23 (Reglan) vomiting #10 tabs promethazine 6.25 mg/5 mL oral 6.25 mg (5 mL) PO Q6H PRN nausea 08/07/23 syrup and vomiting #120 mL trazodone 100 mg tablet See Rx Instructions .Route 01/19/24 .COMPLEX #30 tabs ciprofloxacin HCl 500 mg tablet 500 mg PO BID 10 days #20 tabs 01/28/24 ondansetron 8 mg disintegrating 8 mg PO Q6H #14 tabs 01/28/24 tablet hydrochlorothiazide 12.5 mg tablet 12.5 mg PO DAILY #30 tabs 01/30/24 Allergies Allergy/AdvReac Type Severity Reaction Status Date / Time adhesive Allergy ALGY-Rash Verified 01/30/24 21:52 cephalexin Allergy itch Verified 01/30/24 21:52 clindamycin Allergy Unknown Verified 01/30/24 21:52 latex Allergy Unknown Verified 01/30/24 21:52 PFS ED PFSH: Medical History Common migraine with intractable migraine Intellectual disability Surgical History 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 (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) shunt status Family History (Updated 08/07/23 @ 10:17 by Tiki Davis LPN) Grandmother Hypertension Hypercholesteremia Denies family history of Colon cancer Ovarian cancer Prostate cancer Diabetes Heart disease Breast cancer Uterine cancer Thyroid disease Stroke Physical Exam Const: COMMON NORMALS: no acute distress GENERAL APPEARANCE: cooperative; not ill appearing and not frail appearing HENMT: COMMON NORMALS: normocephalic, atraumatic and Normal external nose present HEAD & SCALP: normocephalic and atraumatic FACE & SINUS: normal facial exam and face symmetric NOSE: Normal external nose present Eye: COMMON NORMALS: Equal, round and reactive pupils present and EOMs intact bilaterally PUPIL: Yes Equal, round and reactive pupils present Neck/C-Spine: GENERAL: Yes trachea midline Chest: CHEST: Yes Symmetrical chest wall rise Resp: COMMON NORMALS: normal respiratory effort, No retractions, No use of accessory muscles and clear to auscultation bilaterally AUSCULTATION: clear to auscultation bilaterally Cardio: COMMON NORMALS: regular rate and regular rhythm RATE: regular rate RHYTHM: regular rhythm GI: COMMON NORMALS: Normal to inspection, nondistended, normoactive bowel sounds present Extremity: COMMON NORMALS: no pedal edema Neuro: BEN COMA SCALE: document GCS findings [place] coma scale eye opening: Spontaneous Ben coma scale verbal response: Orientated [place] coma scale motor response: Obey commands Ben coma scale total score: 15 SENSORY EXAM: Yes extremities (intact) Psych: COMMON NORMALS: speech normal SPEECH: Yes normal speech Skin: COMMON NORMALS: no rashes or lesions noted GENERAL SKIN EXAM: no rashes or lesions noted Course Vital Signs: Vital signs: Vital Signs Temperature 98.3 F 01/30/24 21:46 Pulse Rate 88 01/30/24 23:40 Respiratory Rate 16 01/30/24 23:40 Blood Pressure 138/97 01/30/24 23:40 Pulse Oximetry 88 L 01/30/24 23:40 [facility] - General Adult Medical Decision Making Patient's blood pressure on arrival is normal. Heart rate was elevated, but is not now. She does not have any complaints. She will be allowed discharge. She is to monitor her blood pressure. She may treat for sustained hypertension. Return for any concerning symptoms. No radiology studies performed this visit Discharge Plan Discharge Patient Disposition: Home Clinical Impression: Generalized anxiety disorder, Hypertension Condition: Stable Prescriptions: New hydrochlorothiazide 12.5 mg tablet 12.5 mg PO DAILY Qty: 30 0RF No Action (DME) CLAY meade See Rx Instructions .Route .MEDSUPPLY Qty: 1 0RF Rx Instructions: As directed metoclopramide HCl [Reglan] 10 mg tablet 10 mg PO Q6H PRN (Reason: nausea and vomiting) Qty: 10 0RF promethazine 6.25 mg/5 mL syrup 6.25 mg PO Q6H PRN (Reason: nausea and vomiting) Qty: 120 0RF doxycycline hyclate 100 mg capsule 100 mg PO BID 7 Days Qty: 14 0RF trazodone 100 mg tablet See Rx Instructions .ROUTE .COMPLEX Qty: 30 0RF Dose Instruction: TAKE 1 TABLET BY MOUTH AT BEDTIME Rx Instructions: TAKE 1 TABLET BY MOUTH AT BEDTIME oxybutynin chloride 5 mg tablet 5 mg PO TID hydroxyzine HCl 10 mg tablet 5 mg PO BEDTIME topiramate 50 mg tablet 50 mg PO BID polyethylene glycol 3350 [Miralax] 17 gram powder in packet 17 g PO BID PRN (Reason: Constipation) duloxetine 60 mg capsule,delayed release(DR/EC) 120 mg PO QAM mupirocin 2 % ointment 1 applic topical DAILY Qty: 22 0RF ciprofloxacin HCl 500 mg tablet 500 mg PO BID 10 Days Qty: 20 0RF ondansetron 8 mg tablet,disintegrating 8 mg PO Q6H Qty: 14 0RF Rx Instructions: Take 1/2-1 tab every 6 hours as needed for nausea and vomiting cetirizine 10 mg Tablet 10 mg PO DAILY PRN (Reason: Allergic Symptoms) levothyroxine 25 mcg tablet 25 mcg PO QAM citalopram 20 mg tablet 20 mg PO QAM cyclobenzaprine 5 mg tablet 5 mg PO TID PRN (Reason: Muscle Spasm) Myrbetriq 25 mg tablet extended release 24 hr 25 mg PO QAM ondansetron HCl 8 mg tablet 8 mg PO Q8H PRN (Reason: Nausea) naproxen sodium [Aleve] 220 mg Tablet 220 mg PO BID PRN (Reason: Pain) nystatin 100,000 unit/gram powder 1 applic TOPICAL BID PRN (Reason: Rash) hydrocodone-acetaminophen 5-325 mg tablet 1 tab PO Q6H PRN (Reason: pain) Qty: 14 0RF Discharge Orders: Discharge ED (Routine); Ordered 01/30/24 Ordered By: Marciano Ramirez Patient Instructions: Hypertension (ED), Opioid Safety, Pain Management Activity Restrictions/Additional Instructions: Check your blood pressure twice daily. If your blood pressure remains greater than 150/90, you may take the medication prescribed. If your blood pressure is not consistently above these numbers, do not take the medication. Follow-up with your doctor. Coding Level of Care Code ED Data Entry Supervisor for Jordana Chiu
== END 2024-01-30 23:36 | disposition home or self-care (01) ==
PROVIDERS: Emergency Provider Emergency Medicine
DX: F41.1 Generalized anxiety disorder (principal); I10 Essential (primary) hypertension
CPT/HCPCS: 99285

== ENCOUNTER 2024-02-05 00:14 | Emergency (ER) | payer MEDICARE, SELFPAY ==
[2024-02-05] VITALS (8 sets, daily range): BP systolic 124–159; BP diastolic 82–97; PULSE 96–131; RESP 16–23; TEMP 36.5; O2SAT 96–100; BMI 42.2
--- NOTE | 2024-02-05 00:27 | XRR_ITS ---
PROCEDURE INFORMATION: Exam: XR Chest Exam date and time: 02/05/2024 1:23 AM Age: 23 years old Clinical indication: Pain; Chest pressure; Prior surgery; Surgery date: 6+ months; Surgery type: Assistance Specialist shunt; Additional info: Tachycardia TECHNIQUE: Imaging protocol: Radiologic exam of the chest. Views: 1 view. COMPARISON: CR XR shunt series 12/23/2022 2:52 PM FINDINGS: Lungs: Unremarkable. No consolidation. Pleural spaces: Unremarkable. No pleural effusion. No pneumothorax. Heart/Mediastinum: Unremarkable. No cardiomegaly. Bones/joints: Stable thoracolumbar dextroscoliosis. XR/XR chest 1V portable [id number] IMPRESSION: No acute findings.
--- NOTE | 2024-02-05 00:29 | ECG_ITS ---
[facility] Test Date: 2024-02-05 Pat Name: Nithya Vigil Department: Room: Gender: Female Community Relations Manager: : 2000 Requested By: Chester Navarrete Order Number: [id number] Ca MD: William Cervantes M.D. Measurements Intervals [place] Rate: 113 P: 5 MN: 151 QRS: 13 QRSD: 103 T: 46 QT: 317 QTc: 436 Interpretive Statements SINUS TACHYCARDIA Compared to ECG 10/18/2023 02:34:15 No significant changes Electronically Signed On 02-07-2024 10:31:28 ZIPPER REPAIRER by William Cervantes M.D. [email or web address]
--- NOTE | 2024-02-05 00:44 | ED_ITS ---
HPI - Chest Pain 2 General: Chief Complaint: Chest Pain Stated Complaint: dizzy light headed fast hr Time Seen by Provider: 02/05/24 00:15 History of Present Illness: Patient presents to the ER complaining of mild chest pressure, tachycardia, hypertension dizziness, patient does have a history of blood pressure issues she took her blood pressure medicine today and says her blood pressure was still high. She was not feeling good since coming to be checked out. This was done all started 30 minutes before arrival. Upon arrival patient's heart rate was 131 beats a minute. Blood pressure 159/94. Related Data Home Medications Medication Instructions Recorded Confirmed hydroxyzine HCl 10 mg tablet 5 mg PO BEDTIME 03/14/22 08/07/23 oxybutynin chloride 5 mg tablet 5 mg PO TID 03/14/22 08/07/23 topiramate 50 mg tablet 50 mg PO BID 03/14/22 08/07/23 cetirizine 10 mg tablet 10 mg PO DAILY PRN Allergic 12/02/22 08/07/23 Symptoms citalopram 20 mg tablet 20 mg PO QAM 12/02/22 08/07/23 cyclobenzaprine 5 mg tablet 5 mg PO TID PRN Muscle Spasm 12/02/22 08/07/23 levothyroxine 25 mcg tablet 25 mcg PO QAM 12/02/22 08/07/23 mirabegron 25 mg tablet,extended 25 mg PO QAM 12/02/22 08/07/23 release 24 hr (Myrbetriq) duloxetine 60 mg capsule,delayed 120 mg PO QAM 12/23/22 08/07/23 release polyethylene glycol 3350 17 gram 17 g PO BID PRN Constipation 12/23/22 08/07/23 oral powder packet (Miralax) naproxen sodium 220 mg tablet 220 mg PO BID PRN Pain 01/27/23 08/07/23 (Aleve) nystatin 100,000 unit/gram topical 1 applic topical BID PRN Rash 01/27/23 08/07/23 powder ondansetron HCl 8 mg tablet 8 mg PO Q8H PRN Nausea 01/27/23 08/07/23 Previous Rx's Medication Instructions Recorded mupirocin 2 % topical ointment 1 applic topical DAILY #22 grams 03/19/23 hydrocodone 5 mg-acetaminophen 325 1 tab PO Q6H PRN pain #14 tabs 03/24/23 mg tablet CAM walker #1 ea 04/09/23 doxycycline hyclate 100 mg capsule 100 mg PO BID 7 days #14 caps 04/14/23 metoclopramide HCl 10 mg tablet 10 mg PO Q6H PRN nausea and 08/07/23 (Reglan) vomiting #10 tabs promethazine 6.25 mg/5 mL oral 6.25 mg (5 mL) PO Q6H PRN nausea 08/07/23 syrup and vomiting #120 mL trazodone 100 mg tablet See Rx Instructions .Route 01/19/24 .COMPLEX #30 tabs ciprofloxacin HCl 500 mg tablet 500 mg PO BID 10 days #20 tabs 01/28/24 ondansetron 8 mg disintegrating 8 mg PO Q6H #14 tabs 01/28/24 tablet hydrochlorothiazide 12.5 mg tablet 12.5 mg PO DAILY #30 tabs 01/30/24 Allergies Allergy/AdvReac Type Severity Reaction Status Date / Time adhesive Allergy ALGY-Rash Verified 01/30/24 21:52 cephalexin Allergy itch Verified 01/30/24 21:52 clindamycin Allergy Unknown Verified 01/30/24 21:52 latex Allergy Unknown Verified 01/30/24 21:52 Review of Systems 2 General: Reports: 10 or more systems reviewed and unremarkable except in HPI and below PFSH ED 2 PFSH: Medical History Common migraine with intractable migraine Intellectual disability 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 History 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 status Family History Grandmother Hypertension Hypercholesteremia Denies family history of Colon cancer Ovarian cancer Prostate cancer Diabetes Heart disease Breast cancer Uterine cancer Thyroid disease Stroke Physical Exam 2 Const: COMMON NORMALS: no acute distress, average body habitus, patient oriented x3, no limitations, healthy appearing, alert and well nourished HENMT: COMMON NORMALS: normocephalic, atraumatic, hearing grossly normal bilaterally, external ears normal, Normal external nose present and moist oral mucous membranes HEAD & SCALP: normocephalic and atraumatic NOSE: Normal external nose present EXTERNAL EAR: Yes external ears normal Neck/C-Spine: COMMON NORMALS: no JVD Chest: COMMONS NORMALS: normal inspection of the chest and normal palpation of entire chest wall Resp: COMMON NORMALS: normal respiratory effort, No retractions, No use of accessory muscles and clear to auscultation bilaterally AUSCULTATION: clear to auscultation bilaterally Cardio: COMMON NORMALS: no JVD, regular rate, regular rhythm, S1 normal heart sound present, S2 normal heart sound present, No gallops present (Cardio), No clicks present (Cardio), No murmurs present (Cardio) and No rub (Cardio) R ATE: regular rate RHYTHM: regular rhythm HEART SOUNDS: S1 normal heart sound present and S2 normal heart sound present GI: COMMON NORMALS: Normal to inspection, nondistended, normoactive bowel sounds present, Soft to palpation, non-tender, No hepatosplenomegaly present and no masses PALPATION: Yes Soft to palpation and Yes No hepatosplenomegaly present Neuro: COMMON NORMALS: patient oriented x3 SENSORIUM/ORIENTATION: Yes alert Course 2 Vital Signs: Vital signs: Vital Signs Temperature 97.7 F 02/05/24 00:24 Pulse Rate 97 02/05/24 02:37 Respiratory Rate 20 H 02/05/24 02:00 Blood Pressure 126/83 02/05/24 02:37 Pulse Oximetry 100 02/05/24 02:37 Oxygen Delivery Me thod Room Air 02/05/24 02:37 MDM - Chest Pain Medical Decision Making Patient was worked up in standard chest pain fashion with serial EKGs, serial cardiac enzymes, chest x-ray, patient was given 5 mg metoprolol IV for her blood pressure which improved it down to 126/83, did improve her heart rate down to 97. Patient will be discharged home. Medical Records I reviewed the patient's medical records. Lab Data I reviewed the patient's lab results. 02/05/24 00:50 02/05/24 00:50 Radiology Impressions Chest X-Ray 02/05/24 00:27 IMPRESSION: No acute findings. Laboratory Results WBC 11.16 10^3/uL (3.29-11.43) 02/05/24 00:50 RBC 5.22 10^6/uL (3.85-5.65) 02/05/24 00:50 Hgb 15.40 g/dL (11.27-16.99) 02/05/24 00:50 Hct 46.9 % (36-47) 02/05/24 00:50 MCV 89.8 fl (85-98) 02/05/24 00:50 MCH 29.5 pg (27-33) 02/05/24 00:50 MCHC 32.8 g/dL (30-55) 02/05/24 00:50 RDW 13.2 % (12.1-15.1) 02/05/24 00:50 Plt Count 364 10^3/cmm (157-399) 02/05/24 00:50 MPV 9.5 fL (7.4-10.4) 02/05/24 00:50 Neut % (Auto) 63.0 % 02/05/24 00:50 Lymph % (Auto) 29.9 % 02/05/24 00:50 Mel[place] % (Auto) 5.5 % 02/05/24 00:50 Eos % (Auto) 1.1 % 02/05/24 00:50 Baso % (Auto) 0.3 % 02/05/24 00:50 Neut # (Auto) 7.04 10^3/uL (1.8-7.7) 02/05/24 00:50 Lymph # (Auto) 3.3 10^3/uL (0.8-4.8) 02/05/24 00:50 [place] # (Auto) 0.6 10^3/uL (0.2-0.9) 02/05/24 00:50 Eos # (Auto) 0.1 10^3/uL (0.0-0.8) 02/05/24 00:50 Baso # (Auto) 0.0 10^3/uL (0.0-0.1) 02/05/24 00:50 Nucleated RBC % (auto) 0 % 02/05/24 00:50 Nucleated RBCs # 0.0 /100WBC 02/05/24 00:50 Sodium 142 mmol/L (136-145) 02/05/24 00:50 Potassium 4.0 mmol/L (3.5-5.1) 02/05/24 00:50 Chloride 109 mmol/L (98-107) H 02/05/24 00:50 Carbon Dioxide 19 mmol/L (22-29) L 02/05/24 00:50 Anion Gap 18.0 (5-19) 02/05/24 00:50 BUN 13 mg/dL (6-20) 02/05/24 00:50 Creatinine 0.8 mg/dL (0.5-0.9) 02/05/24 00:50 GFR Calculation 90.5 mL/min (90-130) 02/05/24 00:50 Glucose 78 mg/dL (65-115) 02/05/24 00:50 Calculated Osmolality 293 mOsm/kg (285-295) 02/05/24 00:50 Calcium 9.5 mg/dL (8.5-10.5) 02/05/24 00:50 Total Bilirubin 0.3 mg/dL (0.15-1.2) 02/05/24 00:50 AST 13 U/L (0-32) 02/05/24 00:50 ALT 11 U/L (0-33) 02/05/24 00:50 Alkaline Phosphatase 107 U/L (35-105) H 02/05/24 00:50 Troponin T Baseline < 6 ng/L (0-10) 02/05/24 00:50 Troponin T 120 Minute 6.00 ng/L (0-10) 02/05/24 02:50 Delta Troponin T 0.20996 ABS# (0-10) 02/05/24 02:50 Total Protein 7.3 g/dL (6.6-8.7) 02/05/24 00:50 Albumin 4.6 g/dL (3.5-5.2) 02/05/24 00:50 Globulin 2.7 g/dL (1.3-4.6) 02/05/24 00:50 All radiology interpretation(s) finalized by discharge Discharge Plan Discharge Patient Disposition: Home Clinical Impression: Tachycardia Chest pain Qualifiers: Chest pain type: unspecified Qualified Code(s): R07.9 - Chest pain, unspecified Hypertension Qualifiers: Hypertension type: unspecified Qualified Code(s): I10 - Essential (primary) hypertension Condition: Stable Prescriptions: No Action (DME) CAM walker See Rx Instructions .Route .MEDSUPPLY Qty: 1 0RF Rx Instructions: As directed metoclopramide HCl [Reglan] 10 mg tablet 10 mg PO Q6H PRN (Reason: nausea and vomiting) Qty: 10 0RF promethazine 6.25 mg/5 mL syrup 6.25 mg PO Q6H PRN (Reason: nausea and vomiting) Qty: 120 0RF doxycycline hyclate 100 mg capsule 100 mg PO BID 7 Days Qty: 14 0RF trazodone 100 mg tablet See Rx Instructions .ROUTE .COMPLEX Qty: 30 0RF Dose Instruction: TAKE 1 TABLET BY MOUTH AT BEDTIME Rx Instructions: TAKE 1 TABLET BY MOUTH AT BEDTIME oxybutynin chloride 5 mg tablet 5 mg PO TID hydroxyzine HCl 10 mg tablet 5 mg PO BEDTIME topiramate 50 mg tablet 50 mg PO BID polyethylene glycol 3350 [Miralax] 17 gram powder in packet 17 g PO BID PRN (Reason: Constipation) duloxetine 60 mg capsule,delayed release(DR/EC) 120 mg PO QAM mupirocin 2 % ointment 1 applic topical DAILY Qty: 22 0RF ciprofloxacin HCl 500 mg tablet 500 mg PO BID 10 Days Qty: 20 0RF ondansetron 8 mg tablet,disintegrating 8 mg PO Q6H Qty: 14 0RF Rx Instructions: Take 1/2-1 tab every 6 hours as needed for nausea and vomiting hydrochlorothiazide 12.5 mg tablet 12.5 mg PO DAILY Qty: 30 0RF cetirizine 10 mg Tablet 10 mg PO DAILY PRN (Reason: Allergic Symptoms) levothyroxine 25 mcg tablet 25 mcg PO QAM citalopram 20 mg tablet 20 mg PO QAM cyclobenzaprine 5 mg tablet 5 mg PO TID PRN (Reason: Muscle Spasm) Myrbetriq 25 mg tablet extended release 24 hr 25 mg PO QAM ondansetron HCl 8 mg tablet 8 mg PO Q8H PRN (Reason: Nausea) naproxen sodium [Aleve] 220 mg Tablet 220 mg PO BID PRN (Reason: Pain) nystatin 100,000 unit/gram powder 1 applic TOPICAL BID PRN (Reason: Rash) hydrocodone-acetaminophen 5-325 mg tablet 1 tab PO Q6H PRN (Reason: pain) Qty: 14 0RF Discharge Orders: Discharge ED (Routine); Ordered 02/05/24 Ordered By: Chester Navarrete Patient Instructions: Chest Pain (ED), Tachycardia (ED), Hypertension (ED) Activity Restrictions/Additional Instructions: Thank you for choosing [facility] for your healthcare needs today. Please realize that you were seen in the emergency department and that we are providing you with an emergency medical screening exam and this may not be a complete and all exclusive of all testing and/or medical workup we may need to determine your element or severity of your illness. It is very important that you follow-up as instructed with your primary care provider or specialist for the additional evaluation and to discuss your medical treatment plan. You may return to the emergency department should you have concerns or if your condition changes or worsens in any way. Coding Level of Care Code ED Licensing Court Magistrate for Jordana Chiu
[2024-02-05 00:55] LABS: Basophils % 0.3 %; Eosinophils # 0.1 10^3/uL (0.0-0.8); Eosinophils % 1.1 %; Hematocrit 46.9 % (36-47); Lymphocytes # 3.3 10^3/uL (0.8-4.8); Lymphocytes % 29.9 %; Mean Corpuscular HGB Conc 32.8 g/dL (30-55); Mean Corpuscular Hemoglobin 29.5 pg (27-33); Mean Corpuscular Volume 89.8 fl (85-98); Mean Platelet Volume 9.5 fL (7.4-10.4); Monocytes # 0.6 10^3/uL (0.2-0.9); Monocytes % 5.5 %; Neutrophils # 7.04 10^3/uL (1.8-7.7); Nucleated Red Blood Cells % 0 %; Platelet Count 364 10^3/cmm (157-399); Red Blood Count 5.22 10^6/uL (3.85-5.65); Red Cell Distribution Width 13.2 % (12.1-15.1); White Blood Count 11.16 10^3/uL (3.29-11.43)
[2024-02-05] MEDS: metoprolol tartrate 1 mg/1 mL SDV 5 mL 5 MG IVP (01:05)
[2024-02-05 01:12] LABS: Troponin(5th) Baseline < 6 ng/L (0-10)
[2024-02-05 01:13] LABS: Albumin Level 4.6 g/dL (3.5-5.2); Alkaline Phosphatase 107 U/L (35-105); Blood Urea Nitrogen 13 mg/dL (6-20); Calcium 9.5 mg/dL (8.5-10.5); Carbon Dioxide 19 mmol/L (22-29); Chloride 109 mmol/L (98-107); Creatinine Clr Calc Pharmacy 166.4778; Globulin 2.7 g/dL (1.3-4.6); Glomerular Filtration Rate 90.5 mL/min (90-130); Glucose 78 mg/dL (65-115); Osmolality Calculated 293 mOsm/kg (285-295); Sodium 142 mmol/L (136-145); Total Bilirubin 0.3 mg/dL (0.15-1.2); Total Protein 7.3 g/dL (6.6-8.7)
[2024-02-05 01:14] LABS: Alanine Aminotransferase 11 U/L (0-33); Aspartate Amino Transferase 13 U/L (0-32)
--- NOTE | 2024-02-05 02:27 | ECG_ITS ---
[facility] 2024-02[facility]05 Pat Name: Nithya Vigil Department: Room: Gender: Female Jeeper Operator: : 2000 Requested By: Chester Navarrete Order Number: [id number] Penaloza MD: William Cervantes M.D. Measurements Intervals [place] Rate: 91 P: 66 NM: 168 QRS: 31 QRSD: 111 T: 41 QT: 345 QTc: 425 Interpretive Statements SINUS RHYTHM MODERATE INTRAVENTRICULAR CONDUCTION DELAY [110+ ms QRS DURATION] NONSPECIFIC ST ELEVATION [0.05+ mV ST ELEVATION] Compared to ECG 02/05/2024 00:29:32 Intraventricular conduction delay now present ST (T wave) deviation now present Sinus tachycardia no longer present Electronically Signed On 02-07-2024 10:38:57 VISITOR SERVICES ASSISTANT by William Cervantse M.D. [email or web address]
[2024-02-05 03:13] LABS: Troponin 5 2HR Delta 0.00001 ABS# (0-10)
== END 2024-02-05 03:45 | disposition home or self-care (01) ==
PROVIDERS: Emergency Provider Emergency Medicine
DX: R00.0 Tachycardia, unspecified (principal); I10 Essential (primary) hypertension; R07.9 Chest pain, unspecified
CPT/HCPCS: 71045; 80053; 84484; 85025; 93005; 96374; 99285; J3490

== ENCOUNTER 2024-02-21 21:52 | Emergency (ER) | payer MEDICARE, SELFPAY ==
[2024-02-21 21:57] VITALS: BP 123/77; PULSE 117; RESP 16; TEMP 36.9; O2SAT 96; BMI 42.6
--- NOTE | 2024-02-21 22:04 | W.ED.DIZZY ---
HPI - Dizziness General: Chief Complaint: Dizziness Stated Complaint: dizzy /fall Time Seen by Provider: 02/21/24 21:52 History of Present Illness: HPI Narrative: Destiny Vigil is a 23-year-old female that presents to the emergency department with complaints of dizziness. Patient reports she has had a series of falls over recent months. Most recent was yesterday when she fell and struck her head on the bathroom counter. She states she struck it on the right parietal area which is where her R D INTERNSHIP shunt is located. Patient denies loss of consciousness. She has a pretty significant seizure history but denies any recent seizures. She has run out of her topiramate recently. Is no longer seeing her primary care doctor and is also requesting a refill for this. Patient also notes a fall several weeks ago in which she struck the left side of her chest wall on a bed frame. She denies any difficulty breathing. And she also reports that starting 5- 6 minutes ago I began feeling sick, like I have a head cold . Patient's medical history includes seizures, generalized anxiety disorder, prolactinoma and hyperprolactinemia Related Data Home Medications Medication Instructions Recorded Confirmed hydroxyzine HCl 10 mg tablet 5 mg PO BEDTIME 03/14/22 08/07/23 oxybutynin chloride 5 mg tablet 5 mg PO TID 03/14/22 08/07/23 topiramate 50 mg tablet 50 mg PO BID 03/14/22 08/07/23 cetirizine 10 mg tablet 10 mg PO DAILY PRN Allergic 12/02/22 08/07/23 Symptoms citalopram 20 mg tablet 20 mg PO QAM 12/02/22 08/07/23 cyclobenzaprine 5 mg tablet 5 mg PO TID PRN Muscle Spasm 12/02/22 08/07/23 levothyroxine 25 mcg tablet 25 mcg PO QAM 12/02/22 08/07/23 mirabegron 25 mg tablet,extended 25 mg PO QAM 12/02/22 08/07/23 release 24 hr (Myrbetriq) duloxetine 60 mg capsule,delayed 120 mg PO QAM 12/23/22 08/07/23 release polyethylene glycol 3350 17 gram 17 g PO BID PRN Constipation 12/23/22 08/07/23 oral powder packet (Miralax) naproxen sodium 220 mg tablet 220 mg PO BID PRN Pain 11/13/23 05/23/24 (Aleve) nystatin 100,000 unit/gram topical 1 applic topical BID PRN Rash 01/27/23 08/07/23 powder ondansetron HCl 8 mg tablet 8 mg PO Q8H PRN Nausea 01/27/23 08/07/23 Previous Rx's Medication Instructions Recorded mupirocin 2 % topical ointment 1 applic topical DAILY #22 grams 03/19/23 hydrocodone 5 mg-acetaminophen 325 1 tab PO Q6H PRN pain #14 tabs 03/24/23 mg tablet CAM walker #1 ea 04/09/23 doxycycline hyclate 100 mg capsule 100 mg PO BID 7 days #14 caps 04/14/23 metoclopramide HCl 10 mg tablet 10 mg PO Q6H PRN nausea and 08/07/23 (Reglan) vomiting #10 tabs promethazine 6.25 mg/5 mL oral 6.25 mg (5 mL) PO Q6H PRN nausea 08/07/23 syrup and vomiting #120 mL ondansetron 8 mg disintegrating 8 mg PO Q6H #14 tabs 01/28/24 tablet hydrochlorothiazide 12.5 mg tablet 12.5 mg PO DAILY #30 tabs 01/30/24 trazodone 100 mg tablet See Rx Instructions .Route 02/16/24 .COMPLEX #30 tabs topiramate 50 mg tablet 50 mg PO BID 1 month #60 tabs 02/21/24 Allergies Allergy/AdvReac Type Severity Reaction Status Date / Time adhesive Allergy ALGY-Rash Verified 01/30/24 21:52 cephalexin Allergy itch Verified 01/30/24 21:52 clindamycin Allergy Unknown Verified 01/30/24 21:52 latex Allergy Unknown Verified 01/30/24 21:52 Review of Systems General: Reports: 10 or more systems reviewed and unremarkable except in HPI and below PFSH ED PFSH: Medical History Common migraine with intractable migraine Intellectual disability Surgical History R D INTERNSHIP (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) shunt status Family History Grandmother Hypertension Hypercholesteremia Denies family history of Colon cancer Ovarian cancer Prostate cancer Diabetes Heart disease Breast cancer Uterine cancer Thyroid disease Stroke Physical Exam Const: COMMON NORMALS: no acute distress, average body habitus, patient oriented x3, no limitations, healthy appearing, alert and well nourished HENMT: COMMON NORMALS: normocephalic, atraumatic, hearing grossly normal bilaterally, external ears normal, Normal external nose present and moist oral mucous membranes HEAD & SCALP: normocephalic and atraumatic NOSE: Normal external nose present EXTERNAL EAR: Yes external ears normal Neck/C-Spine: COMMON NORMALS: no JVD Chest: COMMONS NORMALS: normal inspection of the chest and normal palpation of entire chest wall Resp: COMMON NORMALS: normal respiratory effort, No retractions, No use of accessory muscles and clear to auscultation bilaterally AUSCULTATION: clear to auscultation bilaterally Cardio: COMMON NORMALS: no JVD, regular rate, regular rhythm, S1 normal heart sound present, S2 normal heart sound present, No gallops present (Cardio), No clicks present (Cardio), No murmurs present (Cardio) and No rub (Cardio) RATE: regular rate RHYTHM: regular rhythm HEART SOUNDS: S1 normal heart sound present and S2 normal heart sound present GI: COMMON NORMALS: Normal to inspection, nondistended, normoactive bowel sounds present, Soft to palpation, non-tender, No hepatosplenomegaly present and no masses PALPATION: Yes Soft to palpation and Yes No hepatosplenomegaly present Neuro: COMMON NORMALS: patient oriented x3 SENSORIUM/ORIENTATION: Yes alert Course Vital Signs: Vital signs: Vital Signs Temperature 98.4 F 02/21/24 21:57 Pulse Rate 117 H 02/21/24 21:57 Respiratory Rate 16 02/21/24 21:57 Blood Pressure 123/77 02/21/24 21:57 Pulse Oximetry 96 02/21/24 21:57 Oxygen Delivery Me thod Room Air 02/21/24 21:57 MDM - Dizziness Medical Decision Making Patient is a 23-year-old female that presents with multiple complaints and request. She needs medication refills, would like a chest x-ray, would like a CT, would like assistance in getting a primary care doctor, Would like assistance in getting her Medicaid restarted. She has pretty significant narrowing psychological history. Patient underwent a CT head to assess for traumatic brain injury following a fall in which she struck her head. She had no loss of consciousness with fall. She has had intermittent dizziness since then. Denies seizure activity. CT head was unremarkable. No evidence of hydrocephalus. Patient also underwent a XR rib and chest x-ray. No fractures identified. She probably has contused the area tender for some time. Offered her nonsteroidal anti-inflammatory drugs which she has declined. She has medications at home to rather use. I have sent a prescription for her topiramate to the pharmacy. Number also sent to referral to major case detective to assist with Medicaid questions and applications as well as a referral to primary care provider. Advised patient to return to the emergency department for new concerning or worsening symptoms. All questions answered Lab Data Radiology Impressions Head CT 02/21/24 22:14 IMPRESSION: No acute intracranial findings. Ribs X-Ray 02/21/24 22:14 IMPRESSION: No acute findings. All radiology interpretation(s) finalized by discharge Discharge Plan Discharge Patient Disposition: Home Clinical Impression: Dizziness, R D INTERNSHIP (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) shunt status, Fall, Acute chest wall pain Condition: Stable Prescriptions: New topiramate 50 mg tablet 50 mg PO BID 30 Days Qty: 60 0RF No Action (DME) CLAY meade See Rx Instructions .Route .MEDSUPPLY Qty: 1 0RF Rx Instructions: As directed metoclopramide HCl [Reglan] 10 mg tablet 10 mg PO Q6H PRN (Reason: nausea and vomiting) Qty: 10 0RF promethazine 6.25 mg/5 mL syrup 6.25 mg PO Q6H PRN (Reason: nausea and vomiting) Qty: 120 0RF doxycycline hyclate 100 mg capsule 100 mg PO BID 7 Days Qty: 14 0RF trazodone 100 mg tablet See Rx Instructions .ROUTE .COMPLEX Qty: 30 0RF Dose Instruction: TAKE 1 TABLET BY MOUTH AT BEDTIME Rx Instructions: TAKE 1 TABLET BY MOUTH AT BEDTIME oxybutynin chloride 5 mg tablet 5 mg PO TID hydroxyzine HCl 10 mg tablet 5 mg PO BEDTIME topiramate 50 mg tablet 50 mg PO BID polyethylene glycol 3350 [Miralax] 17 gram powder in packet 17 g PO BID PRN (Reason: Constipation) duloxetine 60 mg capsule,delayed release(DR/EC) 120 mg PO QAM mupirocin 2 % ointment 1 applic topical DAILY Qty: 22 0RF ondansetron 8 mg tablet,disintegrating 8 mg PO Q6H Qty: 14 0RF Rx Instructions: Take 1/2-1 tab every 6 hours as needed for nausea and vomiting hydrochlorothiazide 12.5 mg tablet 12.5 mg PO DAILY Qty: 30 0RF cetirizine 10 mg Tablet 10 mg PO DAILY PRN (Reason: Allergic Symptoms) levothyroxine 25 mcg tablet 25 mcg PO QAM citalopram 20 mg tablet 20 mg PO QAM cyclobenzaprine 5 mg tablet 5 mg PO TID PRN (Reason: Muscle Spasm) Myrbetriq 25 mg tablet extended release 24 hr 25 mg PO QAM ondansetron HCl 8 mg tablet 8 mg PO Q8H PRN (Reason: Nausea) naproxen sodium [Aleve] 220 mg Tablet 220 mg PO BID PRN (Reason: Pain) nystatin 100,000 unit/gram powder 1 applic TOPICAL BID PRN (Reason: Rash) hydrocodone-acetaminophen 5-325 mg tablet 1 tab PO Q6H PRN (Reason: pain) Qty: 14 0RF Discharge Orders: Discharge ED (Routine); Ordered 02/22/24 Ordered By: Quang Perez Discharge Diet: Advance as tolerated Discharge Activity: Resume usual activity Patient Instructions: Dizziness (ED), Pain Management Activity Restrictions/Additional Instructions: Return to the emergency department if: You have a headache and a stiff neck. You have shaking chills and a fever. You vomit over and over with no relief. Your vomit or bowel movements are red or black. You have pain in your chest, back, or abdomen. You have numbness, especially in your face, arms, or legs. You have trouble moving your arms or legs. You are confused. Can expect a call from the major case detective this next week to assist in getting set up with Medicaid and a primary care. Please ensure that you establish primary care for ongoing medication management Coding Level of Care Code ED Office Service Coordinator for Jordana Chiu
--- NOTE | 2024-02-21 22:14 | XRR_ITS ---
PROCEDURE INFORMATION: Exam: XR Left Ribs with PA Chest Exam date and time: 02/21/2024 10:52 PM Age: 23 years old Clinical indication: Painful respiration; Prior surgery; Surgery date: 6+ months; Surgery type: Racetrack Steward shunt; Patient HX: Lt posterior chest pain after fall-worse with inspiration; Dizziness TECHNIQUE: Imaging protocol: Radiologic exam of the left ribs with PA chest. Views: 3 views COMPARISON: CR (CHEST, ) 02/05/2024 1:23 AM FINDINGS: Tubes, catheters and devices: Partially visualized right-sided INSTRUCTOR BUSINESS EDUCATION shunt catheter is again seen. No elements of discontinuity or kinking within the field of view. Lungs: Low lung volumes. No consolidation. Pleural spaces: Unremarkable. No pleural effusion. No pneumothorax. Heart/Mediastinum: Unremarkable. No cardiomegaly. Bones/joints: Dextrocurvature of the thoracolumbar spine. No definite acute fracture. XR/XR ribs LT mn 3V w [id number] IMPRESSION: No acute findings.
--- NOTE | 2024-02-21 22:14 | CTR_ITS ---
PROCEDURE INFORMATION: Exam: CT Head Without Contrast Exam date and time: 02/21/2024 10:46 PM Age: 23 years old Clinical indication: Injury or trauma; Blunt trauma (contusions or hematomas); Prior surgery; Surgery date: 6+ months; Surgery type: Environmental Services Supervisor shunt; Patient HX: Patient sustained a fall hitting head against nightstand. C/O dizziness. ; Additional info: Head trauma, vp customer service shunt TECHNIQUE: Imaging protocol: Computed tomography of the head without contrast. Radiation optimization: All CT scans at this facility use at least one of these dose optimization techniques: automated exposure control; mA and/or kV adjustment per patient size (includes targeted exams where dose is matched to clinical indication); or iterative reconstruction. COMPARISON: CT head wo con* [id number] 01/28/2024 2:50 AM RADIATION DOSE METRICS: Total DLP (mGy-cm): 1105.48 FINDINGS: Tubes, catheters and devices: Right frontal approach TRAFFIC SIGN ERECTION SUPERVISOR shunt catheter is again seen with the tip near the foramen of Monro, similar to prior. Brain: Similar corpus callosum dysgenesis. Low lung cerebellar tonsil, similar to prior. No hemorrhage. Unremarkable white matter. No mass effect. Cerebral ventricles: No ventriculomegaly. Paranasal sinuses: Visualized sinuses are unremarkable. No fluid levels. Mastoid air cells: Visualized mastoid air cells are well aerated. Bones: Unremarkable. No acute fracture. Soft tissues: Unremarkable. CT/CT head wo con* [id number] IMPRESSION: No acute intracranial findings.
[2024-02-21] MEDS: ondansetron 4 MG Tablet PO (23:03)
== END 2024-02-22 00:41 | disposition home or self-care (01) ==
PROVIDERS: Emergency Provider Nurse Practitioner
DX: R42 Dizziness and giddiness (principal); R07.89 Other chest pain; Z98.2 Presence of cerebrospinal fluid drainage device
CPT/HCPCS: 70450; 71101; 99284; Q0162

== ENCOUNTER 2024-04-14 13:44 | Outpatient (CLI) | payer MEDICARE, SELFPAY ==
[2024-04-14 15:06] LABS: Basophils % 0.3 %; Eosinophils # 0.1 10^3/uL (0.0-0.8); Eosinophils % 1.6 %; Hematocrit 38.5 % (36-47); Lymphocytes # 2.3 10^3/uL (0.8-4.8); Lymphocytes % 30.6 %; Mean Corpuscular HGB Conc 31.2 g/dL (30-55); Mean Corpuscular Hemoglobin 30.8 pg (27-33); Mean Platelet Volume 9.5 fL (7.4-10.4); Monocytes # 0.4 10^3/uL (0.2-0.9); Monocytes % 5.9 %; Neutrophils # 4.54 10^3/uL (1.8-7.7); Neutrophils % 61.1 %; Nucleated Red Blood Cells % 0 %; Platelet Count 280 10^3/cmm (157-399); Red Blood Count 3.89 10^6/uL (3.85-5.65); Red Cell Distribution Width 13.8 % (12.1-15.1); White Blood Count 7.44 10^3/uL (3.29-11.43)
[2024-04-14 15:38] LABS: Alanine Aminotransferase 20 U/L (0-33); Albumin Level 3.8 g/dL (3.5-5.2); Alkaline Phosphatase 94 U/L (35-105); Aspartate Amino Transferase 23 U/L (0-32); Blood Urea Nitrogen 9 mg/dL (6-20); Calcium 8.8 mg/dL (8.5-10.5); Carbon Dioxide 23 mmol/L (22-29); Chloride 105 mmol/L (98-107); Globulin 2.6 g/dL (1.3-4.6); Glomerular Filtration Rate 104.6 mL/min (90-130); Glucose 91 mg/dL (65-115); Osmolality Calculated 286 mOsm/kg (285-295); Sodium 139 mmol/L (136-145); Thyroid Stimulating Hormone 3.18 uIU/mL (0.27-4.20); Total Bilirubin 0.3 mg/dL (0.15-1.2); Total Protein 6.4 g/dL (6.6-8.7)
== END 2024-04-14 13:45 | disposition home or self-care (01) ==
LOC: LAB 13:57
PROVIDERS: Visit Provider Nurse Practitioner Family
DX: R25.1 Tremor, unspecified (principal)
CPT/HCPCS: 36415; 80053; 83735; 84443; 85025

== ENCOUNTER 2024-04-23 13:27 | Emergency (ER) | payer MEDICARE, SELFPAY ==
[2024-04-23 13:38] VITALS: BP 129/79; PULSE 96; RESP 16; TEMP 36.4; O2SAT 97
--- NOTE | 2024-04-23 14:47 | W.ED.ANXIETY ---
HPI - Anxiety General: Chief Complaint: Anxiety Stated Complaint: anxiety Time Seen by Provider: 04/23/24 14:31 Source: patient Mode of arrival: EMS Limitations: no limitations History of Present Illness: Patient is a 24-year-old female who is well-known to our emergency department with a history of intellectual disability, significant psychiatric history, spinal bifida/STRETCH BOX TENDER shunt, nonepileptic/functional seizures here with complaints of anxiety and homelessness. She states she was recently kicked out of her mother's home and is now homeless and does not know what to do . She states she also broke up with her boyfriend. She feels anxious and depressed. She is not having suicidal ideations. She states she does not want to go to a homeless skilled nursing. MD complaint: anxiety History of similar episodes: Yes Provoking factors: emotional stress Relieving factors: nothing Exacerbating factors: nothing Associated symptoms: Reports chills; Deny chest pain, fever(s), headache(s), malaise or vomiting Related Data Home Medications ?Medication ?Instructions ?Recorded ?Confirmed hydroxyzine HCl 10 mg tablet 5 mg PO BEDTIME 03/14/22 08/07/23 oxybutynin chloride 5 mg tablet 5 mg PO TID 03/14/22 08/07/23 topiramate 50 mg tablet 50 mg PO BID 03/14/22 08/07/23 cetirizine 10 mg tablet 10 mg PO DAILY PRN Allergic 12/02/22 08/07/23 Symptoms citalopram 20 mg tablet 20 mg PO QAM 12/02/22 08/07/23 cyclobenzaprine 5 mg tablet 5 mg PO TID PRN Muscle Spasm 12/02/22 08/07/23 levothyroxine 25 mcg tablet 25 mcg PO QAM 12/02/22 08/07/23 mirabegron 25 mg tablet,extended 25 mg PO QAM 12/02/22 08/07/23 release 24 hr (Myrbetriq) duloxetine 60 mg capsule,delayed 120 mg PO QAM 12/23/22 08/07/23 release polyethylene glycol 3350 17 gram 17 g PO BID PRN Constipation 12/23/22 08/07/23 oral powder packet (Miralax) naproxen sodium 220 mg tablet 220 mg PO BID PRN Pain 01/27/23 08/07/23 (Aleve) nystatin 100,000 unit/gram topical 1 applic topical BID PRN Rash 01/27/23 08/07/23 powder ondansetron HCl 8 mg tablet 8 mg PO Q8H PRN Nausea 01/27/23 08/07/23 Previous Rx's ?Medication ?Instructions ?Recorded mupirocin 2 % topical ointment 1 applic topical DAILY #22 grams 03/19/23 hydrocodone 5 mg-acetaminophen 325 1 tab PO Q6H PRN pain #14 tabs 03/24/23 mg tablet CAM walker #1 ea 04/09/23 doxycycline hyclate 100 mg capsule 100 mg PO BID 7 days #14 caps 04/14/23 metoclopramide HCl 10 mg tablet 10 mg PO Q6H PRN nausea and 08/07/23 (Reglan) vomiting #10 tabs promethazine 6.25 mg/5 mL oral 6.25 mg (5 mL) PO Q6H PRN nausea 08/07/23 syrup and vomiting #120 mL ondansetron 8 mg disintegrating 8 mg PO Q6H #14 tabs 01/28/24 tablet hydrochlorothiazide 12.5 mg tablet 12.5 mg PO DAILY #30 tabs 01/30/24 trazodone 100 mg tablet See Rx Instructions .Route 02/16/24 .COMPLEX #30 tabs Allergies Allergy/AdvReac Type Severity Reaction Status Date / Time adhesive Allergy ALGY-Rash Verified 04/23/24 13:44 cephalexin Allergy itch Verified 04/23/24 13:44 clindamycin Allergy Unknown Verified 04/23/24 13:44 latex Allergy Unknown Verified 04/23/24 13:44 Review of Systems Const: Reports: chills; Denies: fever(s), body aches, fatigue or malaise Card: Denies: chest pain Resp: Denies: dyspnea GI: Denies: vomiting or diarrhea Musc: Denies: neck pain, back pain, extremity pain, extremity swelling, joint swelling or joint redness Skin/Breast: Denies: rash Neuro: Denies: headache(s), numbness in extremities, weakness in extremities, sensory changes or dizziness Psych: Reports: anxiety; Denies: visual hallucinations, auditory hallucinations, suicidal ideation or homicidal ideation PFS ED PFSH: Medical History Common migraine with intractable migraine Intellectual disability Surgical History STRETCH BOX TENDER (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) shunt status Family History Grandmother Hypertension Hypercholesteremia Denies family history of Colon cancer Ovarian cancer Prostate cancer Diabetes Heart disease Breast cancer Uterine cancer Thyroid disease Stroke Female Reproductive History: Date of last menstrual period: 04/23/24 Physical Exam Const: COMMON NORMALS: no acute distress, no limitations, alert and well nourished GENERAL APPEARANCE: cooperative Resp: COMMON NORMALS: normal respiratory effort and clear to auscultation bilaterally AUSCULTATION: clear to auscultation bilaterally Cardio: COMMON NORMALS: regular rate and regular rhythm RATE: regular rate RHYTHM: regular rhythm Neuro: COMMON NORMALS: moves all extremities, no focal motor deficits and no sensory deficits noted SENSORIUM/ORIENTATION: Yes alert Psych: COMMON NORMALS: mental status grossly normal, Normal thought process present, cooperative, normal affect, speech normal, activity/motor behavior normal, denies hallucinations, denies homicidal ideation and denies suicidal ideation APPEARANCE: Yes grossly normal ATTITUDE: Yes calm ACTIVITY/MOTOR BEHAVIOR: Yes appropriate eye contact SPEECH: Yes normal speech MOOD & AFFECT: Yes euthymic mood THOUGHT PROCESS: Normal thought process present THOUGHT CONTENT: Yes Normal thought content present ATTENTION/CONCENTRATION: Yes attention grossly intact and Yes concentration grossly intact MEMORY/COGNITION: Yes memory grossly intact and Yes cognition grossly intact INSIGHT: Fair insight present (Psych) JUDGEMENT: Fair judgement present (Psych) Skin: COMMON NORMALS: no rashes or lesions noted GENERAL SKIN EXAM: no rashes or lesions noted Course ED course: I did speak to patient's mother. Mother states it was Destiny's decision to leave. The mother does express frustration given Destiny's behaviors and unwillingness to help at home and her noncompliance. Mother states she would be willing to allow her to come back if necessary. Vital Signs: Vital signs: Vital Signs Temperature 97.5 F L 04/23/24 13:38 Pulse Rate 98 04/23/24 16:27 Respiratory Rate 16 04/23/24 13:38 Blood Pressure 140/61 04/23/24 16:27 Pulse Oximetry 98 04/23/24 16:27 Oxygen Delivery Me thod Room Air 04/23/24 13:38 MDM - Anxiety Medical Decision Making Destiny is a 24-year-old female who is her own legal guardian. She has a significant past medical history including spina bifida, STRETCH BOX TENDER shunt, significant psychiatric illness, intellectual delay, among others here stating she is now homeless after being kicked out of her home. She is anxious because she also broke up with her boyfriend. Patient tells me she is not homicidal or suicidal. She tells me she does not want to go to a homeless skilled nursing. She does not meet any form of inpatient criteria at this time. Patient was referred to our Crisis [facility] for further resources as I do not have anything further to offer her from the Emergency Department. I did speak to her mother who stated that she could come back there if absolutely necessary. We did discuss possibliy obtaining a court appointed guardian and discussed long-term residential care. Medical Records I reviewed the patient's medical records. Lab Data I reviewed the patient's lab results. 04/23/24 15:44 04/23/24 15:44 Laboratory Results WBC 8.35 10^3/uL (3.29-11.43) 04/23/24 15:44 RBC 4.44 10^6/uL (3.85-5.65) 04/23/24 15:44 Hgb 13.80 g/dL (11.27-16.99) 04/23/24 15:44 Hct 42.3 % (36-47) 04/23/24 15:44 MCV 95.3 fl (85-98) 04/23/24 15:44 MCH 31.1 pg (27-33) 04/23/24 15:44 MCHC 32.6 g/dL (30-55) 04/23/24 15:44 RDW 12.9 % (12.1-15.1) 04/23/24 15:44 Plt Count 308 10^3/cmm (157-399) 04/23/24 15:44 MPV 9.6 fL (7.4-10.4) 04/23/24 15:44 Neut % (Auto) 70.1 % 04/23/24 15:44 Lymph % (Auto) 24.0 % 04/23/24 15:44 [place] % (Auto) 5.0 % 04/23/24 15:44 Eos % (Auto) 0.5 % 04/23/24 15:44 Baso % (Auto) 0.2 % 04/23/24 15:44 Neut # (Auto) 5.85 10^3/uL (1.8-7.7) 04/23/24 15:44 Lymph # (Auto) 2.0 10^3/uL (0.8-4.8) 04/23/24 15:44 [place] # (Auto) 0.4 10^3/uL (0.2-0.9) 04/23/24 15:44 Eos # (Auto) 0.0 10^3/uL (0.0-0.8) 04/23/24 15:44 Baso # (Auto) 0.0 10^3/uL (0.0-0.1) 04/23/24 15:44 Nucleated RBC % (auto) 0 % 04/23/24 15:44 Nucleated RBCs # 0.0 /100WBC 04/23/24 15:44 Sodium 138 mmol/L (136-145) 04/23/24 15:44 Potassium 4.1 mmol/L (3.5-5.1) 04/23/24 15:44 Chloride 103 mmol/L (98-107) 04/23/24 15:44 Carbon Dioxide 22 mmol/L (22-29) 04/23/24 15:44 Anion Gap 17.1 (5-19) 04/23/24 15:44 BUN 10 mg/dL (6-20) 04/23/24 15:44 Creatinine 0.6 mg/dL (0.5-0.9) 04/23/24 15:44 GFR Calculation 125.0 mL/min (90-130) 04/23/24 15:44 Glucose 79 mg/dL (65-115) 04/23/24 15:44 Calculated Osmolality 284 mOsm/kg (285-295) L 04/23/24 15:44 Calcium 9.1 mg/dL (8.5-10.5) 04/23/24 15:44 Total Bilirubin 0.6 mg/dL (0.15-1.2) 04/23/24 15:44 AST 22 U/L (0-32) 04/23/24 15:44 ALT 26 U/L (0-33) 04/23/24 15:44 Alkaline Phosphatase 91 U/L (35-105) 04/23/24 15:44 Creatine Kinase 69 U/L (26-192) 04/23/24 15:44 Total Protein 7.1 g/dL (6.6-8.7) 04/23/24 15:44 Albumin 3.8 g/dL (3.5-5.2) 04/23/24 15:44 Globulin 3.3 g/dL (1.3-4.6) 04/23/24 15:44 Coronavirus (PCR) Negative (Negative) 04/23/24 15:06 Influenza A (PCR) Negative (Negative) 04/23/24 15:06 Influenza Type B (PCR) Negative (Negative) 04/23/24 15:06 RSV (PCR) Negative (Negative) 04/23/24 15:06 No radiology studies performed this visit Discharge Plan Discharge Patient Disposition: Home Clinical Impression: Homeless, Anxiety Condition: Stable Prescriptions: No Action (DME) CLAY me[place] See Rx Instructions .Route .MEDSUPPLY Qty: 1 0RF Rx Instructions: As directed metoclopramide HCl [Reglan] 10 mg tablet 10 mg PO Q6H PRN (Reason: nausea and vomiting) Qty: 10 0RF promethazine 6.25 mg/5 mL syrup 6.25 mg PO Q6H PRN (Reason: nausea and vomiting) Qty: 120 0RF doxycycline hyclate 100 mg capsule 100 mg PO BID 7 Days Qty: 14 0RF trazodone 100 mg tablet See Rx Instructions .ROUTE .COMPLEX Qty: 30 0RF Dose Instruction: TAKE 1 TABLET BY MOUTH AT BEDTIME Rx Instructions: TAKE 1 TABLET BY MOUTH AT BEDTIME oxybutynin chloride 5 mg tablet 5 mg PO TID hydroxyzine HCl 10 mg tablet 5 mg PO BEDTIME topiramate 50 mg tablet 50 mg PO BID polyethylene glycol 3350 [Miralax] 17 gram powder in packet 17 g PO BID PRN (Reason: Constipation) duloxetine 60 mg capsule,delayed release(DR/EC) 120 mg PO QAM mupirocin 2 % ointment 1 applic topical DAILY Qty: 22 0RF ondansetron 8 mg tablet,disintegrating 8 mg PO Q6H Qty: 14 0RF Rx Instructions: Take 1/2-1 tab every 6 hours as needed for nausea and vomiting hydrochlorothiazide 12.5 mg tablet 12.5 mg PO DAILY Qty: 30 0RF cetirizine 10 mg Tablet 10 mg PO DAILY PRN (Reason: Allergic Symptoms) levothyroxine 25 mcg tablet 25 mcg PO QAM citalopram 20 mg tablet 20 mg PO QAM cyclobenzaprine 5 mg tablet 5 mg PO TID PRN (Reason: Muscle Spasm) Myrbetriq 25 mg tablet extended release 24 hr 25 mg PO QAM ondansetron HCl 8 mg tablet 8 mg PO Q8H PRN (Reason: Nausea) naproxen sodium [Aleve] 220 mg Tablet 220 mg PO BID PRN (Reason: Pain) nystatin 100,000 unit/gram powder 1 applic TOPICAL BID PRN (Reason: Rash) hydrocodone-acetaminophen 5-325 mg tablet 1 tab PO Q6H PRN (Reason: pain) Qty: 14 0RF Discharge Orders: Discharge ED (Routine); Ordered 04/23/24 Ordered By: Rema Fisher Activity Restrictions/Additional Instructions: As we discussed, we were going to discharge you to our crisis stabilization center and they can speak to you about further options. I also did contact your mother and you going back home is also an option. You do not require psychiatric hospitalization at this time. Print Language: Romanian Coding Level of Care Code ED Mechanical Lead for Jordana Chiu
[2024-04-23 15:47] LABS: Covid PCR NEGATIVE (Negative); Influenza A NEGATIVE (Negative); Influenza B NEGATIVE (Negative); Respiratory Syncytial Virus Ce NEGATIVE (Negative)
[2024-04-23 15:59] LABS: Basophils % 0.2 %; Eosinophils % 0.5 %; Hematocrit 42.3 % (36-47); Mean Corpuscular HGB Conc 32.6 g/dL (30-55); Mean Corpuscular Hemoglobin 31.1 pg (27-33); Mean Corpuscular Volume 95.3 fl (85-98); Mean Platelet Volume 9.6 fL (7.4-10.4); Monocytes # 0.4 10^3/uL (0.2-0.9); Neutrophils # 5.85 10^3/uL (1.8-7.7); Neutrophils % 70.1 %; Nucleated Red Blood Cells % 0 %; Platelet Count 308 10^3/cmm (157-399); Red Blood Count 4.44 10^6/uL (3.85-5.65); Red Cell Distribution Width 12.9 % (12.1-15.1); White Blood Count 8.35 10^3/uL (3.29-11.43)
[2024-04-23 16:10] LABS: Alanine Aminotransferase 26 U/L (0-33); Albumin Level 3.8 g/dL (3.5-5.2); Alkaline Phosphatase 91 U/L (35-105); Anion Gap 17.1 (5-19); Aspartate Amino Transferase 22 U/L (0-32); Blood Urea Nitrogen 10 mg/dL (6-20); Calcium 9.1 mg/dL (8.5-10.5); Carbon Dioxide 22 mmol/L (22-29); Chloride 103 mmol/L (98-107); Creatine Phosphokinase 69 U/L (26-192); Globulin 3.3 g/dL (1.3-4.6); Glucose 79 mg/dL (65-115); Osmolality Calculated 284 mOsm/kg (285-295); Potassium 4.1 mmol/L (3.5-5.1); Sodium 138 mmol/L (136-145); Total Bilirubin 0.6 mg/dL (0.15-1.2); Total Protein 7.1 g/dL (6.6-8.7)
[2024-04-23 16:27] VITALS: BP 140/61; PULSE 98; O2SAT 98
== END 2024-04-23 16:28 | disposition home or self-care (01) ==
PROVIDERS: Emergency Provider Physician Assistant
DX: F41.9 Anxiety disorder, unspecified (principal); Z59.00 Homelessness unspecified; Z11.52 Encounter for screening for COVID-19
CPT/HCPCS: 36415; 80053; 82550; 85025; 87637; 99283

== ENCOUNTER 2024-05-20 11:55 | Outpatient (CLI) | payer OTHER, SELFPAY ==
--- NOTE | 2024-05-20 12:02 | US_ITS ---
WS: [id number] ULTRASOUND BREAST BILATERAL TECHNIQUE: Ultrasound bilateral breast focused area of concern. CLINICAL INFORMATION: BREAST PAIN COMPARISON: None. FINDINGS: RIGHT BREAST: Ultrasound RIGHT breast the 12 o'clock position. Normal underlying parenchymal tissue. Small ovoid echogenic lesion measuring 7 x 7 x 3 mm compatible with a benign lipoma at the 12 o'clock position 10 cm from the nipple. LEFT BREAST: Ultrasound LEFT breast at the 12 o'clock position in the area of concern. Ultrasound LEFT axillary tail. Normal underlying parenchymal tissue. No cystic or solid lesions. No suspicious findings. US/US breast BI limited* [id number] IMPRESSION: BI-RADS 2 benign Recommend annual screening mammography age 40
== END 2024-05-20 11:56 | disposition home or self-care (01) ==
LOC: RAD 11:59
PROVIDERS: PCP Nurse Practitioner Family; Visit Provider Advanced Practice Midwife
DX: N64.4 Mastodynia (principal); N63.15 Unspecified lump in the right breast, overlapping quadrants
CPT/HCPCS: 76642

== ENCOUNTER 2024-05-22 13:17 | Emergency (ER) | payer SELFPAY ==
[2024-05-22 13:21] VITALS: BP 140/89; PULSE 102; RESP 16; TEMP 36.6; O2SAT 98; BMI 42.0
--- NOTE | 2024-05-22 14:48 | W.ED.WOUNDLC ---
HPI - Wound/Laceration General: Chief Complaint: Wound/Laceration Stated Complaint: cut toes on lft foot Time Seen by Provider: 05/22/24 14:16 History of Present Illness: 24-year-old female comes in today for concerns of injury to the toes of the left foot. Patient has noticeable abrasions to the second and third digit of the left foot. 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 Patient appears nontoxic. Patient reports some mild tenderness. Pulses are intact. Patient has dependent edema in the foot. Patient states that the injuries occurred this morning although they appear older. Related Data Home Medications ?Medication ?Instructions ?Recorded ?Confirmed hydroxyzine HCl 10 mg tablet 5 mg PO BEDTIME 03/14/22 08/07/23 oxybutynin chloride 5 mg tablet 5 mg PO TID 03/14/22 08/07/23 topiramate 50 mg tablet 50 mg PO BID 03/14/22 08/07/23 cetirizine 10 mg tablet 10 mg PO DAILY PRN Allergic 12/02/22 08/07/23 Symptoms citalopram 20 mg tablet 20 mg PO QAM 12/02/22 08/07/23 cyclobenzaprine 5 mg tablet 5 mg PO TID PRN Muscle Spasm 12/02/22 08/07/23 levothyroxine 25 mcg tablet 25 mcg PO QAM 12/02/22 08/07/23 mirabegron 25 mg tablet,extended 25 mg PO QAM 12/02/22 08/07/23 release 24 hr (Myrbetriq) duloxetine 60 mg capsule,delayed 120 mg PO QAM 12/23/22 08/07/23 release polyethylene glycol 3350 17 gram 17 g PO BID PRN Constipation 12/23/22 08/07/23 oral powder packet (Miralax) naproxen sodium 220 mg tablet 220 mg PO BID PRN Pain 01/27/23 08/07/23 (Aleve) nystatin 100,000 unit/gram topical 1 applic topical BID PRN Rash 01/27/23 08/07/23 powder ondansetron HCl 8 mg tablet 8 mg PO Q8H PRN Nausea 01/27/23 08/07/23 Previous Rx's ?Medication ?Instructions ?Recorded mupirocin 2 % topical ointment 1 applic topical DAILY #22 grams 03/19/23 hydrocodone 5 mg-acetaminophen 325 1 tab PO Q6H PRN pain #14 tabs 03/24/23 mg tablet CAM walker #1 ea 04/09/23 doxycycline hyclate 100 mg capsule 100 mg PO BID 7 days #14 caps 04/14/23 metoclopramide HCl 10 mg tablet 10 mg PO Q6H PRN nausea and 08/07/23 (Reglan) vomiting #10 tabs promethazine 6.25 mg/5 mL oral 6.25 mg (5 mL) PO Q6H PRN nausea 08/07/23 syrup and vomiting #120 mL ondansetron 8 mg disintegrating 8 mg PO Q6H #14 tabs 01/28/24 tablet hydrochlorothiazide 12.5 mg tablet 12.5 mg PO DAILY #30 tabs 01/30/24 trazodone 100 mg tablet See Rx Instructions .Route 02/16/24 .COMPLEX #30 tabs doxycycline hyclate 100 mg tablet 100 mg PO BID 7 days #14 tabs 05/22/24 mupirocin 2 % topical ointment 1 applic topical BID #22 grams 05/22/24 (Centany) Allergies Allergy/AdvReac Type Severity Reaction Status Date / Time adhesive Allergy ALGY-Rash Verified 04/23/24 13:44 cephalexin Allergy itch Verified 04/23/24 13:44 clindamycin Allergy Unknown Verified 04/23/24 13:44 latex Allergy Unknown Verified 04/23/24 13:44 Review of Systems General: Reports: 10 or more systems reviewed and unremarkable except in HPI and below PFSH ED PFSH: Medical History Common migraine with intractable migraine Intellectual disability Surgical History NICU RN (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) shunt status Family History Grandmother Hypertension Hypercholesteremia Denies family history of Colon cancer Ovarian cancer Prostate cancer Diabetes Heart disease Breast cancer Uterine cancer Thyroid disease Stroke Physical Exam Const: COMMON NORMALS: alert HENMT: HEAD & SCALP: normal to inspection Neck/C-Spine: COMMON NORMALS: full ROM Resp: COMMON NORMALS: normal respiratory effort Cardio: COMMON NORMALS: regular rhythm RHYTHM: regular rhythm GI: PALPATION: No Tenderness to palpation present (GI) Extremity: NARRATIVE EXTREMITY EXAM: Pedal edema noted. No significant redness or streaking. Patient has a small intact blister to the heel. LEFT LOWER EXTREMITY: Yes foot & digits (Distal abrasion second and third digit) Neuro: SENSORIUM/ORIENTATION: Yes alert Skin: NARRATIVE SKIN EXAM: Abrasions noted to the second and third digits of the left foot. Patient also has a intact blood-filled blister to the great toe. Patient has an intact clear fluid blister to the heel of the same foot. 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 Course Vital Signs: Vital signs: Vital Signs Temperature 97.9 F 05/22/24 13:21 Pulse Rate 102 H 05/22/24 13:21 Respiratory Rate 16 05/22/24 13:21 Blood Pressure 140/89 05/22/24 13:21 Pulse Oximetry 98 05/22/24 13:21 Oxygen Delivery Me thod Room Air 05/22/24 13:21 MDM - Wound/Laceration Medical Decision Making Patient comes in today for evaluation of injuries to the toe. Patient reports that she had injured her toes while going to the bathroom. Patient cannot recall how she injured the toes of the foot. Patient believes it happened this morning. Patient does have spina bifida and is required to use a wheelchair for mobility and does have decreased sensation to bilateral lower extremities. Injuries note abrasions to the distal second and third digit of the left foot. Appears to be 2 or 3 days old. No significant redness is noted. Granulation tissue is noted. Patient also has an intact blood-filled blister to the great toe and an intact clear fluid blister to the heel. Patient has some mild edema to the same foot. Differential diagnosis wound infection, abrasion, need for prophylaxis tetanus. Need for antibiotic therapy. Suspect wounds to be 2 or 3 days old. They could have started as blisters and since then has ruptured. Patient states that is more likely a abrasion. Will go ahead and treat with mupirocin ointment to the wound sites recommended that she leave blisters intact and follow-up with her hospital account liaison for further treatment. Recommended elevation of the feet to help with swelling. Patient will be started on doxycycline orally for secondary treatment of wound infection. Patient reports understanding of care plan need for follow-up or return to the ER. No radiology studies performed this visit Discharge Plan Discharge Patient Disposition: Home Clinical Impression: Abrasion foot/toe Qualifiers: Encounter type: initial encounter Laterality: left Qualified Code(s): S90.812A - Abrasion, left foot, initial encounter Condition: Stable Prescriptions: New doxycycline hyclate 100 mg tablet 100 mg PO BID 7 Days Qty: 14 0RF mupirocin [Centany] 2 % ointment 1 applic topical BID Qty: 22 0RF No Action (DME) CAM walker See Rx Instructions .Route .MEDSUPPLY Qty: 1 0RF Rx Instructions: As directed metoclopramide HCl [Reglan] 10 mg tablet 10 mg PO Q6H PRN (Reason: nausea and vomiting) Qty: 10 0RF promethazine 6.25 mg/5 mL syrup 6.25 mg PO Q6H PRN (Reason: nausea and vomiting) Qty: 120 0RF doxycycline hyclate 100 mg capsule 100 mg PO BID 7 Days Qty: 14 0RF trazodone 100 mg tablet See Rx Instructions .ROUTE .COMPLEX Qty: 30 0RF Dose Instruction: TAKE 1 TABLET BY MOUTH AT BEDTIME Rx Instructions: TAKE 1 TABLET BY MOUTH AT BEDTIME oxybutynin chloride 5 mg tablet 5 mg PO TID hydroxyzine HCl 10 mg tablet 5 mg PO BEDTIME topiramate 50 mg tablet 50 mg PO BID polyethylene glycol 3350 [Miralax] 17 gram powder in packet 17 g PO BID PRN (Reason: Constipation) duloxetine 60 mg capsule,delayed release(DR/EC) 120 mg PO QAM mupirocin 2 % ointment 1 applic topical DAILY Qty: 22 0RF ondansetron 8 mg tablet,disintegrating 8 mg PO Q6H Qty: 14 0RF Rx Instructions: Take 1/2-1 tab every 6 hours as needed for nausea and vomiting hydrochlorothiazide 12.5 mg tablet 12.5 mg PO DAILY Qty: 30 0RF cetirizine 10 mg Tablet 10 mg PO DAILY PRN (Reason: Allergic Symptoms) levothyroxine 25 mcg tablet 25 mcg PO QAM citalopram 20 mg tablet 20 mg PO QAM cyclobenzaprine 5 mg tablet 5 mg PO TID PRN (Reason: Muscle Spasm) Myrbetriq 25 mg tablet extended release 24 hr 25 mg PO QAM ondansetron HCl 8 mg tablet 8 mg PO Q8H PRN (Reason: Nausea) naproxen sodium [Aleve] 220 mg Tablet 220 mg PO BID PRN (Reason: Pain) nystatin 100,000 unit/gram powder 1 applic TOPICAL BID PRN (Reason: Rash) hydrocodone-acetaminophen 5-325 mg tablet 1 tab PO Q6H PRN (Reason: pain) Qty: 14 0RF Discharge Orders: Discharge ED (Routine); Ordered 05/22/24 Ordered By: James Calix Referrals: Lizette Soriano [Primary Care Provider] - Discharge Diet: Usual diet Discharge Activity: Increase activity as tolerated Patient Instructions: Abrasion (ED) Activity Restrictions/Additional Instructions: Clean wound twice a day and reapply dressing with antibiotic ointment. Make sure to clean the wound and dressed appropriately. Follow-up with Dr. Castellano in 3 to 5 days. Return to ER for new concerns or worsening symptoms. Print Language: [place] Coding Level of Care Code ED Motor Scooter Repairer for Jordana Chiu
[2024-05-22] MEDS: mupirocin oint 22 gm 1 APPLIC TOPICAL (14:50)
[2024-05-22] MEDS: doxycycline 100 mg Tablet PO (14:55)
[2024-05-22] MEDS: tetanus-dipt-pertussis 0.5 mL SDV IM (14:55)
--- NOTE | 2024-05-26 08:39 | DCPLANNER ---
Message sent to Podiatry for follow up-Abrasions noted to the second and third digits of the left foot. Patient also has a intact blood-filled blister to the great toe. Patient has an intact clear fluid blister to the heel of the same foot. 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
== END 2024-05-22 15:14 | disposition home or self-care (01) ==
PROVIDERS: Emergency Provider Nurse Practitioner Family; PCP Nurse Practitioner Family
DX: S90.812A Abrasion, left foot, initial encounter (principal); X58.XXXA Exposure to other specified factors, initial encounter
CPT/HCPCS: 90715; 99283

== ENCOUNTER → 2024-05-26 12:59 | Outpatient (BNVA) | payer MEDICARE, MEDICAID, SELFPAY | PROVIDERS: PCP Nurse Practitioner Family; Visit Provider Podiatrist Foot & Ankle Surgery | DX: M25.571 Pain in right ankle and joints of right foot (principal); L97.522 Non-pressure chronic ulcer of other part of left foot with fat layer exposed | CPT/HCPCS: 99213 ==

== ENCOUNTER → 2024-05-26 13:59 | Outpatient (BNVA) | payer SELFPAY | PROVIDERS: PCP Nurse Practitioner Family; Visit Provider Podiatrist Foot & Ankle Surgery | DX: L97.522 Non-pressure chronic ulcer of other part of left foot with fat layer exposed (principal); M25.571 Pain in right ankle and joints of right foot | CPT/HCPCS: 73610; 73630 ==

== ENCOUNTER → 2024-08-16 08:30 | Outpatient (BNVA) | payer MEDICARE, MEDICAID, SELFPAY | PROVIDERS: PCP Family Medicine; Visit Provider Podiatrist Foot & Ankle Surgery | DX: L03.116 Cellulitis of left lower limb (principal); L97.422 Non-pressure chronic ulcer of left heel and midfoot with fat layer exposed; B35.9 Dermatophytosis, unspecified; Q05.7 Lumbar spina bifida without hydrocephalus | CPT/HCPCS: 29445; 99214 ==

== ENCOUNTER → 2024-08-20 14:17 | Outpatient (BNVA) | payer MEDICARE, MEDICAID, SELFPAY | PROVIDERS: PCP Family Medicine; Visit Provider Podiatrist Foot & Ankle Surgery | DX: L03.116 Cellulitis of left lower limb (principal); L97.422 Non-pressure chronic ulcer of left heel and midfoot with fat layer exposed; B35.9 Dermatophytosis, unspecified; Q05.7 Lumbar spina bifida without hydrocephalus | CPT/HCPCS: 29445 ==

== ENCOUNTER → 2024-08-26 10:49 | Outpatient (BNVA) | payer OTHER, SELFPAY | PROVIDERS: PCP Family Medicine; Visit Provider Podiatrist Foot & Ankle Surgery | DX: M25.572 Pain in left ankle and joints of left foot (principal) | CPT/HCPCS: 73610 ==

== ENCOUNTER 2024-08-26 11:33 | Outpatient (CLI) | payer OTHER, SELFPAY | END 2024-08-26 11:34 | disposition home or self-care (01) | LOC: SPT 11:33 | PROVIDERS: PCP Family Medicine; Visit Provider Podiatrist Foot & Ankle Surgery | DX: Z46.89 Encounter for fitting and adjustment of other specified devices (principal); L97.524 Non-pressure chronic ulcer of other part of left foot with necrosis of bone | CPT/HCPCS: L4361 ==

== ENCOUNTER → 2024-09-29 12:42 | Outpatient (BNVA) | payer MEDICARE, MEDICAID, SELFPAY | PROVIDERS: PCP Family Medicine; Visit Provider Podiatrist Foot & Ankle Surgery | DX: L03.116 Cellulitis of left lower limb (principal); L97.422 Non-pressure chronic ulcer of left heel and midfoot with fat layer exposed; Q05.7 Lumbar spina bifida without hydrocephalus; M25.572 Pain in left ankle and joints of left foot | CPT/HCPCS: 99213 ==

== ENCOUNTER 2024-10-09 23:02 | Emergency (ER) | payer OTHER, SELFPAY ==
--- OUTSIDE RECORDS SUMMARY | 2022-05-31 10:15 | XMS_ITS | Continuity of Care Document ---
Author Organization [facility] Address [address] [id number] [address] Phone Care Team Providers Care Podiatry Doctor Name Role Phone Kin Thompson DDS Unavailable [...] Diagnoses Date Provider Providers Copied on Encounter [facility], [id number] [facility], [place], [place], [id number], [place] tel:[phone] [facility] No Information Donna Sanderson. [address] [place] [address], [address], . tel:[phone] Referring Provider: Kin Thompson, [address] [place] [address], [address]. tel:[phone] Family History Family Member Type Diagnosis Age At Onset No Information Payers Payer name Insurance type Covered alliance party ID Authorermaa snehal(s) D Medicaid [id number] Social History Type Description Quantity Date Captured [...]
[2024-10-09 23:12] VITALS: BP 106/67; PULSE 90; RESP 18; TEMP 36.7; O2SAT 98; BMI 42.2
--- OUTSIDE RECORDS SUMMARY | 2024-10-09 23:12 | XMS_ITS | Patient Health Record ---
Author Organization [facility] Address [address] [place] [address] Care Team Providers Care Interlocking Installer Name Role Phone Fransisca Alcocer Primary Care Provider UnaJeison Dunn Unavailable [phone] Allergies Allergen (clinical drug ingredient) Drug/Non Drug Allergy documented on EMR Reaction Allergy Type Onset Date Status Latex Latex allergy Allergy Active Reason For Referral No Information Medications Medication SIG (Take, Route, Frequency, Duration) Notes Start Date End Date Status Multivitamin - Tablet 1 tablet Orally Once a day Active DULoxetine HCl 60 MG Capsule Delayed Release Particles 1 capsule Orally Once a day Active oxyBUTYnin Chloride 5 MG Tablet 1 tab Orally TID 15 mg total -- 7am, 11am, 7pm Active Cetirizine HCl 10 MG Tablet 1 tablet Orally Once a day Active Fluticasone Propionate 50 MCG/ACT Suspension 1 spray in each nostril Nasally Once a day Not-Taking traZODone HCl 100 MG Tablet 1 tablet at bedtime Orally Once a day Active hydrOXYzine HCl 10 MG Tablet as directed Orally every 8 hrs Active medroxyPROGESTERone Acetate 150 MG/ML Suspension Prefilled Syringe 1 ml Intramuscular q 3months Not-Taking Topiramate 50 MG Tablet 1 tablet Orally Twice a day Active Sulfamethoxazole-Trimetho prim 800-160 MG Tablet 1 tablet Orally Once a day Active SUMAtriptan Succinate 100 MG Tablet 1 tablet at least 2 hours between doses as needed Orally PRN Not-Taking hydrOXYzine HCl 10 MG Tablet as directed Orally Active Acetaminophen 500 MG Capsule 1 capsule as needed Orally every 6 hrs PRN Not-Taking Ondansetron HCl 4 MG Tablet 1 tablet Orally PRN Active Celecoxib 200 MG Capsule 1 capsule with food Orally PRN Not-Taking Social History Tobacco Use: Social History Observation Description Date Details (start date - stop date) Never Smoker NA - NA Social History Drugs/Alcohol: Social Info Question Answer Notes Alcohol Screen (Audit-C) Did you have a drink containing alcohol in the past year? No Points 0 Interpretation Negative Drugs Have you used drugs other than those for medical reasons in the past 12 months? No Caffeine Intake: 1-2 cups per day Tobacco Use: Social Info Question Answer Notes xTobacco Use/Smoking Are you a nonsmoker Additional Details Category Social Info Options Details Drugs/Alcohol: Do you smoke marijuana? De nies Do you drink alcohol? No Problems Problem Type SNOMED Code ICD Code Onset Dates Problem Status W/U Status Risk Notes Problem Spina bifida occulta (62641623) Spina bifida occulta (Q76.0) Active confirmed Problem Chronic cystitis (92950358) Chronic cystitis (N30.20) Active confirmed Problem Constipation (93614047) Constipation, unspecified constipation type (K59.00) Active confirmed Problem Urinary incontinence (083235470) Urinary incontinence, unspecified type (R32) Active confirmed Problem Urinary tract infectious disease (52110946) UTI (urinary tract infection) (N39.0) Active confirmed Problem Hydrocephalus (992562127) Hydrocephalus (G91.9) Active confirmed Problem Recurrent urinary tract infection (103258777) Recurrent UTI (N39.0) Active confirmed Problem Neurogenic bladder (369521641) Neurogenic bladder (N31.9) Active confirmed Problem Neurogenic bowel (337256778) Neurogenic bowel (K59.2) Active confirmed Problem Ventricular shunt in situ (665909944) S/P BELL TIER shunt (Z98.2) Active confirmed Problem Spina bifida (78727636) Spina bifida, unspecified hydrocephalus presence, unspecified spinal region (Q05.9) Active confirmed Plan Of Treatment Pending Test Test Name Order Date US Renal w/bladder-[id number] 12/17/2021 Abdomen [id number] 12/17/2021 Insurance Providers Payer Name Payer Address Payer Phone Subscriber Number Group Number Insured Name Patient Relationship to Insured Coverage Start Date Coverage End Date [place] [address] [place] [address] [id number] Destiny Vigil Self - patient is the insured [place] Medicaid [address] [place] [address] [id number] Destiny Vigil Self - patient is the insured Medical (General) History Medical History History ICD Code spinabifada anxiety adjustment disorder suicidal ideation Surgical History Surgery Date(Month/Year) shunt placement head back surgeries colon surgery bladder surgery toe amputated left foot little toe Hospitalization History Reason Date(Month/Year) surgeries
--- OUTSIDE RECORDS SUMMARY | 2024-10-09 23:12 | XMS_ITS | Clinical Summary ---
Author Organization [facility] Address [address] Attn: [place] [address] Care Team Providers Care Correspondence Specialist Name Role Phone Joe Ochoa MD Primary Care Provider [phone] Allergies Active Allergy Reactions Criticality Noted Date Comments Adhesive Rash Medium 01/26/2021 Latex, Natural Rubber Unknown 03/14/2010 Vancomycin Hallucination Low 03/15/2024 Reaction: Basil syndrome Medications cetirizine (ZyrTEC) 10 mg tablet Take 10 mg by mouth daily. Active acetaminophen (TYLENOL) 325 mg tablet Take 650 mg by mouth. 02/22/20 23 Active triamcinolone acetonide (KENALOG) 0.025 % Cream 09/03/19 23 Active metoclopramide HCl (REGLAN) 10 mg tablet Take 10 mg by mouth every 6 hours as needed for Nausea/Emesis. Active hydrOXYzine HCL (ATARAX) 10 mg tabletIndications :GROVER (generalized anxiety disorder) Take 5 mg by mouth every 8 hours as needed for Anxiety. 90 Tablet 03/15/20 24 Active topiramate (TOPAMAX) 100 mg tabletIndications :Seizures (CMS/HCC) Take 1 Tablet (100 mg) by mouth 2 times daily. 180 Tablet 03/15/20 24 Active venlafaxine (EFFEXOR XR) 75 mg Extended Release 24 hour capsuleIndication s:Moderate episode of recurrent major depressive disorder (CMS/HCC) Take 1 Capsule (75 mg) by mouth daily. 90 Capsule 03/15/20 24 Active ondansetron (ZOFRAN) 4 mg/5 mL SolutionIndicatio ns:Nausea and vomiting, unspecified vomiting type Take 5 mL (4 mg) by mouth every 8 hours as needed for Nausea. 100 mL 1 03/15/20 24 Active medroxyPROGESTERo ne (DEPO-PROVERA) 150 mg/mL SyringeIndication s:Depo-Provera contraceptive status Inject 1 mL (150 mg) by intramuscular injection every 90 days. 1 mL 3 03/24/19 25 Active hydroCHLOROthiazi de 12.5 mg tabletIndications :Benign hypertension TAKE 1 TABLET(12.5 MG) BY MOUTH DAILY 100 Tablet 1 06/17/19 25 Active oxyBUTYnin (DITROPAN) 5 mg tabletIndications :Neurogenic bladder TAKE 1 TABLET(5 MG) BY MOUTH THREE TIMES DAILY 300 Tablet 3 06/22/19 25 Active traZODone (DESYREL) 100 mg tabletIndications :Primary insomnia TAKE 1 TABLET(100 MG) BY MOUTH DAILY AT BEDTIME 100 Tablet 3 06/22/19 25 Active Active Problems Problem Noted Date Diagnosed Date Moderate episode of recurrent major depressive d isorder 03/15/2024 GROVER (generalized anxiety disorder) 03/15/2024 Neurogenic bladder 03/15/2024 Seizures 03/15/2024 Primary insomnia 03/15/2024 Benign hypertension 03/15/2024 Morbid obesity with body mass index (BMI) of 40. 0 or higher 03/15/2024 Spina bifida of lumbar region 03/15/2024 Encounters Date Type Department Care Team Description 09/29/2024 External Device Data [facility] ABSTRACTION Provider, Abstract 09/28/2024 External Device Data [facility] Provider, Abstract 08/31/2024 External Device Data [facility] Provider, Abstract 08/05/2024 External Device Data [facility] Provider, Abstract 08/05/2024 External Device Data [facility] Provider, Abstract 08/04/2024 External Device Data [facility] Provider, Abstract 08/03/2024 External Device Data [facility]CTION Provider, Abstract from Last 3 Months Immunizations Immunization Administration Dates Next Due (ACTHIB/HIBERIX)(2 MOS-5 YRS /6 WKS-4 YRS) HAEMOPHILUS INFLUENZAE TYPE B VACCINE (HIB), PRP-T CONJUGATE, 4 DOSE, 0.5 ML IM 2002 (ADACEL/BOOSTRIX)(10 YR UP) TDAP VACCINE, 0.5ML, IM 08/04/2016 (BEXSERO)(10-25 YR) MENINGOC OCCAL RECOMBIANT PROTEIN AND OUTER MEMBRANE VESICLE VACCINE, SEROGROUP B MENB-4C, 2 DOSE IM 09/14/2020 (GARDASIL 9)(9-45 YRS) HUMAN PAPILLOMAVIRUS VACCINE, TYPES 6, 11, 16, 18, 31, 33, 45, 52, 58, NONAVALENT (9VHPV), 2 OR 3 DOSE, IM 04/10/2017,12/09/2016,11/07/2016 (HAVRIX/VAQTA)(12 MO-18 YRS) HEPATITIS A VACCINE 0.5 ML PED/ADOL 2 DOSE, IM 09/14/2020,07/07/2015 (INFANRIX)(6 WKS-6 YRS) DIPT HERIA, TETANUS TOXOIDS, AND ACCELLULAR PERTUSSIS VACCINE (DTAP), 0.5 ML IM 12/06/2003,2002,2002,04/28,2002 (IPOL)(6 WKS AND UP) POLIOVI MERCY VACCINE, INACTIVATED (IPV), 3 DOSE, SUBCUT OR IM 07/07/2015,2002,2002,04/28,2002 (M-M-R II/PRIORIX)(12 MO UP) MEASLES, MUMPS AND RUBELLA VIRUS VACCINE, 0.5 ML IM/SUBCUT 07/07/2015,04/22/2003 (MENACTRA)(9 MO-55 YR) MENIN GOCOCCAL POLYSACCHARIDE A, C, Y AND W-135 DIPTHERIA TOXOID CONJUGATE VACCINE, (PF), 0.5ML, IM 09/14/2020,07/07/2015 (PEDIARIX)(6 WKS-6 YRS) DIPT HERIA, TETANUS TOXOIDS, ACELLULAR PERTUSSIS, HEPATITIS B, AND INACTIVATED POLIOVIRUS VACCINE (DIYX-MHJG-FKU), 0.5ML, IM 2002,2002 (RECOMBIVAX HB/ENGERIX-B)(0- 19 YRS) HEPATITIS B VACCINE 5 MCG/0.5 ML OR 10 MCG/0.5 ML PED OR ADOL 3 DOSE (PF), IM 2002,2002 (VARIVAX)(12 MOS UP)VARICELL A VIRUS VACCINE (PF) 0.5 ML, SUB CUT 12/23/2013,11/09/2013 Adacel Vaccine > 7 Yo IM 08/04/2016,11/09/2013 HIB, Unspecified Formulation 12/06/2003, 2002,2002,04/28,2002,2002 HPV 9 Vaccine 3-dose PF IM SCHIP 04/10/2017,11/16,11/07/2016 Hepatitis B Vaccine 2002, 3,2002,02/27 INFLUENZA VACCINE QUADRIVALE NT 6 MOS UP PF IM 01/01/2022,01/10/2021,12/17/2018 INFLUENZA VACCINE TRIVALENT SPLIT VIRUS, (6 MOS UP), 0.5ML (PF), IM 03/15/2024 Influenza Seasonal Unspecifi ed Formulation IM 03/15/2024,01/01/2022,01/10/2021,12/17 Influenza Virus Vaccine, Spl it Virus (Incl. Purified Surface antigen)-retired CODE 01/02/2012 Pneumococcal 7-valent conjug ate vaccine IM 2002 Social History Tobacco Use Types Packs/Day Years Used Date Smoking Tobacco: Every Day Cigarettes Smokeless Tobacco: Never Tobacco Cessation:Ready to Q uit: No; Counseling Given: Yes Alcohol Use Standard Drinks/Week Comments Not Currently 0 (1 standard drink = 0.6 oz pur e alcohol) Comments No Sex and Gender Information Value Date Recorded Sex Assigned at Not on file Legal Sex Female 3:52 PM LIBRARY SUPERVISOR Gender Identity Not on file Sexual Orientation Not on file Last Filed Vital Signs Vital Sign Reading Time Taken Comments Blood Pressure 110/78 04/12/2024 8:42 AM LIBRARY SUPERVISOR Pulse 103 03/15/2024 8:03 AM LIBRARY SUPERVISOR Temperature 37.5 C (99.5 F) 03/15/2024 8:03 AM LIBRARY SUPERVISOR Respiratory Rate 25 03/15/2024 8:03 AM LIBRARY SUPERVISOR Oxygen Saturation 98% 03/15/2024 8:03 AM LIBRARY SUPERVISOR Inhaled Oxygen Concentration - - Weight 94.8 kg (209 lb) 05/10/2024 12:41 PM LIBRARY SUPERVISOR pt reported Height 149.9 cm (4' 11 ) 05/10/2024 12:41 PM LIBRARY SUPERVISOR Body Mass Index 42.21 05/10/2024 12:41 PM LIBRARY SUPERVISOR Plan of Treatment Health Maintenance Due Date Last Done Comments CHLAMYDIA SCREENING (ANNUAL) 11-24 YEARS 2013 CERVICAL CANCER SCREENING 2023 HPV/Cotest (21-29) 2023 PAP SMEAR 2023 COVID-19 Vaccine (3 - 2023-2 5 season) 2023 08/31/2021, 09/29/2020 INFLUENZA VACCINE (#1) 2024 , 03/15/2024, 01/01/2022, Additional history exists DTAP/TDAP/TD VACCINES (8 - T d or Tdap) 08/04/2026 08/04/2016, 08/04/2016, 11/09/2013, Additional history exists HEPATITIS B VACCINES Completed 2002, 2002, 2002, Additional history exists HPV VACCINES Completed 04/10/2017, 03/18, 12/09/2016, Additional history exists Care Teams Correspondence Specialist Relationship Specialty Start Date End Date Joe Ochoa MD [address] [address] PCP - General Family Practice 03/15/24
--- OUTSIDE RECORDS SUMMARY | 2024-10-09 23:13 | XMS_ITS | Patient Health Record ---
Author Organization [facility] Address [address] [place] [address] Support Name Relationship Address Phone Nithya Vigil Guarantor Unknown Reason For Referral No Information Medications Medication SIG (Take, Route, Frequency, Duration) Notes Start Date End Date Status Fluoxetine Active Cetirizine HCl Activ e Meclizine HCl Active hydrOXYzine HCl Acti ve Omeprazole Active oxyBUTYnin 3.9 MG/24HR Patch Twice Weekly 1 patch to skin Transdermal Two times a Week Active Naproxen Active Social History Sex Assigned At : Social History Observation Description Sex Assigned At Female Plan Of Treatment No Information Insurance Providers Payer Name Payer Address Payer Phone Subscriber Number Group Number Insured Name Patient Relationship to Insured Coverage Start Date Coverage End Date Medicaid [address] [place] [phone] [id number] Nithya Vigil Self - patient is the insured Medicaid Dental [address] [place] [phone] [id number] Nithya Vigil Self - patient is the insured Medical (General) History Medical History History ICD Code spina bifida
[2024-10-09 23:52] VITALS: BP 141/84; PULSE 107; O2SAT 99
--- NOTE | 2024-10-10 00:03 | XRR_ITS ---
PROCEDURE INFORMATION: Exam: XR Right Shoulder Exam date and time: 10/10/2024 12:09 AM Age: 24 years old Clinical indication: Pain; Shoulder; Right; Additional info: R shoulder pain TECHNIQUE: Imaging protocol: Radiologic exam of the right shoulder. Views: 2 or more views. COMPARISON: [place] [id number] 12/13/2022 12:17 AM FINDINGS: Tubes, catheters and devices: Ventriculoperitoneal tubing traverses the right chest. Bones/joints: No acute fracture. No dislocation. Normal bone mineralization. No joint effusion. Joint spaces are maintained. Stable mild scoliosis in the visualized spine. Lungs: Visualized lungs are clear. Soft tissues: No soft tissue swelling/emphysema. No radiopaque foreign body. XR/XR shoulder RT min 2V* [id number] IMPRESSION: 1. No acute fracture of the right shoulder. Followup radiographs recommended in 7-14 days if clinical concern for fracture persists. 2. Stable mild scoliosis in the visualized spine. 3. Incidental/nonacute findings are listed in the report.
[2024-10-10 00:34] LABS: Hematocrit 46.2 % (36-47); Hemoglobin 14.60 g/dL (11.27-16.99); Mean Corpuscular HGB Conc 31.6 g/dL (30-55); Mean Corpuscular Hemoglobin 28.6 pg (27-33); Mean Corpuscular Volume 90.4 fl (85-98); Nucleated Red Blood Cells % 0 %; Platelet Count 305 10^3/cmm (157-399); Red Blood Count 5.11 10^6/uL (3.85-5.65); White Blood Count 7.23 10^3/uL (3.29-11.43)
--- NOTE | 2024-10-10 00:35 | ECG_ITS ---
[facility] [place] [place] [facility] Date: 2024-10-10 Pat Name: Nithya Vigil Department: Room: Gender: Female Clinical Trial Assistant: : 2000 Requested By: Marciano Rowan Order Number: [id number] Reading MD: Measurements Intervals Toutle Rate: 86 P: 52 MA: 163 QRS: 15 QRSD: 110 T: 16 QT: 362 QTc: 433 Interpretive Statements SINUS RHYTHM [email or web address]
[2024-10-10 00:46] VITALS: BP 138/74; PULSE 86; RESP 17; O2SAT 98
[2024-10-10 01:00] LABS: Alanine Aminotransferase 18 U/L (0-33); Albumin Level 4.4 g/dL (3.5-5.2); Alkaline Phosphatase 122 U/L (35-105); Anion Gap 17.9 (5-19); Aspartate Amino Transferase 16 U/L (0-32); Blood Urea Nitrogen 13 mg/dL (6-20); Calcium 9.6 mg/dL (8.5-10.5); Carbon Dioxide 18 mmol/L (22-29); Chloride 107 mmol/L (98-107); Creatinine Clr Calc Pharmacy 188.6615; Globulin 3.6 g/dL (1.3-4.6); Glucose 78 mg/dL (65-115); Osmolality Calculated 287 mOsm/kg (285-295); Potassium 3.9 mmol/L (3.5-5.1); Sodium 139 mmol/L (136-145); Thyroid Stimulating Hormone 0.98 uIU/mL (0.27-4.20); Total Protein 8.0 g/dL (6.6-8.7)
[2024-10-10 01:01] LABS: Acetaminophen < 5.0 ug/mL (10-30); Alcohol Level < 10 mg/dL (0-10); Salicylate < 0.3 mg/dL (3-10)
--- NOTE | 2024-10-10 01:01 | ED.C_ITS ---
HPI - Psych 2 General: Chief Complaint: Psychiatric Symptoms Stated Complaint: MHE Time Seen by Provider: 10/09/24 23:54 History of Present Illness: 24-year-old female presenting with worse clint depression, homicidal ideation. She says that she has not been able to obtain her duloxetine for a month or so. She is very tearful and upset, saying that she cannot handle stress at home, and is made her homicidal. She does not currently have a plan. She has had a history of psychiatric admission in the past. She has been taking her other medication as prescribed. She denies fever, recent illness. She does complain of chronic right shoulder pain Related Data Home Medications ?Medication ?Instructions ?Recorded ?Confirmed hydroxyzine HCl 10 mg tablet 5 mg PO BEDTIME 03/14/22 09/29/24 oxybutynin chloride 5 mg tablet 5 mg PO TID 03/14/22 0 09/29/24 topiramate 50 mg tablet 50 mg PO BID 03/14/22 cetirizine 10 mg tablet 10 mg PO DAILY PRN Allergic 12/02/22 09/29/24 Symptoms citalopram 20 mg tablet 20 mg PO QAM 12/02/22 levothyroxine 25 mcg tablet 25 mcg PO QAM 12/02/22 naproxen sodium 220 mg tablet 220 mg PO BID PRN Pain 1 03/29/22 09/29/24 (Aleve) nystatin 100,000 unit/gram topical 1 applic topical BI D PRN Rash 01/27/23 09/29/24 powder Previous Rx's ?Medication ?Instructions ?Recorded mupirocin 2 % topical ointment 1 applic topical DAILY #22 grams 03/19/23 hydrochlorothiazide 12.5 mg tablet 12.5 mg PO DAILY #3 0 tabs 01/30/24 trazodone 100 mg tablet See Rx Instructions .Route 1 04/18/23 .COMPLEX #30 tabs mupirocin 2 % topical ointment 1 applic topical BID #2 2 grams 05/22/24 (Centany) cyclobenzaprine 5 mg tablet 5 mg PO .qpm PRN Muscle Sp asm #30 08/13/24 tabs metoclopramide HCl 10 mg tablet 10 mg PO Q6H PRN nause a and 08/13/24 (Reglan) vomiting #90 tabs ketoconazole 2 % topical cream 1 applic topical TID #1 5 grams 08/16/24 sulfamethoxazole 800 1 tab PO Q12H #14 tabs 08/16 mg-trimethoprim 160 mg tablet (Bactrim DS) CAM walker #1 ea 08/26/24 Diapers Adult PUll ons #60 ea 09/24/24 Wheelchair #1 ea 09/24/24 duloxetine 60 mg capsule,delayed 120 mg (2 x 60 mg) PO QAM #60 caps 09/24/24 release Allergies Allergy/AdvReac Type Severity Reaction Status Date / Time adhesive Allergy ALGY-Rash Verified 09/29/24 12:44 cephalexin Allergy itch Verified 09/29/24 12:44 clindamycin Allergy Unknown Verified 09/29/24 12:44 latex Allergy Unknown Verified 09/29/24 12:44 PFS ED 2 PFSH: Medical History (Updated 10/10/24 @ 01:03 by Marciano Ramirez, DO) Unable to walk Adult onset hypothyroidism Chronic suprapubic catheter Cecostomy status Dependent edema Seizure Spina bifida Generalized anxiety disorder Major depressive disorder, recurrent, moderate Common migraine with intractable migraine Intellectual disability Surgical History Hx of colostomy some type of tube in R side of abdomen that she connects to fluids and it makes her have BM History of suprapubic catheter Hx of foot surgery Left foot surgery--had to have toes amputated b/c of infection History of lumbar surgery [employer] (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) shunt status Family History Grandmother Hypertension Hypercholesteremia Denies family history of Colon cancer Ovarian cancer Prostate cancer Diabetes Heart disease Breast cancer Uterine cancer Thyroid disease Stroke Social History Smoking and tobacco/nicotine status: current every day tobacco/nicotine user Alcohol intake: never Substance/Drug Use: current Substance/Drug use frequency: Special occassions/opportunity only Physical Exam 2 Const: GENERAL APPEARANCE: cooperative and anxious; not ill appearing and not frail appearing ORIENTATION/CONSCIOUSNESS: Yes awake HENMT: COMMON NORMALS: normocephalic, atraumatic and Normal external nose present HEAD & SCALP: normocephalic and atraumatic FACE & SINUS: normal facial exam and face symmetric NOSE: Normal external nose present Eye: COMMON NORMALS: Equal, round and reactive pupils present and EOMs intact bilaterally PUPIL: Yes Equal, round and reactive pupils present Neck/C-Spine: GENERAL: Yes trachea midline Chest: CHEST: Yes Symmetrical chest wall rise Resp: COMMON NORMALS: normal respiratory effort, No retractions, No use of accessory muscles and clear to auscultation bilaterally AUSCULTATION: clear to auscultation bilaterally Cardio: COMMON NORMALS: regular rate and regular rhythm RATE: regular rate RHYTHM: regular rhythm GI: COMMON NORMALS: Normal to inspection, nondistended, normoactive bowel sounds present Extremity: COMMON NORMALS: no pedal edema Neuro: BEN COMA SCALE: document GCS findings Ben coma scale eye opening: Spontaneous Ben coma scale verbal response: Orientated [place] coma scale motor response: Obey commands Ben coma scale total score: 15 S ENSORY EXAM: Yes extremities (intact) Psych: COMMON NORMALS: speech normal SPEECH: Yes normal speech Skin: COMMON NORMALS: no rashes or lesions noted GENERAL SKIN EXAM: no rashes or lesions noted Course 2 Vital Signs: Vital signs: Vital Signs Temperature 98.0 F 10/09/24 23:12 Pulse Rate 104 H 10/10/24 05:04 Respiratory Rate 17 10/10/24 00:46 Blood Pressure 125/77 10/10/24 05:04 Pulse Oximetry 97 10/10/24 05:04 Oxygen Delivery Me thod Room Air 10/10/24 05:04 MDM - Psych Medical Decision Making Shoulder x-ray is negative. CBC BMP are not remarkable. TSH is 0.98. Liver enzymes are normal. Shoulder x-ray shows no acute disease. The patient is homicidal at this point. She has mild developmental delay, but performs all of her daily functions on her own, and has attended therapy in the past. She is given Zyprexa and lorazepam for significant anxiety and agitation here with good improvement. We do not have a bed available at this facility currently for psychiatry. We will attempt transfer. She is willing at this point. Medically, she is quite stable. Lab Data 10/10/24 00:29 10/10/24 00:29 Radiology Impressions Shoulder X-Ray 10/10/24 00:03 IMPRESSION: 1. No acute fracture of the right shoulder. Followup radiographs recommended in 7-14 days if clinical concern for fracture persists. 2. Stable mild scoliosis in the visualized spine. 3. Incidental/nonacute findings are listed in the report. Laboratory Results WBC 7.23 10^3/uL (3.29-11.43) 10/10/24 00: RBC 5.11 10^6/uL (3.85-5.65) 10/10/24 00: Hgb 14.60 g/dL (11.27-16.99) 10/10/24 00: Hct 46.2 % (36-47) 10/10/24 00: MCV 90.4 fl (85-98) 10/10/24 00: MCH 28.6 pg (27-33) 10/10/24 00: MCHC 31.6 g/dL (30-55) 10/10/24 00: RDW 12.8 % (12.1-15.1) 10/10/24 00: Plt Count 305 10^3/cmm (157-399) 10/10/24 00: MPV 9.7 fL (7.4-10.4) 10/10/24 00: Neut % (Auto) 59.9 % 10/10/24 00: Lymph % (Auto) 33.3 % 10/10/24 00: [place] % (Auto) 5.1 % 10/10/24 00: Eos % (Auto) 1.2 % 10/10/24 00: Baso % (Auto) 0.4 % 10/10/24 00: Neut # (Auto) 4.32 10^3/uL (1.8-7.7) 10/10/24 00: Lymph # (Auto) 2.4 10^3/uL (0.8-4.8) 10/10/24 00: [place] # (Auto) 0.4 10^3/uL (0.2-0.9) 10/10/24 00: Eos # (Auto) 0.1 10^3/uL (0.0-0.8) 10/10/24 00: Baso # (Auto) 0.0 10^3/uL (0.0-0.1) 10/10/24 00: Nucleated RBC % (auto) 0 % 10/10/24 00 Nucleated RBCs # 0.0 /100WBC 10/10/24 00: Sodium 139 mmol/L (136-145) 10/10/24 00: Potassium 3.9 mmol/L (3.5-5.1) 10/10/24 00: Chloride 107 mmol/L (98-107) 10/10/24: Carbon Dioxide 18 mmol/L (22-29) L 10/10/24 00: Anion Gap 17.9 (5-19) 10/10/24 00: BUN 13 mg/dL (6-20) 10/10/24: Creatinine 0.7 mg/dL (0.5-0.9) 10/10/24: GFR Calculation 104.6 mL/min (90-130) 10/10/24 00 Glucose 78 mg/dL (65-115) 10/10/24 00 Calculated Osmolality 287 mOsm/kg (285-295) 10/10/24 00: Calcium 9.6 mg/dL (8.5-10.5) 10/10/24 00: Total Bilirubin 0.4 mg/dL (0.15-1.2) 10/10/24 00: AST 16 U/L (0-32) 10/10/24 00: ALT 18 U/L (0-33) 10/10/24 00: Alkaline Phosphatase 122 U/L (35-105) H 10/10/24 00: Total Protein 8.0 g/dL (6.6-8.7) 10/10/24 00: Albumin 4.4 g/dL (3.5-5.2) 10/10/24 00: Globulin 3.6 g/dL (1.3-4.6) 10/10/24 00: TSH 0.98 uIU/mL (0.27-4.20) 10/10/24 00: HCG, Qual Negative (Negative) 10/10/24 01:13 Urine Color Yellow (Yellow) 10/10/24 01:13 Urine Appearance Cloudy (CLEAR) A 10/10/24 01:13 Urine pH 6.5 (5-7) 10/10/24 01:13 Ur Specific [place] 1.015 (1.005-1.030) 10/10/24 01:13 Urine Protein Trace (Negative) A 10/10/24 01:13 Urine Glucose (UA) Negative (Normal) 10/10/24 01:13 Urine Ketones Negative (Negative) 10/10/24 01:13 Urine Blood Non-haemolysed trace (Negative) 10/10/24 01:13 Urine Nitrate Positive (Negative) A 10/10/24 01:13 Urine Bilirubin Negative (Negative) 10/10/24 01:13 Urine Urobilinogen 1.0 mg/dL (Negative) 10/10/24 01:13 Ur Leukocyte Esterase 1+ (Negative) A 10/10/24 01:13 Urine RBC 0-2 /hpf (0-2) 10/10/24 01:13 Urine WBC 21-50 /hpf (0-5) H 10/10/24 01:13 Ur Squamous Epith Cells 11-20 /hpf (0-5) H 10/10/24 01:13 Amorphous Sediment Not Reportable 10/10/24 01:13 Urine Bacteria 3+ /hpf (NONE) H 10/10/24 01:13 Hyaline Casts 3.71 /lpf 10/10/24 01:13 Salicylates < 0.3 mg/dL (3-10) L 10/10/24 00:29 Urine Opiates Screen Negative ng/mL (Negative) 10/10/24 01:13 Acetaminophen < 5.0 ug/mL (10-30) L 10/10/24 00:29 Ur Barbiturates Screen Negative ng/mL (Negative) 10/10/24 01:13 Ur Phencyclidine Scrn Negative ng/mL (Negative) 10/10/24 01:13 Ur Amphetamines Screen Negative ng/mL (Negative) 10/10/24 01:13 U Benzodiazepines Scrn Negative ng/mL (Negative) 10/10/24 01:13 Urine Cocaine Screen Negative ng/mL (Negative) 10/10/24 01:13 U Marijuana (THC) Screen Negative ng/mL (Negative) 10/10/24 01:13 Ethyl Alcohol < 10 mg/dL (0-10) 10/10/24 00:29 Influenza A (PCR) Negative (Negative) 10/10/24 00:46 Influenza Type B (PCR) Negative (Negative) 10/10/24 00:46 RSV (PCR) Negative (Negative) 10/10/24 00:46 SARS-CoV-2 (PCR) Negative (Negative) 10/10/24 00:46 No radiology studies performed this visit Discharge Plan Discharge Patient Disposition: Xfer Psychiatric Hosp Clinical Impression: Homicidal ideation Condition: Stable Referrals: Elza Dennis MD [Primary Care Provider, [facility]] Print Language: Kyrgyz Coding Level of Care Code ED Forming Mill Operator for Jordana Chiu
[2024-10-10 01:32] LABS: HCG Qualitative Urine. Negative (Negative)
[2024-10-10 01:35] LABS: Glucose Urine UA Negative (Normal); Nitrate Urine Positive (Negative); Specific Gravity, Urine 1.015 (1.005-1.030)
[2024-10-10 01:39] LABS: Respiratory Syncytial Virus Ce NEGATIVE (Negative); SARS-CoV-2 PCR NEGATIVE (Negative)
[2024-10-10 01:40] LABS: Add Urine Microscopic? YES
[2024-10-10 01:41] LABS: PCP Screen Urine Negative (Negative)
[2024-10-10 01:55] LABS: UA Slide Review UA Slide Review Perf
[2024-10-10 05:04] VITALS: BP 125/77; PULSE 104; O2SAT 97
[2024-10-10 08:27] VITALS: PULSE 97; RESP 14; O2SAT 98
--- NOTE | 2024-10-10 14:19 | PC.PHAR ---
Unable to verify current medications. Pt last had med rec in 2022. I left most current medications this year and pertinent meds like Topiramate 100mg and Levothyroxine 25mcg. Put last fill date and day supply in pharmacy notes.
[2024-10-10 14:59] VITALS: BP 93/58; PULSE 75; RESP 18; O2SAT 93
[2024-10-10 15:24] VITALS: BP 93/56; PULSE 75; O2SAT 95
== END 2024-10-10 15:25 ==
PROVIDERS: Emergency Provider Emergency Medicine; PCP Family Medicine
DX: R45.850 Homicidal ideations (principal); Z11.52 Encounter for screening for COVID-19
CPT/HCPCS: 36415; 73030; 80053; 80306; 80307; 81001; 81025; 84443; 85025; 87637; 93005; 99285; J9999

== ENCOUNTER 2024-10-28 20:11 | Emergency (ER) | payer OTHER, SELFPAY ==
--- OUTSIDE RECORDS SUMMARY | 2024-08-31 04:50 | XMS_ITS ---
Author Organization [employer] y, [facility] Address [address] [place] [address] Care Team Providers Care Ship Carpenter Name Role Phone Fransisca Flores Primary Care Provider [facility] Dahl Unavailable [phone] BRIAN MARCIAL Unavailable [phone] REASON FOR VISIT Neurogenic bladder/SP Tube (Saw [...] every 6 hrs PRN *[facility]* Not-Taking Topiramate 50 MG 1 tablet Orally Twice a day Active Encounters Encounter Location Date Provider Diagnosis [facility] [address] [place] [address] 08/31/2024 BRIAN MARCIAL Plan Of Treatment No Information Progress Notes * Destiny VIGIL SDOB:1999 (24 yo F)Acc No.[id number]:08/31/2024 Progress Notes Patient: Destiny AMBROSIO Provider: RHINA Salinas :2000 A ge:24 Y S ex:Female Date:08/31/2024 Address:[address] [place], [place] [id number] Pcp:Fransisca Flores Subjective: * Chief Complaints: * [...] Notes to Pharmacist: *[facility]* Objective: * Vitals: Assessment: Plan: * Treatment: * Billing Information: * Visit Code: * Procedure Codes: * Electronic signature of BRIAN MARCIAL APRN on 10/28/2024 at 08:24 PM CDT Sign off status: Pending * Provider: Cezar Marcial APRN-[facility] Date: 0 08/31/2024 Generated for Esthela mohr/Sabrina/Ghulam on: 0 10/28/2024 08:24 PM CDT
[2024-10-28 20:19] VITALS: BP 113/73; PULSE 121; RESP 18; TEMP 37.1; O2SAT 97; BMI 42.2
--- OUTSIDE RECORDS SUMMARY | 2024-10-28 20:24 | XMS_ITS | Patient Health Record ---
Author Organization [facility] Address [address] [place] [address] Care Team Providers Care Cleaning Supervisor Name Role Phone Fransisca Flores Primary Care Provider [facility] Unavailable [phone] BRIAN MARCIAL Unavailable [phone] Allergies Allergen (clinical drug ingredient) Drug/Non Drug Allergy documented on EMR Reaction Allergy Type Onset Date Status Latex Latex allergy Allergy Active Reason For Referral No Information Medications Medication SIG (Take, Route, Frequency, Duration) Notes Start Date End Date Status Fluticasone Propionate 50 MCG/ACT 1 spray in each nostril Nasally Once a day Not-Taking medroxyPROGESTERone Acetate 150 MG/ML 1 ml Intramuscular q 3months Not-Taking DULoxetine HCl 60 MG 1 capsule Orally Once a day Active SUMAtriptan Succinate 100 MG 1 tablet at least 2 hours between doses as needed Orally PRN Not-Taking oxyBUTYnin Chloride 5 MG 1 tab Orally TID 15 mg total -- 7am, 11am, 7pm Active Sulfamethoxazole-Trimeth oprim 800-160 MG 1 tablet Orally Once a day Active Celecoxib 200 MG 1 capsule with food Orally PRN Not-Taking Ondansetron HCl 4 MG 1 tablet Orally PRN Active hydrOXYzine HCl 10 MG as directed Orally Active hydrOXYzine HCl 10 MG as directed Orally every 8 hrs Active traZODone HCl 100 MG 1 tablet at bedtime Orally Once a day Active Multivitamin - 1 tablet Orally Once a day Active Acetaminophen 500 MG 1 capsule as needed Orally every 6 hrs PRN *Pick strength-form from [employer] for eRX* Not-Taking Cetirizine HCl 10 MG 1 tablet Orally Once a day Active Topiramate 50 MG 1 tablet Orally Twice a day Active Problems Problem Type SNOMED Code ICD Code Onset Dates Problem Status W/U Status Risk Notes Problem Spina bifida occulta (43807774) Spina bifida occulta (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.0) Active confirmed Problem Neurogenic bladder (287250104) Neurogenic bladder (N31.9) Active confirmed Problem Urinary tract infectious disease (56525553) UTI (urinary tract infection) (N39.0) Active confirmed Problem Constipation (46134834) Constipation, unspecified constipation type (K59.00) Active confirmed Problem Neurogenic bowel (818908509) Neurogenic bowel (K59.2) Active confirmed Problem Chronic cystitis (06123115) Chronic cystitis (N30.20) Active confirmed Problem Spina bifida (45553805) Spina bifida, unspecified hydrocephalus presence, unspecified spinal region (Q05.9) Active confirmed Problem Urinary incontinence (856526339) Urinary incontinence, unspecified type (R32) Active confirmed Problem Recurrent urinary tract infection (760854548) Recurrent UTI (N39.0) Active confirmed Problem Ventricular shunt in situ (522349658) S/P CLINICAL ACCOUNT SPECIALIST shunt (Z98.2) Active confirmed Problem Hydrocephalus (181052660) Hydrocephalus (G91.9) Active confirmed Encounters Encounter Location Date Provider Diagnosis [facility], [facility] [address] [place] [address] 08/16/2024 [facility] Plan Of Treatment Pending Test Test Name Order Date UA Dip / Urinalysis, Routine 12/17/2021 Basic Metabolic Panel [id number] 06/18/2021 US Renal w/bladder-68425 06/18/2021 US Renal w/bladder-17143 12/17/2021 Abdomen [id number] 06/18/2021 Abdomen [id number] 12/17/2021 Insurance Providers Payer Name Payer Address Payer Phone Subscriber Number Group Number Insured Name Patient Relationship to Insured Coverage Start Date Coverage End Date [place] [address] [place], [place] [id number] Destiny Vigil Self - patient is the insured Medical (General) History Medical History History ICD Code spinabifada anxiety adjustment disorder suicidal ideation Surgical History Surgery Date(Month/Year) shunt placement head back surgeries colon surgery bladder surgery toe amputated left foot little toe Hospitalization History Reason Date(Month/Year) surgeries
--- OUTSIDE RECORDS SUMMARY | 2024-10-28 20:24 | XMS_ITS | Patient Health Record ---
Author Organization [facility] Address [address] [place] [address] Support Name Relationship Address Phone Nithya Vigil Guarantor Unknown [phone] Reason For Referral No Information Medications Medication [...] Coverage End Date Medicaid [address] [place] [address] [phone] [id number] Nithya Vigil Self - patient is the insured Medicaid Dental [address] [place] [phone] [id number] Nithya Vigil Self - patient is the insured Medical (General) History Medical History History ICD Code spina bifida
--- OUTSIDE RECORDS SUMMARY | 2024-10-28 20:24 | XMS_ITS | Patient Health Record ---
Author Organization [facility] Address [address] [place] [address] Care Team Providers Care Hip Hop Artist Name Role Phone Fransisca Alcocer Primary Care Provider UnaJeison Dunn Unavailable [phone] Allergies Allergen (clinical drug ingredient) Drug/Non Drug [...] Problem Status W/U Status Risk Notes Problem Adjustment disorder with mixed disturbance of emotions AND conduct (50852292) Adjustment disorder with mixed disturbance of emotions and conduct (F43.25) Active confirmed Problem Spina bifida occulta (76805356) Spina bifida occulta (Q76.0) Active confirmed Problem Chronic cystitis (30107008) Chronic cystitis (N30.20) Active confirmed Problem Anxiety (52837926) Anxiety (F41.9) Active confirmed Problem Constipation (57724741) Constipation, unspecified constipation type (K59.00) Active confirmed Problem Urinary incontinence (641540751) Urinary incontinence, unspecified type (R32) Active confirmed Problem Urinary tract infectious disease (78764555) UTI (urinary tract infection) (N39.0) Active confirmed Problem Hydrocephalus (691459423) Hydrocephalus (G91.9) Active confirmed Problem Recurrent urinary tract infection (358180983) Recurrent UTI (N39.0) Active confirmed Problem Neurogenic bladder (862726372) Neurogenic bladder (N31.9) Active confirmed Problem Neurogenic bowel (418313009) Neurogenic bowel (K59.2) Active confirmed Problem Ventricular shunt in situ (765948527) S/P [employer] shunt (Z98.2) Active confirmed Problem Spina bifida (70173459) Spina bifida, unspecified hydrocephalus presence, unspecified spinal region (Q05.9) Active confirmed Problem Major depression, single episode (13954903) Major depressive episode (F32.9) Active confirmed Plan Of Treatment Pending Test Test Name Order Date US Renal w/bladder-63458 12/17/2021 Abdomen [id number] 12/17/2021 Insurance Providers Payer Name Payer Address Payer Phone Subscriber Number Group Number Insured Name Patient Relationship to Insured Coverage Start Date Coverage End Date Renal[employer] [address] [place] [phone] [id number] Destiny Vigil Self - patient is the insured [place] Medicare [address] [place] [phone] [id number] Destiny Vigil Self - patient is the insured Medical (General) History Medical History History ICD Code spinabifada anxiety adjustment disorder suicidal ideation Surgical History Surgery Date(Month/Year) shunt placement head back surgeries colon surgery bladder surgery toe amputated left foot little toe Hospitalization History Reason Date(Month/Year) surgeries
--- OUTSIDE RECORDS SUMMARY | 2024-10-28 20:24 | XMS_ITS | Clinical Summary ---
Author Organization [facility] Address [address] Attn: [place] [address] Care Team Providers Care Director Security Management Name Role Phone Joe Ochoa MD Primary Care Provider [phone] Allergies Active Allergy Reactions Criticality Noted Date [...] PERTUSSIS, HEPATITIS B, AND INACTIVATED POLIOVIRUS VACCINE ([id number]), 0.5ML, IM 2002,2002 (RECOMBIVAX HB/ENGERIX-B)(0- 19 YRS) [...] on file Legal Sex Female 3:52 PM FOLDER OPERATOR Gender Identity Not on file Sexual Orientation Not on file Last Filed Vital Signs Vital Sign Reading Time Taken Comments Blood Pressure 110/78 04/12/2024 8:42 AM FOLDER OPERATOR Pulse 103 03/15/2024 8:03 AM FOLDER OPERATOR Temperature 37.5 C (99.5 F) 03/15/2024 8:03 AM FOLDER OPERATOR Respiratory Rate 25 03/15/2024 8:03 AM FOLDER OPERATOR Oxygen Saturation 98% 03/15/2024 8:03 AM FOLDER OPERATOR Inhaled Oxygen Concentration - - Weight 94.8 kg (209 lb) 05/10/2024 12:41 PM FOLDER OPERATOR pt reported Height 149.9 cm (4' 11 ) 05/10/2024 12:41 PM FOLDER OPERATOR Body Mass Index 42.21 05/10/2024 12:41 PM FOLDER OPERATOR Plan of Treatment Health Maintenance Due Date [...] 03/18, 12/09/2016, Additional history exists Care Teams Director Security Management Relationship Specialty Start Date End Date Joe Ochoa MD [address] [address] PCP - General Family Practice 03/15/24
--- NOTE | 2024-10-28 22:43 | W.ED.PSYCHS ---
HPI - Psych General: Chief Complaint: Psychiatric Symptoms Stated Complaint: HI Time Seen by Provider: 10/28/24 20:49 History of Present Illness: 24 yo F with reported anger issues presents from the lobby by wheelchair stating she has escalating urges to strangle her roommate, whom she believes is mistreating animals. She denies any suicidal ideation but endorses passive homicidal ideation without a formulated plan. She left the residence tonight to avoid acting on these thoughts and is requesting assistance from a oil field caser to secure alternate housing. Pt currently lives with the roommate after her mother and step-father asked her to move out. She is on Social Security and supplements her income through an [employer]-based survey platform. She reports owning three puppies and three kittens and is concerned for their safety. No other acute complaints voiced. She states that she is her own guardian. Related Data Home Medications ?Medication ?Instructions ?Recorded ?Confirmed cetirizine 10 mg tablet 10 mg PO DAILY PRN Allergic 12/02/22 10/10/24 Symptoms levothyroxine 25 mcg tablet 25 mcg PO QAM 12/02/22 10/10/24 naproxen sodium 220 mg tablet 220 mg PO BID PRN Pain 01/27/23 10/10/24 (Aleve) topiramate 100 mg tablet 100 mg PO BEDTIME 10/10/24 10/10/24 trazodone 100 mg tablet 100 mg PO BEDTIME 10/10/24 10/10/24 Previous Rx's ?Medication ?Instructions ?Recorded hydrochlorothiazide 12.5 mg tablet 12.5 mg PO DAILY #30 tabs 01/30/24 mupirocin 2 % topical ointment 1 applic topical BID #22 grams 05/22/24 (Centany) cyclobenzaprine 5 mg tablet 5 mg PO .qpm PRN Muscle Spasm #30 08/13/24 tabs ketoconazole 2 % topical cream 1 applic topical TID #15 grams 08/16/24 sulfamethoxazole 800 1 tab PO Q12H #14 tabs 08/16/24 mg-trimethoprim 160 mg tablet (Bactrim DS) CAM walker #1 ea 08/26/24 Diapers Adult PUll ons #60 ea 09/24/24 Wheelchair #1 ea 09/24/24 duloxetine 60 mg capsule,delayed 120 mg (2 x 60 mg) PO QAM #60 caps 09/24/24 release Allergies Allergy/AdvReac Type Severity Reaction Status Date / Time adhesive Allergy ALGY-Rash Verified 09/29/24 12:44 cephalexin Allergy itch Verified 09/29/24 12:44 clindamycin Allergy Unknown Verified 09/29/24 12:44 latex Allergy Unknown Verified 09/29/24 12:44 [facility] ED PFSH: Medical History (Updated 10/28/24 @ 21:18 by Joe Thompson MD) Unable to walk Adult onset hypothyroidism Chronic suprapubic catheter Cecostomy status Dependent edema Seizure Spina bifida Generalized anxiety disorder Major depressive disorder, recurrent, moderate Common migraine with intractable migraine Intellectual disability Surgical History Hx of colostomy some type of tube in R side of abdomen that she connects to fluids and it makes her have BM History of suprapubic catheter Hx of foot surgery Left foot surgery--had to have toes amputated b/c of infection History of lumbar surgery MARBLEIZING MACHINE TENDER (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) shunt status Family History Grandmother Hypertension Hypercholesteremia Denies family history of Colon cancer Ovarian cancer Prostate cancer Diabetes Heart disease Breast cancer Uterine cancer Thyroid disease Stroke Social History Smoking and tobacco/nicotine status: current every day tobacco/nicotine user Alcohol intake: never Substance/Drug Use: current Substance/Drug use frequency: Special occassions/opportunity only Physical Exam Const: COMMON NORMALS: no acute distress, patient oriented x3 and alert HENMT: COMMON NORMALS: normocephalic and atraumatic HEAD & SCALP: normocephalic and atraumatic Eye: COMMON NORMALS: Equal, round and reactive pupils present, EOMs intact bilaterally and no scleral icterus PUPIL: Yes Equal, round and reactive pupils present Resp: COMMON NORMALS: normal respiratory effort and No retractions Cardio: COMMON NORMALS: regular rate, regular rhythm and No murmurs present (Cardio) RATE: regular rate RHYTHM: regular rhythm GI: COMMON NORMALS: Normal to inspection, nondistended, normoactive bowel sounds present, Soft to palpation and non-tender PALPATION: Yes Soft to palpation Neuro: COMMON NORMALS: patient oriented x3 SENSORIUM/ORIENTATION: Yes alert Psych: OTHER: Admits to passive homicidal ideation without a specific plan citing animal mistreatment by her roommate to be the cause. Skin: COMMON NORMALS: no rashes or lesions noted GENERAL SKIN EXAM: no rashes or lesions noted Course Vital Signs: Vital signs: Vital Signs Temperature 98.7 F 10/28/24 20:19 Pulse Rate 121 H 10/28/24 20:19 Respiratory Rate 18 10/28/24 20:19 Blood Pressure 113/73 10/28/24 20:19 Pulse Oximetry 97 10/28/24 20:19 Oxygen Delivery Me thod Room Air 10/28/24 20:19 MDM - Psych Medical Decision Making In summary, patient is a generally well-appearing 24-year-old female who is well-known to the emergency department with multiple visits for psychiatric complaints. I do not believe she is a credible threat to herself or anyone else. We discussed that since she is her own guardian she is free to seek alternative housing to avoid having to interact with this particular roommate. She will be discharged in stable condition with follow-up to primary care No radiology studies performed this visit Discharge Plan Discharge Patient Disposition: Home Clinical Impression: Dysphoric mood Condition: Stable Prescriptions: No Action sulfamethoxazole-trimethoprim [Bactrim DS] 800-160 mg tablet 1 tab PO Q12H Qty: 14 0RF ketoconazole 2 % cream 1 applic topical TID Qty: 15 0RF (DME) Wheelchair See Rx Instructions .Route .MEDSUPPLY Qty: 1 0RF Rx Instructions: please do seating eval for wheelchair she needs duloxetine 60 mg capsule,delayed release(DR/EC) 120 mg PO QAM Qty: 60 5RF (DME) Diapers Adult PUll ons Large See Rx Instructions .Route .MEDSUPPLY Qty: 60 5RF Rx Instructions: up to max of 2 per day; spina bifida that causes bowel incontinence cyclobenzaprine 5 mg tablet 5 mg PO .qpm PRN (Reason: Muscle Spasm) Qty: 30 3RF (DME) CAM walker See Rx Instructions .Route .MEDSUPPLY Qty: 1 0RF Rx Instructions: As directed hydrochlorothiazide 12.5 mg tablet 12.5 mg PO DAILY Qty: 30 0RF topiramate 100 mg tablet 100 mg PO BEDTIME trazodone 100 mg tablet 100 mg PO BEDTIME cetirizine 10 mg Tablet 10 mg PO DAILY PRN (Reason: Allergic Symptoms) levothyroxine 25 mcg tablet 25 mcg PO QAM naproxen sodium [Aleve] 220 mg Tablet 220 mg PO BID PRN (Reason: Pain) mupirocin [Centany] 2 % ointment 1 applic topical BID Qty: 22 0RF Discharge Orders: Discharge ED (Routine); Ordered 10/28/24 Ordered By: oJe Thompson Referrals: Elza Dennis MD [Primary Care Provider, Family Practice] Discharge Diet: Usual diet Discharge Activity: Resume usual activity Patient Instructions: Patient Portal & [employer]ian Instructions Activity Restrictions/Additional Instructions: Unfortunately in your specific situation we are unable to help provide guidance on or offering suggestions on how to change your residence. Please continue taking medications follow-up with your primary care provider Print Language: Kazakh Coding Level of Care Code ED Kaiako Kura [place] Maori for Jordana Chiu
== END 2024-10-28 21:47 | disposition home or self-care (01) ==
PROVIDERS: Emergency Provider Student in an Organized Health Care Education/Training Program; PCP Family Medicine
DX: F34.1 Dysthymic disorder (principal); Z72.0 Tobacco use
CPT/HCPCS: 99283

== ENCOUNTER 2024-12-04 02:02 | Emergency (ER) | payer MEDICARE, MEDICAID, SELFPAY ==
--- OUTSIDE RECORDS SUMMARY | 2022-05-31 10:15 | XMS_ITS | Continuity of Care Document ---
Author Organization [facility] Address [address] [id number] [address] Phone Care Team Providers Care Softball Winder Name Role Phone Kin Thompson DDS Unavailable Unavailabl e Allergies, Adverse Reactions, Alerts Substance Reaction Status Criticality latex Active No Information PENICILLIN Active No Information Medications Medication Instructions Dosage Effective Dates (start - stop) Status Comments medroxyprogesterone 10 mg tablet take 1 tablet by oral route every day 10 MG - Active Tylenol Extra Strength 500 mg tablet take 2 tablet by oral route every 6 hours as needed 1000 MG - Active amoxicillin 500 mg tablet take 4 tablet by oral route every day 2 hour prior to procedure 4 tablet - Active dicyclomine 20 mg tablet take 1 tablet b y oral route 4 times every day 20 MG - Active Drizalma Sprinkle 60 mg capsule,delayed release take 1 capsule by oral route every day 60 MG - Active metoclopramide 10 mg tablet take 1 tablet by oral route 4 times every day 30 minutes before meals and at bedtime 10 MG - Active hydroxyzine HCl 10 mg tablet - Active nitrofurantoin monohydrate/macrocrystals 100 mg capsule take 1 capsule by oral route every 12 hours with food 100 MG - Active ondansetron HCl 4 mg tablet take 2 tablet by oral route 2 times every day 8 MG - Active oxybutynin chloride 5 mg tablet take 1 tablet by oral route 2 times every day 5 MG - Active Miralax 17 gram/dose oral powder - Active sumatriptan 100 mg tablet take 1 tablet by oral route after onset of migraine; may repeat after 2 hours if headache returns,not to exceed 200mg in 24hrs 100 MG - Active trazodone 50 mg tablet take 1 tablet by oral route every day at bedtime 50 MG - Active topiramate 15 mg sprinkle capsule take 1 capsule by oral route 2 times every day in the morning and evening 15 MG - Active Procedures Procedure Date Limited Oral Evaluation Problem Focused EDR Approval Note EDR Approval Note Advance Directives Directive Yes / No Effective Date File Name No Information Encounters Encounter Description Practice Location Reason(s) For Visit Diagnoses Date Provider Providers Copied on Encounter [facility], [id number] [facility], [place], [place], [id number], [place] tel:[phone] [facility] No Information Donna Sanderson. [address] [place] [address], [address], . tel:[phone] Referring Provider: Kin Thompson, [address] [place] [address], [address]. tel:[phone] Family History Family Member Type Diagnosis Age At Onset No Information Payers Payer name Insurance type Covered republican ID Authorermaa snehal(s) D Medicaid [id number] Social History Type Description Quantity Date Captured Comments Alcohol Use Details No Caffeine Use Details Unknown Tobacco Use Status Occasional cigarette smoker Smoking Status Unknown if ever smoked Smoking Tobacco Use Details Cigarette: No Details Available Cigarette: No Details Available Sex Female Gender Identity Female Chief Complaint And Reason For Visit No Information Reason For Referral Reason For Referral No Information History Of Present Illness Encounter Date Complaint History Of Prese nt Illness No Information Functional Status Date Functional Assessmen t No Information Instructions Date Instruction Additional Infor mation No Information Assessments Type Assessment Date No Information Patient Care Teams Name Effective Dates (start - stop) Status Members No Information
--- OUTSIDE RECORDS SUMMARY | 2024-08-31 04:50 | XMS_ITS ---
Author Organization [employer], [facility] Address [address] [place] [address] Care Team Providers Care Highballer Name Role Phone Fransisca Flores Primary Care Provider [facility] Dahl Unavailable [phone] BRIAN MARCIAL Unavailable [phone] REASON FOR VISIT Neurogenic bladder/SP Tube (Saw [...] every 6 hrs PRN *[facility]* Not-Taking Topiramate 50 MG 1 tablet Orally Twice a day Active Encounters Encounter Location Date Provider Diagnosis [facility] [address] [facility] [place] [address] 08/31/2024 BRIAN MARCIAL Plan Of Treatment No Information Progress Notes * Destiny VIGIL SDOB:1999 (24 yo F)Acc No.[id number]:08/31/2024 Progress Notes Patient: Destiny AMBROSIO Provider: RHINA Salinas :2000 A ge:24 Y S ex:Female Date:08/31/2024 Address:[address] [place], [place] [id number] Pcp:Fransisca Flores Subjective: * Chief Complaints: * [...] Notes to Pharmacist: *[facility]* Objective: * Vitals: Assessment: Plan: * Treatment: * Billing Information: * Visit Code: * Procedure Codes: * Electronic signature of BRIAN MARCIAL APRN on 12/04/2024 at 02:17 AM CDT Sign off status: Pending * Provider: Cezar Marcial APRN-[facility] Date: 08/31/2024 Generated for Esthela mohr/Sabrina/Ghulam on: 12/04/2024 02:17 AM CDT
[2024-12-04 02:07] VITALS: BP 112/78; PULSE 109; RESP 18; TEMP 37.1; O2SAT 97; BMI 42.2
--- OUTSIDE RECORDS SUMMARY | 2024-12-04 02:17 | XMS_ITS | Patient Health Record ---
Author Organization [facility] Address [address] [place] [address] Care Team Providers Care Family Day Care Provider Name Role Phone Fransisca Alcocer Primary Care Provider UnaJeison Dunn Unavailable [phone] Allergies Allergen (clinical drug ingredient) Drug/Non Drug [...] with mixed disturbance of emotions AND conduct (79822547) Adjustment disorder with mixed disturbance of emotions and conduct (F43.25) Active confirmed Problem Spina bifida occulta (57980481) Spina bifida occulta (Q76.0) Active confirmed Problem Chronic cystitis (50788025) Chronic cystitis (N30.20) Active confirmed Problem Anxiety (72656043) Anxiety (F41.9) Active confirmed Problem Constipation (51300958) Constipation, unspecified constipation type (K59.00) Active confirmed Problem Urinary incontinence (816776562) Urinary incontinence, unspecified type (R32) Active confirmed Problem Urinary tract infectious disease (19472372) UTI (urinary tract infection) (N39.0) Active confirmed Problem Hydrocephalus (792862071) Hydrocephalus (G91.9) Active confirmed Problem Recurrent urinary tract infection (185709235) Recurrent UTI (N39.0) Active confirmed Problem Neurogenic bladder (991770881) Neurogenic bladder (N31.9) Active confirmed Problem Neurogenic bowel (359389654) Neurogenic bowel (K59.2) Active confirmed Problem Ventricular shunt in situ (522427387) S/P SUPERVISOR DIE CASTING shunt (Z98.2) Active confirmed Problem Spina bifida (39763030) Spina bifida, unspecified hydrocephalus presence, unspecified spinal region (Q05.9) Active confirmed Problem Major depression, single episode (66282433) Major depressive episode (F32.9) Active confirmed Plan Of Treatment Pending Test Test Name Order Date US Renal w/bladder-[id number] 12/17/2021 Abdomen [id number] 12/17/2021 Insurance Providers Payer Name Payer Address Payer Phone Subscriber Number Group Number Insured Name Patient Relationship to Insured Coverage Start Date Coverage End Date Renaldoetter [address] [place] [phone] [id number] Destiny Vigil Self - patient is the insured [place] Medicare [address] [place] [phone] [id number] Destiny Vigil Self - patient is the insured Medical (General) History Medical History History ICD Code spinabifada anxiety adjustment disorder suicidal ideation Surgical History Surgery Date(Month/Year) toe amputated left foot little toe bladder surgery colon surgery back surgeries shunt placement head Hospitalization History Reason Date(Month/Year) surgeries
--- OUTSIDE RECORDS SUMMARY | 2024-12-04 02:17 | XMS_ITS | Patient Health Record ---
Author Organization [facility] Address [address] [place] [address] Care Team Providers Care Table Games Dealer Name Role Phone Fransisca Flores Primary Care Provider [facility] Unavailable [phone] BRIAN MARCIAL Unavailable [phone] Allergies Allergen (clinical drug ingredient) Drug/Non Drug [...] every 6 hrs PRN *Pick strength-form from [employer] for eRX* Not-Taking Cetirizine HCl 10 MG 1 tablet Orally Once a day Active Topiramate 50 MG 1 tablet Orally Twice a day Active Problems Problem Type SNOMED Code ICD Code Onset Dates Problem Status W/U Status Risk Notes Problem Spina bifida occulta (37202697) Spina bifida occulta (Q76.0) Active confirmed Problem Neurogenic bladder (033705516) Neurogenic bladder (N31.9) Active confirmed Problem Urinary tract infectious disease (97223303) UTI (urinary tract infection) (N39.0) Active confirmed Problem Constipation (68655665) Constipation, unspecified constipation type (K59.00) Active confirmed Problem Neurogenic bowel (196586161) Neurogenic bowel (K59.2) Active confirmed Problem Chronic cystitis (25702340) Chronic cystitis (N30.20) Active confirmed Problem Spina bifida (85432113) Spina bifida, unspecified hydrocephalus presence, unspecified spinal region (Q05.9) Active confirmed Problem Urinary incontinence (793688403) Urinary incontinence, unspecified type (R32) Active confirmed Problem Recurrent urinary tract infection (761232386) Recurrent UTI (N39.0) Active confirmed Problem Ventricular shunt in situ (285989788) S/P EMPLOYMENT ASSISTANT shunt (Z98.2) Active confirmed Problem Hydrocephalus (550165335) Hydrocephalus (G91.9) Active confirmed Encounters Encounter Location Date Provider Diagnosis [facility] [address] [place] [address] 08/16/2024 [facility] Plan Of Treatment Pending Test Test Name Order Date UA Dip / Urinalysis, Routine 12/17/2021 Basic Metabolic Panel [id number] 06/18/2021 US Renal w/bladder-78364 12/17/2021 US Renal w/bladder-92344 06/18/2021 Abdomen AP-[id number] 12/17/2021 Abdomen [id number] 06/18/2021 Insurance Providers Payer Name Payer Address Payer Phone Subscriber Number Group Number Insured Name Patient Relationship to Insured Coverage Start Date Coverage End Date [place] Medicaid [address] [place], [place] [id number] Destiny Vigil Self - patient is the insured Medical (General) History Medical History History ICD Code spinabifada anxiety adjustment disorder suicidal ideation Surgical History Surgery Date(Month/Year) toe amputated left foot little toe bladder surgery colon surgery back surgeries shunt placement head Hospitalization History Reason Date(Month/Year) surgeries
--- OUTSIDE RECORDS SUMMARY | 2024-12-04 02:17 | XMS_ITS | Clinical Summary ---
Author Organization [facility] Address [address] [facility] Attn: [place] [address] Care Team Providers Care Laundry Tech Name Role Phone Joe Ochoa MD Primary Care Provider [phone] Allergies Active Allergy Reactions Criticality Noted Date [...] Encounters Date Type Department Care Team Description 11/30/2024 External Device Data [facility] Provider, Abstract 09/29/2024 External Device Data [facility] Provider, [...] PERTUSSIS, HEPATITIS B, AND INACTIVATED POLIOVIRUS VACCINE (LTIE-UADT-ZVE), 0.5ML, IM 2002,2002 (RECOMBIVAX HB/ENGERIX-B)(0- 19 YRS) [...] on file Legal Sex Female 3:52 PM COST ESTIMATING ENGINEER Gender Identity Not on file Sexual Orientation Not on file Last Filed Vital Signs Vital Sign Reading Time Taken Comments Blood Pressure 110/78 04/12/2024 8:42 AM COST ESTIMATING ENGINEER Pulse 103 03/15/2024 8:03 AM COST ESTIMATING ENGINEER Temperature 37.5 C (99.5 F) 03/15/2024 8:03 AM COST ESTIMATING ENGINEER Respiratory Rate 25 03/15/2024 8:03 AM COST ESTIMATING ENGINEER Oxygen Saturation 98% 03/15/2024 8:03 AM COST ESTIMATING ENGINEER Inhaled Oxygen Concentration - - Weight 94.8 kg (209 lb) 05/10/2024 12:41 PM COST ESTIMATING ENGINEER pt reported Height 149.9 cm (4' 11 ) 05/10/2024 12:41 PM COST ESTIMATING ENGINEER Body Mass Index 42.21 05/10/2024 12:41 PM COST ESTIMATING ENGINEER Plan of Treatment Health Maintenance Due Date Last Done Comments CHLAMYDIA SCREENING (ANNUAL) 11-24 YEARS 2013 CERVICAL CANCER SCREENING 2023 HPV/Cotest (21-29) 2023 PAP SMEAR 2023 INFLUENZA VACCINE (#1) 2024 , 03/15/2024, 01/01/2022, Additional history exists COVID-19 Vaccine (3 - 2024-2 6 season) 2024 08/31/2021, 09/29/2020 DTAP/TDAP/TD VACCINES (8 - T d or Tdap) 08/04/2026 08/04/2016, 08/04/2016, 11/09/2013, Additional history exists HEPATITIS B VACCINES Completed 2002, 2002, 2002, Additional history exists HPV VACCINES Completed 04/10/2017, 03/18, 12/09/2016, Additional history exists Care Teams Laundry Tech Relationship Specialty Start Date End Date Joe Ochoa MD [address] [id number] PCP - General Family Practice 03/15/24
--- OUTSIDE RECORDS SUMMARY | 2024-12-04 02:18 | XMS_ITS | Encounter Summary ---
Author Organization [email or web address] [facility] Address [address] [place] [address] Care Team Providers Care Pie Icer Machine Name Role Phone Joe Ochoa MD Primary Care Provider [phone] Encounter Details Date Type Department Care Team (Late st Contact Info) Description 11/30/2024 External Device Data [facility] Provider, Abstract NO ADDRESS ON FILE Social History Tobacco Use Types Packs/Day Years Used Date Smoking Tobacco: Every Day Cigarettes Smokeless Tobacco: Never Alcohol Use Standard Drinks/Week Comments Not Currently 0 (1 standard drink = 0.6 oz pur e alcohol) Comments No Sex and Gender Information Value Date Recorded Sex Assigned at Not on file Legal Sex Female 3:52 PM LINOLEUM 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
--- OUTSIDE RECORDS SUMMARY | 2024-12-04 02:18 | XMS_ITS | Patient Health Record ---
Author Organization [facility] Address [address] [place] [address] Support Name Relationship Address Phone Nithya Vigil [...] Coverage End Date Medicaid [address] [place] [address] [phone] [id number] Nithay Vigil Self - patient is the insured Medicaid Dental [address] [place] [phone] [id number] Nithya Vigil Self - patient is the insured Medical (General) History Medical History History ICD Code spina bifida
[2024-12-04 03:50] LABS: Hematocrit 45.1 % (36-47); Hemoglobin 14.80 g/dL (11.27-16.99); Mean Corpuscular HGB Conc 32.8 g/dL (30-55); Mean Corpuscular Hemoglobin 28.6 pg (27-33); Mean Corpuscular Volume 87.2 fl (85-98); Nucleated Red Blood Cells % 0 %; Platelet Count 376 10^3/cmm (157-399); Red Blood Count 5.17 10^6/uL (3.85-5.65); White Blood Count 9.57 10^3/uL (3.29-11.43)
[2024-12-04 03:55] LABS: Glucose Urine UA Negative (Normal); Nitrate Urine Positive (Negative); Specific Gravity, Urine 1.014 (1.005-1.030)
[2024-12-04 03:59] LABS: Add Urine Microscopic? YES
[2024-12-04 04:06] LABS: Alanine Aminotransferase 9 U/L (0-33); Albumin Level 4.6 g/dL (3.5-5.2); Alkaline Phosphatase 117 U/L (35-105); Anion Gap 18.9 (5-19); Aspartate Amino Transferase 11 U/L (0-32); Blood Urea Nitrogen 12 mg/dL (6-20); Calcium 10.0 mg/dL (8.5-10.5); Carbon Dioxide 23 mmol/L (22-29); Chloride 104 mmol/L (98-107); Creatinine Clr Calc Pharmacy 165.0788; Globulin 4.0 g/dL (1.3-4.6); Glucose 81 mg/dL (65-115); Osmolality Calculated 293 mOsm/kg (285-295); Potassium 3.9 mmol/L (3.5-5.1); Sodium 142 mmol/L (136-145); Total Protein 8.6 g/dL (6.6-8.7)
[2024-12-04 04:16] LABS: UA Slide Review UA Slide Review Perf
[2024-12-04 04:37] VITALS: PULSE 83; RESP 16; O2SAT 96
[2024-12-04] MEDS: cefTRIAXone 1,000 mg SDV 1000 MG IVP (04:55)
[2024-12-04 05:10] VITALS: PULSE 89; RESP 16; O2SAT 95
--- NOTE | 2024-12-04 05:11 | ED_ITS ---
HPI - Back Pain/Injury 2 General: Chief Complaint: Back Pain/Injury Stated Complaint: back pain Time Seen by Provider: 12/04/24 02:06 History of Present Illness: [Age Not Provided] female with history of spina bifida and chronic urinary and fecal incontinence presents with 2 weeks of abdominal/flank pain, worse when lying down. Patient performs intermittent self-catheterization via an abdominal channel ( from my belly button ) and reports long-term catheterization since age 10?11. Denies dysuria or burning with urination or catheterizing. Denies fever and vomiting. States currently on menstrual period which may also be causing pain. Reports pressing on abdomen relieves pain temporarily. No other symptoms reported. Related Data Home Medications ?Medication ?Instructions ?Recorded ?Confirmed cetirizine 10 mg tablet 10 mg PO DAILY PRN Allergic 12/02/22 10/10/24 Symptoms levothyroxine 25 mcg tablet 25 mcg PO QAM 12/02/22 naproxen sodium 220 mg tablet 220 mg PO BID PRN Pain 1 03/29/22 10/10/24 (Aleve) topiramate 100 mg tablet 100 mg PO BEDTIME 10/10/24 0 10/10/24 trazodone 100 mg tablet 100 mg PO BEDTIME 10/10/24 0 10/10/24 Previous Rx's ?Medication ?Instructions ?Recorded hydrochlorothiazide 12.5 mg tablet 12.5 mg PO DAILY #3 0 tabs 01/30/24 mupirocin 2 % topical ointment 1 applic topical BID #2 2 grams 05/22/24 (Centany) cyclobenzaprine 5 mg tablet 5 mg PO .qpm PRN Muscle Sp asm #30 08/13/24 tabs ketoconazole 2 % topical cream 1 applic topical TID #1 5 grams 08/16/24 sulfamethoxazole 800 1 tab PO Q12H #14 tabs 08/16 mg-trimethoprim 160 mg tablet (Bactrim DS) CAM walker #1 ea 08/26/24 Diapers Adult PUll ons #60 ea 09/24/24 Wheelchair #1 ea 09/24/24 duloxetine 60 mg capsule,delayed 120 mg (2 x 60 mg) PO QAM #60 caps 09/24/24 release sulfamethoxazole 800 1 tab PO BID 14 days #28 tab s 12/04/24 mg-trimethoprim 160 mg tablet (Bactrim DS) Allergies Allergy/AdvReac Type Severity Reaction Status Date / Time adhesive Allergy ALGY-Rash Verified 09/29/24 12:44 cephalexin Allergy itch Verified 09/29/24 12:44 clindamycin Allergy Unknown Verified 09/29/24 12:44 latex Allergy Unknown Verified 09/29/24 12:44 PFSH ED 2 PFSH: Medical History (Updated 12/04/24 @ 05:05 by Joe Thompson MD) Unable to walk Adult onset hypothyroidism Chronic suprapubic catheter Cecostomy status Dependent edema Seizure Spina bifida Generalized anxiety disorder Major depressive disorder, recurrent, moderate Common migraine with intractable migraine Intellectual disability Surgical History Hx of colostomy some type of tube in R side of abdomen that she connects to fluids and it makes her have BM History of suprapubic catheter Hx of foot surgery Left foot surgery--had to have toes amputated b/c of infection History of lumbar surgery 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 (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) shunt status Family History Grandmother Hypertension Hypercholesteremia Denies family history of Colon cancer Ovarian cancer Prostate cancer Diabetes Heart disease Breast cancer Uterine cancer Thyroid disease Stroke Social History Smoking and tobacco/nicotine status: current every day tobacco/nicotine user Alcohol intake: never Substance/Drug Use: current Substance/Drug use frequency: Special occassions/opportunity only Physical Exam 2 Const: COMMON NORMALS: no acute distress, patient oriented x3 and alert HENMT: COMMON NORMALS: normocephalic and atraumatic HEAD & SCALP: n ormocephalic and atraumatic Eye: COMMON NORMALS: Equal, round and reactive pupils present, EOMs intact bilaterally and no scleral icterus PUPIL: Yes Equal, round and reactive pupils present Resp: COMMON NORMALS: normal respiratory effort and No retractions Cardio: COMMON NORMALS: regular rate, regular rhythm and No murmurs present (Cardio) RATE: regular rate RHYTHM: regular rhythm GI: OTHER: Mild suprapubic tenderness. Urinary bladder is accessed through the umbilicus by straight catheterization. Colostomy bag Neuro: COMMON NORMALS: patient oriented x3 SENSORIUM/ORIENTATION: Yes alert Skin: COMMON NORMALS: no rashes or lesions noted GENERAL SKIN EXAM: no rashes or lesions noted Course 2 Vital Signs: Vital signs: Vital Signs Temperature 98.8 F 12/04/24 02:07 Pulse Rate 89 12/04/24 05:10 Respiratory Rate 16 12/04/24 05:10 Blood Pressure 112/78 12/04/24 02:07 Pulse Oximetry 95 12/04/24 05:10 Oxygen Delivery Me thod Room Air 12/04/24 04:37 MDM - Back Pain/Injury Medical Decision Making Patient with spina bifida and chronic intermittent self-catheterization presents with 2 weeks of abdominal/flank pain, no dysuria, no fever, no emesis; currently menstruating. Urine sample is clearly infected. Ear infection was treated with ceftriaxone here and she will be sent home with prescription for Bactrim based on prior culture Labs 12/04/24 03:24 12/04/24 03:24 Laboratory Results WBC 9.57 10^3/uL (3.29-11.43) 12/04/24 03:24 RBC 5.17 10^6/uL (3.85-5.65) 12/04/24 03:24 Hgb 14.80 g/dL (11.27-16.99) 12/04/24 03:24 Hct 45.1 % (36-47) 12/04/24 03:24 MCV 87.2 fl (85-98) 12/04/24 03:24 MCH 28.6 pg (27-33) 12/04/24 03:24 MCHC 32.8 g/dL (30-55) 12/04/24 03:24 RDW 11.7 % (12.1-15.1) L 12/04/24 03:24 Plt Count 376 10^3/cmm (157-399) 12/04/24 03:24 MPV 10.0 fL (7.4-10.4) 12/04/24 03:24 Neut % (Auto) 71.0 % 12/04/24 03:24 Lymph % (Auto) 21.0 % 12/04/24 03:24 [place] % (Auto) 5.9 % 12/04/24 03:24 Eos % (Auto) 1.5 % 12/04/24 03:24 Baso % (Auto) 0.4 % 12/04/24 03:24 Neut # (Auto) 6.80 10^3/uL (1.8-7.7) 12/04/24 03:24 Lymph # (Auto) 2.0 10^3/uL (0.8-4.8) 12/04/24 03:24 [place] # (Auto) 0.6 10^3/uL (0.2-0.9) 12/04/24 03:24 Eos # (Auto) 0.1 10^3/uL (0.0-0.8) 12/04/24 03:24 Baso # (Auto) 0.0 10^3/uL (0.0-0.1) 12/04/24 03:24 Nucleated RBC % (auto) 0 % 12/04/24 03:24 Nucleated RBCs # 0.0 /100WBC 12/04/24 03:24 Sodium 142 mmol/L (136-145) 12/04/24 03:24 Potassium 3.9 mmol/L (3.5-5.1) 12/04/24 03:24 Chloride 104 mmol/L (98-107) 12/04/24 03:24 Carbon Dioxide 23 mmol/L (22-29) 12/04/24 03:24 Anion Gap 18.9 (5-19) 12/04/24 03:24 BUN 12 mg/dL (6-20) 12/04/24 03:24 Creatinine 0.8 mg/dL (0.5-0.9) 12/04/24 03:24 GFR Calculation 89.7 mL/min (90-130) L 12/04/24 03:24 Glucose 81 mg/dL (65-115) 12/04/24 03:24 Calculated Osmolality 293 mOsm/kg (285-295) 12/04/24 03:24 Calcium 10.0 mg/dL (8.5-10.5) 12/04/24 03:24 Total Bilirubin 0.4 mg/dL (0.15-1.2) 12/04/24 03:24 AST 11 U/L (0-32) 12/04/24 03:24 ALT 9 U/L (0-33) 12/04/24 03:24 Alkaline Phosphatase 117 U/L (35-105) H 12/04/24 03:24 Total Protein 8.6 g/dL (6.6-8.7) 12/04/24 03:24 Albumin 4.6 g/dL (3.5-5.2) 12/04/24 03:24 Globulin 4.0 g/dL (1.3-4.6) 12/04/24 03:24 HCG, Qual Negative (Negative) 12/04/24 03:24 Urine Color [place] (Yellow) A 12/04/24 03:24 Urine Appearance Cloudy (CLEAR) A 12/04/24 03:24 Urine pH 6.5 (5-7) 12/04/24 03:24 Ur Specific [place] 1.014 (1.005-1.030) 12/04/24 03:24 Urine Protein 3+ (Negative) A 12/04/24 03:24 Urine Glucose (UA) Negative (Normal) 12/04/24 03:24 Urine Ketones Negative (Negative) 12/04/24 03:24 Urine Blood 2+ (Negative) A 12/04/24 03:24 Urine Nitrate Positive (Negative) A 12/04/24 03:24 Urine Bilirubin 2+ (Negative) H 12/04/24 03:24 Urine Urobilinogen 1.0 mg/dL (Negative) 12/04/24 03:24 Ur Leukocyte Esterase 2+ (Negative) A 12/04/24 03:24 Urine RBC 21-50 /hpf (0-2) H 12/04/24 03:24 Urine WBC 11-20 /hpf (0-5) H 12/04/24 03:24 Ur Squamous Epith Cells 0-5 /hpf (0-5) 12/04/24 03:24 Amorphous Sediment Not Reportable 12/04/24 03:24 Urine Bacteria 4+ /hpf (NONE) H 12/04/24 03:24 Hyaline Casts 0.40 /lpf 12/04/24 03:24 No radiology studies performed this visit Discharge Plan Discharge Patient Disposition: Home Clinical Impression: Pyelonephritis, Catheter-associated urinary tract infection Condition: Stable Prescriptions: New sulfamethoxazole-trimethoprim [Bactrim DS] 800-160 mg tablet 1 tab PO BID 14 Days Qty: 28 0RF No Action sulfamethoxazole-trimethoprim [Bactrim DS] 800-160 mg tablet 1 tab PO Q12H Qty: 14 0RF ketoconazole 2 % cream 1 applic topical TID Qty: 15 0RF (DME) Wheelchair See Rx Instructions .Route .MEDSUPPLY Qty: 1 0RF Rx Instructions: please do seating eval for wheelchair she needs duloxetine 60 mg capsule,delayed release(DR/EC) 120 mg PO QAM Qty: 60 5RF (DME) Diapers Adult PUll ons Large See Rx Instructions .Route .MEDSUPPLY Qty: 60 5RF Rx Instructions: up to max of 2 per day; spina bifida that causes bowel incontinence cyclobenzaprine 5 mg tablet 5 mg PO .qpm PRN (Reason: Muscle Spasm) Qty: 30 3RF (DME) CAM walker See Rx Instructions .Route .MEDSUPPLY Qty: 1 0RF Rx Instructions: As directed hydrochlorothiazide 12.5 mg tablet 12.5 mg PO DAILY Qty: 30 0RF topiramate 100 mg tablet 100 mg PO BEDTIME trazodone 100 mg tablet 100 mg PO BEDTIME cetirizine 10 mg Tablet 10 mg PO DAILY PRN (Reason: Allergic Symptoms) levothyroxine 25 mcg tablet 25 mcg PO QAM naproxen sodium [Aleve] 220 mg Tablet 220 mg PO BID PRN (Reason: Pain) mupirocin [Centany] 2 % ointment 1 applic topical BID Qty: 22 0RF Discharge Orders: Discharge ED (Routine); Ordered 12/04/24 Ordered By: Joe Thompson Referrals: Elza Dennis MD [Primary Care Provider, Family Practice] Discharge Diet: Usual diet Discharge Activity: Increase activity as tolerated Patient Instructions: Patient Portal & Fabian Instructions, Pyelonephritis Activity Restrictions/Additional Instructions: Antibiotics were chosen based on your allergies and prior culture sensitivities. If you do not feel significantly better after the first 2 days of antibiotic therapy please return the emergency department to consider IV antibiotics as your infection may require stronger antibiotics to clear. Print Language: Turkmen Coding Level of Care Code ED Broaching Machine Operator for Jordana Chiu
[2024-12-04 05:16] LABS: HCG Qualitative Urine. Negative (Negative)
== END 2024-12-04 05:20 | disposition home or self-care (01) ==
PROVIDERS: Emergency Provider Student in an Organized Health Care Education/Training Program; PCP Family Medicine
DX: T83.518A Infection and inflammatory reaction due to other urinary catheter, initial encounter (principal); N12 Tubulo-interstitial nephritis, not specified as acute or chronic; Z72.0 Tobacco use; X58.XXXA Exposure to other specified factors, initial encounter
CPT/HCPCS: 80053; 81001; 81025; 85025; 87077; 87086; 87186; 96361; 96374; 99284; J0696; J7030

== ENCOUNTER 2024-12-04 07:02 | Emergency (ER) | payer MEDICARE, MEDICAID, SELFPAY ==
--- OUTSIDE RECORDS SUMMARY | 2022-05-31 10:15 | XMS_ITS | Continuity of Care Document ---
Author Organization [facility] Address [address] [id number] [address] Phone Care Team Providers Care Bay Stocker Name Role Phone Kin Thompson DDS Unavailable [...] Diagnoses Date Provider Providers Copied on Encounter [facility], [id number] [facility], [place], [place], [id number], [place] tel:[phone] [facility] No Information Donna Sanderson. [address] [place] [address], [address], . tel:[phone] Referring Provider: Kin Thompson, [address] [place] [address], [address]. tel:[phone] Family History Family Member Type Diagnosis Age At Onset No Information Payers Payer name Insurance type Covered alliance party ID Authorermaa snehal(s) D Medicaid [id number] Social History Type Description Quantity Date Captured [...]
--- OUTSIDE RECORDS SUMMARY | 2024-12-04 07:09 | XMS_ITS | Clinical Summary ---
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 Gender Identity Not on file Sexual Orientation Not on file Last Filed Vital Signs Vital Sign Reading Time Taken Comments Blood Pressure 110/78 04/12/2024 8:42 AM AUTO BODY REPAIRER F[employer]ERGLASS Pulse 103 03/15/2024 8:03 AM AUTO BODY REPAIRER FIBERGLASS Temperature 37.5 C (99.5 F) 03/15/2024 8:03 AM AUTO BODY REPAIRER FIBERGLASS Respiratory Rate 25 03/15/2024 8:03 AM AUTO BODY REPAIRER FIBERGLASS Oxygen Saturation 98% 03/15/2024 8:03 AM AUTO BODY REPAIRER FIBERGLASS Inhaled Oxygen Concentration - - Weight 94.8 kg (209 lb) 05/10/2024 12:41 PM AUTO BODY REPAIRER FIBERGLASS pt reported Height 149.9 cm (4' 11 ) 05/10/2024 12:41 PM AUTO BODY REPAIRER FIBERGLASS Body Mass Index 42.21 05/10/2024 12:41 PM AUTO BODY REPAIRER [employer]IBERGLASS Plan of Treatment Health Maintenance Due Date [...] 03/18, 12/09/2016, Additional history exists Care Teams Raise Driller Relationship Specialty Start Date End Date Joe Ochoa MD [address] [id number] PCP - General Family Practice 03/15/24
--- OUTSIDE RECORDS SUMMARY | 2024-12-04 07:09 | XMS_ITS | Encounter Summary ---
Author Organization [facility] Address 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
[2024-12-04 07:29] VITALS: BP 109/92; PULSE 100; RESP 18; TEMP 36.7; O2SAT 98
--- NOTE | 2024-12-04 07:32 | ED_ITS ---
HPI - Abdominal Pain General: Chief Complaint: General Medical Stated Complaint: Lower R ABD Pain Hurts when Peeing Time Seen by Provider: 12/04/24 07:07 Source: patient Mode of arrival: ambulatory Limitations: no limitations History of Present Illness: 24-year-old female who history of chroni c abdominal pain she was seen earlier in the night and has UTI. Patient was waiting for a ride and started having some lower abdominal pain. She denies any fever denies any vomiting denies any worse improving factors she rates her pain a 5 out of 10. Associated Symptoms: Reports dysuria; Denies chills, diarrhea, fever(s), nausea and vomiting Related Data Home Medications ?Medication ?Instructions ?Recorded ?Confirmed cetirizine 10 mg tablet 10 mg PO DAILY PRN Allergic 12/02/22 12/04/24 Symptoms levothyroxine 25 mcg tablet 25 mcg PO QAM 12/02/22 topiramate 100 mg tablet 100 mg PO BEDTIME 10/10/24 0 12/04/24 cyclobenzaprine 10 mg tablet 5 mg PO BEDTIME x7d 12/0412/04/24 hydrochlorothiazide 12.5 mg tablet 12.5 mg PO DAILY UT N fluid 12/04/24 12/04/24 metoclopramide HCl 10 mg tablet 10 mg PO Q6H PRN Nause a And 12/04/24 12/04/24 Vomiting Previous Rx's ?Medication ?Instructions ?Recorded CAM walker #1 ea 08/26/24 Diapers Adult PUll ons #60 ea 09/24/24 Wheelchair #1 ea 09/24/24 duloxetine 60 mg capsule,delayed 120 mg (2 x 60 mg) PO QAM #60 caps 09/24/24 release Allergies Allergy/AdvReac Type Severity Reaction Status Date / Time adhesive Allergy ALGY-Rash Verified 09/29/24 12:44 cephalexin Allergy itch Verified 09/29/24 12:44 clindamycin Allergy Unknown Verified 09/29/24 12:44 latex Allergy Unknown Verified 09/29/24 12:44 Review of Systems Const: Denies: fever(s) or chills ENMT: Denies: throat pain or dental pain Card: Denies: chest pain Resp: Denies: dyspnea GI: Reports: abdominal pain; Denies: nausea, vomiting or diarrhea : Reports: dysuria Musc: Denies: neck pain or back pain Skin/Breast: Denies: rash Neuro: Denies: headache(s) PFSH ED PFSH: Medical History Unable to walk Adult onset hypothyroidism Chronic suprapubic catheter Cecostomy status Dependent edema Seizure Spina bifida Generalized anxiety disorder Major depressive disorder, recurrent, moderate Common migraine with intractable migraine Intellectual disability Surgical History Hx of colostomy some type of tube in R side of abdomen that she connects to fluids and it makes her have BM History of suprapubic catheter Hx of foot surgery Left foot surgery--had to have toes amputated b/c of infection History of lumbar surgery 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 (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) shunt status Family History Grandmother Hypertension Hypercholesteremia Denies family history of Colon cancer Ovarian cancer Prostate cancer Diabetes Heart disease Breast cancer Uterine cancer Thyroid disease Stroke Social History Smoking and tobacco/nicotine status: current every day tobacco/nicotine user Alcohol intake: never Substance/Drug Use: current Substance/Drug use frequency: Special occassions/opportunity only Physical Exam Const: COMMON NORMALS: no acute distress, patient oriented x3 and healthy appearing HENMT: COMMON NORMALS: normocephalic and atraumatic HEAD & SCALP: normocephalic and atraumatic Neck/C-Spine: COMMON NORMALS: full ROM and supple Chest: COMMONS NORMALS: normal inspection of the chest and normal palpation of entire chest wall Resp: COMMON NORMALS: normal respiratory effort, No retractions, No use of accessory muscles and clear to auscultation bilaterally AUSCULTATION: clear to auscultation bilaterally Cardio: COMMON NORMALS: regular rate, regular rhythm and No murmurs present (Cardio) RATE: regular rate RHYTHM: regular rhythm GI: COMMON NORMALS: Normal to inspection, nondistended, normoactive bowel sounds present, Soft to palpation, non-tender and no masses PALPATION: Yes Soft to palpation Extremity: COMMON NORMALS: normal to inspection and full ROM Neuro: COMMON NORMALS: patient oriented x3, moves all extremities and no focal motor deficits Psych: COMMON NORMALS: mental status grossly normal, Normal thought process present and cooperative THOUGHT PROCESS: Normal thought process present Skin: COMMON NORMALS: no rashes or lesions noted and no wounds GENERAL SKIN EXAM: no rashes or lesions noted Course Vital Signs: Vital signs: Vital Signs Temperature 98.1 F 12/04/24 07:29 Pulse Rate 100 12/04/24 07:29 Respiratory Rate 18 12/04/24 07:29 Blood Pressure 109/92 12/04/24 07:29 Pulse Oximetry 98 12/04/24 07:29 Oxygen Delivery Me thod Room Air 12/04/24 07:29 MDM - Abdominal Pain Medical Decision Making Patient presents here with abdominal pain she is seen earlier has a UTI her exam here is benign she has no signs of appendicitis or acute surgical abdomen. Her pain is improved here patient is getting a ride now she stable for discharge. Medical Records I reviewed the patient's medical records. No radiology studies performed this visit Discharge Plan Discharge Patient Disposition: Home Clinical Impression: Abdominal pain Condition: Stable Prescriptions: No Action (DME) Wheelchair See Rx Instructions .Route .MEDSUPPLY Qty: 1 0RF Rx Instructions: please do seating eval for wheelchair she needs duloxetine 60 mg capsule,delayed release(DR/EC) 120 mg PO QAM Qty: 60 5RF (DME) Diapers Adult PUll ons Large See Rx Instructions .Route .MEDSUPPLY Qty: 60 5RF Rx Instructions: up to max of 2 per day; spina bifida that causes bowel incontinence (DME) CAM walker See Rx Instructions .Route .MEDSUPPLY Qty: 1 0RF Rx Instructions: As directed topiramate 100 mg tablet 100 mg PO BEDTIME cetirizine 10 mg Tablet 10 mg PO DAILY PRN (Reason: Allergic Symptoms) levothyroxine 25 mcg tablet 25 mcg PO QAM cyclobenzaprine 10 mg tablet 5 mg PO BEDTIME metoclopramide HCl 10 mg tablet 10 mg PO Q6H PRN (Reason: Nausea And Vomiting) hydrochlorothiazide 12.5 mg tablet 12.5 mg PO DAILY PRN (Reason: fluid) Discharge Orders: Discharge ED (Routine); Ordered 12/04/24 Ordered By: David Figueroa Referrals: Elza Dennis MD [Primary Care Provider, Family Practice] - 1-3 days Discharge Diet: Advance as tolerated Discharge Activity: Resume usual activity Patient Instructions: Abdominal Pain (ED) Print Language: Gambian Coding Level of Care Code ED Project Manager Process Development for Jordana Chiu
[2024-12-04] MEDS: metoclopramide 5 mg/mL SDV 2 mL 10 MG IM (07:39)
[2024-12-04] MEDS: diphenhydrAMINE 50 mg/mL SDV 1mL IM (07:39)
[2024-12-04] MEDS: HYDROcodone-acetaminophen 5-325 mg Tablet 1 TAB PO (07:40)
--- NOTE | 2024-12-04 08:07 | PC.PHAR ---
Pt states she needs a new rx for Duloxetine 60mg. Never picked up the last rx from 09/24/24 due to insurance issues. Pt states she just needs a new order sent.
== END 2024-12-04 08:21 | disposition home or self-care (01) ==
PROVIDERS: Emergency Provider Emergency Medicine; PCP Family Medicine
DX: R10.31 Right lower quadrant pain (principal); Z72.0 Tobacco use
CPT/HCPCS: 96372; 99284; J1200; J2765; J9999

== ENCOUNTER 2025-03-02 19:56 | Emergency (ER) | payer MEDICARE, MEDICAID, SELFPAY ==
--- OUTSIDE RECORDS SUMMARY | 2024-08-31 03:50 | XMS_ITS ---
Author Organization [employer] y, [facility] Address [address] [place] [address] Care Team Providers Care Assembler Motor Vehicle Name Role Phone Fransisca Flores Primary Care Provider [facility]ER Dahl Unavailable [phone] BRIAN MARCIAL Unavailable [phone] REASON FOR VISIT Neurogenic bladder/SP Tube (Saw Dr. Hu in 2021 Medications Medication SIG (Take, Route, Frequency, Duration) Notes Start Date End Date Status medroxyPROGESTERone Acetate 150 MG/ML 1 ml Intramuscular q 3months Not-Taking Fluticasone Propionate 50 MCG/ACT 1 spray in each nostril Nasally Once a day Not-Taking oxyBUTYnin Chloride 5 MG 1 tab Orally TID 15 mg total -- 7am, 11am, 7pm Active Sulfamethoxazole-Trimeth oprim 800-160 MG 1 tablet Orally Once a day Active Ondansetron HCl 4 MG 1 tablet Orally PRN Active Celecoxib 200 MG 1 capsule with food Orally PRN Not-Taking hydrOXYzine HCl 10 MG as directed Orally Active traZODone HCl 100 MG 1 tablet at bedtime Orally Once a day Active Multivitamin - 1 tablet Orally Once a day Active Cetirizine HCl 10 MG 1 tablet Orally Once a day Active DULoxetine HCl 60 MG 1 capsule Orally Once a day Active SUMAtriptan Succinate 100 MG 1 tablet at least 2 hours between doses as needed Orally PRN Not-Taking hydrOXYzine HCl 10 MG as directed Orally every 8 hrs Active Acetaminophen 500 MG 1 capsule as needed Orally every 6 hrs PRN *[facility]* Not-Taking Topiramate 50 MG 1 tablet Orally Twice a day Active Encounters Encounter Location Date Provider Diagnosis [facility] [address] [place] [facility] [place] [address] 08/31/2024 BRIAN MARCIAL Plan Of Treatment No Information Progress Notes * Destiny VIGIL SDOB:1999 (25 yo F)Acc No.[id number]:08/31/2024 Progress Notes Patient: Destiny AMBROSIO Provider: RHINA Salinas :2000 A ge:24 Y S ex:Female Date:08/31/2024 Address:[address] [place], [place] [id number] Pcp:Fransisca Flores Subjective: * Chief Complaints: * 1 . Neurogenic bladder/SP Tube (Saw Dr. Hu in 2021. * Medical History: * Medications: T aking DULoxetine HCl 60 MG Capsule Delayed Release Particles 1 capsule Orally Once a day , Taking Multivitamin - Tablet 1 tablet Orally Once a day , Taking Cetirizine HCl 10 MG Tablet 1 tablet Orally Once a day , Taking hydrOXYzine HCl 10 MG Tablet as directed Orally , Taking traZODone HCl 100 MG Tablet 1 tablet at bedtime Orally Once a day , Taking Ondansetron HCl 4 MG Tablet 1 tablet Orally PRN , Taking oxyBUTYnin Chloride 5 MG Tablet 1 tab Orally TID , Notes to Pharmacist: 15 mg total -- 7am, 11am, 7pm, Taking Sulfamethoxazole-Trimethoprim 800-160 MG Tablet 1 tablet Orally Once a day , Taking Topiramate 50 MG Tablet 1 tablet Orally Twice a day , Taking hydrOXYzine HCl 10 MG Tablet as directed Orally every 8 hrs , Not-Taking Celecoxib 200 MG Capsule 1 capsule with food Orally PRN , Not-Taking Fluticasone Propionate 50 MCG/ACT Suspension 1 spray in each nostril Nasally Once a day , Not-Taking medroxyPROGESTERone Acetate 150 MG/ML Suspension Prefilled Syringe 1 ml Intramuscular q 3months , Not-Taking SUMAtriptan Succinate 100 MG Tablet 1 tablet at least 2 hours between doses as needed Orally PRN , Not-Taking Acetaminophen 500 MG Capsule 1 capsule as needed Orally every 6 hrs PRN , Notes to Pharmacist: *[facility]* Objective: * Vitals: Assessment: Plan: * Treatment: * Billing Information: * Visit Code: * Procedure Codes: * Electronic signature of BRIAN MARCIAL APRN on 03/02/2025 at 08:17 PM AQUEDUCT AND RESERVOIR KEEPER Sign off status: Pending * Provider: Cezar Marcial APRN-[facility] Date: 0 08/31/2024 Generated for Esthela mohr/Sabrina/Ghulam on: 1 05/03/2024 08:17 PM AQUEDUCT AND RESERVOIR KEEPER
[2025-03-02 19:58] VITALS: BP 150/95; PULSE 95; RESP 16; TEMP 36.8; O2SAT 99; BMI 42.2
--- OUTSIDE RECORDS SUMMARY | 2025-03-02 20:17 | XMS_ITS | Patient Health Record ---
Author Organization [facility] Address [address] [place] [address] Support Name Relationship Address Phone Nithya Vigil Guarantor Unknown [phone] Reason For Referral No Information Medications Medication [...] Coverage End Date Medicaid [address] [place] [address] [phone] [id number] Nithya Vigil Self - patient is the insured Medicaid Dental [address] [place] [phone] [id number] Nithya Vigil Self - patient is the insured Medical (General) History Medical History History ICD Code spina bifida
--- OUTSIDE RECORDS SUMMARY | 2025-03-02 20:17 | XMS_ITS | Clinical Summary ---
Author Organization [facility] Address [address] Tan: [place] [address] Care Team Providers Care Mirror Inspector Name Role Phone Joe Ochoa MD Primary Care Provider [phone] Allergies Active Allergy Reactions Criticality Noted Date [...] of recurrent major depressive d isorder 03/15/2024 GRVOER (generalized anxiety disorder) 03/15/2024 Neurogenic bladder 03/15/2024 Seizures 03/15/2024 Primary insomnia 03/15/2024 Benign hypertension 03/15/2024 Morbid obesity with body mass index (BMI) of 40. 0 or higher 03/15/2024 Spina bifida of lumbar region 03/15/2024 Encounters Date Type Department Care Team Description 03/01/2025 External Device Data [facility] ABSTRACTION Provider, Abstract 01/04/2025 External Device Data [facility] ABSTRACTION Provider, Abstract [...] PERTUSSIS, HEPATITIS B, AND INACTIVATED POLIOVIRUS VACCINE (ZQUI-UPVP-AXA), 0.5ML, IM 2002,2002 (RECOMBIVAX HB/ENGERIX-B)(0- 19 YRS) [...] on file Legal Sex Female 3:52 PM DIE HOLDER Gender Identity Not on file Sexual Orientation Not on file Last Filed Vital Signs Vital Sign Reading Time Taken Comments Blood Pressure 110/78 04/12/2024 8:42 AM DIE HOLDER Pulse 103 03/15/2024 8:03 AM DIE HOLDER Temperature 37.5 C (99.5 F) 03/15/2024 8:03 AM DIE HOLDER Respiratory Rate 25 03/15/2024 8:03 AM DIE HOLDER Oxygen Saturation 98% 03/15/2024 8:03 AM DIE HOLDER Inhaled Oxygen Concentration - - Weight 94.8 kg (209 lb) 05/10/2024 12:41 PM DIE HOLDER pt reported Height 149.9 cm (4' 11 ) 05/10/2024 12:41 PM DIE HOLDER Body Mass Index 42.21 05/10/2024 12:41 PM DIE HOLDER Plan of Treatment Health Maintenance Due Date Last Done Comments CHLAMYDIA SCREENING (ANNUAL) 11-24 YEARS 2013 CERVICAL CANCER SCREENING 2023 HPV/Cotest (21-29) 2023 PAP SMEAR 2023 INFLUENZA VACCINE (#1) 2024 , 03/15/2024, 01/01/2022, Additional history exists COVID-19 Vaccine (3 2024-2 6 season) 2024 08/31/2021, 09/29/2020 DTAP/TDAP/TD VACCINES (8 - T d or Tdap) 08/04/2026 08/04/2016, 08/04/2016, 11/09/2013, Additional history exists HEPATITIS B VACCINES Completed 2002, 2002, 2002, Additional history exists HPV VACCINES Completed 04/10/2017, 03/18, 12/09/2016, Additional history exists Care Teams Mirror Inspector Relationship Specialty Start Date End Date Joe Ochoa MD [address] [facility] [address] [place] [address] PCP - General Family Practice 03/15/24
--- OUTSIDE RECORDS SUMMARY | 2025-03-02 20:17 | XMS_ITS | Patient Health Record ---
Author Organization [facility] Address [address] [place] [address] Care Team Providers Care Viticulturist Name Role Phone Fransisca Flores Primary Care Provider [facility] Unavailable [phone] BRIAN MARCIAL Unavailable [phone] Allergies Allergen (clinical drug ingredient) Drug/Non Drug [...] every 6 hrs PRN *Pick strength-form from [employer] for [employer]RX* Not-Taking Cetirizine HCl 10 MG 1 tablet Orally Once a day Active Topiramate 50 MG 1 tablet Orally Twice a day Active Problems Problem Type SNOMED Code ICD Code Onset Dates Problem Status W/U Status Risk Notes Problem Spina bifida occulta (77959166) Spina bifida occulta (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.0) Active confirmed Problem Neurogenic bladder (859466609) Neurogenic bladder (N31.9) Active confirmed Problem Urinary tract infectious disease (65004755) UTI (urinary tract infection) (N39.0) Active confirmed Problem Constipation (42628593) Constipation, unspecified constipation type (K59.00) Active confirmed Problem Neurogenic bowel (769997494) Neurogenic bowel (K59.2) Active confirmed Problem Chronic cystitis (66084529) Chronic cystitis (N30.20) Active confirmed Problem Spina bifida (22601563) Spina bifida, unspecified hydrocephalus presence, unspecified spinal region (Q05.9) Active confirmed Problem Urinary incontinence (257148005) Urinary incontinence, unspecified type (R32) Active confirmed Problem Recurrent urinary tract infection (104970997) Recurrent UTI (N39.0) Active confirmed Problem Ventricular shunt in situ (335545360) S/P CARDIOLOGY RN shunt (Z98.2) Active confirmed Problem Hydrocephalus (169434666) Hydrocephalus (G91.9) Active confirmed Encounters Encounter Location Date Provider Diagnosis [facility], [facility] [address] [place] [address] 08/16/2024 [facility] Plan Of Treatment Pending Test Test Name Order Date UA Dip / Urinalysis, Routine 12/17/2021 Basic Metabolic Panel [id number] 06/18/2021 US Renal w/bladder-43805 06/18/2021 US Renal w/bladder-84441 12/17/2021 Abdomen AP-[id number] 06/18/2021 Abdomen AP-[id number] 12/17/2021 Insurance Providers Payer Name Payer Address Payer Phone Subscriber Number Group Number Insured Name Patient Relationship to Insured Coverage Start Date Coverage End Date [place] Medicaid [address] [place], [place] [id number] Destiny Vigil Self - patient is the insured Medical (General) History Medical History History ICD Code spinabifada anxiety adjustment disorder suicidal ideation Surgical History Surgery Date(Month/Year) shunt placement head back surgeries colon surgery bladder surgery toe amputated left foot little toe Hospitalization History Reason Date(Month/Year) surgeries
--- OUTSIDE RECORDS SUMMARY | 2025-03-02 20:17 | XMS_ITS | Encounter Summary ---
Author Organization [facility] Address 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
--- OUTSIDE RECORDS SUMMARY | 2025-03-02 20:17 | XMS_ITS | Patient Health Record ---
Author Organization [facility] Address [address] [place] [address] Care Team Providers Care Crop Picker Name Role Phone Fransisca Alcocer Primary Care Provider UnaJeison Dunn Unavailable [phone] Allergies Allergen (clinical drug ingredient) Drug/Non Drug [...] with mixed disturbance of emotions AND conduct (62911068) Adjustment disorder with mixed disturbance of emotions and conduct (F43.25) Active confirmed Problem Spina bifida occulta (82674935) Spina bifida occulta (Q76.0) Active confirmed Problem Chronic cystitis (94039874) Chronic cystitis (N30.20) Active confirmed Problem Anxiety (47152194) Anxiety (F41.9) Active confirmed Problem Constipation (25694306) Constipation, unspecified constipation type (K59.00) Active confirmed Problem Urinary incontinence (422281141) Urinary incontinence, unspecified type (R32) Active confirmed Problem Urinary tract infectious disease (26326405) UTI (urinary tract infection) (N39.0) Active confirmed Problem Hydrocephalus (694438644) Hydrocephalus (G91.9) Active confirmed Problem Recurrent urinary tract infection (878327378) Recurrent UTI (N39.0) Active confirmed Problem Neurogenic bladder (238417717) Neurogenic bladder (N31.9) Active confirmed Problem Neurogenic bowel (626187246) Neurogenic bowel (K59.2) Active confirmed Problem Ventricular shunt in situ (500190206) S/P [facility] shunt (Z98.2) Active confirmed Problem Spina bifida (39708734) Spina bifida, unspecified hydrocephalus presence, unspecified spinal region (Q05.9) Active confirmed Problem Major depression, single episode (48539294) Major depressive episode (F32.9) Active confirmed Plan Of Treatment Pending Test Test Name Order Date US Renal w/bladder-42595 12/17/2021 Abdomen [id number] 12/17/2021 Insurance Providers Payer Name Payer Address Payer Phone Subscriber Number Group Number Insured Name Patient Relationship to Insured Coverage Start Date Coverage End Date Renaldoetter [address] [place] [phone] [id number] Destiny Vigil Self - patient is the insured [place] Medicare [address] [place] [phone] [id number] Destiny Vigil Self - patient is the insured Medical (General) History Medical History History ICD Code spinabifada anxiety adjustment disorder suicidal ideation Surgical History Surgery Date(Month/Year) shunt placement head back surgeries colon surgery bladder surgery toe amputated left foot little toe Hospitalization History Reason Date(Month/Year) surgeries
--- OUTSIDE RECORDS SUMMARY | 2025-03-02 20:17 | XMS_ITS | Clinical Summary ---
Author Organization [facility] Address [address] [address] Phone Care Team Providers Care Psychology Tech Name Role Phone Sandra Fransisca Santiago QUALITY HEAD Primary Care Provider [phone] Allergies Active Allergy Reactions Criticality Noted Date Comments Latex 06/14/2021 Medications cetirizine 10 mg capsule Take 10 mg by mouth 1 (one) time each day. Active medroxyPROGESTE Shravan (Depo-Provera) 150 mg/mL injection Inject 150 mg into the shoulder, thigh, or buttocks every 3 (three) months. Active hydrOXYzine HCL (Atarax) 10 mg tablet Take 10 mg by mouth every 8 (eight) hours if needed for itching. Active ondansetron (Zofran) 4 mg/5 mL solution Take by mouth every 6 (six) hours if needed for nausea or vomiting. Active polyvinyl alcohol (Liquifilm Tears) 1.4 % ophthalmic solution 1 drop if needed for dry eyes. Active SUMAtriptan (Imitrex) 100 mg tablet Take 100 mg by mouth 1 (one) time if needed for migraine. Active traZODone (Desyrel) 100 mg tablet Take 100 mg by mouth every night. Active cyclobenzaprine (Flexeril) 5 mg tablet Take 7.5 mg by mouth 3 (three) times a day if needed for muscle spasms. Active celecoxib (CeleBREX) 200 mg capsule Take 200 mg by mouth 2 (two) times a day. Active diphenhydrAMINE (BENADryl) 25 mg capsule Take 25 mg by mouth every 8 (eight) hours if needed for itching. Active metoclopramide (Reglan) 10 mg tablet Take 10 mg by mouth 4 (four) times a day. Active DULoxetine (Cymbalta) [address] capsule Take 120 mg by mouth 1 (one) time each day. Do not crush or chew. Active meclizine (Antivert) 25 mg tablet Take 25 mg by mouth 3 (three) times a day if needed for dizziness. Active ciprofloxacin (Cipro) 500 mg/5 mL suspension Take 500 mg by mouth 2 (two) times a day. X 7 days for UTI Active MIRABEGRON ORAL Take 15 mg by mouth 1 (one) time each day. Active Social History Tobacco Use Types Packs/Day Years Used Date Smoking Tobacco: Never Smokeless Tobacco: Never Alcohol Use Standard Drinks/Week Comments Never 0 (1 standard drink = 0.6 oz pur e alcohol) Comments Unknown Sex and Gender Information Value Date Recorded Sex Assigned at Not on file Legal Sex Female 11:39 AM CDT Gender Identity Not on file Sexual Orientation Not on file Last Filed Vital Signs Vital Sign Reading Time Taken Comments Blood Pressure 125/73 06/20/2021 7:52 AM CDT Pulse 95 06/20/2021 7:52 AM CDT Temperature 37.2 C (98.9 F) 06/20/2021 7:52 AM CDT Respiratory Rate - - Oxygen Saturation 96% 06/20/2021 7:52 AM CDT Inhaled Oxygen Concentration - - Weight 90.9 kg (200 lb 6.4 oz) 06/20/2021 7:52 A M CDT Height 149.9 cm (4' 11 ) 06/20/2021 7:52 AM CDT Body Mass Index 40.48 06/20/2021 7:52 AM CDT Plan of Treatment Health Maintenance Due Date Last Done Comments MMR Vaccines (1 of 1 - Stand tena series) 2003 DTaP,Tdap,and Td Vaccines (1 - Tdap) 2009 Varicella Vaccines (1 of 2 - 13+ 2-dose series) 2015 HPV Vaccines (1 - 3-dose series) 2017 Meningococcal B Vaccine (1 o f 2 - Standard) 2018 Depression Screening 02/24/2020 Social Drivers of Health (SDoH) 02/24/2020 Hepatitis B Vaccines (1 of 3 - 19+ 3-dose series) 2021 Pap Smear 2023 COVID-19 Vaccines (1 - 2024- season) 2024 Influenza Vaccine (#1) 2024 Zoster Vaccines (1 of 2) 02/24/2052 RSV Vaccines (1 - 1-dose 75+ series) 2077 HIB Vaccines Aged Out No longer eligi ble based on patient's age to complete this topic Hepatitis A Vaccines Aged Out No long er eligible based on patient's age to complete this topic IPV Vaccines Aged Out No longer eligi ble based on patient's age to complete this topic Meningococcal Vaccine Aged Out No malathi shahbaz eligible based on patient's age to complete this topic Pneumococcal Vaccines Aged Out No malathi shahbaz eligible based on patient's age to complete this topic Rotavirus Vaccines Aged Out No longer eligible based on patient's age to complete this topic Insurance [employer] Care Teams Psychology Tech Relationship Specialty Start Date End Date Fransisca Flores FNP [address] [place] [address] PCP - General Family Medicine 06/20/21
--- NOTE | 2025-03-02 20:31 | ED_ITS ---
HPI - Abdominal Pain 2 General: Chief Complaint: Abdominal Pain Stated Complaint: abdomen pain Time Seen by Provider: 03/02/25 19:59 History of Present Illness: Patient is a 25-year-old female with spina bifida, previous colostomy on the right lower quadrant, now cutaneous fistula/closing/button, and previous suprapubic catheter, now removed, presents to the emergency room with left lower quadrant and periumbilical pain. Patient states this has been increasing x 1 day. Patient states stool has changed to liquid stools. She is having stools per rectum now. She self caths with nonlatex catheter. She had nausea, and vomiting times here once. Associated Symptoms: Reports dysuria, nausea and vomiting (Bilious); Denies chills, diarrhea, fever(s) and hematemesis Related Data Home Medications ?Medication ?Instructions ?Recorded ?Confirmed cetirizine 10 mg tablet 10 mg PO DAILY PRN Allergic 12/02/22 12/04/24 Symptoms levothyroxine 25 mcg tablet 25 mcg PO QAM 12/02/22 topiramate 100 mg tablet 100 mg PO BEDTIME 10/10/24 0 12/04/24 cyclobenzaprine 10 mg tablet 5 mg PO BEDTIME x7d 12/0412/04/24 hydrochlorothiazide 12.5 mg tablet 12.5 mg PO DAILY ME N fluid 12/04/24 12/04/24 metoclopramide HCl 10 mg tablet 10 mg PO Q6H PRN Nause a And 12/04/24 12/04/24 Vomiting Previous Rx's ?Medication ?Instructions ?Recorded CAM walker #1 ea 08/26/24 Diapers Adult PUll ons #60 ea 09/24/24 Wheelchair #1 ea 09/24/24 duloxetine 60 mg capsule,delayed 120 mg (2 x 60 mg) PO QAM #60 caps 09/24/24 release ciprofloxacin HCl 500 mg tablet 500 mg PO BID #20 tabs 03/02/25 metronidazole 500 mg tablet 500 mg PO Q8H 10 days #30 tabs 03/02/25 ondansetron 4 mg disintegrating 4 mg PO Q8H PRN nausea and 03/02/25 tablet vomiting 4 days #14 tabs Allergies Allergy/AdvReac Type Severity Reaction Status Date / Time adhesive Allergy ALGY-Rash Verified 03/02/25 20:04 cephalexin Allergy itch Verified 03/02/25 20:04 clindamycin Allergy Unknown Verified 03/02/25 20:04 latex Allergy Unknown Verified 03/02/25 20:04 Review of Systems 2 General: Reports: 10 or more systems reviewed and unremarkable except in HPI and below Const: Denies: fever(s) or chills ENMT: Denies: throat pain or dental pain Card: Denies: chest pain or palpitations Resp: Denies: dyspnea or non-productive cough GI: Reports: abdominal pain, nausea, vomiting (Bilious) and early satiety; Denies: hematemesis or diarrhea : Reports: dysuria Musc: Denies: neck pain or back pain Skin/Breast: Denies: rash Neuro: Denies: headache(s), numbness in extremities or sensory changes Psych: Reports: anxiety; Denies: depression PFSH ED 2 PFSH: Medical History (Updated 03/02/25 @ 22:49 by ROSA Khoury) Unable to walk Adult onset hypothyroidism Chronic suprapubic catheter Cecostomy status Dependent edema Seizure Spina bifida Generalized anxiety disorder Major depressive disorder, recurrent, moderate Common migraine with intractable migraine Intellectual disability Surgical History Hx of colostomy some type of tube in R side of abdomen that she connects to fluids and it makes her have BM History of suprapubic catheter Hx of foot surgery Left foot surgery--had to have toes amputated b/c of infection History of lumbar surgery CPR 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 (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) shunt status Family History Grandmother Hypertension Hypercholesteremia Denies family history of Colon cancer Ovarian cancer Prostate cancer Diabetes Heart disease Breast cancer Uterine cancer Thyroid disease Stroke Social History Smoking and tobacco/nicotine status: current every day tobacco/nicotine user Alcohol intake: never Substance/Drug Use: current Substance/Drug use frequency: Special occassions/opportunity only Physical Exam 2 Const: COMMON NORMALS: no acute distress, patient oriented x3 and healthy appearing HENMT: COMMON NORMALS: normocephalic and atraumatic HEAD & SCALP: n ormocephalic and atraumatic Neck/C-Spine: COMMON NORMALS: full ROM and supple Chest: COMMONS NORMALS: normal inspection of the chest and normal palpation of entire chest wall Resp: COMMON NORMALS: normal respiratory effort, No retractions, No use of accessory muscles and clear to auscultation bilaterally AUSCULTATION: clear to auscultation bilaterally Cardio: COMMON NORMALS: regular rate, regular rhythm and No murmurs present (Cardio) RATE: regular rate RHYTHM: regular rhythm GI: COMMON NORMALS: Normal to inspection, nondistended, normoactive bowel sounds present, Soft to palpation, No hepatosplenomegaly present and no masses PALPATION: Yes Soft to palpation, Yes Tenderness to palpation present (GI) Details: LUQ, No Guarding due to palpation present (GI), No Rigid due to palpation and Yes No hepatosplenomegaly present OTHER: Button in right lower quadrant previous colostomy Suprapubic catheter has been removed : COMMON NORMALS: Yes no CVA tenderness BLADDER/KIDNEY EXAM: Yes no CVA tenderness Back/Pelvis: COMMON NORMALS: no CVA tenderness Extremity: COMMON NORMALS: normal to inspection and full ROM Neuro: COMMON NORMALS: patient oriented x3, moves all extremities and no focal motor deficits Psych: COMMON NORMALS: mental status grossly normal, Normal thought process present and cooperative THOUGHT PROCESS: Normal thought process present Skin: COMMON NORMALS: no rashes or lesions noted and no wounds GENERAL SKIN EXAM: no rashes or lesions noted Course 2 Vital Signs: Vital signs: Vital Signs Temperature 98.2 F 03/02/25 19:58 Pulse Rate 107 H 03/02/25 23:28 Respiratory Rate 18 03/02/25 22:30 Blood Pressure 162/101 03/02/25 23:28 Pulse Oximetry 92 03/02/25 23:28 Oxygen Delivery Me thod Room Air 03/02/25 22:30 MDM - Abdominal Pain Medical Decision Making Patient is a quite pleasant 25-year-old female with spina bifida, previous suprapubic catheter, previous diverting colostomy, presents to the ED with more of a left upper quadrant, and left flank pain. On CT of the abdomen pelvis, when she had her diverting colostomy, the terminal ileum had some ileitis at an anastomosis. Discussed all of this with patient layman's terms. Discussed with patient clear liquid diet only x 3 days or if symptoms are longer, continuing until symptoms have stopped. I have also given her a low threshold to return to ED for ongoing symptoms, and discussed worsening symptoms if she did in fact advance her diet. Patient states understanding. She was started on Flagyl, ciprofloxacin. Her pain on nonverbal scale was 3?4. Pain was not noticeable at 0 on nonverbal scale after lorazepam x 1/2 mg. Nausea and vomiting had completely resolved otherwise I would further discuss with hospitalist at this time Medical Records I reviewed the patient's medical records. Lab Data I reviewed the patient's lab results. 03/02/25 20:33 03/02/25 20:33 Labs/Radiology: Radiology Impressions Abdomen/Pelvis CT 03/02/25 20:43 IMPRESSION: 1. Thickening and enhancement of the terminal ileum with patulous dilatation of an adjacent small bowel anastomosis containing fecalized material and mildly dilated fluid-filled loops of upstream small bowel. Correlate clinically for terminal ileitis. Can not exclude early small bowel obstruction. 2. Urothelial thickening and enhancement of the right renal pelvis and ureter. Correlate with urinalysis for acute pyelitis. 3. Irregular appearance of the urinary bladder is similar to prior CT on 06/25/2022, possibly a neurogenic bladder. COMMENTS: Consistent with the [employer]'s Incidental Findings Committee white paper (J Am Harrison Radiol 2018): Any incidental renal lesion less than 1 cm or classified as too small to characterize, or any incidental cystic renal lesion characterized as simple-appearing, is likely benign. No follow-up imaging is recommended for these lesions per consensus recommendations based on imaging criteria. Laboratory Results WBC 11.76 10^3/uL (3.29-11.43) H 03/02/25 20:33 RBC 4.87 10^6/uL (3.85-5.65) 03/02/25 20:33 Hgb 14.40 g/dL (11.27-16.99) 03/02/25 20:33 Hct 44.1 % (36-47) 03/02/25 20:33 MCV 90.6 fl (85-98) 03/02/25 20:33 MCH 29.6 pg (27-33) 03/02/25 20:33 MCHC 32.7 g/dL (30-55) 03/02/25 20:33 RDW 14.0 % (12.1-15.1) 03/02/25 20:33 Plt Count 318 10^3/cmm (157-399) 03/02/25 20:33 MPV 10.1 fL (7.4-10.4) 03/02/25 20:33 Neut % (Auto) 66.7 % 03/02/25 20:33 Lymph % (Auto) 26.9 % 03/02/25 20:33 [place] % (Auto) 4.8 % 03/02/25 20:33 Eos % (Auto) 1.0 % 03/02/25 20:33 Baso % (Auto) 0.3 % 03/02/25 20: Neut # (Auto) 7.85 10^3/uL (1.8-7.7) H 03/02/25 20: Lymph # (Auto) 3.2 10^3/uL (0.8-4.8) 03/02/25 20: [place] # (Auto) 0.6 10^3/uL (0.2-0.9) 03/02/25 20: Eos # (Auto) 0.1 10^3/uL (0.0-0.8) 03/02/25 20:33 Baso # (Auto) 0.0 10^3/uL (0.0-0.1) 03/02/25 20: Nucleated RBC % (auto) 0 % 03/02/25 20: Nucleated RBCs # 0.0 /100WBC 03/02/25 20:33 Sodium 138 mmol/L (136-145) 03/02/25 20:33 Potassium 3.8 mmol/L (3.5-5.1) 03/02/25 20:33 Chloride 104 mmol/L (98-107) 03/02/25 20:33 Carbon Dioxide 21 mmol/L (22-29) L 03/02/25 20:33 Anion Gap 16.8 (5-19) 03/02/25 20:33 BUN 13 mg/dL (6-20) 03/02/25 20:33 Creatinine 0.7 mg/dL (0.5-0.9) 03/02/25 20:33 GFR Calculation 103.7 mL/min (90-130) 03/02/25 20:33 Glucose 100 mg/dL (65-115) 03/02/25 20:33 Calculated Osmolality 286 mOsm/kg (285-295) 03/02/25 20: Calcium 8.9 mg/dL (8.5-10.5) 03/02/25 20: Total Bilirubin 0.5 mg/dL (0.15-1.2) 03/02/25 20:33 AST 10 U/L (0-32) 03/02/25 20:33 ALT 6 U/L (0-33) 03/02/25 20: Alkaline Phosphatase 115 U/L (35-105) H 03/02/25 20:33 Total Protein 7.4 g/dL (6.6-8.7) 03/02/25 20: Albumin 4.6 g/dL (3.5-5.2) 03/02/25 20: Globulin 2.8 g/dL (1.3-4.6) 03/02/25 20: Lipase 17 U/L (13-60) 03/02/25 20:33 HCG, Qual Negative (Negative) 03/02/25 20: Urine Color Yellow (Yellow) 03/02/25 21:46 Urine Appearance Turbid (CLEAR) A 03/02/25 21:46 Urine pH >=9.0 (5-7) A 03/02/25 21:46 Ur Specific [place] 1.036 (1.005-1.030) H 03/02/25 21:46 Urine Protein 2+ (Negative) A 03/02/25 21:46 Urine Glucose (UA) Negative (Normal) 03/02/25 21:46 Urine Ketones Trace (Negative) 03/02/25 21:46 Urine Blood Negative (Negative) 03/02/25 21:46 Urine Nitrate Negative (Negative) 03/02/25 21:46 Urine Bilirubin Negative (Negative) 03/02/25 21:46 Urine Urobilinogen 1.0 mg/dL (Negative) 03/02/25 21:46 Ur Leukocyte Esterase 3+ (Negative) A 03/02/25 21:46 Urine RBC 6-10 /hpf (0-2) 03/02/25 21:46 Urine WBC >100 /hpf (0-5) H 03/02/25 21:46 Ur Squamous Epith Cells 5-10 /hpf (0-5) H 03/02/25 21:46 Amorphous Sediment Not Reportable 03/02/25 21:46 Urine Bacteria 4+ /hpf (NONE) H 03/02/25 21:46 Hyaline Casts 167.82 /lpf 03/02/25 21:46 Urine Mucus 3+ /hpf 03/02/25 21:46 All radiology interpretation(s) finalized by discharge EKG Data EKG 1: Interpretation: Normal sinus rhythm, normal axis, isolated ST segment Discharge Plan Discharge Patient Disposition: Home Clinical Impression: Terminal ileitis without complication Condition: Stable Prescriptions: New metronidazole 500 mg tablet 500 mg PO Q8H 10 Days Qty: 30 0RF ciprofloxacin HCl 500 mg tablet 500 mg PO BID Qty: 20 0RF ondansetron 4 mg tablet,disintegrating 4 mg PO Q8H PRN (Reason: nausea and vomiting) 4 Days Qty: 14 0RF No Action (DME) Wheelchair See Rx Instructions .Route .MEDSUPPLY Qty: 1 0RF Rx Instructions: please do seating eval for wheelchair she needs duloxetine 60 mg capsule,delayed release(DR/EC) 120 mg PO QAM Qty: 60 5RF (DME) Diapers Adult PUll ons Large See Rx Instructions .Route .MEDSUPPLY Qty: 60 5RF Rx Instructions: up to max of 2 per day; spina bifida that causes bowel incontinence (DME) CAM walker See Rx Instructions .Route .MEDSUPPLY Qty: 1 0RF Rx Instructions: As directed topiramate 100 mg tablet 100 mg PO BEDTIME cetirizine 10 mg Tablet 10 mg PO DAILY PRN (Reason: Allergic Symptoms) levothyroxine 25 mcg tablet 25 mcg PO QAM cyclobenzaprine 10 mg tablet 5 mg PO BEDTIME metoclopramide HCl 10 mg tablet 10 mg PO Q6H PRN (Reason: Nausea And Vomiting) hydrochlorothiazide 12.5 mg tablet 12.5 mg PO DAILY PRN (Reason: fluid) Discharge Orders: Discharge ED (Routine); Ordered 03/02/25 Ordered By: Martha Spann Referrals: Elza Dennis MD [Primary Care Provider, Family Practice] Discharge Diet: Clear Liquid Discharge Activity: Resume usual activity Patient Instructions: Abdominal Pain (ED), Colitis (ED), Patient Portal & Fabian Instructions Activity Restrictions/Additional Instructions: - CLEAR liquid diet only - Antibiotics at the pharmacy: Metronidazole/Flagyl, ciprofloxacin/Cipro - Nausea medication at the pharmacy: Zofran/ondansetron - If you have worsening nausea, vomiting, or you cheat on your diet and things get worse, come back to the ED. -Laxative of choice -Probiotic is recommended with an antibiotic. Please take daily. - Please stay on a clear liquid diet for the next 3 days. If you still have symptoms at 3 days, continue your clear liquid diet beyond 3 days until your symptoms are gone Thank you for choosing [facility] for your healthcare needs today. You have been screened and evaluated and felt safe for discharge. Health conditions do change or evolve sometimes and as such it is important that you follow up with your Primary Doctor to be re checked, 3-5 days is a general good time frame for follow up. You are always welcome to return to the ED for re assessment if your symptoms are worsening or you have new concerns Print Language: Palestinian Coding Level of Care Code ED Animal Therapist for Jordana Chiu
[2025-03-02 20:40] LABS: Hematocrit 44.1 % (36-47); Hemoglobin 14.40 g/dL (11.27-16.99); Mean Corpuscular HGB Conc 32.7 g/dL (30-55); Mean Corpuscular Hemoglobin 29.6 pg (27-33); Mean Corpuscular Volume 90.6 fl (85-98); Nucleated Red Blood Cells % 0 %; Platelet Count 318 10^3/cmm (157-399); Red Blood Count 4.87 10^6/uL (3.85-5.65); White Blood Count 11.76 10^3/uL (3.29-11.43)
--- NOTE | 2025-03-02 20:43 | CTR_ITS ---
PROCEDURE INFORMATION: Exam: CT Abdomen And Pelvis With Contrast Exam date and time: 03/02/2025 9:25 PM Age: 25 years old Clinical indication: Abdominal pain; Prior surgery; Surgery date: 6+ months; Surgery type: Shunt placement, colostomy TECHNIQUE: Imaging protocol: Computed tomography of the abdomen and pelvis with contrast. Radiation optimization: All CT scans at this facility use at least one of these dose optimization techniques: automated exposure control; mA and/or kV adjustment per patient size (includes targeted exams where dose is matched to clinical indication); or iterative reconstruction. Contrast material: OMNI 350; Contrast volume: 100 ml; Contrast route: INTRAVENOUS (IV); COMPARISON: CT abdomen pelvis wo con [id number] 06/25/2022 6:39 PM RADIATION DOSE METRICS: Total DLP (mGy-cm): 974.23 FINDINGS: Tubes, catheters and devices: Pigtail catheter in the ascending colon. A shunt catheter terminates in the pelvis. Lungs: The lung bases are clear. Liver: Unremarkable. No abnormally enhancing liver lesions. Gallbladder and biliary ducts: Cholelithiasis. No CT evidence for acute cholecystitis. No biliary ductal dilatation. Pancreas: Unremarkable. No pancreatic ductal dilatation. Spleen: Unremarkable. Adrenal glands: The adrenal glands are unremarkable. Kidneys and ureters: Symmetric bilateral renal enhancement. Right renal cortical scarring. 1.9 cm right renal cortical cyst. There is right-sided urothelial thickening of the renal pelvis and ureter. No hydronephrosis. Left kidney is unremarkable. Stomach and bowel: Stomach is unremarkable. There is a dilated loop of small bowel containing fecalized material in the midabdomen adjacent to a small bowel anastomosis. There is mural thickening of the terminal ileum just distal to this and mild upstream small bowel dilatation. Appendix: No evidence of appendicitis. Intraperitoneal space: Small pelvic free fluid and trace mesenteric free fluid, nonspecific in the setting of shunt. No intraperitoneal free air. Vasculature: Unremarkable. No abdominal aortic aneurysm. Lymph nodes: No abdominal or pelvic adenopathy. Urinary bladder: Circumferential irregular mural thickening of the urinary bladder, asymmetric to the right, similar to prior CT on 06/25/2022, possibly representing a neurogenic bladder. Reproductive: Uterus and left adnexa are unremarkable. Right ovarian corpus luteal cyst. Bones/joints: Lumbar dextroscoliosis. Soft tissues: Unremarkable. CT/CT abdomen pelvis w con* [id number] IMPRESSION: 1. Thickening and enhancement of the terminal ileum with patulous dilatation of an adjacent small bowel anastomosis containing fecalized material and mildly dilated fluid-filled loops of upstream small bowel. Correlate clinically for terminal ileitis. Can not exclude early small bowel obstruction. 2. Urothelial thickening and enhancement of the right renal pelvis and ureter. Correlate with urinalysis for acute pyelitis. 3. Irregular appearance of the urinary bladder is similar to prior CT on 06/25/2022, possibly a neurogenic bladder. COMMENTS: Consistent with the [employer]'s Incidental Findings Committee white paper (J Am Harrison [employer]iol 2018): Any incidental renal lesion less than 1 cm or classified as too small to characterize, or any incidental cystic renal lesion characterized as simple-appearing, is likely benign. No follow-up imaging is recommended for these lesions per consensus recommendations based on imaging criteria.
[2025-03-02 21:04] LABS: Alanine Aminotransferase 6 U/L (0-33); Albumin Level 4.6 g/dL (3.5-5.2); Alkaline Phosphatase 115 U/L (35-105); Anion Gap 16.8 (5-19); Aspartate Amino Transferase 10 U/L (0-32); Blood Urea Nitrogen 13 mg/dL (6-20); Calcium 8.9 mg/dL (8.5-10.5); Carbon Dioxide 21 mmol/L (22-29); Chloride 104 mmol/L (98-107); Globulin 2.8 g/dL (1.3-4.6); Glucose 100 mg/dL (65-115); Lipase 17 U/L (13-60); Osmolality Calculated 286 mOsm/kg (285-295); Potassium 3.8 mmol/L (3.5-5.1); Sodium 138 mmol/L (136-145); Total Protein 7.4 g/dL (6.6-8.7)
[2025-03-02 21:12] LABS: HCG, Serum Qual Negative (Negative)
[2025-03-02 21:23] VITALS: BP 130/76; PULSE 87; O2SAT 98
[2025-03-02] MEDS: ondansetron 2 mg/ML SDV 2 mL 4 MG IVP (21:23)
[2025-03-02] MEDS: iohexol 350 mg/mL 500 mL Btl (per mL) IV (21:29)
[2025-03-02 21:30] VITALS: PULSE 100; O2SAT 96
--- NOTE | 2025-03-02 21:55 | PC.NURSE ---
12fr silicone catheter used for straight cath.
[2025-03-02 22:20] LABS: Glucose Urine UA Negative (Normal); Nitrate Urine Negative (Negative)
[2025-03-02 22:25] LABS: Add Urine Microscopic? YES
[2025-03-02 22:30] VITALS: BP 160/81; PULSE 112; RESP 18; O2SAT 97
[2025-03-02] MEDS: LORazepam 2 mg/mL INJ 1 mL 0.5 MG IVP (22:40)
[2025-03-02 22:48] LABS: Specific Gravity, Urine 1.036 (1.005-1.030)
[2025-03-02 22:49] LABS: UA Slide Review UA Slide Review Perf
[2025-03-02 23:28] VITALS: BP 162/101; PULSE 107; O2SAT 92
== END 2025-03-02 23:32 | disposition home or self-care (01) ==
PROVIDERS: Emergency Provider Physician Assistant; PCP Family Medicine
DX: K50.00 Crohn's disease of small intestine without complications (principal); Z72.0 Tobacco use
CPT/HCPCS: 36415; 74177; 80053; 81001; 83690; 84703; 85025; 87086; 96374; 96375; 99285; J2060; J2405; J9999